=== PATIENT | female | born 2000 | race Caucasian/White ===

== ENCOUNTER 2022-10-17 13:26 | Emergency (ER) | payer OTHER, SELFPAY ==
[2022-10-17 13:31] VITALS: BP 115/78; PULSE 78; RESP 16; O2SAT 99; BMI 31.0
--- NOTE | 2022-10-17 13:45 | PC.NURSE ---
Pt states took multiple at home tests and states the lines were to light to tell if she was actually or not. Pt states she wants tested to see if she is . Pt states no bleeding or cramping. No other symoptoms states if she is it is early as LMP was around September 14 or a little after.
--- NOTE | 2022-10-17 13:48 | ED.FEMALEGU1 ---
HPI - Female Genitourinary General Chief complaint: Urogenital-Female Stated complaint: ISSUES LESS THAN 20 WEEKS Time Seen by Provider: 10/17/22 13:44 Source: patient Mode of arrival: walk-in Limitations: no limitations History of Present Illness HPI Narrative: Patient presents to emergency department with a complaint of I missed my period patient states she took 2 tests at home and [id number] lines so she wanted to come here to confirm. She states she is not trying to get . She is sexually active and does not wear condoms. She states she is not having any other symptoms. She denies any abdominal pain, vaginal bleeding, discharge. She denies any flank pain, hematuria, dysuria. Last menstrual period was September 14 she states she is 6 days late.She does not have a primary care doctor or JIGGER OPERATOR. Related Data Home Medications Medication Instructions Recorded Confirmed No Known Home Medications 10/17/22 10/17/22 Allergies Allergy/AdvReac Type Severity Reaction Status Date / Time No Known Drug Allergies Allergy Verified 10/17/22 13:36 Review of Systems ROS Status of ROS 10 or more systems reviewed and unremarkable except as noted in history and below [facility] Social History Smoking status: Current every day smoker Exam Narrative Exam Narrative: Nurses notes and vital signs reviewed and patient is not hypoxic. General: Nontoxic, Well-appearing and in no apparent distress. Skin: Warm, dry, no pallor noted. No Rash Head: Normocephalic, atraumatic. Neck: Supple, non-tender. Eye: Pupils are equal, round and EOMI. No scleral icterus. Ears, Nose, Mouth, and Throat: TM clear, no posterior oropharynx erythema or nasal mucosal hypertrophy, uvula is mid-line Oral mucosa is moist Cardiovascular: Regular Rate and Rhythm without murmur, gallop or rub. Respiratory: No accessory muscle use or respiratory distress. Lungs are clear to auscultation, no wheezing, rales or rhonchi Chest Wall: no tenderness Back: No midline thoracic or lumbar vertebral tenderness. No CVA tenderness Musculoskeletal: normal ROM, no calf or popliteal tenderness, no lower extremity edema/swelling GI: Abdomen is soft, non-distended. Normal bowel sounds. No masses appreciated. No tenderness to palpation. No rebound, guarding, or rigidity noted. Neurological: A&O x4. No cranial nerve dysfunction observed. No truncal ataxia. Moves all extremities. Sensation intact. Psychiatric: Cooperative and interactive. Normal mood and affect. Constitutional Vital Signs - 24 hr 10/17/22 13:31 Pulse Rate [Monitor] 78 Respiratory Rate 16 Blood Pressure [Right Arm] 115/78 Pulse Oximetry 99 Oxygen Delivery Method Room Air Course Vital Signs Vital signs: Vital Signs Pulse Rate 78 10/17/22 13:31 Respiratory Rate 16 10/17/22 13:31 Blood Pressure 115/78 10/17/22 13:31 Pulse Oximetry 99 10/17/22 13:31 Oxygen Delivery Method Room Air 10/17/22 13:31 Pulse Rate 78 10/17/22 13:31 Respiratory Rate 16 10/17/22 13:31 Blood Pressure 115/78 10/17/22 13:31 Pulse Oximetry 99 10/17/22 13:31 Oxygen Delivery Method Room Air 10/17/22 13:31 MDM - Female Genitourinary MDM Narrative Medical decision making narrative: Patient had a urinalysis done. Urine is negative. Patient is nontoxic. She'll follow up with primary care doctor and JIGGER OPERATOR. At this time the patient is without objective evidence of an acute process requiring hospitalization or inpatient management. The patient has remained hemodynamically stable. No additional indication for emergent studies at this time. I answered all questions. Discussed discharge instructions including standard anticipatory guidance and what should prompt a return to the emergency department, including if they get worse are not getting better or develops any new or concerning symptoms. I've given them specific time frame in which to follow-up, and who to follow-up with. The patient demonstrates understanding. Patient is nontoxic and stable for discharge with outpatient follow-up. This note was created with the assistance of a speech recognition program. Although the intention is to generate documents that actually reflects the content of the visit, no guarantees can be provided that every mistake has been identified and corrected by editing. Differential Diagnosis Differential diagnosis: Likely urinary tract infection Lab Data Attestation: I reviewed the patient's lab results. Labs: Lab Results 10/17/22 Range/Units 14:00 Urine Color Yellow (YELLOW) Urine Clarity Clear (CLEAR) Urine pH 6.0 (5.0-9.0) Ur Specific [place] >=1.030 A (1.005-1.025) Urine Protein Negative (NEG/TRACE) mg/dL Urine Glucose (UA) Negative (NEGATIVE) mg/dL Urine Ketones 15 A (NEGATIVE) mg/dL Urine Occult Blood Negative (NEGATIVE) Urine Nitrite Negative (NEGATIVE) Urine Bilirubin Negative (NEGATIVE) Urine Urobilinogen 1.0 (0.2-1.0) EU/dL Ur Leukocyte Esterase Negative (NEGATIVE) Urine HCG, Qual Negative (NEGATIVE) Discharge Plan Discharge Chief Complaint: Urogenital-Female Clinical Impression: Amenorrhea Patient Disposition: Home, Self-Care Time of Disposition Decision: 14:22 Condition: Good Mode of Transportation: Private Vehicle Prescriptions / Home Meds: No Action No Known Home Medications Additional Instructions: Follow-up with primary care doctor with any consequences as discussed. Stand Alone Forms: Portal Instructions Referrals: KAVIN VAZ MD [Physician] - 1 week Physician,Non-StaffMD [Primary Care Provider] - 1 week Discharge Date/Time: 10/17/22 14:30
[2022-10-17 14:09] LABS: Bilirubin Urine NEGATIVE (NEGATIVE); Blood Urine NEGATIVE (NEGATIVE); Clarity Urine CLEAR (CLEAR); Color Urine YELLOW (YELLOW); Glucose Urine UA NEGATIVE (NEGATIVE); Ketones Urine 15 mg/dL (NEGATIVE); Leukocyte Esterase Urine NEGATIVE (NEGATIVE); Nitrite Urine NEGATIVE (NEGATIVE); Protein Urine NEGATIVE (NEG/TRACE); Specific Gravity Urine >=1.030 (1.005-1.025)
[2022-10-17 14:12] LABS: HCG Qualitative Urine* NEGATIVE (NEGATIVE)
[2022-10-17 14:19] LABS: Urine Microscopic Indicated NO
== END 2022-10-17 14:30 | disposition home or self-care (01) ==
PROVIDERS: Emergency Provider Emergency Medicine
DX: N91.2 Amenorrhea, unspecified (principal)
CPT/HCPCS: 81003; 84703; 99284

== ENCOUNTER 2023-10-25 18:22 | Emergency (ER) | payer OTHER, SELFPAY ==
[2023-10-25 18:33] VITALS: BP 161/94; PULSE 100; TEMP 37; O2SAT 99; BMI 29.2
[2023-10-25 19:37] VITALS: O2SAT 93
[2023-10-25 19:39] VITALS: BP 123/91; PULSE 114
--- NOTE | 2023-10-25 19:39 | ECG_ITS ---
[facility] Test Date: 2023-10-25 Pat Name: JESSIE GONG Department: Room: - Gender: Female [employer]: : 2000 Requested By: SOCORRO SHRESTHA Order Number: [id number] Reading MD: LINDA BROWN Measurements Intervals [place] Rate: 118 P: 69 [place]: 162 QRS: 78 QRSD: 82 T: 12 QT: 298 QTc: 368 Interpretive Statements 1120 Sinus tachycardia 4068 Nonspecific [place] abnormality 9140 abnormal rhythm ECG No previous ECG available for comparison Electronically Signed On 10-27-2023 8:03:22 EDT by LINDA BROWN
--- NOTE | 2023-10-25 19:58 | ED_ITS ---
HPI HPI - General Adult General Chief complaint: Headache Stated complaint: Fever Time Seen by Provider: 10/25/23 19:42 Source: patient and family Mode of arrival: walk-in Limitations: no limitations History of Present Illness HPI narrative: presents complaining of headache 3 days ago and tremor of her right leg. Was seen at [facility] and neg. workup. Today headache again along with flushing of her neck and face. Legs with tremor that worsens when she stands. [place] dizzy and felt confused. again has a headache. No fever. Seen at [facility] today and workup neg and discharged. States she is no better and now she is here with same symptoms. Denies any stress or anxiety. States she is not taking any medications Related Data Home Medications ?Medication ?Instructions ?Recorded ?Confirmed No Known Home Medications 10/17/22 10/25/23 Allergies Allergy/AdvReac Type Severity Reaction Status Date / Time No Known Drug Allergies Allergy Verified 10/25/23 18:33 Opioid HPI Opioid Management Most Recent Opioid Data: No Data to Display Review of Systems ROS Status of ROS 10 or more systems reviewed and unremark able except as noted in history and below PFSH PFSH Social History Smoking status: Current every day smoker Exam Constitutional Vital Signs, click to edit/add: Last Vital Signs Temp 98.6 F 10/25/23 18:33 Pulse 114 H 10/25/23 19:39 Resp 20 10/25/23 19:39 BP 107/77 10/25/23 20:30 Pulse Ox 93 L 10/25/23 19:37 O2 Del Method Room Air 10/25/23 18:33 Common normals: no apparent distress, average body habitus, oriented x3, no limitations, healthy appearing, alert and well nourished Eye Common normals: PERRL and EOMs intact bilaterally Respiratory Common normals: normal respiratory effort, no retractions, no use of accessory muscles and clear to auscultation bilaterally Cardio Common normals: regular rate, regular rhythm, S1 normal heart sound and S2 normal heart sound GI Common normals: Normal to inspection, nondistended, normoactive bowel sounds present, soft to palpation and non-tender Extremity Common normals: normal to inspection and full ROM Neuro Common normals: oriented x3, CN's II-XII intact bilaterally, moves all extremities, no focal motor deficits (muscle contractions minor (fasciculation) right thigh) and no sensory deficits noted Psych Appearance: grossly normal Course Vital Signs Vital signs: Vital Signs Temperature 98.6 F 10/25/23 18:33 Pulse Rate 100 H 10/25/23 18:33 Respiratory Rate 16 10/25/23 18:33 Blood Pressure 161/94 H 10/25/23 18:33 Pulse Oximetry 99 10/25/23 18:33 Oxygen Delivery Method Room Air 10/25/23 18:33 Temperature 98.6 F 10/25/23 18:33 Pulse Rate 114 H 10/25/23 19:39 Respiratory Rate 20 10/25/23 19:39 Blood Pressure 107/77 10/25/23 20:30 Pulse Oximetry 93 L 10/25/23 19:37 Oxygen Delivery Method Room Air 10/25/23 18:33 Medical Decision Making MDM Narrative Medical decision making narrative: patient presents with atypical symptoms of muscle fasciculations right lower ext, headache and feeling confused. Does use marijuana but states she has not used in a week. Urine drug screen earlier today from [facility] positive for THC. labs here with mild elevation of WBC, nonspecific elevated Plt count , mild elevation of ESR and potassium of 3.4. Patient treated with solumedrol and benadryl for headache and it resolved. Was ordered Magnesium but did not receive as she complained of burning at the IV site and had it d/sylvia. I did review her records from [facility] including normal CT brain and CT abdomen with constipation she is discharged and advised to use magnesium at home as it can help the muscle tremors if they return as they have now resolved. Discharged to follow up with her doctor next week. B-6 level ordered and pending Lab Data Labs: Lab Results 10/25/23 Range/Units 20:21 WBC 13.9 H (4.0-11.0) 10^3/uL RBC 4.21 (4.20-5.40) 10^6/uL Hgb 11.8 L (12.0-16.0) g/dL Hct 36.2 (36.0-48.0) % MCV 86.0 (81.0-99.0) fL MCH 28.0 (26.7-34.0) pg MCHC 32.6 (29.9-35.2) g/dL RDW 15.4 H (11.0-15.0) % Plt Count 475 H (150-450) 10^3/uL MPV 8.8 L (9.5-13.5) fL Neut % (Auto) 63.0 (43.0-75.0) % Lymph % (Auto) 28.2 (20.5-60.0) % [place] % (Auto) 7.7 (1.7-12.0) % Eos % (Auto) 0.3 L (0.9-7.0) % Baso % (Auto) 0.4 (0.2-2.0) % Neut # (Auto) 8.8 H (1.4-6.5) 10^3/uL Lymph # (Auto) 3.9 H (1.2-3.8) 10^3/uL [place] # (Auto) 1.1 H (0.3-0.8) 10^3/uL Eos # (Auto) 0.0 (0.0-0.7) 10^3/uL Baso # (Auto) 0.1 (0.0-0.1) 10^3/uL Abs Immat Gran (auto) 0.05 H (0.00-0.03) 10^3/uL Imm/Tot Granulo (auto) 0.4 (0.0-0.5) % ESR 57 H (<=20) mm/hr Sodium 138 (136-145) mmol/L Potassium 3.4 L (3.5-5.1) mmol/L Chloride 101 (98-107) mmol/L Carbon Dioxide 24.2 (21.0-32.0) mmol/L Anion Gap 16.2 BUN 6.0 L (7.0-18.0) mg/dL Creatinine 0.69 (0.55-1.02) mg/dL Est GFR ( Amer) >60 (>=60) Est GFR (Non-Af Amer) >60 (>=60) BUN/Creatinine Ratio 8.7 Glucose 97 (74-106) mg/dL Calcium 9.0 (8.5-10.1) mg/dL Total Bilirubin 0.4 (0.2-1.0) mg/dL AST 15 (15-37) U/L ALT 22 (14-59) U/L Alkaline Phosphatase 42 L (46-116) U/L C-Reactive Protein <0.50 (<=0.50) mg/dL Total Protein 8.1 (6.4-8.2) g/dL Albumin 3.8 (3.4-5.0) g/dL Globulin 4.3 g/dL Albumin/Globulin Ratio 0.9 Vitamin B12 968.0 (193.0-986.0) pg/mL TSH 1.134 (0.358-3.740) uIU/mL Free T4 0.90 (0.76-1.46) ng/dL Discharge Plan Discharge Stand Alone Forms: Portal Instructions Chief Complaint: Headache Clinical Impression: Headache, Fasciculation of lower extremity Patient Disposition: Home, Self-Care Prescriptions / Home Meds: No Action No Known Home Medications Print Language: Thai Instructions: Acute Headache (ED), Tremors (ED) Additional Instructions: use magnesium as discussed and follow up with your doctor next week Referrals: SOCORRO SHRESTHA [Primary Care Provider] - 1 week
[2023-10-25 20:00] VITALS: BP 114/87
[2023-10-25 20:30] VITALS: BP 107/77
[2023-10-25 20:32] LABS: Basophils Absolute Auto 0.1 10^3/uL (0.0-0.1); Basophils Percent Auto 0.4 % (0.2-2.0); Eosinophils Percent Auto 0.3 % (0.9-7.0); Hematocrit 36.2 % (36.0-48.0); Hemoglobin 11.8 g/dL (12.0-16.0); Immature Granulocytes Abs Auto 0.05 10^3/uL (0.00-0.03); Immature Granulocytes Pct Auto 0.4 % (0.0-0.5); Lymphocytes Absolute Auto 3.9 10^3/uL (1.2-3.8); Lymphocytes Percent Auto 28.2 % (20.5-60.0); Mean Corpuscular HGB Conc 32.6 g/dL (29.9-35.2); Mean Platelet Volume 8.8 fL (9.5-13.5); Monocytes Absolute Auto 1.1 10^3/uL (0.3-0.8); Monocytes Percent Auto 7.7 % (1.7-12.0); Neutrophils Absolute Auto 8.8 10^3/uL (1.4-6.5); Platelet Count 475 10^3/uL (150-450); Red Blood Count 4.21 10^6/uL (4.20-5.40); Red Cell Distribution Width 15.4 % (11.0-15.0); White Blood Count 13.9 10^3/uL (4.0-11.0)
[2023-10-25] MEDS: ONDANSETRON PF 4 MG/2 ML VIAL IV (20:41)
[2023-10-25] MEDS: DIPHENHYDRAMINE HCL 50 MG/ML VIAL IV (20:42)
[2023-10-25] MEDS: METHYLPREDNISOLONE SOD SUCC PF 125 MG/2 ML VIAL IVP (20:45)
[2023-10-25] MEDS: MAGNESIUM SULFATE IN WATER 2 GM/50 ML PREMIX IV (20:46)
[2023-10-25 20:57] LABS: Thyroid Stimulating Hormone 1.134 uIU/mL (0.358-3.740)
[2023-10-25 21:09] LABS: Erythrocyte Sedimentation Rate 57 mm/hr (<=20)
[2023-10-25 21:11] LABS: Alanine Aminotransferase 22 U/L (14-59); Albumin Globulin Ratio 0.9; Albumin Level 3.8 g/dL (3.4-5.0); Alkaline Phosphatase 42 U/L (46-116); Anion Gap 16.2; Aspartate Amino Transferase 15 U/L (15-37); BUN Creatinine Ratio 8.7; Bilirubin Total 0.4 mg/dL (0.2-1.0); Carbon Dioxide 24.2 mmol/L (21.0-32.0); Chloride 101 mmol/L (98-107); Estimated GFR (African America >60 (>=60); Estimated GFR (Non-African Ame >60 (>=60); Globulin 4.3 g/dL; Glucose 97 mg/dL (74-106); Potassium 3.4 mmol/L (3.5-5.1); Sodium 138 mmol/L (136-145); Total Protein 8.1 g/dL (6.4-8.2)
[2023-10-25 21:16] LABS: C Reactive Protein <0.50 mg/dL (<=0.50)
== END 2023-10-25 22:29 | disposition home or self-care (01) ==
PROVIDERS: Emergency Provider Internal Medicine; PCP Nurse Practitioner Family
DX: R51.9 Headache, unspecified (principal); R25.3 Fasciculation; F12.90 Cannabis use, unspecified, uncomplicated; F17.200 Nicotine dependence, unspecified, uncomplicated
CPT/HCPCS: 36415; 80053; 80307; 82607; 84207; 84439; 84443; 85025; 85652; 86140; 93005; 96365; 96375; 99284; J1200; J2405; J2919; J3475

== ENCOUNTER 2023-11-05 14:26 | Outpatient (OUT) | payer OTHER, SELFPAY ==
[2023-11-05 15:00] LABS: Basophils Absolute Auto 0.1 10^3/uL (0.0-0.1); Basophils Percent Auto 0.5 % (0.2-2.0); Eosinophils Absolute Auto 0.1 10^3/uL (0.0-0.7); Eosinophils Percent Auto 0.5 % (0.9-7.0); Hematocrit 38.6 % (36.0-48.0); Hemoglobin 12.1 g/dL (12.0-16.0); Immature Granulocytes Abs Auto 0.01 10^3/uL (0.00-0.03); Immature Granulocytes Pct Auto 0.1 % (0.0-0.5); Lymphocytes Absolute Auto 3.5 10^3/uL (1.2-3.8); Lymphocytes Percent Auto 32.7 % (20.5-60.0); Mean Corpuscular HGB Conc 31.3 g/dL (29.9-35.2); Mean Corpuscular Hemoglobin 27.8 pg (26.7-34.0); Mean Corpuscular Volume 88.7 fL (81.0-99.0); Mean Platelet Volume 8.8 fL (9.5-13.5); Monocytes Absolute Auto 0.6 10^3/uL (0.3-0.8); Monocytes Percent Auto 5.6 % (1.7-12.0); Neutrophils Absolute Auto 6.5 10^3/uL (1.4-6.5); Neutrophils Percent Auto 60.6 % (43.0-75.0); Platelet Count 536 10^3/uL (150-450); Red Blood Count 4.35 10^6/uL (4.20-5.40); Red Cell Distribution Width 15.4 % (11.0-15.0); White Blood Count 10.6 10^3/uL (4.0-11.0)
[2023-11-05 15:31] LABS: Alanine Aminotransferase 31 U/L (14-59); Albumin Globulin Ratio 0.9; Albumin Level 4.1 g/dL (3.4-5.0); Alkaline Phosphatase 47 U/L (46-116); Anion Gap 13.9; Aspartate Amino Transferase 17 U/L (15-37); BUN Creatinine Ratio 4.2; Bilirubin Total 0.3 mg/dL (0.2-1.0); C Reactive Protein <0.50 mg/dL (<=0.50); Calcium 9.2 mg/dL (8.5-10.1); Carbon Dioxide 28.8 mmol/L (21.0-32.0); Chloride 101 mmol/L (98-107); Estimated GFR (African America >60 (>=60); Estimated GFR (Non-African Ame >60 (>=60); Globulin 4.8 g/dL; Glucose 85 mg/dL (74-106); Potassium 3.7 mmol/L (3.5-5.1); Sodium 140 mmol/L (136-145); Total Protein 8.9 g/dL (6.4-8.2); Uric Acid 4.5 mg/dL (2.6-6.0)
[2023-11-06 08:12] LABS: Antistreptolysin O Ab 954.2 IU/mL (0.0-200.0); Rheumatoid Factor (RF) <10.0 IU/mL (<14.0)
== END 2023-11-05 14:27 | disposition home or self-care (01) ==
LOC: LAB 14:27
PROVIDERS: PCP Nurse Practitioner Family; Visit Provider Nurse Practitioner Family
DX: D72.829 Elevated white blood cell count, unspecified (principal)
CPT/HCPCS: 36415; 80053; 82533; 84550; 85025; 86038; 86060; 86140; 86431

== ENCOUNTER 2023-11-26 07:20 | Outpatient (RCR) | payer OTHER, SELFPAY ==
[2023-11-26 11:22] LABS: Basophils Absolute Auto 0.1 10^3/uL (0.0-0.1); Basophils Percent Auto 0.6 % (0.2-2.0); Eosinophils Absolute Auto 0.2 10^3/uL (0.0-0.7); Hematocrit 39.3 % (36.0-48.0); Hemoglobin 12.8 g/dL (12.0-16.0); Immature Granulocytes Abs Auto 0.02 10^3/uL (0.00-0.03); Immature Granulocytes Pct Auto 0.2 % (0.0-0.5); Lymphocytes Absolute Auto 3.4 10^3/uL (1.2-3.8); Lymphocytes Percent Auto 34.9 % (20.5-60.0); Mean Corpuscular HGB Conc 32.6 g/dL (29.9-35.2); Mean Corpuscular Hemoglobin 29.4 pg (26.7-34.0); Mean Corpuscular Volume 90.1 fL (81.0-99.0); Mean Platelet Volume 8.8 fL (9.5-13.5); Monocytes Absolute Auto 0.7 10^3/uL (0.3-0.8); Monocytes Percent Auto 7.2 % (1.7-12.0); Neutrophils Absolute Auto 5.4 10^3/uL (1.4-6.5); Neutrophils Percent Auto 55.1 % (43.0-75.0); Platelet Count 472 10^3/uL (150-450); Red Blood Count 4.36 10^6/uL (4.20-5.40); Red Cell Distribution Width 15.6 % (11.0-15.0); White Blood Count 9.8 10^3/uL (4.0-11.0)
[2023-11-26 11:26] LABS: Reticulocyte Pct Auto 1.39 % (0.60-3.10)
[2023-11-26 11:38] LABS: Erythrocyte Sedimentation Rate 70 mm/hr (<=20)
[2023-11-26 11:46] LABS: Alanine Aminotransferase 36 U/L (14-59); Albumin Globulin Ratio 0.9; Alkaline Phosphatase 47 U/L (46-116); Anion Gap 12.6; Aspartate Amino Transferase 18 U/L (15-37); BUN Creatinine Ratio 7.5; Bilirubin Total 0.3 mg/dL (0.2-1.0); Chloride 101 mmol/L (98-107); Estimated GFR (African America >60 (>=60); Estimated GFR (Non-African Ame >60 (>=60); Globulin 4.5 g/dL; Glucose 82 mg/dL (74-106); Potassium 3.6 mmol/L (3.5-5.1); Sodium 136 mmol/L (136-145); Total Protein 8.5 g/dL (6.4-8.2)
[2023-11-26 11:59] LABS: Percent Iron Saturation 6.8 %
[2023-11-26 12:02] LABS: C Reactive Protein <0.50 mg/dL (<=0.50)
== END 2023-12-04 23:59 | disposition home or self-care (01) ==
LOC: HEMC 07:20
PROVIDERS: PCP Nurse Practitioner Family; Visit Provider Internal Medicine Hematology & Oncology
DX: D75.839 Thrombocytosis, unspecified (principal); D72.829 Elevated white blood cell count, unspecified; D50.9 Iron deficiency anemia, unspecified; K90.9 Intestinal malabsorption, unspecified
CPT/HCPCS: 36415; 80053; 82306; 82607; 82728; 82746; 83540; 83550; 85025; 85045; 85652; 86140; G0463

== ENCOUNTER 2023-12-23 07:37 | Outpatient (RCR) | payer OTHER, SELFPAY ==
[2023-12-23 11:25] VITALS: BP 125/85; PULSE 78; TEMP 36.8; O2SAT 100
--- NOTE | 2023-12-23 11:27 | PC.NURSE ---
1100 Arrival ambulatory to chair 1. alert oriented. Procedure for infusion explained, patient verbalizes understanding 1110 IV initiated see documentation. 1120 meal ordered.
[2023-12-23] MEDS: ACETAMINOPHEN 500 MG TABLET 1000 MG PO (11:29)
[2023-12-23] MEDS: diphenhydrAMINE HCL 25 MG, HYDROCORTISONE SODIUM SUCC/PF 100 MG in 0.9 % SODIUM CHLORID... 301.5 MG IV (11:29)
[2023-12-23] MEDS: IRON DEXTRAN COMPLEX 100 MG/2 ML VIAL 25 MG IVP (11:56)
--- NOTE | 2023-12-23 11:59 | PC.NURSE ---
1157 pre meds completed. Test dose given IVP, explained to notfiy staff for any itching shortness of breath chest pain etc. verbalizes understanding
[2023-12-23] MEDS: SODIUM CHLORIDE 0.9% IV (13:13)
[2023-12-23] MEDS: IRON DEXTRAN COMPLEX IV (13:13)
[2023-12-23] MEDS: 0.9 % SODIUM CHLORIDE 250 ML 30 ML IV (13:19)
[2023-12-23 13:20] VITALS: BP 105/68; PULSE 71; TEMP 36.8; O2SAT 100
--- NOTE | 2023-12-23 13:21 | PC.NURSE ---
1300 tolerated test dose without any s/s of reaction. 1310 up to restroom. 1320 IV iron infusion initiated, instructed on s/s of reaction verbalize understanding. vs obtained.
--- NOTE | 2023-12-23 16:06 | PC.NURSE ---
1400 tolerating infusion without any s/s of reaction. 1500 resting quitely reclined postion on let side. 1600 infusion completed, line flushed with normal saline. IV dc'd, bella and coban applied. 1605 released ambulatory.
== END 2024-01-04 23:59 | disposition home or self-care (01) ==
LOC: HEMC 07:37
PROVIDERS: PCP Nurse Practitioner Family; Visit Provider Internal Medicine Hematology & Oncology
DX: D75.839 Thrombocytosis, unspecified (principal); D72.829 Elevated white blood cell count, unspecified; D50.9 Iron deficiency anemia, unspecified; K90.9 Intestinal malabsorption, unspecified
CPT/HCPCS: 96365; 96366; 96367; 96376; G0463; J1200; J1720; J1750

== ENCOUNTER 2024-02-04 09:34 | Outpatient (OUT) | payer OTHER, SELFPAY ==
--- OUTSIDE RECORDS SUMMARY | 2024-02-04 09:58 | XMS_ITS | CCD ---
Author Organization [facility] Care Team Providers Care Tail Puller Name Role Phone PAY, BOONE Admitting Unavailable PAY, BOONE Attending Unavailable MISC, DOCTOR Primary Care Unavailable PAY, BOONE Consulting Unavailable [facility] [place] Primary Care Provider PATTI [facility]quez [facility] Provider [phone] DO Angelica Licona Emergency Provider PATTI Lawler [facility] Primary [facility] Provider [phone] PATTI Velazquez Emergency Provider DO Ramiro Schaefer Emergency Provider JOANNA Shrestha Primary Care Provider DO Abrahan Lew Emergency Provider [phone] Viktoriya Lawler Attending Unavailable Viktoriya Lawler Admitting Unavailable [facility] [place] lilia Stone Primary Care Unavailable Ramiro Schaefer Attending Unavailable Ramiro Schaefer Admitting Unavailable Bianca Shrestha Primary Care Unavailable [facility] [place] Stone Primary Care Unavailable Venkat Velazquez Attending Unavailable Venkat Velazquez Admitting Unavailable Abrahan Lew Admitting Unavailable Bianca Shrestha Primary Care Unavailable Abrahan Lew Attending Unavailable Bianca Shrestha CNP Primary Care Provider ELIUD MCNULTY Attending Unavailable KAMLESH SAAB Admitting Unavailable BIANCA SHRESTHA Primary Care Unavailable Medications Current Medications Medication Drug Class(es) Dates Sig (Normalized) Sig (Original) acetaminophen 500 mg oral tablet (1 source) Start: 10-29-2023 take 500-1000 mg by mouth every six hours as needed acetaminophen (TYLENOL EXTRA STRENGTH) 500 mg tablet Take 1-2 tablets by mouth every 6 hours as needed for pain. 10/29/2023 Active aluminum hydroxide 40 mg/ml / magnesium hydroxide 40 mg/ml / simethicone 4 mg/ml oral suspension (1 source) Start: 10-29-2023 take 30 mL by mouth every six hours as needed aluminum-magnesium hydroxide-simethicon e 200-200-20 mg/5 mL suspension Take 30 mL by mouth every 6 hours as needed (GI upset). 10/29/2023 Active calcium carbonate 500 mg chewable tablet (1 source) Start: 10-29-2023 take 1000 mg by mouth every eight hours as needed calcium carbonate (TUMS) 500 mg chew Take 2 tablets by mouth three times a day as needed. 10/29/2023 Active ergocalciferol 1.25 mg oral capsule (1 source) Provitamin D2 Compound Start: 10-29-2023 take 1 capsule by mouth every week ergocalciferol 50,000 unit capsule (VITAMIN D2, DRISDOL) Take 1 capsule by mouth one time a week. 4 capsule 10/29/2023 Active [employer] (No Known Home Meds) (4 sources) Start: 12-12-2022 [employer] (No Known Home Meds) Active December 12, 2022 12:00am ondansetron 4 mg disintegrating oral tablet (6 sources) Serotonin-3 Receptor Antagonist Start: 10-29-2023 take 1 tablet by mouth every six hours as needed ondansetron orally disintegrating (ZOFRAN ODT) 4 mg disintegrating tablet Take 1 tablet by mouth every 6 hours as needed for nausea/vomiting. 20 tablet 10/29/2023 Active Start: 11-02-2018 End: 12-27-2018 take 4 mg by mouth every eight hours Ondansetron Discontinued 4 MG PO Q8H November 02, 2018 12:00am December 27, 2018 9:50am pantoprazole 20 mg delayed release oral tablet (1 source) Proton Pump Inhibitor Start: 10-29-2023 take 1 tablet by mouth once daily before breakfast pantoprazole DR (PROTONIX) 20 mg tablet Indications: Gastroesophageal reflux disease, unspecified whether esophagitis present Take 1 tablet by mouth daily before breakfast. 30 tablet 10/29/2023 Active Completed/Discontinued Medications Medication Drug Class(es) Dates Sig (Normalized) Sig (Original) amoxicillin 500 mg oral capsule (5 sources) Penicillin-class Antibacterial Start: 12-27-2018 End: 03-08-2019 take 500 mg by mouth three times daily Amoxicillin Discontinued 500 MG PO Three times daily December 27, 2018 12:00am March 08, 2019 12:53pm benzonatate 200 mg oral capsule (5 sources) Non-narcotic Antitussive Start: 07-20-2020 End: 03-30-2022 take 200 mg by mouth three times daily Benzonatate Discontinued 200 MG PO Three times daily July 20, 2020 12:00am March 30, 2022 3:37pm fluticasone propionate 0.05 mg/actuat metered dose nasal spray (5 sources) Corticosteroid Start: 01-04-2020 End: 03-23-2020 take 1 spray(s) nasal route once daily Fluticasone Propionate (Flonase Allergy Relief) 50 mcg/actuation spray,suspension Discontinued 1 SPRAY INTRANASAL Daily 15.8 January 04, 2020 12:00am March 23, 2020 5:45pm administer into each nostril ibuprofen 800 mg oral tablet (10 sources) Nonsteroidal Anti-inflammatory Drug Start: 03-30-2022 End: 12-12-2022 take 800 mg by mouth three times daily Ibuprofen Discontinued 800 MG PO Three times daily 14 March 30, 2022 5:14pm December 12, 2022 3:28pm Start: 08-01-2017 End: 01-29-2018 take 600 mg by mouth every eight hours Ibuprofen Discontinued 600 MG PO Q8H August 01, 2017 12:00am January 29, 2018 9:39pm ofloxacin 3 mg/ml otic solution (5 sources) Quinolone Antimicrobial Start: 03-23-2020 End: 05-20-2020 Ofloxacin Discontinued 5 DROPS EAR-RIGHT Twice daily March 23, 2020 1:00am May 20, 2020 11:00pm predniSONE 50 mg oral tablet (5 sources) Start: 07-20-2020 End: 03-30-2022 take 50 mg by mouth once daily at mealtime Prednisone Discontinued 50 MG PO Daily 09 07July 20, 2020 12:00am March 30, 2022 3:37pm administer with food or milk Problems Active Problems Problem Classification Problem Date Documented Da te Episodic/Chronic Abdominal pain (8 sources) Abdominal pain; Translations: [Unspecified abdominal pain] Onset: 07-21-2023 05-21-2020 Episodic Digestive congenital anomalies (7 sources) Congenital malrotation of intestine; 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] Onset: 10-27-2023 05-21-2020 Chronic Diseases of white blood cells (7 sources) Leukocytosis; Translations: [Elevated white blood cell count, unspecified] Onset: 10-28-2023 05-21-2020 Chronic Esophageal disorders (1 source) Gastro-esophageal reflux disease without esophagitis; Translations: [Gastroesophageal reflux disease, unspecified whether esophagitis present] Onset: 10-27-2023 Chronic Fluid and electrolyte disorders (5 sources) Dehydration; Translations: [Dehydration] 11-02-2018 Episodic Lymphadenitis (5 sources) Inguinal lymphadenopathy; Translations: [Localized enlarged lymph nodes] 08-01-2017 Episodic Malaise and fatigue (3 sources) Asthenia; Translations: [Weakness] 10-23-2023 Episodic Menstrual disorders (3 sources) Menstrual cramp; Translations: [Dysmenorrhea, unspecified] 07-21-2023 Chronic Nausea and vomiting (8 sources) Nausea and vomiting; Translations: [Nausea with vomiting, unspecified] Onset: 12-12-2022 Resolved: 10-29-2023 11-02-2018 Episodic Nutritional deficiencies (1 source) Undernutrition; Translations: [Mild protein-calorie malnutrition] Onset: 10-29-2023 10-29-2023 Chronic Other congenital anomalies (6 sources) Accessory spleen; 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] Onset: 10-28-2023 12-25-2018 Chronic Other congenital anomalies (1 source) Congenital malformations of spleen; Translations: [Polysplenia] Onset: 10-28-2023 Chronic Other ear and sense organ disorders (5 sources) Pain of ear structure; Translations: [Otalgia, unspecified ear] 03-23-2020 Episodic Other female genital disorders (5 sources) Vaginal bleeding; Translations: [Abnormal uterine and vaginal bleeding, unspecified] 03-30-2022 Chronic Other gastrointestinal disorders (2 sources) Constipation; Translations: [Constipation, unspecified] Onset: 10-28-2023 10-25-2023 Episodic Other gastrointestinal disorders (1 source) Diarrhea, unspecified; Translations: [Nausea vomiting and diarrhea] Onset: 10-27-2023 Episodic Other upper respiratory infections (5 sources) Pharyngitis; Translations: [Acute pharyngitis, unspecified] 01-04-2020 Episodic Residual codes; unclassified (5 sources) Other contact with and (suspected) exposures hazardous to health; Translations: [Exposure to respiratory irritant] 07-20-2020 Episodic Past or Other Problems Problem Classification Problem Date Documented Da te Episodic/Chronic Other gastrointestinal disorders (1 source) Diarrhea; Translations: [Diarrhea, unspecified] Onset: 10-28-2023 Resolved: 10-29-2023 10-29-2023 Episodic Results Test Name Value Interpretation Reference Range Facility [facility] 01-17-[address] [facility] Telephone (GASTAV) ----- JESSIE ALVA ([id number]) 2 F Date Time Provider Department 01/17/24 MADHURI SOTO During your visit today, we recorded the following information about you: Vera Mcgee OCCA 01/17/2024 1:52 PM Signed Called and LVM for pt regarding today's 1:40 pm appointment, Informed pt to please call [phone] to receive assistance with rescheduling if needed. DANAE Dey January 17, 2024 1:52 PM Allergies As of Date: 01/17/2024 (No Known Allergies) Date Reviewed: 10/28/2023 Reviewed by: Tarsha Salinas, SHANAE - Fully Assessed Reason for Visit: Appointment [186] Prescriptions as of 01/17/2024 - calcium carbonate (TUMS) 500 mg chew Take 2 tablets by mouth three times a day as needed. - ondansetron orally disintegrating (ZOFRAN ODT) 4 mg disintegrating tablet Take 1 tablet by mouth every 6 hours as needed for nausea/vomiting. - pantoprazole DR (PROTONIX) 20 mg tablet Take 1 tablet by mouth daily before breakfast. - aluminum-magnesium hydroxide-simethicone 200-200-20 mg/5 mL suspension Take 30 mL by mouth every 6 hours as needed (GI upset). - acetaminophen (TYLENOL EXTRA STRENGTH) 500 mg tablet Take 1-2 tablets by mouth every 6 hours as needed for pain. - ergocalciferol 50,000 unit capsule (VITAMIN D2, DRISDOL) Take 1 capsule by mouth one time a week. Problem List As Of Date 01/17/2024 Noted Resolved Intractable nausea and vomiting [R11.2] 10/28/2023 10/29/2023 Congenital malrotation of intestine [Q43.3] 10/28/2023 Polysplenia [Q89.09] 10/28/2023 Leukocytosis [D72.829] 10/28/2023 Diarrhea [R19.7] 10/28/2023 10/29/2023 Constipation [K59.00] 10/28/2023 Malnutrition of mild degree (HCC) [E44.1] 10/29/2023 Encounter Status:Closed by VERA MCGEE on 01/17/24 Normal [facility] [place] 25(OH)D3 Jorge-ana 2023 25-hydroxyvitamin D3 [Mass/Vol] 29.2 ng/mL Low 31.0-80.0 [facility] [place] Comment on above: Order Comment: Speci men Type: BLOOD SPECIMEN Ordering Facility: [facility] Address: [address] [place] [address] Result Comment: Clas sification of 25 [place] Vitamin D status: Deficiency/Insufficiency: < or = 30 ng/ml. Sufficiency/Optimal Levels: 31-80 ng/mL Toxicity: > 100 ng/mL. Test performed by chemiluminescent immunoassay. Performed By: #### 2 4323-8, 3016-3, 68752-5, 2777-1 #### [facility] CLIA [id number] [address] [place] [address] [place] [address] [place] CBC W Auto Differential pane l (Bld)on 10-29-2023 Basophils (Bld) [#/Vol] 0.06 10*3/uL Normal <0.11 [facility] [place] Comment on above: Order Comment: Speci men Type: BLOOD SPECIMEN Ordering Facility: [facility] Address: [address] [place] [address] Performed By: #### 2 4323-8, 3016-3, 36029-9, 2776-1 #### [facility] CLIA [id number] [address] [place] [address] [place] Basophils/100 WBC (Bld) 0.5 % Normal [facility] [place] Comment on above: Order Comment: Speci men Type: BLOOD SPECIMEN Ordering Facility: [facility] Address: [address] [place] [address] Performed By: #### 2 4323-8, 6-3, , 2776-05 #### [facility] CLIA [id number] [address] [place] [address] [place] Differential cell count method Nom (Bld) Auto Normal [facility] [place] Comment on above: Order Comment: Speci men Type: BLOOD SPECIMEN Ordering Facility: [facility] Address: [address] [place] [address] Performed By: #### 2 4323-8, 3016-3, , 2776- #### [facility] CLIA [id number] [address] [place] [address] [place] Eosinophils (Bld) [#/Vol] 0.19 10*3/uL Normal <0.46 [facility] [place] Comment on above: Order Comment: Speci men Type: BLOOD SPECIMEN Ordering Facility: [facility] Address: [address] [place] [address] Performed By: #### 2 4323-8, 3016-3, 46724-5, 2776-1 #### [facility] CLIA [id number] [address] [id number] [address] [place] Eosinophils/100 WBC (Bld) 1.4 % Normal [facility] [place] Comment on above: Order Comment: Speci men Type: BLOOD SPECIMEN Ordering Facility: [facility] Address: [address] [place] [address] Performed By: #### 2 4323-8, 3016-3, 88860-3, 2776-1 #### [facility] CLIA [id number] [address] [place] [address] [place] Erythrocyte distribution width (RBC) [Ratio] 15.9 % High 11.5-15.0 [facility] [place] Comment on above: Order Comment: Speci men Type: BLOOD SPECIMEN Ordering Facility: [facility] Address: [address] [place] [address] Performed By: #### 2 4323-8, 3016-3, 51465-2, 2776- #### [facility] CLIA [id number] [address] [place] [address] [place] Hematocrit (Bld) [Volume fraction] 36.3 % Normal 36.0-46.0 [facility] [place] Comment on above: Order Comment: Speci men Type: BLOOD SPECIMEN Ordering Facility: [facility] Address: [address] [place] [address] Performed By: #### 2 4323-8, 6-3, 57325-5, 2776-1 #### [facility] CLIA [id number] [address] [place] [address] [place] Hemoglobin (Bld) [Mass/Vol] 11.7 g/dL Normal 11.5-15.5 [facility] [place] Comment on above: Order Comment: Speci men Type: BLOOD SPECIMEN Ordering Facility: [facility] Address: [address] [place] [address] Performed By: #### 2 4323-8, 3016-3, 60103-6, 2776-1 #### [facility] CLIA [id number] [address] [id number] [address] [place] Immature granulocytes (Bld) [#/Vol] 0.04 10*3/uL Normal <0.10 [facility] [place] Comment on above: Order Comment: Speci men Type: BLOOD SPECIMEN Ordering Facility: [facility] Address: [address] [place] [address] Performed By: #### 2 4323-8, 3016-3, 92115-5, 2776-1 #### [facility] CLIA [id number] [address] [place] [address] [place] Immature granulocytes/100 WBC (Bld) 0.3 % Normal [facility] [place] Comment on above: Order Comment: Speci men Type: BLOOD SPECIMEN Ordering Facility: [facility] Address: [address] [place] [address] Performed By: #### 2 4323-8, 3016-3, , 2776-1 #### [facility] CLIA [id number] [address] [place] [address] [place] Lymphocytes (Bld) [#/Vol] 4.08 10*3/uL High 1.00-4.00 [facility] [place] Comment on above: Order Comment: Speci men Type: BLOOD SPECIMEN Ordering Facility: [facility] Address: [address] [place] [address] Performed By: #### 2 4323-8, 3016-3, 92474-0, 2776-1 #### [facility] CLIA [id number] [address] [place] [address] [place] Lymphocytes/100 WBC (Bld) 31.1 % Normal [facility] [place] Comment on above: Order Comment: Speci men Type: BLOOD SPECIMEN Ordering Facility: [facility] Address: [address] [place] [address] Performed By: #### 2 4323-8, 3016-3, 40992-5, 2776-1 #### [facility] CLIA [id number] [address] [place] [address] [place] MCH (RBC) [Entitic mass] 28.3 pg Normal 26.0-34.0 [facility] [place] Comment on above: Order Comment: Speci men Type: BLOOD SPECIMEN Ordering Facility: [facility] Address: [address] [place] [address] Performed By: #### 2 4323-8, 3016-3, 84278-3, 2776- #### [facility] CLIA [id number] [address] [place] [address] [place] MCHC (RBC) [Mass/Vol] 32.2 g/dL Normal 30.5-36.0 [facility] Comment on above: Order Comment: Speci men Type: BLOOD SPECIMEN Ordering Facility: [facility] Address: [address] [place] [address] Performed By: #### 2 4323-8, 3016-3, , 2776-05 #### [facility] CLIA [id number] [address] [place] [address] [place] MCV (RBC) [Entitic vol] 87.7 fL Normal 80.0-100.0 [facility] [place] Comment on above: Order Comment: Speci men Type: BLOOD SPECIMEN Ordering Facility: [facility] Address: [address] [place] [address] Performed By: #### 2 4323-8, 6-3, , 2776-05 #### [facility] CLIA [id number] [address] [place] [address] [place] Monocytes (Bld) [#/Vol] 1.25 10*3/uL High <0.87 [facility] [place] Comment on above: Order Comment: Speci men Type: BLOOD SPECIMEN Ordering Facility: [facility] Address: [address] [place] [address] Performed By: #### 2 4323-8, 3016-3, , 2776- #### [facility] CLIA [id number] [address] [place] [address] [place] Monocytes/100 WBC (Bld) 9.5 % Normal [facility] [place] Comment on above: Order Comment: Speci men Type: BLOOD SPECIMEN Ordering Facility: [facility] Address: [address] [place] [address] Performed By: #### 2 4323-8, 3016-3, 85405-8, 2776-1 #### [facility] CLIA [id number] [address] [place] [address] [place] Neutrophils (Bld) [#/Vol] 7.49 10*3/uL Normal 1.45-7.50 [facility] [place] Comment on above: Order Comment: Speci men Type: BLOOD SPECIMEN Ordering Facility: [facility] Address: [address] [place] [address] Performed By: #### 2 4323-8, 3016-3, , 2776- #### [facility] CLIA [id number] [address] [place] [address] [place] Neutrophils/100 WBC (Bld) 57.2 % Normal [facility] [place] Comment on above: Order Comment: Speci men Type: BLOOD SPECIMEN Ordering Facility: [facility] Address: [address] [place] [address] Performed By: #### 2 4323-8, 3016-3, , 2776-05 #### [facility] CLIA [id number] [address] [place], [place] [address] [place] Nucleated RBC (Bld) [#/Vol] 10*3/uL Normal <0.01 [facility] [place] Comment on above: Order Comment: Speci men Type: BLOOD SPECIMEN Ordering Facility: [facility] Address: [address] [place] [address] Performed By: #### 2 4323-8, 3016-3, 05665-5, 2776-1 #### [facility] CLIA [id number] [address] [place], [place] [address] [place] Nucleated RBC/100 WBC (Bld) [Ratio] 0.0 /100 WBC Normal [facility] [place] Comment on above: Order Comment: Speci men Type: BLOOD SPECIMEN Ordering Facility: [facility] Address: [address] [place] [address] Performed By: #### 2 4323-8, 3016-3, 95580-6, 7-1 #### [facility] CLIA [id number] [address] [place] [address] [place] Platelet mean volume (Bld) [Entitic vol] 9.0 fL Normal 9.0-12.7 [facility] [place] Comment on above: Order Comment: Speci men Type: BLOOD SPECIMEN Ordering Facility: [facility] Address: [address] [place] [address] Performed By: #### 2 4323-8, 3016-3, , 277- #### [facility] CLIA [id number] [address] [place] [address] [place] Platelets (Bld) [#/Vol] 435 10*3/uL High 150-400 [facility] [place] Comment on above: Order Comment: Speci men Type: BLOOD SPECIMEN Ordering Facility: [facility] Address: [address] [place] [address] Performed By: #### 2 4323-8, 3016-3, 62729-5, 2777- #### [facility] CLIA [id number] [address] [place], [place] [address] [place] RBC (Bld) [#/Vol] 4.14 10*6/uL Normal 3.90-5.20 [facility] Comment on above: Order Comment: Speci men Type: BLOOD SPECIMEN Ordering Facility: [facility] Address: [address] [place] [address] Performed By: #### 2 4323-8, 3016-3, 24781-3, 7-1 #### [facility] CLIA [id number] [address] [place], [place] [address] [place] WBC (Bld) [#/Vol] 13.11 10*3/uL High 3.70-11.00 [facility] Comment on above: Order Comment: Speci men Type: BLOOD SPECIMEN Ordering Facility: [facility] Address: [address] [place], [place] [id number] Performed By: #### 2 4323-8, 3016-3, 12482-9, 277- #### [facility] CLIA [id number] [address] [place], [place] [address] [facility] [place] CNDSon 10-29-2023 CNDS HNO ID: [id number] Author: ELIUD MCNULTY MD Service: General Internal Medicine Author Type: Physician Type: Discharge Summary Filed: 10/30/2023 15:40 Note Text: DISCHARGE SUMMARY PATIENT NAME: Jessie Alva ADMISSION DATE: 10/27/2023 DISCHARGE DATE: 10/29/2023 ATTENDING PHYSICIAN: Eliud Mcnulty MD Code Status: Not on file PCP: Bianca Shrestha CNP, CNP Highest Readmission Risk Score: 11 The 30 day readmissions risk score is derived from an internally validated risk model which evaluates patient level characteristics, utilization history, medication orders and lab results up until the day of discharge. Patients with a score of 40 or above are considered highest risk for readmission. Specific patient level drivers will be listed at the bottom of the summary. TRANSITIONS OF CARE CRITICAL ISSUES: SAHA MEDICATION CHANGES: -start PPI -provide RX for PRN bentyl AND zofran LAB MONITORING NEEDED: Not applicable IMAGING FOLLOW-UP: Not applicable LABS AND PROCEDURES PENDING AT DISCHARGE: Yes Test Results Not Yet Available from This Hospitalization: Please Review at Your Follow Up Appointment Order Current Status EXTRA SWAB CONTAINER PERFORMABLE In process HELICOBACTER PYLORI ANTIGEN BY EIA, STOOL In process IRON AND TIBC In process LAB EXTRA TUBES In process VITAMIN D 25 HYDROXY In process BLOOD CULTURE Preliminary result BLOOD CULTURE Preliminary result FOLLOW UP: Future Appointments Date Time Provider Department Center 02/14/2024 1:40 PM Madhuri Soto MD, PhD TRACE[facility] Azul -placed on cancellation list for sooner appointment REASON FOR HOSPITALIZATION: Vomiting, diarrhea, abd pain PRINCIPAL DIAGNOSIS: Suspected viral gastroenteritis SECONDARY DIAGNOSIS: Principal Problem (Resolved): Intractable nausea and vomiting (POA: Yes) Active Problems: Congenital malrotation of intestine (POA: Yes) Polysplenia (POA: Yes) Leukocytosis (POA: Yes) Malnutrition of mild degree (HCC) (POA: Yes) Resolved Problems: Diarrhea (POA: Yes) Malnutrition Diagnosis supported by Registered Dietitian:Mild Protein-Calorie Malnutrition Based on: Insufficient Energy Intake Assessment: I have reviewed the result of the malnutrition assessment and plan and agree Plan: Diet, Supplements, Vitamin/Mineral Supplements, Medications HOSPITAL COURSE: Jessie Alva is a 23 y/o F f congenitial intestinal malrotation, polysplenia, 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 10/26 [facility] ED for second opinion on nausea, vomiting, diarrhea and abd pain. Had presented to her local ED in [facility] (10/22, 10/23 and 10/24) with same symptoms. On arrival Lactate 2.0. CBC positive for leukocytosis with WBC 17. CMP WNL. Lipase negative. Urine hCG negative. UA -ve. Utox positive for THC. Received dose IV Zosyn in setting of elevated lactate with leukocytosis. CT A/P re demonstrated congenital intestinal malrotation with majority of small bowel located in right hemiabdomen, and colon in left hemiabdomen. Otherwise NAP. Admitted to General Internal Medicine Service for ongoing management. On RNF she as continued on IVF and received antiemetics PRN.COVID/flu/RSV testing -ve. crp/procal/esr/lipase all WNL. Enteric stool panel -ve. Leukocytosis improved. Blood cultures remained negative. No fevers during hospitalization. Diet was slowly advanced as her symptoms AND appetite improved. Suspect patient with viral gastroenteritis, recommend continued symptomatic management on discharge and outpatient f/up with GI. H.pylori still in process at time of discharge, if results positive will send Rx to [facility] as per patient request. Patient also recommended to stop smoking marijuana incase there any component of cannabinoid hyperemesis syndrome contributing to symptoms. Determined stable and d/c home on 10/29/23. OPERATIONS/PROCEDURE DURING THIS HOSPITALIZATION: * No surgery found * CT ABD/PEL W IVCON Final Result IMPRESSION: No acute findings in the abdomen or pelvis. 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 Home Health Aide Caregiver: JESENIA Transcribe Date/Time: Oct 28 2023 1:25A Dictated by : ANGELICA MAYO MD This examination was interpreted and the report reviewed and electronically signed by: JOSIANE RIVAS MD on Oct 28 2023 1:50AM EST CONSULTS DURING HOSPITALIZATION: Treatment Team: Attending Provider: Eliud Mcnulty MD Primary Service: 1, Gim Attending: Eliud Mcnulty MD Nurse Practitioner: Chris Amaro APRN.PICKLE SORTER No orders of the defined types were placed in this encounter. PATIENT CONDITION AT DISCHARGE: Stable ADVANCE CARE PLANNING DISCUSSION (if applicable): N/A DISCHARGE DISPOSITION: Home with Relative Discharge Physical Exam: VITAL SIGNS: BP 104/52 Pulse 65 Temp 36.9 ?C (98.4 ?F) (Oral) Resp 17 Wt 77.1 kg (170 lb) SpO2 10 (more content not included)... Normal [facility] Iron and Iron binding capaci ty panelon 10-29-2023 Iron [Mass/Vol] 33 ug/dL Low 41-186 [facility] Comment on above: Order Comment: Speci men Type: BLOOD SPECIMEN Ordering Facility: [facility] Address: [address] [place] [address] Performed By: #### 2 4323-8, 3016-3, , 1 #### [facility] CLIA [id number] [address] [place] [address] [place] Iron binding capacity [Mass/Vol] 344 ug/dL Normal 232-386 [facility] Comment on above: Order Comment: Speci men Type: BLOOD SPECIMEN Ordering Facility: [facility] Address: [address] [place] [address] Performed By: #### 2 4323-8, 3016-3, 56381-6, 7-1 #### [facility] CLIA [id number] [address] [place], [place] [address] [place] [address] [place] Iron/TIBC [Molar ratio] 9.6 % Low 15.0-57.0 [facility] Comment on above: Order Comment: Speci men Type: BLOOD SPECIMEN Ordering Facility: [facility] Address: [address] [place] [address] Performed By: #### 2 4323-8, 3016-3, 46846-9, 2777-1 #### [facility] CLIA [id number] [address] [place], [place] [address] [place] [address] [place] NUTRITIONon 10-29-2023 NUTRITION HNO ID: [id number] Author: SYMONE RIVERA RD Service: Nutrition Therapy Author Type: Registered Dietitian Type: Nutrition Filed: 10/29/2023 10:34 Note Text: NUTRITION THERAPY INITIAL ASSESSMENT SERVICE DATE: 10/29/2023 SERVICE TIME: 10:00am Nutrition Assessment: Recommended Malnutrition Diagnosis: Mild Protein-Calorie Malnutrition In the context of: Acute Illness or Injury Based on: Insufficient Energy Intake Nutrition Diagnosis: Problem: Suboptimal oral intake Related to: Altered GI function As evidenced by: Anorexia, Medical condition, Patient/family self-report, Vomiting, Nausea, Pain Care Plan: Follow for diet advancement to goal Supplements: Ensure Clear, Powerade Zero Vitamins and Minerals: Multivitamin with minerals Medications: Anti-emetics, Anti-diarrheals Monitor and Evaluation: Meet greater than 75% of estimated needs, Monitor bowel function, Monitor fluid/electrolyte balance, Monitor labs, I/Os, vital signs, weight Discharge Recommendations: Diet;Oral Supplements Diet: as tolerated Oral Supplements: high calorie, high protein oral nutrition supplements when PO intake is meeting <75% of estimated energy need HPI: Per Kane Mcnulty note on 10/27: This is a 23 year old female with a PMH of congenitial intestinal malrotation, polysplenia, and 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 She presented to the ED for ongoing N/V/D x4 days with associated fevers and chills. No actual fevers recorded at home but the patient did feel feverish. Also complains of malaise. On arrival she did have a low grade temp of 99.4F. She reports that her symptoms started 4-5 days ago. She is accompanied by her mother who is helping her answer questions. Mom states that this has been intermittent over the last 1-2 years. She was originally diagnosed with the intestinal malformation when she presented with similar symptoms of nausea, vomiting, and diarrhea at that time. However, her symptoms have been persistent and worsening over the last fewmonths with started with just nausea. She also complains of frequent heart burn and frequent burping. She was seen in [facility] ED on 10/22 and 10/24 with these symptoms. At that time her WBC count was 9.7 on 10/22 and then 14.0 on 10/23. CXR and CT brain were unremarkable. Intake History: Nutrition Intake Prior to Admission: Less than 50% estimated energy needs greater than or equal to 5 days Dosing Weight: 77 kg (169 lb 12.1 oz) Dosing Weight Type: Admit weight Estimated kilocalorie needs: 5104-1836 Calorie Calculation Method: 25-30 kcals/kg Estimated protein needs (grams): 77-92 Grams protein determined by: 1.0 - 1.2 g/kg Diet Orders (From admission, onward) Start Ordered 10/29/23929 DIET LIQUID START NOW Question: Liquid Diet Answer: FULL LIQUID 10/29/23 0921 10/29/23929 DIET SUPPLEMENTS START NOW Question Answer Comment Supplement 1 (19 years and up) POWERADE ZERO GRAPE Supplement 1 Frequency THREE TIMES/DAY WITH MEALS 10/29/23 09 Anthropometrics: Weight: 77.1 kg (170 lb) There is no height or weight on file to calculate BMI. Weight change percentage over time: unable to determine weight change at this time d/t limited weight hx per [facility] records Weight Change: Unable to determine Physical Exam: Subcutaneous fat loss: No fat loss Muscle loss: No muscle loss Potential micronutrient deficiency: No deficiency identified Edema/Ascites: No edema GI Symptoms: Anorexia, Vomiting, Diarrhea, Abdominal pain Functional Status: Regressed Potential Signs of Inflammation: Leukocytosis MNT Billing: $ Initial Assessment: 1-15 minutes SIGNATURE: Symone Rivera RD PATIENT NAME: Jessie Alva DATE: October 29, 2023 TIME: 10:34 AM Normal [facility] Renal function 2000 panelon 10-29-2023 Albumin [Mass/Vol] 4.0 g/dL Normal 3.9-4.9 [facility] Comment on above: Order Comment: Speci men Type: BLOOD SPECIMEN Ordering Facility: [facility] Address: [address] [place], [place] [address] Performed By: #### 2 4323-8, 3016-3, 04533-3, 2776-1 #### [facility] CLIA [id number] [address] [place] [address] [place] Anion gap [Moles/Vol] 10 mmol/L Normal 8-15 [facility] Comment on above: Order Comment: Speci men Type: BLOOD SPECIMEN Ordering Facility: [facility] Address: [address] [place] [address] Performed By: #### 2 4323-8, 6-3, , 2776-05 #### [facility] CLIA [id number] [address] [place] [address] [place] Calcium [Mass/Vol] 9.4 mg/dL Normal 8.5-10.2 [facility] Comment on above: Order Comment: Speci men Type: BLOOD SPECIMEN Ordering Facility: [facility] Address: [address] [place] [address] Performed By: #### 2 4323-8, 6-3, , 2776-05 #### [facility] CLIA [id number] [address] [place] [address] [place] Chloride [Moles/Vol] 102 mmol/L Normal 98-107 [facility] Comment on above: Order Comment: Speci men Type: BLOOD SPECIMEN Ordering Facility: [facility] Address: [address] [place] [address] Performed By: #### 2 4323-8, 6-3, 76564-1, 2776-1 #### [facility] CLIA [id number] [address] [place] [address] [place] CO2 [Moles/Vol] 26 mmol/L Normal 22-30 [facility] Comment on above: Order Comment: Speci men Type: BLOOD SPECIMEN Ordering Facility: [facility] Address: [address] [place] [address] Performed By: #### 2 4323-8, 3016-3, 00515-9, 2776- #### [facility] CLIA [id number] [address] [place] [address] [place] Creatinine [Mass/Vol] 0.73 mg/dL Normal 0.58-0.96 [facility] Comment on above: Order Comment: Speci men Type: BLOOD SPECIMEN Ordering Facility: [facility] Address: [address] [place] [address] Performed By: #### 2 4323-8, 3016-3, , 2776-05 #### [facility] CLIA [id number] [address] [place] [address] [place] Creatinine and Glomerular filtration rate.predicted panel (S/P/Bld) 119 mL/min/1.73m??? Normal >=60 [facility] Comment on above: Order Comment: Speci men Type: BLOOD SPECIMEN Ordering Facility: [facility] Address: [address] [place] [address] Result Comment: Yeu mated Glomerular Filtration Rate (eGFR) is calculated using the 2020 CKD-EPI creatinine equation. This equation utilizes serum creatinine, sex, and age as parameters. The creatinine assay has traceable calibration to isotope dilution-mass spectrometry. Refer to KDIGO guidelines for clinical interpretation. In patients with unstable renal function, e.g. those with acute kidney injury, the eGFR may not accurately reflect actual GFR. Performed By: #### 2 4323-8, 3016-3, 98680-0, 2776-05 #### [facility] CLIA [id number] [address] [place] [address] [place] Glucose [Mass/Vol] 81 mg/dL Normal 74-99 [facility] Comment on above: Order Comment: Speci men Type: BLOOD SPECIMEN Ordering Facility: [facility] Address: [address] [place] [address] Result Comment: The [place] [employer] (ADA) provides guidance for cutoff values for fasting glucose and random glucose. The ADA defines fasting as no caloric intake for at least 8 hours. Fasting plasma glucose results between 100 to 125 mg/dL indicate increased risk for diabetes (prediabetes). Fasting plasma glucose results greater than or equal to 126 mg/dL meet the criteria for diagnosis of diabetes. In the absence of unequivocal hyperglycemia, results should be confirmed by repeat testing. In a patient with classic symptoms of hyperglycemia or hyperglycemic crisis, random plasma glucose results greater than or equal to 200 mg/dL meet the criteria for diagnosis of diabetes. Reference: Standards of Medical Care in Diabetes 2016, [place] [employer]. Diabetes Care. 2016.39(Suppl 1). Performed By: #### 2 4323-8, 3016-3, 28155-6, 2776-1 #### [facility] CLIA [id number] [address] [place] [address] [place] Phosphate [Mass/Vol] 4.5 mg/dL Normal 2.7-4.8 [facility] Comment on above: Order Comment: Missy lopez Type: BLOOD SPECIMEN Ordering Facility: [facility] Address: [address] [place] [address] Performed By: #### 2 4323-8, 6-3, , 2776-1 #### [facility] CLIA [id number] [address] [place] [address] [place] Potassium [Moles/Vol] 4.4 mmol/L Normal 3.7-5.1 [facility] Comment on above: Order Comment: Missy lopez Type: BLOOD SPECIMEN Ordering Facility: [facility] Address: [address] [place] [address] Performed By: #### 2 4323-8, 3016-3, 79805-5, 2776-1 #### [facility] CLIA [id number] [address] [place] [address] [place] Sodium [Moles/Vol] 138 mmol/L Normal 136-144 [facility] Comment on above: Order Comment: Speci men Type: BLOOD SPECIMEN Ordering Facility: [facility] Address: [address] [place] [address] Performed By: #### 2 4323-8, 3016-3, 48169-6, 2776-1 #### [facility] CLIA [id number] [address] [place] [address] [place] Urea nitrogen [Mass/Vol] 6 mg/dL Low 7-21 [facility] Comment on above: Order Comment: Speci men Type: BLOOD SPECIMEN Ordering Facility: [facility] Address: [address] [place] [address] Performed By: #### 2 4323-8, 6-3, 65721-5, 2776- #### [facility] CLIA [id number] [address] [place] [address] [place] Bacteria Bld Culton 10-28-19 Bacteria identified Cx Nom (Bld) CULTURE, BLOOD: No growth 5 days Normal [facility] Comment on above: Performed By: #### 2 4323-8, 6-3, 39494-7, 2776- #### [facility] CLIA [id number] [address] [place] [address] [place] Bacteria identified Cx Nom (Bld) CULTURE, BLOOD: No growth 5 days Normal [facility] Comment on above: Performed By: #### 2 4323-8, 6-3, 30961-5, 2776-1 #### [facility] CLIA [id number] [address] [place] [address] [place] C. trachomatis+N. gonorrhoea e DNA TENISHA+probe Ql (Unsp spec)on 10-28-2023 C. trachomatis rRNA TENISHA+probe Ql (Unsp spec) Unable to detect Chlamydia trachomatis due to inhibitory substances. Submit repeat specimen if clinically indicated. Abnormal Negative for Chlamydia trachomatis by amplificaton [facility] Comment on above: Order Comment: Speci men Type: BLOOD SPECIMEN Ordering Facility: [facility] Address: [address] [place] [address] Performed By: #### 2 4323-8, 6-3, 38203-3, 2776-05 #### [facility] CLIA [id number] [address] [place] [address] [place] N. gonorrhoeae rRNA TENISHA+probe Ql (Unsp spec) Unable to detect Neisseria gonorrhoeae due to inhibitory substances. Submit repeat specimen if clinically indicated. Abnormal Negative for Neisseria gonorrhoeae by amplification [facility] Comment on above: Order Comment: Speci men Type: BLOOD SPECIMEN Ordering Facility: [facility] Address: [address] [place] [address] Performed By: #### 2 4323-8, 3015-3, , 2776-05 #### [facility] CLIA [id number] [address] [place] [address] [place] CBC panel Auto (Bld)on 10-27 Erythrocyte distribution width (RBC) [Ratio] 16.0 % High 11.5-15.0 [facility] Comment on above: Order Comment: Speci men Type: BLOOD SPECIMEN Ordering Facility: [facility] Address: [address] [place] [address] Performed By: #### 2 4323-8, 3015-3, , 2776-05 #### [facility] CLIA [id number] [address] [place] [address] [place] Hematocrit (Bld) [Volume fraction] 33.5 % Low 36.0-46.0 [facility] Comment on above: Order Comment: Speci men Type: BLOOD SPECIMEN Ordering Facility: [facility] Address: [address] [place] [address] Performed By: #### 2 4323-8, 3015-3, , 2776-05 #### [facility] CLIA [id number] [address] [place] [address] [place] Hemoglobin (Bld) [Mass/Vol] 10.8 g/dL Low 11.5-15.5 [facility] Comment on above: Order Comment: Speci men Type: BLOOD SPECIMEN Ordering Facility: [facility] Address: [address] [place] [address] Performed By: #### 2 4323-8, 3016-3, , 2776-05 #### [facility] CLIA [id number] [address] [place] [address] [place] MCH (RBC) [Entitic mass] 28.3 pg Normal 26.0-34.0 [facility] Comment on above: Order Comment: Speci men Type: BLOOD SPECIMEN Ordering Facility: [facility] Address: [address] [place] [address] Performed By: #### 2 4323-8, 3016-3, , 2776-05 #### [facility] CLIA [id number] [address] [place] [address] [place] MCHC (RBC) [Mass/Vol] 32.2 g/dL Normal 30.5-36.0 [facility] Comment on above: Order Comment: Speci men Type: BLOOD SPECIMEN Ordering Facility: [facility] Address: [address] [place] [address] Performed By: #### 2 4323-8, 3016-3, , 2776-05 #### [facility] CLIA [id number] [address] [place] [address] [place] MCV (RBC) [Entitic vol] 87.7 fL Normal 80.0-100.0 [facility] Comment on above: Order Comment: Speci men Type: BLOOD SPECIMEN Ordering Facility: [facility] Address: [address] [place] [address] Performed By: #### 2 4323-8, 3016-3, 13091-0, 2776-1 #### [facility] CLIA [id number] [address] [place] [address] [place] Nucleated RBC (Bld) [#/Vol] 10*3/uL Normal <0.01 [facility] Comment on above: Order Comment: Speci men Type: BLOOD SPECIMEN Ordering Facility: [facility] Address: [address] [place] [address] Performed By: #### 2 4323-8, 3016-3, 78141-9, 2776- #### [facility] CLIA [id number] [address] [place] [address] [place] Platelet mean volume (Bld) [Entitic vol] 8.9 fL Low 9.0-12.7 [facility] Comment on above: Order Comment: Speci men Type: BLOOD SPECIMEN Ordering Facility: [facility] Address: [address] [place] [address] Performed By: #### 2 4323-8, 3016-3, 62780-8, 2776- #### [facility] CLIA [id number] [address] [place] [address] [place] Platelets (Bld) [#/Vol] 421 10*3/uL High 150-400 [facility] Comment on above: Order Comment: Speci men Type: BLOOD SPECIMEN Ordering Facility: [facility] Address: [address] [place] [address] Performed By: #### 2 4323-8, 3016-3, 85162-3, 277- #### [facility] CLIA [id number] [address] [place] [address] [place] RBC (Bld) [#/Vol] 3.82 10*6/uL Low 3.90-5.20 [facility] Comment on above: Order Comment: Speci men Type: BLOOD SPECIMEN Ordering Facility: [facility] Address: [address] [id number] Performed By: #### 2 4323-8, 3016-3, 79275-4, 2777-1 #### [facility] CLIA [id number] [address] [place] [address] [place] WBC (Bld) [#/Vol] 13.58 10*3/uL High 3.70-11.00 [facility] Comment on above: Order Comment: Speci men Type: BLOOD SPECIMEN Ordering Facility: [facility] Address: [address] [place] [address] Performed By: #### 2 4323-8, 3016-3, 70602-3, 2777-1 #### [facility] CLIA [id number] [address] [place] [address] [place] ABD/PEL W IVCONon 024 CT ABD/PEL W IVCON * * *Final Report* * * DATE OF EXAM: Oct 28 2023 12:21AM [facility] 0530 - CT ABD/PEL W IVCON / PROCEDURE REASON: Nausea/vomiting * * * * Physician Interpretation * * * * EXAMINATION: CT ABDOMEN AND PELVIS WITH IV CONTRAST CLINICAL HISTORY: Nausea/vomiting. Nausea, vomiting, left upper quadrant/epigastric pain x4 days. History of congenital intestinal malrotation. TECHNIQUE: CT of the abdomen and pelvis was performed using standard technique, scanning from just above the dome of the diaphragm to the symphysis pubis. MQ: CTAP_3 Contrast: IV: 100 ml of Omnipaque 350 CT Radiation dose: Integrated Dose-length product (DLP) for this visit = 397 mGy*cm. CT Dose Reduction Employed: mAs-kVp adjusted based on patient size-age COMPARISON: None. RESULT: Liver: No mass. Biliary: No bile duct dilation. Gallbladder is unremarkable. Spleen: No mass. No splenomegaly. Pancreas: No mass or duct dilation. Adrenals: No mass. Kidneys: No mass, calculus or hydronephrosis. GI tract: * Findings of congenital intestinal malrotation with the majority of the small bowel located in the right hemiabdomen in the colon in the left hemiabdomen. * Appendix identified in the left lower quadrant extending into the left hemipelvis and appears normal. * No dilated bowel or wall thickening. Lymph nodes: No abdominal or pelvic lymphadenopathy. Mesentery/Peritoneum: No ascites or mass. Retroperitoneum: No mass. Vasculature: - Abdominal aorta and iliac arteries: No aneurysm. - Celiac and SMA: The common hepatic artery appears to arise from the SMA which all appears patent. The splenic artery and left gastric artery arises strictly from the aorta - Portal venous system (SMV, splenic vein, portal vein and branches): Patent. - Hepatic veins: Incompletely opacified, likely due to early phase of enhancement. Pelvis: No mass, ascites or fluid collection. Corpus luteum in the right adnexa. Retroverted uterus. Bones/Soft Tissues: No significant finding. Lower thorax: Unremarkable. Localizer images: No additional findings. IMPRESSION: No acute findings in the abdomen or pelvis. 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 Home Health Aide Caregiver: JESENIA Transcribe Date/Time: Oct 28 2023 1:25A Dictated by : ANGELICA MAYO MD This examination was interpreted and the report reviewed and electronically signed by: JOSIANE RIVAS MD on Oct 28 2023 1:50AM EST [id number] Normal [facility] Comprehensive metabolic 2000 panelon 10-28-2023 Albumin [Mass/Vol] 3.8 g/dL Low 3.9-4.9 [facility] Comment on above: Order Comment: Speci john Type: BLOOD SPECIMEN Ordering Facility: [facility] Address: [address] [place] [address] Performed By: #### 2 4323-8, 6-3, , 2776-05 #### [facility] CLIA [id number] [address] [place] [address] [place] ALP [Catalytic activity/Vol] 40 U/L Normal 34-123 [facility] [place] Comment on above: Order Comment: Missy lopez Type: BLOOD SPECIMEN Ordering Facility: [facility] Address: [address] [place] [address] Performed By: #### 2 4323-8, 3016-3, , 2776-05 #### [facility] CLIA [id number] [address] [place] [address] [place] ALT [Catalytic activity/Vol] 17 U/L Normal 7-38 [facility] [place] Comment on above: Order Comment: Speci men Type: BLOOD SPECIMEN Ordering Facility: [facility] Address: [address] [place] [address] Performed By: #### 2 4323-8, 6-3, , 2776-05 #### [facility] CLIA [id number] [address] [place], [place] [address] [place] Anion gap [Moles/Vol] 11 mmol/L Normal 8-15 [facility] Comment on above: Order Comment: Speci men Type: BLOOD SPECIMEN Ordering Facility: [facility] Address: [address] [place] [address] Performed By: #### 2 4323-8, 3015-3, , 2776-05 #### [facility] CLIA [id number] [address] [place] [address] [place] AST [Catalytic activity/Vol] 10 U/L Low 13-35 [facility] [place] Comment on above: Order Comment: Speci men Type: BLOOD SPECIMEN Ordering Facility: [facility] Address: [address] [place] [address] Performed By: #### 2 4323-8, 6-3, , 2776-05 #### [facility] CLIA [id number] [address] [place] [address] [place] Bilirubin [Mass/Vol] 0.4 mg/dL Normal 0.2-1.3 [facility] Comment on above: Order Comment: Speci men Type: BLOOD SPECIMEN Ordering Facility: [facility] Address: [address] [place] [address] Performed By: #### 2 4323-8, 6-3, , 2776-05 #### [facility] CLIA [id number] [address] [place] [address] [place] Calcium [Mass/Vol] 8.8 mg/dL Normal 8.5-10.2 [facility] Comment on above: Order Comment: Speci men Type: BLOOD SPECIMEN Ordering Facility: [facility] Address: [address] [place] [address] Performed By: #### 2 4323-8, 6-3, , 2776-05 #### [facility] CLIA [id number] [address] [place], [place] [address] [place] Chloride [Moles/Vol] 106 mmol/L Normal 98-107 [facility] Comment on above: Order Comment: Speci men Type: BLOOD SPECIMEN Ordering Facility: [facility] Address: [address] [place] [address] Performed By: #### 2 4323-8, 3015-3, , 2776-05 #### [facility] CLIA [id number] [address] [place] [address] [place] CO2 [Moles/Vol] 21 mmol/L Low 22-30 [facility] [place] Comment on above: Order Comment: Speci men Type: BLOOD SPECIMEN Ordering Facility: [facility] Address: [address] [place] [address] Performed By: #### 2 4323-8, 3015-3, , 2776-05 #### [facility] CLIA [id number] [address] [place] [address] [place] Creatinine [Mass/Vol] 0.74 mg/dL Normal 0.58-0.96 [facility] Comment on above: Order Comment: Speci men Type: BLOOD SPECIMEN Ordering Facility: [facility] Address: [address] [place] [address] Performed By: #### 2 4323-8, 6-3, , 2776-05 #### [facility] CLIA [id number] [address] [place] [address] [place] Creatinine and Glomerular filtration rate.predicted panel (S/P/Bld) 117 mL/min/1.73m??? Normal >=60 [facility] [place] Comment on above: Order Comment: Missy lopez Type: BLOOD SPECIMEN Ordering Facility: [facility] Address: [address] [place] [address] Result Comment: Yue mated Glomerular Filtration Rate (eGFR) is calculated using the 2020 CKD-EPI creatinine equation. This equation utilizes serum creatinine, sex, and age as parameters. The creatinine assay has traceable calibration to isotope dilution-mass spectrometry. Refer to KDIGO guidelines for clinical interpretation. In patients with unstable renal function, e.g. those with acute kidney injury, the eGFR may not accurately reflect actual GFR. Performed By: #### 2 4323-8, 3016-3, , 2776-05 #### [facility] CLIA [id number] [address] [place] [address] [place] Glucose [Mass/Vol] 87 mg/dL Normal 74-99 [facility] Comment on above: Order Comment: Missy lopez Type: BLOOD SPECIMEN Ordering Facility: [facility] Address: [address] [place] [address] Result Comment: The [place] Diabetes Association (ADA) provides guidance for cutoff values for fasting glucose and random glucose. The ADA defines fasting as no caloric intake for at least 8 hours. Fasting plasma glucose results between 100 to 125 mg/dL indicate increased risk for diabetes (prediabetes). Fasting plasma glucose results greater than or equal to 126 mg/dL meet the criteria for diagnosis of diabetes. In the absence of unequivocal hyperglycemia, results should be confirmed by repeat testing. In a patient with classic symptoms of hyperglycemia or hyperglycemic crisis, random plasma glucose results greater than or equal to 200 mg/dL meet the criteria for diagnosis of diabetes. Reference: Standards of Medical Care in Diabetes 2016, [place] [employer] Association. Diabetes Care. 2016.39(Suppl 1). Performed By: #### 2 4323-8, 3016-3, , 2776-05 #### [facility] CLIA [id number] [address] [place] [address] [place] Potassium [Moles/Vol] 3.9 mmol/L Normal 3.7-5.1 [facility] Comment on above: Order Comment: Speci men Type: BLOOD SPECIMEN Ordering Facility: [facility] Address: [address] [place] [address] Performed By: #### 2 4323-8, 6-3, , 2776-05 #### [facility] CLIA [id number] [address] [place] [address] [place] Protein [Mass/Vol] 7.0 g/dL Normal 6.3-8.0 [facility] Comment on above: Order Comment: Speci men Type: BLOOD SPECIMEN Ordering Facility: [facility] Address: [address] [place] [address] Performed By: #### 2 4323-8, 3015-3, , 2776-05 #### [facility] CLIA [id number] [address] [place], [place] [address] [place] Sodium [Moles/Vol] 138 mmol/L Normal 136-144 [facility] Comment on above: Order Comment: Speci men Type: BLOOD SPECIMEN Ordering Facility: [facility] Address: [address] [place] [address] Performed By: #### 2 4323-8, 3015-3, , 2776-05 #### [facility] CLIA [id number] [address] [place], [place] [address] [place] Urea nitrogen [Mass/Vol] 8 mg/dL Normal 7-21 [facility] [place] Comment on above: Order Comment: Speci men Type: BLOOD SPECIMEN Ordering Facility: [facility] Address: [address] [place] [address] Performed By: #### 2 4323-8, 3016-3, , 2776-05 #### [facility] CLIA [id number] [address] [place] [address] [place] ED NOTEon 10-28-2023 ED NOTE HNO ID: [id number] Author: CHASTITY ALEGRIA RN Service: ? Author Type: Registered Nurse Type: ED Notes Filed: 10/28/2023 02:38 Note Text: Bed: E12-02 Expected date: Expected time: Means of arrival: Comments: e18 Normal [facility] FLUABV+SARS-CoV-2+RSV Pnl Re sp TENISHA+probeon 10-28-2023 FLUABV+SARS-CoV-2+RSV Pnl Resp TENISHA+probe COVID 19 RESULT: Not detected The method used is RT-PCR or an equivalent NAAT method. Reference Range(the expected result in uninfected individuals): Not detected INFLUENZA A PCR: Not detected INFLUENZA B PCR: Not detected RSV PCR: Not detected Normal [facility] Comment on above: Performed By: #### 2 4323-8, 3, , 2776-05 #### [facility] CLIA [id number] [address] [place] [address] [place] Gastrointestinal pathogens i dentified TENISHA+probe Nom (Stl)on 10-28-2023 Campylobacter sp DNA TENISHA+probe Nom (Unsp spec) Not detected Normal Not Detected [facility] Comment on above: Order Comment: Speci men Type: BLOOD SPECIMEN Ordering Facility: [facility] Address: [address] [place] [address] Performed By: #### 2 4323-8, 3016-3, , 2776-05 #### [facility] CLIA [id number] [address] [place] [address] [place] Salmonella sp DNA TENISHA+probe Ql (Unsp spec) Not detected Normal Not Detected [facility] Comment on above: Order Comment: Speci men Type: BLOOD SPECIMEN Ordering Facility: [facility] Address: [address] [place] [address] Performed By: #### 2 4323-8, 3016-3, 59829-7, 2777-1 #### [facility] CLIA [id number] [address] [place] [address] [place] Shiga toxin stx gene TENISHA+probe Nom (Unsp spec) Not detected Normal Not Detected [facility] Comment on above: Order Comment: Speci men Type: BLOOD SPECIMEN Ordering Facility: [facility] Address: [address] [place] [address] Performed By: #### 2 4323-8, 3016-3, 05126-6, 277- #### [facility] CLIA [id number] [address] [place] [address] [place] Shigella sp DNA TENISHA+probe Ql (Unsp spec) Not detected Normal Not Detected [facility] Comment on above: Order Comment: Speci men Type: BLOOD SPECIMEN Ordering Facility: [facility] Address: [address] [place] [address] Performed By: #### 2 4323-8, 3016-3, 01432-0, 2776- #### [facility] CLIA [id number] [address] [place] [address] [place] H pylori Ag Stl Ql IAon 10-05 H. pylori Ag IA Ql (Stl) H.PYLORI EIA RESULT: Negative for Helicobacter pylori antigen by EIA Normal [facility] Comment on above: Performed By: #### 2 4323-8, 3016-3, 68972-5, 2776-05 #### [facility] CLIA [id number] [address] [place] [address] [place] HCG Preg Ur Qlon 10-28-2023 HCG ( test) Ql (U) Negative Normal Negative [facility] Comment on above: Order Comment: Speci men Type: BLOOD SPECIMEN Ordering Facility: [facility] Address: [address] [place] [address] Result Comment: This test is intended to aid in the early detection of . Very dilute urine samples, as indicated by a low specific gravity, may not contain sales support representative levels of hCG. This test detects intact hCG only. This test does not reliably detect hCG degradation products, including free-beta subunit and beta-core fragment. Therefore, this test may show reduced reactivity in urine after 8 weeks gestation. A number of conditions other than , including trophoblastic disease and certain non-trophoblastic neoplasms cause elevated levels of hCG. As with any assay employing mouse antibodies, the possibility exists for interference by human anti-mouse antibodies (HAMA) in the specimen. The test provides a presumptive diagnosis for . Performed By: #### 2 4323-8, 3016-3, 84709-3, 2777-1 #### [facility] CLIA [id number] [address] [place] [address] [place] HISTORY PHYSICALon HISTORY PHYSICAL HNO ID: [id number] Author: ELIUD MCNULTY MD Service: Hospital Medicine Author Type: Physician Type: H&P Filed: 10/28/2023 15:29 Note Text: DEPARTMENT OF HOSPITAL MEDICINE HISTORY AND PHYSICAL EXAM SERVICE DATE: 10/28/2023 SERVICE TIME: 602 Primary Care Physician: Bianca Shrestha CNP, CNP NIGHT AND WEEKEND COVERAGE: Patient admitted to [facility]. Please page me at [phone] for patient issues until 729. After that please page [facility] staff assigned (as noted in EPIC banner) [place] [phone]. 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 She presented to the ED for ongoing N/V/D x4 days with associated fevers and chills. No actual fevers recorded at home but the patient did feel feverish. Also complains of malaise. On arrival she did have a low grade temp of 99.4F. She reports that her symptoms started 4-5 days ago. She is accompanied by her mother who is helping her answer questions. Mom states that this has been intermittent over the last 1-2 years. She was originally diagnosed with the intestinal malformation when she presented with similar symptoms of nausea, vomiting, and diarrhea at that time. However, her symptoms have been persistent and worsening over the last few months with started with just nausea. She also complains of frequent heart burn and frequent burping. She was seen in [facility] ED on 10/22 and 10/24 with these symptoms. At that time her WBC count was 9.7 on 10/22 and then 14.0 on 10/23. CXR and CT brain were unremarkable. CT of the abd/pelv showing SMALL BOWEL: The small bowel loops are nondistended. Gastrointestinal malrotation redemonstrated. APPENDIX: The appendix in the LEFT lower quadrant. No acute appendicitis. COLON: Redemonstration of gastrointestinal malrotation moderate constipation. She previously had chest pain at that time but now denies chest pain, SOB, and palpitations. She denies any sick contacts, blood in stools or emesis, or black tarry stools/coffee ground emesis. In our ED Sepsis lactate 2.0, Tox screen + for cannabinoids (denies recent use), UA +bacteria, and WBCs 17.19. She is being admitted to medicine for further management. History reviewed. No pertinent past medical history. No past surgical history on file. No family history on file. MEDICATIONS: Reviewed (Not in a hospital admission) ALLERGIES No Known Allergies REVIEW OF SYSTEM: GENERAL: No night sweats. +fever +chills +malaise HEENT: No headache, nose bleed, mouth pain or sore throat RESPIRATORY: No cough or shortness of breath CARDIOVASCULAR: No chest pain, palpitations or extremity swelling GI: +Poor Po intake unable to tolerate PO. No difficulty swallowing, +pain/cramping in upper abdomen. +nausea +vomiting +diarrhea +constipation. No blood in stools No tarry stools. No coffee ground emesis. : No discomfort with voiding or gross blood in urine. No incontinence MUSCULOSKELETAL: No joint pain. +weakness NEURO: No numbness or tingling to extremities SKIN: No rash or itching VENOUS ACCESS: No concerns Objective PHYSICAL EXAM: BP 102/59 Pulse 70 Temp (Src) 98.9 (Oral) Resp 18 Wt 170 lb (77.1kg) SpO2 97% O2 Therapy: Room Air Physical Exam Performed: GENERAL: +ill appearing. No acute distress; alert and oriented x 3 HEENT: Sclera anicteric. No mucositis. No thrush LUNGS: Clear to auscultation; no wheezing, rhonchi or rales HEART: Regular rhythm; normal rate ABDOMEN: Bowel sounds present; soft, +upper abdomen TTP and not distended EXTREMITIES: No edema. SKIN: No rash or ecchymosis VENOUS ACCESS: No concerns Lines, Drains, and Airways Line Duration Peripheral 10/27/23 2217 [facility] Short Right Forearm 20 Gauge <1 day Reviewed lines and needs to be continued: REASONS: Intravenous fluids DATA: Diagnostic tests reviewed for today's visit: Most recent labs and imaging results. Assessment/Plan Principal Problem: Intractable nausea and vomiting (POA: Yes) Congenital malrotation of intestine (POA: Yes) Leukocytosis (POA: Yes) Diarrhea (POA: Yes) Assessment AND Plan: Sepsis lactate 2.0, Tox screen + for cannabinoids, UA +bacteria, and WBCs 17.19. She is being admitted to medicine for further management. CT head and CXR at [facility] unremarkable. CT abdomen pelv done here: No acute findings in the abdomen or pelvis. 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 -CRP, ESR, Procal -BCx2 -COVID/RSV/Flu -Zosyn q6hrs -mIVF NS @100ml/hr -GI consult in the A.M -PRN Zofran, PRN Reglan -Clear liquid diet Resolved Problems: * No resolved hospital problems. * Medication and Non-Pharmacologic VTE Prophylaxis/Anticoagulant s 10/28/23 0245 activity - mobilize patient (ny,id) VTE Prophylaxis: VTE prophylaxis appropriate Disposition: (more content not included)... Normal [facility] Magnesium SerPl-mCncon 10-27 Magnesium [Mass/Vol] 2.2 mg/dL Normal 1.7-2.3 [facility] Comment on above: Order Comment: Speci men Type: BLOOD SPECIMEN Ordering Facility: [facility] Address: [address] [place] [address] Performed By: #### 2 4323-8, 3016-3, 69641-9, 2777-1 #### [facility] CLIA [id number] [address] [place], [place] [address] [place] [address] [place] Phosphate SerPl-mCncon 10-27 Phosphate [Mass/Vol] 4.1 mg/dL Normal 2.7-4.8 [facility] Comment on above: Order Comment: Missy lopez Type: BLOOD SPECIMEN Ordering Facility: [facility] Address: [address] [place] [address] Performed By: #### 2 4323-8, 3016-3, 43635-5, 2776- #### [facility] CLIA [id number] [address] [place] [address] [place] TSH SerPl-aCncon 10-28-2023 TSH Qn 1.500 m[IU]/L Normal 0.270-4.200 [facility] Comment on above: Order Comment: Missy lopez Type: BLOOD SPECIMEN Ordering Facility: [facility] Address: [address] [place] [address] Result Comment: If t he patient is , TSH reference range varies by gestational period: First Trimester (weeks 9-12): 0.180-2.990 mIU/L Second Trimester: 0.110-3.980 mIU/L Third Trimester: 0.480-4.710 mIU/L Narayan Jacobo et al. A Practical Approach for the Verifications and Determination of Site- and Trimester-Specific Reference Intervals for Thyroid Function tests in . Thyroid, 2019:29:3:412-420. Delfin E, et al. 2017 Guidelines of the [place] Thyroid Association for the Diagnosis and Management of Thyroid Disease during and the . Thyroid, 2017:27:3:315-389. Performed By: #### 2 4323-8, 3016-3, 59267-2, 2776- #### [facility] CLIA [id number] [address] [place], [place] [address] [place] CBC W Auto Differential pane l (Bld)on 10-27-2023 Basophils (Bld) [#/Vol] 0.09 10*3/uL Normal <0.11 [facility] Comment on above: Order Comment: Missy lopez Type: BLOOD SPECIMEN Ordering Facility: [facility] Address: [address] [place] [address] Performed By: #### 2 4323-8, 6-3, 05534-7, 2776-05 #### [facility] CLIA [id number] [address] [place] [address] [place] Basophils/100 WBC (Bld) 0.5 % Normal [facility] Comment on above: Order Comment: Speci men Type: BLOOD SPECIMEN Ordering Facility: [facility] Address: [address] [place] [address] Performed By: #### 2 4323-8, 3015-3, 30756-5, 2776-05 #### [facility] CLIA [id number] [address] [place] [address] [place] Differential cell count method Nom (Bld) Auto Normal [facility] Comment on above: Order Comment: Speci men Type: BLOOD SPECIMEN Ordering Facility: [facility] Address: [address] [place] [address] Performed By: #### 2 4323-8, 6-3, , 2776-05 #### [facility] CLIA [id number] [address] [place] [address] [place] Eosinophils (Bld) [#/Vol] 0.09 10*3/uL Normal <0.46 [facility] Comment on above: Order Comment: Speci men Type: BLOOD SPECIMEN Ordering Facility: [facility] Address: [address] [place] [address] Performed By: #### 2 4323-8, 6-3, , 2776-05 #### [facility] CLIA [id number] [address] [place] [address] [place] Eosinophils/100 WBC (Bld) 0.5 % Normal [facility] Comment on above: Order Comment: Speci men Type: BLOOD SPECIMEN Ordering Facility: [facility] Address: [address] [place] [address] Performed By: #### 2 4323-8, 3016-3, 87352-5, 277-1 #### [facility] CLIA [id number] [address] [place] [address] [place] Erythrocyte distribution width (RBC) [Ratio] 16.2 % High 11.5-15.0 [facility] Comment on above: Order Comment: Speci men Type: BLOOD SPECIMEN Ordering Facility: [facility] Address: [address] [place] [address] Performed By: #### 2 4323-8, 3016-3, 28989-6, 2776-05 #### [facility] CLIA [id number] [address] [place] [address] [place] Hematocrit (Bld) [Volume fraction] 37.8 % Normal 36.0-46.0 [facility] Comment on above: Order Comment: Speci men Type: BLOOD SPECIMEN Ordering Facility: [facility] Address: [address] [place] [address] Performed By: #### 2 4323-8, 3016-3, 82132-1, 2776-05 #### [facility] CLIA [id number] [address] [place] [address] [place] Hemoglobin (Bld) [Mass/Vol] 12.2 g/dL Normal 11.5-15.5 [facility] Comment on above: Order Comment: Speci men Type: BLOOD SPECIMEN Ordering Facility: [facility] Address: [address] [place] [address] Performed By: #### 2 4323-8, 3016-3, 40526-8, 277- #### [facility] CLIA [id number] [address] [place] [address] [place] Immature granulocytes (Bld) [#/Vol] 0.05 10*3/uL Normal <0.10 [facility] Comment on above: Order Comment: Speci men Type: BLOOD SPECIMEN Ordering Facility: [facility] Address: [address] [place] [address] Performed By: #### 2 4323-8, 6-3, 86935-4, 2776-05 #### [facility] CLIA [id number] [address] [place] [address] [place] Immature granulocytes/100 WBC (Bld) 0.3 % Normal [facility] Comment on above: Order Comment: Speci men Type: BLOOD SPECIMEN Ordering Facility: [facility] Address: [address] [place] [address] Performed By: #### 2 4323-8, 6-3, 56230-5, 2776-05 #### [facility] CLIA [id number] [address] [place] [address] [place] Lymphocytes (Bld) [#/Vol] 4.79 10*3/uL High 1.00-4.00 [facility] Comment on above: Order Comment: Speci men Type: BLOOD SPECIMEN Ordering Facility: [facility] Address: [address] [place] [address] Performed By: #### 2 4323-8, 6-3, , 2776-05 #### [facility] CLIA [id number] [address] [place] [address] [place] Lymphocytes/100 WBC (Bld) 27.9 % Normal [facility] [place] Comment on above: Order Comment: Speci men Type: BLOOD SPECIMEN Ordering Facility: [facility] Address: [address] [place] [address] Performed By: #### 2 4323-8, 6-3, 16574-5, 2776-05 #### [facility] CLIA [id number] [address] [place] [address] [place] MCH (RBC) [Entitic mass] 27.9 pg Normal 26.0-34.0 [facility] [place] Comment on above: Order Comment: Speci men Type: BLOOD SPECIMEN Ordering Facility: [facility] Address: [address] [place] [address] Performed By: #### 2 4323-8, 6-3, , 2776-05 #### [facility] CLIA [id number] [address] [place] [address] [place] MCHC (RBC) [Mass/Vol] 32.3 g/dL Normal 30.5-36.0 [facility] Comment on above: Order Comment: Speci men Type: BLOOD SPECIMEN Ordering Facility: [facility] Address: [address] [place] [address] Performed By: #### 2 4323-8, 6-3, , 2776-05 #### [facility] CLIA [id number] [address] [place] [address] [place] MCV (RBC) [Entitic vol] 86.5 fL Normal 80.0-100.0 [facility] [place] Comment on above: Order Comment: Speci men Type: BLOOD SPECIMEN Ordering Facility: [facility] Address: [address] [place] [address] Performed By: #### 2 4323-8, 6-3, , 2776-05 #### [facility] CLIA [id number] [address] [place] [address] [place] Monocytes (Bld) [#/Vol] 1.54 10*3/uL High <0.87 [facility] [place] Comment on above: Order Comment: Speci men Type: BLOOD SPECIMEN Ordering Facility: [facility] Address: [address] [place] [address] Performed By: #### 2 4323-8, 6-3, , 2776-05 #### [facility] CLIA [id number] [address] [place] [address] [place] Monocytes/100 WBC (Bld) 9.0 % Normal [facility] [place] Comment on above: Order Comment: Speci men Type: BLOOD SPECIMEN Ordering Facility: [facility] Address: [address] [place] [address] Performed By: #### 2 4323-8, 6-3, , 2776-05 #### [facility] CLIA [id number] [address] [place] [address] [place] Neutrophils (Bld) [#/Vol] 10.63 10*3/uL High 1.45-7.50 [facility] [place] Comment on above: Order Comment: Speci men Type: BLOOD SPECIMEN Ordering Facility: [facility] Address: [address] [place] [address] Performed By: #### 2 4323-8, 3015-3, , 2776-05 #### [facility] CLIA [id number] [address] [place] [address] [place] Neutrophils/100 WBC (Bld) 61.8 % Normal [facility] [place] Comment on above: Order Comment: Speci men Type: BLOOD SPECIMEN Ordering Facility: [facility] Address: [address] [place] [address] Performed By: #### 2 4323-8, 3015-3, , 2776-05 #### [facility] CLIA [id number] [address] [place] [address] [place] Nucleated RBC (Bld) [#/Vol] 10*3/uL Normal <0.01 [facility] [place] Comment on above: Order Comment: Speci men Type: BLOOD SPECIMEN Ordering Facility: [facility] Address: [address] [place] [address] Performed By: #### 2 4323-8, 3015-3, , 2776-05 #### [facility] CLIA [id number] [address] [place] [address] [place] Nucleated RBC/100 WBC (Bld) [Ratio] 0.0 /100 WBC Normal [facility] [place] Comment on above: Order Comment: Speci men Type: BLOOD SPECIMEN Ordering Facility: [facility] Address: [address] [place] [address] Performed By: #### 2 4323-8, 6-3, 18003-4, 2776- #### [facility] CLIA [id number] [address] [place] [address] [place] Platelet mean volume (Bld) [Entitic vol] 8.7 fL Low 9.0-12.7 [facility] [place] Comment on above: Order Comment: Speci men Type: BLOOD SPECIMEN Ordering Facility: [facility] Address: [address] [place] [address] Performed By: #### 2 4323-8, 6-3, , 2776-05 #### [facility] CLIA [id number] [address] [place] [address] [place] Platelets (Bld) [#/Vol] 483 10*3/uL High 150-400 [facility] [place] Comment on above: Order Comment: Speci men Type: BLOOD SPECIMEN Ordering Facility: [facility] Address: [address] [place] [address] Performed By: #### 2 4323-8, 6-3, , 2776-05 #### [facility] CLIA [id number] [address] [place] [address] [place] RBC (Bld) [#/Vol] 4.37 10*6/uL Normal 3.90-5.20 [facility] Comment on above: Order Comment: Speci men Type: BLOOD SPECIMEN Ordering Facility: [facility] Address: [address] [place] [address] Performed By: #### 2 4323-8, 6-3, , 2776- #### [facility] CLIA [id number] [address] [id number] [address] [place] WBC (Bld) [#/Vol] 17.19 10*3/uL High 3.70-11.00 [facility] Comment on above: Order Comment: Speci men Type: BLOOD SPECIMEN Ordering Facility: [facility] Address: [address] [place] [address] Performed By: #### 2 4323-8, 3016-3, 38458-6, 2776-1 #### [facility] CLIA [id number] [address] [place] [address] [place] CRP SerPl-mCncon 10-27-2023 CRP [Mass/Vol] 0.5 mg/dL Normal <0.9 [facility] [place] Comment on above: Order Comment: Speci men Type: BLOOD SPECIMEN Ordering Facility: [facility] Address: [address] [place] [address] Performed By: #### 2 4323-8, 6-3, , 2776- #### [facility] CLIA [id number] [address] [place] [address] [place] Comprehensive metabolic 2000 panelon 10-27-2023 Albumin [Mass/Vol] 4.5 g/dL Normal 3.9-4.9 [facility] Comment on above: Order Comment: Speci men Type: BLOOD SPECIMEN Ordering Facility: [facility] Address: [address] [place] [address] Performed By: #### 2 4323-8, 6-3, , 2776- #### [facility] CLIA [id number] [address] [place], [place] [address] [place] ALP [Catalytic activity/Vol] 45 U/L Normal 34-123 [facility] [place] Comment on above: Order Comment: Speci men Type: BLOOD SPECIMEN Ordering Facility: [facility] Address: [address] [place] [address] Performed By: #### 2 4323-8, 6-3, 65083-6, 2776-1 #### [facility] CLIA [id number] [address] [place] [address] [place] ALT [Catalytic activity/Vol] 22 U/L Normal 7-38 [facility] [place] Comment on above: Order Comment: Speci men Type: BLOOD SPECIMEN Ordering Facility: [facility] Address: [address] [place], [place] [address] Performed By: #### 2 4323-8, 3016-3, 27036-9, 2776-1 #### [facility] CLIA [id number] [address] [place] [address] [place] Anion gap [Moles/Vol] 13 mmol/L Normal 8-15 [facility] Comment on above: Order Comment: Speci men Type: BLOOD SPECIMEN Ordering Facility: [facility] Address: [address] [place] [address] Performed By: #### 2 4323-8, 6-3, , 2776-1 #### [facility] CLIA [id number] [address] [place] [address] [place] AST [Catalytic activity/Vol] 16 U/L Normal 13-35 [facility] [place] Comment on above: Order Comment: Speci men Type: BLOOD SPECIMEN Ordering Facility: [facility] Address: [address] [place] [address] Performed By: #### 2 4323-8, 6-3, , 2776-1 #### [facility] CLIA [id number] [address] [place] [address] [place] Bilirubin [Mass/Vol] 0.2 mg/dL Normal 0.2-1.3 [facility] Comment on above: Order Comment: Speci men Type: BLOOD SPECIMEN Ordering Facility: [facility] Address: [address] [place], [place] [address] Performed By: #### 2 4323-8, 3016-3, 09370-4, 277-1 #### [facility] CLIA [id number] [address] [place] [address] [place] Calcium [Mass/Vol] 9.7 mg/dL Normal 8.5-10.2 [facility] Comment on above: Order Comment: Speci men Type: BLOOD SPECIMEN Ordering Facility: [facility] Address: [address] [place] [address] Performed By: #### 2 4323-8, 3016-3, 26844-2, 2776-1 #### [facility] CLIA [id number] [address] [place] [address] [place] Chloride [Moles/Vol] 105 mmol/L Normal 98-107 [facility] Comment on above: Order Comment: Speci men Type: BLOOD SPECIMEN Ordering Facility: [facility] Address: [address] [place] [address] Performed By: #### 2 4323-8, 3016-3, , 2776- #### [facility] CLIA [id number] [address] [place] [address] [place] CO2 [Moles/Vol] 24 mmol/L Normal 22-30 [facility] [place] Comment on above: Order Comment: Speci men Type: BLOOD SPECIMEN Ordering Facility: [facility] Address: [address] [place] [address] Performed By: #### 2 4323-8, 3016-3, , 2776-05 #### [facility] CLIA [id number] [address] [place] [address] [place] Creatinine [Mass/Vol] 0.72 mg/dL Normal 0.58-0.96 [facility] Comment on above: Order Comment: Speci men Type: BLOOD SPECIMEN Ordering Facility: [facility] Address: [address] [place] [address] Performed By: #### 2 4323-8, 3016-3, 62424-7, 2776-1 #### [facility] CLIA [id number] [address] [place] [address] [place] Creatinine and Glomerular filtration rate.predicted panel (S/P/Bld) 121 mL/min/1.73m??? Normal >=60 [facility] [place] Comment on above: Order Comment: Missy lopez Type: BLOOD SPECIMEN Ordering Facility: [facility] Address: [address] [place] [address] Result Comment: Yue mated Glomerular Filtration Rate (eGFR) is calculated using the 2020 CKD-EPI creatinine equation. This equation utilizes serum creatinine, sex, and age as parameters. The creatinine assay has traceable calibration to isotope dilution-mass spectrometry. Refer to KDIGO guidelines for clinical interpretation. In patients with unstable renal function, e.g. those with acute kidney injury, the eGFR may not accurately reflect actual GFR. Performed By: #### 2 4323-8, 3016-3, 00020-1, 2777-1 #### [facility] CLIA [id number] [address] [place] [address] [place] Glucose [Mass/Vol] 78 mg/dL Normal 74-99 [facility] Comment on above: Order Comment: Missy lopez Type: BLOOD SPECIMEN Ordering Facility: [facility] Address: [address] [place] [address] Result Comment: The [place] [employer] (ADA) provides guidance for cutoff values for fasting glucose and random glucose. The ADA defines fasting as no caloric intake for at least 8 hours. Fasting plasma glucose results between 100 to 125 mg/dL indicate increased risk for diabetes (prediabetes). Fasting plasma glucose results greater than or equal to 126 mg/dL meet the criteria for diagnosis of diabetes. In the absence of unequivocal hyperglycemia, results should be confirmed by repeat testing. In a patient with classic symptoms of hyperglycemia or hyperglycemic crisis, random plasma glucose results greater than or equal to 200 mg/dL meet the criteria for diagnosis of diabetes. Reference: Standards of Medical Care in Diabetes 2016, [place] [employer]. Diabetes Care. 2016.39(Suppl 1). Performed By: #### 2 4323-8, 3016-3, 67565-5, 2777-1 #### [facility] CLIA [id number] [address] [place] [address] [place] Potassium [Moles/Vol] 4.0 mmol/L Normal 3.7-5.1 [facility] Comment on above: Order Comment: Speci men Type: BLOOD SPECIMEN Ordering Facility: [facility] Address: [address] [place] [address] Performed By: #### 2 4323-8, 3016-3, 55790-8, 2776- #### [facility] CLIA [id number] [address] [place] [address] [place] Protein [Mass/Vol] 7.9 g/dL Normal 6.3-8.0 [facility] Comment on above: Order Comment: Speci men Type: BLOOD SPECIMEN Ordering Facility: [facility] Address: [address] [place] [address] Performed By: #### 2 4323-8, 3016-3, , 2776- #### [facility] CLIA [id number] [address] [place], [place] [address] [place] Sodium [Moles/Vol] 142 mmol/L Normal 136-144 [facility] Comment on above: Order Comment: Speci men Type: BLOOD SPECIMEN Ordering Facility: [facility] Address: [address] [place] [address] Performed By: #### 2 4323-8, 3016-3, , 2776- #### [facility] CLIA [id number] [address] [place] [address] [place] Urea nitrogen [Mass/Vol] 10 mg/dL Normal 7-21 [facility] Comment on above: Order Comment: Speci men Type: BLOOD SPECIMEN Ordering Facility: [facility] Address: [address] [place], [place] [address] Performed By: #### 2 4323-8, 6-3, 13833-9, 2776-1 #### [facility] CLIA [id number] [address] [place] [address] [place] [address] [place] ED PROV NOTEon 10-27-2023 ED PROV NOTE HNO ID: [id number] Author: KIT LOPEZ JR, MD Service: Emergency Medicine Author Type: Physician Type: ED Provider Notes Filed: 10/29/2023 10:12 Note Text: ED Provider Note Patient Name: Jessie Alva : 2000 SERVICE DATE: 10/27/23 History Patient presents with: Nausea AND Vomiting: Arrives to ED with N/V/D x4 days. Reports fevers/ chills. A 23 year-old female with PMHx of polysplenia, congenital malrotation of intestine, appendix in LLQ of abdomen, presents to the emergency department with complaints of intractable LUQ and epigastric abdominal pain with associated nausea and vomiting x 4 days with inability to tolerate PO intake. Reports last episode of emesis was at 7 PM this evening. Reports increased diarrhea with 3-4 episodes of non-bloody diarrhea x today. Reports hx of alternating between having constipation and diarrhea. States she has not smoked marijuana in a while. Endorses tactile fevers/chills. Pt has been evaluated at local ED on 10/22, 10/23 and 10/24 without definitive reason why she is having these symptoms. Denies alcohol use, CP, SOB, bloody BMs, difficulty urinating, dysuria, or gross hematuria. History reviewed. No pertinent past medical history. No past surgical history on file. No family history on file. Social History Tobacco Use Smoking status: Not on file Smokeless tobacco: Not on file Substance and Sexual Activity Alcohol use: Not on file Drug use: Not on file Sexual activity: Not on file ALLERGIES No Known Allergies Review of Systems Constitutional: Positive for appetite change (decreased) and fatigue. Negative for chills and fever. HENT: Negative for sore throat and trouble swallowing. Respiratory: Negative for shortness of breath. Cardiovascular: Negative for chest pain. Gastrointestinal: Positive for abdominal pain, diarrhea, nausea and vomiting. Negative for blood in stool. Genitourinary: Negative for difficulty urinating, dysuria and hematuria. Skin: Negative for rash. Neurological: Negative for weakness and numbness. Psychiatric/Behavioral: Negative. Physical Exam Vitals [10/27/232036] BP Pulse Temp Temp src Resp SpO2 Weight Height 128/85 (!) 97 37.4 ?C (99.4 ?F) Oral 18 100 % 77.1 kg (170 lb) -- Physical Exam Vitals and nursing note reviewed. Constitutional: General: She is not in acute distress. Appearance: She is not toxic-appearing. Comments: Ill-appearing young female lying supine. HENT: Mouth/Throat: Mouth: Mucous membranes are dry. Pharynx: Oropharynx is clear. Eyes: Conjunctiva/sclera: Conjunctivae normal. Cardiovascular: Rate and Rhythm: Regular rhythm. Tachycardia present. Heart sounds: Normal heart sounds. Pulmonary: Effort: Pulmonary effort is normal. No respiratory distress. Breath sounds: Normal breath sounds. Abdominal: General: Bowel sounds are normal. There is no distension. Palpations: Abdomen is soft. Tenderness: There is abdominal tenderness (TTP elicited in LUQ and epigastrium; no rigidity or guarding). There is no right CVA tenderness or left CVA tenderness. Musculoskeletal: Right lower leg: No edema. Left lower leg: No edema. Skin: General: Skin is warm and dry. Neurological: Mental Status: She is alert and oriented to person, place, and time. Diagnostic Testing ED Labs Ordered and Reviewed - No data to display Procedures ED Course / Clinical Impression ED Course as of 10/28/23 0158 Pat Henriquez's Documentation SatOct 28, 2023 0101 Lactate: 2.0 Clinical Impressions as of 10/28/23 0158 Nausea vomiting and diarrhea Left upper quadrant abdominal pain Epigastric abdominal pain Polysplenia Intestinal malrotation Leukocytosis, unspecified type MDM / Disposition / Plan A 23 y/o F presents to the emergency department for evaluation of intractable nausea/vomiting and abdominal pain described as cramping pain primarily localized to LUQ and epigastric region. Pt afebrile, hemodynamically stable and ill-appearing. Exam findings as documented above. Pt given 1 L LR IV bolus for hydration, and Zofran 4 mg IV for nausea while in ED. She declined Bentyl 20 mg PO and Toradol 15 mg IV for abdominal cramping/pain in ED. Lactate 2.0. CBC positive for leukocytosis with WBC 17. CMP WNL. Lipase negative. Urine hCG negative. UA negative for nitrites/leuks/WBCs. Urine tox positive for THC. Patient treated empirically with one-time dose of IV Zosyn in setting of elevated lactate with leukocytosis. CT abdomen/pelvis redemonstrates congenital intestinal malrotation with majority of small bowel located in right hemiabdomen, and colon in left hemiabdomen. Appendix identified in left lower quadrant appears normal. No dilated bowel or bowel wall thickening. Mild elevation in lactate and leukocytosis could be secondary to vomiting and dehydration, however patient does not have an MICHAEL or any electrolyte abnormalities on (more content not included)... Normal [facility] ESR Westergren method (Bld) [Velocity]on 10-27-2023 ESR (Bld) [Velocity] 20 mm/h Normal 0-20 [facility] Comment on above: Order Comment: Speci men Type: BLOOD SPECIMEN Ordering Facility: [facility] Address: [address] [place] [address] Performed By: #### 2 4323-8, 3016-3, 32156-7, 7- #### [facility] CLIA [id number] [address] [place] [address] [place] Lipase SerPl-cCncon 10-27-19 24 Lipase [Catalytic activity/Vol] 13 U/L Low 16-61 [facility] Comment on above: Order Comment: Jerryi john Type: BLOOD SPECIMEN Ordering Facility: [facility] Address: [address] [place] [address] Performed By: #### 2 4323-8, 3016-3, 80924-9, 2777- #### [facility] CLIA [id number] [address] [place] [address] [place] Magnesium SerPl-mCncon 10-26 Magnesium [Mass/Vol] 2.2 mg/dL Normal 1.7-2.3 [facility] Comment on above: Order Comment: Speci [facility] Type: BLOOD SPECIMEN Ordering Facility: [facility] Address: [address] [place] [address] Performed By: #### 2 4323-8, 6-3, 63184-0, 2776- #### [facility] CLIA [id number] [address] [place] [address] [place] Procalcitonin SerPl-mCncon 0 10-27-2023 Procalcitonin [Mass/Vol] ng/mL Normal <0.09 [facility] Comment on above: Order Comment: Speci men Type: BLOOD SPECIMEN Ordering Facility: [facility] Address: [address] [place] [address] Result Comment: For a guided interpretation of test results, please visit the Change in Procalcitonin Calculator, [email or web address]. Performed By: #### 2 4323-8, 6-3, , 2776- #### [facility] CLIA [id number] [address] [place] [address] [place] SEPSIS LACTATE W/ REFLEX (IN ITIAL)on 10-27-2023 Lactate [Moles/Vol] 2.0 mmol/L Normal <=2.0 [facility] Comment on above: Order Comment: Speci men Type: BLOOD SPECIMEN Ordering Facility: [facility] Address: [address] [place] [address] Performed By: #### 2 4323-8, 6-3, , 2776-1 #### [facility] CLIA [id number] [address] [place] [address] [place] TOXICOLOGY SCREEN, ROUTINE U RINEon 10-27-2023 Amphetamines Confirm (U) [Mass/Vol] Negative Normal Negative [facility] Comment on above: Order Comment: Speci men Type: URINE SPECIMEN Ordering Facility: [facility] Address: [address] [place] [address] Result Comment: Cuto ff threshold at 1000 ng/mL. Performed By: #### U TOX2 #### [facility] CLIA [id number] [address] [id number] [address] [place] BARBITURATES, URINE Negative Normal Negative [facility] Comment on above: Order Comment: Speci men Type: URINE SPECIMEN Ordering Facility: [facility] Address: [address] [place] [address] Result Comment: Cuto ff threshold at 200 ng/mL. Performed By: #### U TOX2 #### [facility] CLIA [id number] [address] [place] [address] [place] BENZODIAZEPINES, UR Negative Normal Negative [facility] Comment on above: Order Comment: Speci men Type: URINE SPECIMEN Ordering Facility: [facility] Address: [address] [place] [address] Result Comment: Cuto ff threshold at 200 ng/mL. Performed By: #### U TOX2 #### [facility] CLIA [id number] [address] [place] [address] [place] Cannabinoids Screen Ql (U) Positive Abnormal Negative [facility] Comment on above: Order Comment: Speci men Type: URINE SPECIMEN Ordering Facility: [facility] Address: [address] [place] [address] Result Comment: Cuto ff threshold at 50 ng/mL. Performed By: #### U TOX2 #### [facility] CLIA [id number] [address] [place] [address] [place] Cocaine Ql (U) Negative Normal Negative [facility] [place] Comment on above: Order Comment: Speci men Type: URINE SPECIMEN Ordering Facility: [facility] Address: [address] [place] [address] Result Comment: Cuto ff threshold at 300 ng/mL. Performed By: #### U TOX2 #### [facility] CLIA [id number] [address] [place] [address] [place] Ethanol (U) [Mass/Vol] <11 Normal <11 [facility] [place] Comment on above: Order Comment: Speci men Type: URINE SPECIMEN Ordering Facility: [facility] Address: [address] [place] [address] Performed By: #### U TOX2 #### [facility] CLIA [id number] [address] [place] [address] [place] Opiates Screen Ql (U) Negative Normal Negative [facility] Comment on above: Order Comment: Speci men Type: URINE SPECIMEN Ordering Facility: [facility] Address: [address] [place] [address] Result Comment: Cuto ff threshold at 300 ng/mL. Performed By: #### U TOX2 #### [facility] CLIA [id number] [address] [place] [address] [place] oxyCODONE cutoff Screen (U) [Mass/Vol] Negative Normal Negative [facility] [place] Comment on above: Order Comment: Speci men Type: URINE SPECIMEN Ordering Facility: [facility] Address: [address] [place] [address] Result Comment: Cuto ff threshold at 100 ng/mL. Performed By: #### U TOX2 #### [facility] CLIA [id number] [address] [place] [address] [place] Phencyclidine Ql (U) Negative Normal Negative [facility] Comment on above: Order Comment: Speci men Type: URINE SPECIMEN Ordering Facility: [facility] Address: [address] [place] [address] Result Comment: Cuto ff threshold at 25 ng/mL. Performed By: #### U TOX2 #### [facility] CLIA [id number] [address] [place] [address] [place] Urinalysis complete panel (U )on 10-27-2023 BACTERIA UL 2473.2 uL High Negative [facility] [place] Comment on above: Order Comment: Speci men Type: BLOOD SPECIMEN Ordering Facility: [facility] Address: [address] [place] [address] Performed By: #### 2 4323-8, 3016-3, 76379-6, 277-1 #### [facility] CLIA [id number] [address] [place], [place] [address] [place] Bilirubin Ql (U) Negative Normal Negative [facility] Comment on above: Order Comment: Speci men Type: BLOOD SPECIMEN Ordering Facility: [facility] Address: [address] [place] [address] Performed By: #### 2 4323-8, 6-3, 82624-5, 2776- #### [facility] CLIA [id number] [address] [place] [address] [place] Clarity (Unsp spec) Cloudy Abnormal Clear [facility] Comment on above: Order Comment: Speci men Type: BLOOD SPECIMEN Ordering Facility: [facility] Address: [address] [place] [address] Performed By: #### 2 4323-8, 3015-3, , 2776-05 #### [facility] CLIA [id number] [address] [place] [address] [place] Color (U) Yellow Normal Yellow [facility] [place] Comment on above: Order Comment: Speci men Type: BLOOD SPECIMEN Ordering Facility: [facility] Address: [address] [place] [address] Performed By: #### 2 4323-8, 6-3, 90962-0, 2776- #### [facility] CLIA [id number] [address] [place] [address] [place] Epithelial cells LM.HPF (Urine sed) [#/Area] Few Normal [facility] [place] Comment on above: Order Comment: Speci men Type: BLOOD SPECIMEN Ordering Facility: [facility] Address: [address] [place] [address] Performed By: #### 2 4323-8, 6-3, 23517-7, 2776-1 #### [facility] CLIA [id number] [address] [place] [address] [place] Glucose Test strip (U) [Mass/Vol] Negative Normal Negative [facility] [place] Comment on above: Order Comment: Speci men Type: BLOOD SPECIMEN Ordering Facility: [facility] Address: [address] [place] [address] Performed By: #### 2 4323-8, 3016-3, 61745-0, 2776-1 #### [facility] CLIA [id number] [address] [place] [address] [place] Hemoglobin Ql (U) Negative Normal Negative [facility] Comment on above: Order Comment: Speci men Type: BLOOD SPECIMEN Ordering Facility: [facility] Address: [address] [place] [address] Performed By: #### 2 4323-8, 6-3, 50015-7, 2776-1 #### [facility] CLIA [id number] [address] [place] [address] [place] Hyaline casts (Urine sed) [#/Area] 0 /[LPF] Normal 0 /LPF [facility] [place] Comment on above: Order Comment: Speci men Type: BLOOD SPECIMEN Ordering Facility: [facility] Address: [address] [place] [address] Performed By: #### 2 4323-8, 6-3, 37677-4, 2776-1 #### [facility] CLIA [id number] [address] [place] [address] [place] Ketones Ql (U) Negative Normal Negative [facility] [place] Comment on above: Order Comment: Speci men Type: BLOOD SPECIMEN Ordering Facility: [facility] Address: [address] [place] [address] Performed By: #### 2 4323-8, 6-3, 62602-0, 2776-1 #### [facility] CLIA [id number] [address] [place] [address] [place] Leukocyte esterase Test strip Ql (U) Negative Normal Negative [facility] [place] Comment on above: Order Comment: Speci men Type: BLOOD SPECIMEN Ordering Facility: [facility] Address: [address] [place] [address] Performed By: #### 2 4323-8, 3015-3, , 2776-05 #### [facility] CLIA [id number] [address] [place] [address] [place] Nitrite Ql (U) Negative Normal Negative [facility] [place] Comment on above: Order Comment: Speci men Type: BLOOD SPECIMEN Ordering Facility: [facility] Address: [address] [place] [address] Performed By: #### 2 4323-8, 3015-3, , 2776-05 #### [facility] CLIA [id number] [address] [place] [address] [place] pH (U) 7.0 [pH] Normal <8.5 [facility] [place] Comment on above: Order Comment: Speci men Type: BLOOD SPECIMEN Ordering Facility: [facility] Address: [address] [place] [address] Performed By: #### 2 4323-8, 3015-3, , 2776-05 #### [facility] CLIA [id number] [address] [place] [address] [place] Protein (U) [Mass/Vol] Negative Normal Negative [facility] [place] Comment on above: Order Comment: Speci men Type: BLOOD SPECIMEN Ordering Facility: [facility] Address: [address] [place] [address] Performed By: #### 2 4323-8, 3015-3, , 2776-05 #### [facility] CLIA [id number] [address] [place] [address] [place] RBC LM.HPF (Urine sed) [#/Area] 0-2 /HPF Normal 0-2 /HPF [facility] [place] Comment on above: Order Comment: Speci men Type: BLOOD SPECIMEN Ordering Facility: [facility] Address: [address] [place] [address] Performed By: #### 2 4323-8, 3015-3, , 2776-05 #### [facility] CLIA [id number] [address] [place] [address] [place] Specific gravity (U) [Rel density] 1.021 Normal 1.005-1.030 [facility] [place] Comment on above: Order Comment: Speci men Type: BLOOD SPECIMEN Ordering Facility: [facility] Address: [address] [place] [address] Performed By: #### 2 4323-8, 3015-3, , 2776-05 #### [facility] CLIA [id number] [address] [place] [address] [place] Urobilinogen Ql (U) 0.2 EU/dL Normal 0.2-1.0 EU/dL [facility] Comment on above: Order Comment: Speci men Type: BLOOD SPECIMEN Ordering Facility: [facility] Address: [address] [place] [address] Performed By: #### 2 4323-8, 3015-3, , 2776-05 #### [facility] CLIA [id number] [address] [place] [address] [place] WBC LM.HPF (Urine sed) [#/Area] 0-5 /HPF Normal 0-5 /HPF [facility] [place] Comment on above: Order Comment: Speci men Type: BLOOD SPECIMEN Ordering Facility: [facility] Address: [address] [place] [address] Performed By: #### 2 4323-8, 3015-3, , 2776-05 #### [facility] CLIA [id number] [address] [place] [address] [place] Activated partial thrombopla stin time (aPTT) in platelet poor plasma by coagulation aOrdered By: Abrahan Lew on 10-25-2023 aPTT Coag (PPP) [Time] 26.8 s 25.1-36.5 [facility] Comment on above: A hematocrit value g reater than 55% may lead to inaccurate results in coagulation testing. Patients having hematocrit values >55% require a special collection tube for coagulation studies. Please contact the laboratory at [phone] for redraw instructions. Alanine aminotransferase [En zymatic activity/volume] in Serum or PlasmaOrdered By: Abrahan Lew on 10-25-2023 ALT [Catalytic activity/Vol] 15 U/L Normal 7-52 [facility] Comment on above: Performed By: #### C UBLD, LACTIC #### [address] Albumin [Mass/volume] in Ser um or Plasma by Bromocresol green (BCG) dye binding methoOrdered By: Abrahan Lew on 10-25-2023 Albumin BCG dye [Mass/Vol] 4.8 g/dL 3.5-5.7 [facility] Alkaline phosphatase [Enzyma tic activity/volume] in Serum or PlasmaOrdered By: Abrahan Lew on 10-25-2023 ALP [Catalytic activity/Vol] 39 U/L Normal 34-104 [facility] Comment on above: Performed By: #### C UBLD, LACTIC #### [address] Amphetamine Screen Ql (U)Ord ered By: Abrahan Lew on 10-25-2023 Amphetamines Ql (U) Negative Negative [facility] Aspartate aminotransferase [ Enzymatic activity/volume] in Serum or PlasmaOrdered By: Abrahan Lew on 10-25-2023 AST [Catalytic activity/Vol] 14 U/L Normal 13-39 [facility] Comment on above: Performed By: #### C UBLD, LACTIC #### [address] Automated basophil %Ordered By: Abrahan Lew on 10-25-2023 Basophils/100 WBC (Bld) 1.1 % Normal . [facility] Comment on above: Performed By: #### C UBLD, LACTIC #### [address] Automated basophil countOrde red By: Abrahan Lew on 10-25-2023 Basophils (Bld) [#/Vol] 0.2 10*3/uL Normal 0.0-0.2 [facility] Comment on above: Result Comment: PERF ORMED BY: [place] [address] PATHOLOGIST [employer] MICA CANDY KELLOGG M.D. Performed By: #### C UBLD, LACTIC #### [address] Automated blood monocyte cou ntOrdered By: Abrahan Lew on 10-25-2023 Monocytes (Bld) [#/Vol] 0.9 10*3/uL High 0.0-0.8 [facility] Comment on above: Performed By: #### C UBLD, LACTIC #### [address] Automated eosinophil %Ordere d By: Abrahan Lew on 10-25-2023 Eosinophils/100 WBC (Bld) 0.4 % Normal . [facility] Comment on above: Performed By: #### C UBLD, LACTIC #### [address] Automated eosinophil countOr dered By: Abrahan Lew on 10-25-2023 Eosinophils (Bld) [#/Vol] 0.1 10*3/uL Normal 0.0-0.45 [facility] Comment on above: Performed By: #### C UBLD, LACTIC #### [address] Automated monocyte %Ordered By: Abrahan Lew on 10-25-2023 Monocytes/100 WBC (Bld) 6.7 % Normal . [facility] Comment on above: Performed By: #### C UBLD, LACTIC #### [address] Automated neutrophil %Ordere d By: Abrahan Lew on 10-25-2023 Neutrophils/100 WBC (Bld) 63.6 % Normal . [facility] Comment on above: Performed By: #### C UBLD, LACTIC #### [address] BNP ser/plasOrdered By: Edmond Lew on 10-25-2023 Natriuretic peptide B (Bld) [Mass/Vol] 9.0 pg/mL Normal 5-100 [facility] Comment on above: Result Comment: PERF ORMED BY: [place] [address] PATHOLOGIST [employer] MICA CANDY KELLOGG M.D. Performed By: #### C UBLD, LACTIC #### [address] Barbiturates [Presence] in U rine by Screen methodOrdered By: Abrahan Lew on 10-25-2023 Barbiturates Screen Ql (U) Negative Negative [facility] Basic Metabolic Panelon 10-05 Creatinine Clr Calc Pharmacy 123.29 Normal [facility] Comment on above: Performed By: #### C UBLD, LACTIC #### [facility] [address] [place] [address] GFR/1.73 sq M.predicted MDRD (S/P/Bld) [Vol rate/Area] mL/min/{1.73_m2} Normal [facility] Comment on above: Performed By: #### C UBLD, LACTIC #### [address] Benzodiazepines Screen Ql (U )Ordered By: Abrahan Lew on 10-25-2023 Benzodiazepines Ql (U) Negative Negative [facility] Benzoylecgonine [Presence] i n Urine by Screen methodOrdered By: Abrahan Lew on 10-25-2023 Benzoylecgonine Screen Ql (U) Negative Negative [facility] Bilirubin Test strip Ql (U)O rdered By: Abrahan Lew on 10-25-2023 Bilirubin Ql (U) Negative Negative [facility] Bilirubin.direct [Mass/volum e] in Serum or PlasmaOrdered By: Abrahan Lew on 10-25-2023 Bilirubin.direct [Mass/Vol] 0.10 mg/dL 0.03-0.18 [facility] Bilirubin.total [Mass/volume ] in Serum or PlasmaOrdered By: Abrahan Lew on 10-25-2023 Bilirubin [Mass/Vol] 0.3 mg/dL Normal 0.3-1.0 [facility] Comment on above: Performed By: #### C UBLD, LACTIC #### [address] Blood Cultureon 10-25-2023 Bacteria identified Cx Nom (Bld) NO GROWTH 5 DAYS PERFORMED BY: [place] [address] PATHOLOGIST [employer] MICA CANDY KELLOGG M.D. Normal [facility] Comment on above: Performed By: #### C UBLD, LACTIC #### [address] Bacteria identified Cx Nom (Bld) NO GROWTH 5 DAYS PERFORMED BY: [place] [address] PATHOLOGIST [employer] MICA CANDY KELLOGG M.D. Normal [facility] Comment on above: Performed By: #### C UBLD, LACTIC #### [address] abdomen pelvis w conon CT abdomen pelvis w con [facility] [place] [address] CT Scan Report Signed Patient: Jessie [place] MR#: [id number] : 2000 Acct:[id number] Age/Sex: 23 / F ADM Date: 10/25/23 Loc: ER Room: Type: [facility] ER Attending Dr: Copies to: Abrahan Lew DO Ordering Provider: Abrahan Lew DO Date of Service: 10/25/23 CT/CT abdomen pelvis w con: abd pain CT Abdomen and Pelvis withcontrast TECHNIQUE: Axial imaging with 2-D reconstruction.90 cc of Isovue-300. The CT exam was performed using one or more the following dose reduction techniques: Automated exposure control, adjustment of the MA and/or Kv according to patient size, or use of the iterative reconstruction technique. COMPARISON: 05/20/20 History: Altered mental status. Weakness. LIMITATIONS: None LOWER THORAX Unremarkable LIVER: Unremarkable GALLBLADDER: No gallbladder abnormality identified. BILE DUCTS: No dilatation SPLEEN: Unremarkable PANCREAS: Unremarkable ADRENAL GLANDS: Unremarkable KIDNEYS:Unremarkable AORTA: No abdominal aortic aneurysm identified. RETROPERITONEUM: No significant retroperitoneal abnormalities identified. MESENTERY:Unremarkable SMALL BOWEL: The small bowel loops are nondistended. Gastrointestinal malrotation redemonstrated. APPENDIX: The appendix in the LEFT lower quadrant. No acute appendicitis. COLON: Redemonstration of gastrointestinal malrotation moderate constipation. URINARY BLADDER: Urinary bladder is unremarkable. REPRODUCTIVE SYSTEM: Retroverted uterus. No adnexal mass. PNEUMOPERITONEUM: None PERITONEAL FLUID:None BONY STRUCTURES: Unremarkable ABDOMINAL WALL: Unremarkable CT/CT abdomen pelvis w con IMPRESSION: No acute findings. Moderate constipation. Impression dictated by: Boone Wang M.D.10/25/2023 1:03 PM Dictation Location: [place] [address] Transcribed By: [facility] 10/25/23 1303 Dictated By: Boone Wang DO 10/25/23 1256 Signed By: 10/25/23 1303 Normal [facility] CT head/brain wo michelle 10-24 CT head/brain wo [facility] [place] [address] [place] [address] CT Scan Report Signed Patient: Jessie Alva MR#: [id number] : 2000 Acct:[id number] Age/Sex: 23 / F ADM Date: 10/25/23 Loc: ER Room: Type: [facility] ER Attending Dr: Copies to: Abrahan Lew DO Ordering Provider: Abrahan Lew DO Date of Service: 10/25/23 CT/CT head/brain wo con: ams Unenhanced head CT TECHNIQUE: Contiguous axial imaging of the head. The CT exam was performed using one or more the following dose reduction techniques: Automated exposure control, adjustment of the MA and/or Kv according to patient size, or use of the iterative reconstruction technique. COMPARISON: 10/23/23 HISTORY: Altered mental status. Weakness. VENTRICLES: Within normal limits ATROPHY: None BRAIN PARENCHYMA: Adequate bingham-white matter differentiation identified. HEMORRHAGE: None HERNIATION: No mass effect or herniation INFARCTION: No recent vascular distribution infarction is seen. EXTRA-AXIAL FLUID COLLECTIONS None MIDBRAIN: Unremarkable KRISTOPHER: Unremarkable MEDULLA: Unremarkable SINUSES: Unremarkable ORBITS: Grossly unremarkable MASTOIDS: Unremarkable BONY STRUCTURES Intact ADDITIONAL FINDINGS: CT/CT head/brain wo con IMPRESSION: No acute findings. Impression dictated by: Boone Wang M.D.10/25/2023 12:56 PM Dictation Location: [place] [address] Transcribed By: [facility] 10/25/23 1256 Dictated By: Boone Wang DO 10/25/23 1254 Signed By: 10/25/23 1256 Normal [facility] Calcium [Mass/volume] in Ser um or PlasmaOrdered By: Abrahan Lew on 10-25-2023 Calcium [Mass/Vol] 10.2 mg/dL Normal 8.6-10.[address] [facility] Comment on above: Performed By: #### C UBLD, LACTIC #### [facility] [address] [place] [address] Cannabinoids [Presence] in U rine by Screen methodOrdered By: Abrahan Lew on 10-25-2023 Cannabinoids Screen Ql (U) Positive Negative [facility] Comment on above: These are unconfirme d results and should not be used for legal purposes. Drug Cut-Off Concentration: AMPH 1000 ng/mL VISHNU 200 ng/mL MAIRA 200 ng/mL COCM 300 ng/mL OP 300 ng/mL PCP 25 ng/mL THC 20 ng/mL Capillary blood glucose pavan urement by glucometer (mass/volume)Ordered By: Abrahan Lew on 10-25-2023 Glucose [Mass/Vol] 91 mg/dL Normal [facility] Comment on above: Random Glucose Refer ence Range is dependent on time and content of last meal. Glucose of more than 200 mg/dL in a nonstressed, ambulatory subject supports the diagnosis of Diabetes Mellitus. Result Comment: [place] Glucose Reference Range is dependent on time and content of last meal. Glucose of more than 200 mg/dL in a nonstressed, ambulatory subject supports the diagnosis of Diabetes Mellitus. PERFORMED BY: [place] [address] PATHOLOGIST [employer] MICA CANDY KELLOGG M.D. Performed By: #### C UBLD, LACTIC #### [address] Carbon dioxide, total [Moles /volume] in Serum or PlasmaOrdered By: Abrahan Lew on 10-25-2023 CO2 [Moles/Vol] 22.9 mmol/L Normal 21.0-31.0 [facility] Comment on above: Performed By: #### C UBLD, LACTIC #### [address] Chloride [Moles/volume] in S alirio or PlasmaOrdered By: Abrahan Lew on 10-25-2023 Chloride [Moles/Vol] 105 mmol/L Normal 98-107 [facility] Comment on above: Performed By: #### C UBLD, LACTIC #### [address] Color of Urine by AutoOrdere d By: Abrahan Lew on 10-25-2023 Color (U) Yellow Normal Yellow [facility] Comment on above: Order Comment: Name Collection Type:: Clean-Voided Midstream Performed By: #### U HCG, UA, URDS #### [address] Complete Blood Count Auto Di ffon 10-25-2023 Mean Corpuscular HGB Conc 32.5 g/dL Normal 32.0-35.0 [facility] Comment on above: Performed By: #### C UBLD, LACTIC #### [place] [address] [place] Monocytes/100 WBC (Bld) 19.51 % Normal 0.00-20.00 [facility] Comment on above: Performed By: #### C UBLD, LACTIC #### [place] [address] [place] NRBC% 0.1 /100{WBC} Normal 0-0.5 [facility] Comment on above: Performed By: #### C UBLD, LACTIC #### [address] Creatine kinase [Enzymatic a ctivity/volume] in Serum or PlasmaOrdered By: Abrahan Lew on 10-25-2023 CK [Catalytic activity/Vol] 61 U/L Normal 30-223 [facility] Comment on above: Performed By: #### C UBLD, LACTIC #### [address] Creatinine [Mass/volume] in Serum or PlasmaOrdered By: Abrahan Lew on 10-25-2023 Creatinine [Mass/Vol] 0.73 mg/dL Normal 0.60-1.20 [facility] Comment on above: Performed By: #### C UBLD, LACTIC #### [address] Drug Screen,Urineon 10-25-19 24 Amphetamine Screen,Urine Negative Normal Negative [facility] Comment on above: Performed By: #### U HCG, UA, URDS #### [address] Barbiturate Screen,Urine Negative Normal Negative [facility] Comment on above: Performed By: #### U HCG, UA, URDS #### [place] [address] [place] Benzodiazepines Screen,Urine Negative Normal Negative [facility] Comment on above: Performed By: #### U HCG, UA, URDS #### [address] Cannabinoid Screen,Urine Positive High Negative [facility] Comment on above: Result Comment: Thes e are unconfirmed results and should not be used for legal purposes. Drug Cut-Off Concentration: AMPH 1000 ng/mL VISHNU 200 ng/mL MAIRA 200 ng/mL COCM 300 ng/mL OP 300 ng/mL PCP 25 ng/mL THC 20 ng/mL PERFORMED BY: [place] [address] PATHOLOGIST [employer] MICA CANDY KELLOGG M.D. Performed By: #### U HCG, UA, URDS #### [facility] [address] Cocaine Screen,Urine Negative Normal Negative [facility] Comment on above: Performed By: #### U HCG, UA, URDS #### [facility] [address] Opiate Screen,Urine Negative Normal Negative [facility] Comment on above: Performed By: #### U HCG, UA, URDS #### [facility] [address] Phencyclidine Screen,Urine Negative Normal Negative [facility] Comment on above: Performed By: #### U HCG, UA, URDS #### [facility] [address] ECG 12 lead ECGon 10-25-2023 ECG 12 lead ECG [facility] [place] [address] [place] [address] Electrocardiograph Report Signed Patient: Jessie Alva MR#: [id number] : 2000 Acct:[id number] Age/Sex: 23 / F ADM Date: 10/25/23 Loc: ER Room: Type: [facility] ER Attending Dr: Ordering Provider: Abrahan Lew DO Date of Service: 10/25/23 ECG/ECG 12 lead ECG: Weakness Copies to: Test Reason : Blood Pressure : / mmHG Vent. Rate : 138 BPM Atrial Rate : 136 BPM P-R Int : 000 ms QRS Dur : 068 ms QT Int : 364 ms P-R-T Axes : 000 092 036 degrees QTc Int : 551 ms Supraventricular tachycardia Rightward axis Low voltage QRS Borderline ECG When compared with ECG of 23-OCT-2023 11:34, No significant change was found Confirmed by Abrahan Lew DO ([id number]) on 10/25/2023 3:08:43 PM Referred By: Electronically Signed By:Abrahan Lew DO Transcribed By: MUS Signed By Abrahan Lew DO 4 1509 Normal [facility] Erythrocyte distribution wid th [Ratio] by Automated countOrdered By: Abrahan Lew on 10-25-2023 Erythrocyte distribution width (RBC) [Ratio] 16.2 % High 11.9-15.3 [facility] Comment on above: Performed By: #### C UBLD, LACTIC #### [facility] [address] [place] [address] [place] Erythrocytes [#/volume] in B lood by Automated countOrdered By: Abrahan Lew on 10-25-2023 RBC (Bld) [#/Vol] 4.49 10*6/uL Normal 3.60-5.00 [facility] Comment on above: Performed By: #### C UBLD, LACTIC #### [facility] [address] [place] [address] [place] Ethanol [Mass/volume] in Ser um or PlasmaOrdered By: Abrahan Lew on 10-25-2023 Ethanol [Mass/Vol] mg/dL Normal [facility] Comment on above: Performed By: #### C UBLD, LACTIC #### [facility] [address] [place] [address] [place] Ethanol [Mass/Vol] TNP [facility] Comment on above: Test not performed Ethyl Alcohol Profileon 10-05 Percent Ethanol Not performed Normal [facility] Comment on above: Result Comment: PERF ORMED BY: [place] [address] PATHOLOGIST [employer] MICA CANDY KELLOGG M.D. Performed By: #### C UBLD, LACTIC #### [place] [address] [place] Glucose [Mass/volume] in Ser um or PlasmaOrdered By: Abrahan Lew on 10-25-2023 Glucose [Mass/Vol] 91 mg/dL Normal 70-[address] [facility] Comment on above: ADA recommended refe rence rangeRandom Glucose Reference Range is dependent on time and content of last meal. Glucose of more than 200 mg/dL in a nonstressed, ambulatory subject supports the diagnosis of Diabetes Mellitus. Result Comment: [place] om Glucose Reference Range is dependent on time and content of last meal. Glucose of more than 200 mg/dL in a nonstressed, ambulatory subject supports the diagnosis of Diabetes Mellitus. ADA recommended reference range Performed By: #### C UBLD, LACTIC #### [address] HCG ( test) IA.rapi d Ql (U)Ordered By: Abrahan Lew on 10-25-2023 HCG ( test) Ql (U) Negative [facility] HCG,Urineon 10-25-2023 Beta HCG ( test) Ql (U) Negative Normal [facility] Comment on above: Order Comment: Name Collection Type:: Clean-Voided Midstream Result Comment: PERF ORMED BY: [place] [address] PATHOLOGIST [employer] MICA CANDY KELLOGG M.D. Performed By: #### U HCG, UA, URDS #### [address] Hematocrit [Volume Fraction] of Blood by Automated countOrdered By: Abrahan Lew on 10-25-2023 Hematocrit (Bld) [Volume fraction] 39.3 % Normal 34.0-46.4 [facility] Comment on above: Performed By: #### C UBLD, LACTIC #### [address] Hemoglobin [Mass/volume] in BloodOrdered By: Abrahan Lew on 10-25-2023 Hemoglobin (Bld) [Mass/Vol] 12.8 g/dL Normal 11.8-15.4 [facility] Comment on above: Performed By: #### C UBLD, LACTIC #### [address] Hepatic Panelon 10-25-2023 Albumin [Mass/Vol] 4.8 g/dL Normal 3.5-5.7 [facility] Comment on above: Performed By: #### C UBLD, LACTIC #### [address] Bilirubin,Indirect 0.2 mg/dL Normal [facility] Comment on above: Performed By: #### C UBLD, LACTIC #### [facility] [address] Bilirubin.indirect [Mass/Vol] 0.10 mg/dL Normal 0.03-0.18 [facility] Comment on above: Performed By: #### C UBLD, LACTIC #### [facility] [address] INR in Platelet poor plasma by Coagulation assayOrdered By: Abrahan Lew on 10-25-2023 INR Coag (PPP) [Relative time] 1.2 {INR} Normal [facility] Comment on above: INR Therapeutic Rang e A) Pre- and Peroperative OAT started two weeks before surgery. NOT HIP SURGERY: 1.5 - 2.5 HIP SURGERY: 2 - 3B) Primary and secondary prevention of venous THROMBOSIS: 2 - 3C) Active venous thrombosis, pulmonary embolismand prevention of recurrent venous thrombosis: 2 - 3D) Prevention of arterial thromboembolismincluding patients with mechanical heart valves: 3 - 4.5 Result Comment: INR Therapeutic Range A) Pre- and Peroperative OAT started two weeks before surgery. NOT HIP SURGERY: 1.5 - 2.5 HIP SURGERY: 2 - 3 B) Primary and secondary prevention of venous THROMBOSIS: 2 - 3 C) Active venous thrombosis, pulmonary embolism and prevention of recurrent venous thrombosis: 2 - 3 D) Prevention of arterial thromboembolism including patients with mechanical heart valves: 3 - 4.5 Performed By: #### C UBLD, LACTIC #### [facility] [address] Ketones Auto test strip (U) [Mass/Vol]Ordered By: Abrahan Lew on 10-25-2023 Ketones (U) [Mass/Vol] Negative Negative [facility] Lactate [Moles/volume] in Se rum or PlasmaOrdered By: Abrahan Lew on 10-25-2023 Lactate [Moles/Vol] 1.4 mmol/L Normal 0.5-2.2 [facility] Comment on above: Result Comment: PERF ORMED BY: [place] [address] PATHOLOGIST [employer] MICA CANDY KELLOGG M.D. Performed By: #### C UBLD, LACTIC #### [address] Leukocytes [#/volume] correc jalil for nucleated erythrocytes in Blood by Automated counOrdered By: Abrahan Lew on 10-25-2023 WBC corrected for nucl RBC Auto (Bld) [#/Vol] 14.0 10*3/uL 3.8-11.6 [facility] Leukocytes [#/volume] in Blo od by Automated countOrdered By: Abrahan Lew on 10-25-2023 WBC (Bld) [#/Vol] 14.0 10*3/uL High 3.8-11.6 [facility] Comment on above: Performed By: #### C UBLD, LACTIC #### [address] Lipase [Enzymatic activity/v olume] in Serum or PlasmaOrdered By: Abrahan Lew on 10-25-2023 Lipase [Catalytic activity/Vol] 8.0 U/L Low 11.0-82.0 [facility] Comment on above: Result Comment: PERF ORMED BY: [place] [address] PATHOLOGIST [employer] MICA CANDY KELLOGG M.D. Performed By: #### C UBLD, LACTIC #### [place] [address] [place] Lymphocytes [#/volume] in Bl ood by Automated countOrdered By: Abrahan Lew on 10-25-2023 Lymphocytes (Bld) [#/Vol] 4.0 10*3/uL Normal 1.00-4.8 [facility] Comment on above: Performed By: #### C UBLD, LACTIC #### [place] [address] [place] Lymphocytes/100 leukocytes i n Blood by Automated countOrdered By: Abrahan Lew on 10-25-2023 Lymphocytes/100 WBC (Bld) 28.2 % Normal . [facility] Comment on above: Performed By: #### C UBLD, LACTIC #### [address] [place] [address] [place] MCH [Entitic mass] by Automa jalil countOrdered By: Abrahan Lew on 10-25-2023 MCH (RBC) [Entitic mass] 28.4 pg Normal 24.7-34.3 [facility] Comment on above: Performed By: #### C UBLD, LACTIC #### [address] MCHC Auto (RBC) [Mass/Vol]Or dered By: Abrahan Lew on 10-25-2023 MCHC (RBC) [Mass/Vol] 32.5 g/dL 32.0-35.0 [facility] MCV [Entitic volume] by Auto mated countOrdered By: Abrahan Lew on 10-25-2023 MCV (RBC) [Entitic vol] 87.4 fL Normal 80-100 [facility] Comment on above: Performed By: #### C UBLD, LACTIC #### [address] Magnesium [Mass/volume] in S alirio or PlasmaOrdered By: Abrahan Lew on 10-25-2023 Magnesium [Mass/Vol] 1.9 mg/dL Normal 1.9-2.7 [facility] Comment on above: Performed By: #### C UBLD, LACTIC #### [address] Monocyte distribution width [Entitic volume] in Blood by AutomatedOrdered By: Abrahan Lew on 10-25-2023 Monocyte distribution width Auto (Bld) [Entitic vol] 19.51 % 0.00-20.00 [facility] Neutrophils [#/volume] in Bl ood by Automated countOrdered By: Abrahan Lew on 10-25-2023 Neutrophils (Bld) [#/Vol] 8.9 10*3/uL High 1.8-7.7 [facility] Comment on above: Performed By: #### C UBLD, LACTIC #### [address] Nitrite Test strip Ql (U)Ord ered By: Abrahan Lew on 10-25-2023 Nitrite Ql (U) Negative Negative [facility] No Panel InformationOrdered By: Abrahan Lew on 10-25-2023 Estimated GFR (CKD-EPI) > 60.0 mL/Min [facility] Creatinine Clearance (Chem 123.29 [facility] Nucleated erythrocytes [Pres ence] in Blood by Automated countOrdered By: Abrahan Lew on 10-25-2023 Nucleated RBC Auto Ql (Bld) 0.1 /100{WBC} 0-0.5 [facility] Opiates [Presence] in Urine by Screen methodOrdered By: Abrahan Lew on 10-25-2023 Opiates Screen Ql (U) Negative Negative [facility] Partial Thromboplastin Timeo n 10-25-2023 aPTT Coag (Bld) [Time] 26.8 s Normal 25.1-36.5 [facility] Comment on above: Result Comment: A he matocrit value greater than 55% may lead to inaccurate results in coagulation testing. Patients having hematocrit values >55% require a special collection tube for coagulation studies. Please contact the laboratory at [phone] for redraw instructions. PERFORMED BY: [place] [address] PATHOLOGIST [employer] MICA CANDY KELLOGG M.D. Performed By: #### C UBLD, LACTIC #### [facility] [address] [place] [address] Phencyclidine Screen Ql (U)O rdered By: Abrahan Lew on 10-25-2023 Phencyclidine Ql (U) Negative Negative [facility] Platelet mean volume [Entiti c volume] in Blood by Automated countOrdered By: Abrahan Lew on 10-25-2023 Platelet mean volume (Bld) [Entitic vol] 7.1 fL Normal 6.3-10.7 [facility] Comment on above: Performed By: #### C UBLD, LACTIC #### [facility] [address] [place] [address] Platelets [#/volume] in Bloo d by Automated countOrdered By: Abrahan Lew on 10-25-2023 Platelets (Bld) [#/Vol] 492 10*3/uL High 150-450 [facility] Comment on above: Performed By: #### C UBLD, LACTIC #### [address] Potassium [Moles/volume] in Serum or PlasmaOrdered By: Abrahan Lew on 10-25-2023 Potassium [Moles/Vol] 3.7 mmol/L Normal 3.5-5.1 [facility] Comment on above: Performed By: #### C UBLD, LACTIC #### [address] Protein Auto test strip (U) [Mass/Vol]Ordered By: Abrahan Lew on 10-25-2023 Protein (U) [Mass/Vol] Negative Negative [facility] Protein [Mass/volume] in Ser um or PlasmaOrdered By: Abrahan Lew on 10-25-2023 Protein [Mass/Vol] 8.7 g/dL Normal 6.4-8.[address] [facility] Comment on above: Performed By: #### C UBLD, LACTIC #### [address] Prothrombin time (PT)Ordered By: Abrahan Lew on 10-25-2023 PT Coag (PPP) [Time] 13.3 s High 9.0-12.9 [facility] Comment on above: A hematocrit value g reater than 55% may lead to inaccurate results in coagulation testing. Patients having hematocrit values >55% require a special collection tube for coagulation studies. Please contact the laboratory at [phone] for redraw instructions. Result Comment: A he matocrit value greater than 55% may lead to inaccurate results in coagulation testing. Patients having hematocrit values >55% require a special collection tube for coagulation studies. Please contact the laboratory at [phone] for redraw instructions. Performed By: #### C UBLD, LACTIC #### [address] Serum globulin measurement b y calculation (mass/volume)Ordered By: Abrahan Lew on 10-25-2023 Globulin (S) [Mass/Vol] 3.9 g/dL Normal [facility] Comment on above: Performed By: #### C UBLD, LACTIC #### [address] Serum or plasma albumin/glob ulin mass ratioOrdered By: Abrahan Lew on 10-25-2023 Albumin/Globulin [Mass ratio] 1.2 {ratio} Normal [facility] Comment on above: Performed By: #### C UBLD, LACTIC #### [address] Serum or plasma anion gap de terminationOrdered By: Abrahan Lew on 10-25-2023 Anion gap [Moles/Vol] 10.8 mmol/L Normal 6.0-15.0 [facility] Comment on above: Performed By: #### C UBLD, LACTIC #### [address] Serum or plasma non-glucuron idated bilirubin measurement (mass/volume)Ordered By: Abrahan Lew on 10-25-2023 Bilirubin.indirect [Mass/Vol] 0.2 mg/dL [facility] Sodium [Moles/volume] in Ser um or PlasmaOrdered By: Abrahan Lew on 10-25-2023 Sodium [Moles/Vol] 135 mmol/L Low 136-[address] [facility] Comment on above: Performed By: #### C UBLD, LACTIC #### [address] Specific gravity Auto test s trip (U) [Rel density]Ordered By: Abrahan Lew on 10-25-2023 Specific gravity (U) [Rel density] 1.004 1.001-1.030 [facility] Troponin I High Sensitivityo n 10-25-2023 Troponin I High Sensitivity < 2.3 Normal 0.0-15.0 [facility] Comment on above: Result Comment: PERF ORMED BY: [place] [address] PATHOLOGIST [employer] MICA CANDY KELLOGG M.D. Performed By: #### C UBLD, LACTIC #### [address] Troponin I.cardiac [Mass/vol ume] in Serum or Plasma by Detection limit <= 0.01 ng/Ordered By: Abrahan Lew on 10-25-2023 Troponin I.cardiac DL <= 0.01 ng/mL [Mass/Vol] < 2.3 pg/mL 0.0-15.0 [facility] Urea nitrogen [Mass/volume] in Serum or PlasmaOrdered By: Abrahan Lew on 10-25-2023 Urea nitrogen [Mass/Vol] 9 mg/dL Normal 7-25 [facility] Comment on above: Performed By: #### C UBLD, LACTIC #### [address] Urinalysison 10-25-2023 Appearance (U) Clear Normal Clear [facility] Comment on above: Order Comment: Name Collection Type:: Clean-Voided Midstream Performed By: #### U HCG, UA, URDS #### [address] Bilirubin,Urine Negative Normal Negative [facility] Comment on above: Order Comment: Name Collection Type:: Clean-Voided Midstream Performed By: #### U HCG, UA, URDS #### [address] Glucose Ql (U) Normal Normal Normal [facility] Comment on above: Order Comment: Name Collection Type:: Clean-Voided Midstream Performed By: #### U HCG, UA, URDS #### [address] Ketones Ql (U) Negative Normal Negative [facility] Comment on above: Order Comment: Name Collection Type:: Clean-Voided Midstream Performed By: #### U HCG, UA, URDS #### [address] Leukocyte esterase Test strip Ql (U) Negative Normal Negative [facility] Comment on above: Order Comment: Name Collection Type:: Clean-Voided Midstream Performed By: #### U HCG, UA, URDS #### [facility] [address] [place] [address] [place] Nitrite,Urine Negative Normal Negative [facility] Comment on above: Order Comment: Name Collection Type:: Clean-Voided Midstream Performed By: #### U HCG, UA, URDS #### [facility] [address] Occult Blood,Urine Negative Normal Negative [facility] Comment on above: Order Comment: Name Collection Type:: Clean-Voided Midstream Performed By: #### U HCG, UA, URDS #### [address] Protein,Urine Negative Normal Negative [facility] Comment on above: Order Comment: Name Collection Type:: Clean-Voided Midstream Performed By: #### U HCG, UA, URDS #### [address] Specificy [place],Urine 1.004 Normal 1.001-1.030 [facility] Comment on above: Order Comment: Name Collection Type:: Clean-Voided Midstream Performed By: #### U HCG, UA, URDS #### [facility] [address] [place] [address] [place] Urobilinogen,Urine Normal Normal Normal [facility] Comment on above: Order Comment: Name Collection Type:: Clean-Voided Midstream Performed By: #### U HCG, UA, URDS #### [address] Urine clarity by refractomet ry automatedOrdered By: Abrahan Lew on 10-25-2023 Clarity Refractometry automated (U) Clear Clear [facility] Urine glucose measurement by automated test strip (mass/volume)Ordered By: Abrahan Lew on 10-25-2023 Glucose Auto test strip (U) [Mass/Vol] Normal mg/dL Normal [facility] Urine hemoglobin detection b y automated test stripOrdered By: Abrahan Lew on 10-25-2023 Hemoglobin Auto test strip Ql (U) Negative Negative [facility] Urine leukocyte esterase det ection by automated test stripOrdered By: Abrahan Lew on 10-25-2023 Leukocyte esterase Auto test strip Ql (U) Negative Negative [facility] Urine pH measurement by auto mated test stripOrdered By: Abrahan Lew on 10-25-2023 pH (U) 7.5 [pH] Normal 5.0-9.0 [facility] Comment on above: Order Comment: Name Collection Type:: Clean-Voided Midstream Performed By: #### U HCG, UA, URDS #### [address] Urobilinogen Auto test strip (U) [Mass/Vol]Ordered By: Abrahan Lew on 10-25-2023 Urobilinogen (U) [Mass/Vol] Normal mg/dL Normal [facility] XR chest 1V portableon 10-24 XR chest 1V portable [facility] [place] [address] [place] [address] XRay Report Signed Patient: Jessie Alva MR#: [id number] : 2000 Acct:[id number] Age/Sex: 23 / F ADM Date: 10/25/23 Loc: ER Room: Type: [facility] ER Attending Dr: Copies to: Abrahan Lew DO Ordering Provider: Abrahan Lew DO Date of Service: 10/25/23 XR/XR chest 1V portable: Weakness XR chest 1V portable 10/25/2023 11:11 AM SIGNS AND SYMPTOMS: Shortness of breath PROTOCOL: Frontal radiograph of the chest COMPARISON: 10/23/2023 FINDINGS: The trachea is midline. The heart and mediastinal structures are within normal limits. The lung parenchyma is clear. The bony thorax is intact. Degenerative changes are noted in the thoracic spine. XR/XR chest 1V portable IMPRESSION: No acute cardiopulmonary pathology. Impression dictated by: Italo Feldman M.D.10/25/2023 11:45 AM Dictation Location: [place] [address] Transcribed By: [facility] 10/25/23 1145 Dictated By: Italo Feldman II, MD 10/25/23 1145 Signed By: 10/25/23 1145 Normal [facility] Alanine aminotransferase [En zymatic activity/volume] in Serum or PlasmaOrdered By: Ramiro Schaefer on 10-23-2023 ALT [Catalytic activity/Vol] 15 U/L Normal 7-52 [facility] Comment on above: Performed By: #### C UBLD, LACTIC #### [facility] [address] Albumin [Mass/volume] in Ser um or Plasma by Bromocresol green (BCG) dye binding methoOrdered By: Ramiro Schaefer on 10-23-2023 Albumin BCG dye [Mass/Vol] 4.4 g/dL 3.5-5.7 [facility] Alkaline phosphatase [Enzyma tic activity/volume] in Serum or PlasmaOrdered By: Ramiro Schaefer on 10-23-2023 ALP [Catalytic activity/Vol] 38 U/L Normal 34-104 [facility] Comment on above: Performed By: #### C UBLD, LACTIC #### [address] Amphetamine Screen Ql (U)Ord ered By: Ramiro Schaefer on 10-23-2023 Amphetamines Ql (U) Negative Negative [facility] Aspartate aminotransferase [ Enzymatic activity/volume] in Serum or PlasmaOrdered By: Ramiro Schaefer on 10-23-2023 AST [Catalytic activity/Vol] 15 U/L Normal 13-39 [facility] Comment on above: Performed By: #### C UBLD, LACTIC #### [address] Automated basophil %Ordered By: Ramiro Schaefer on 10-23-2023 Basophils/100 WBC (Bld) 0.2 % Normal . [facility] Comment on above: Performed By: #### C UBLD, LACTIC #### [address] Automated basophil countOrde red By: Ramiro Schaefer on 10-23-2023 Basophils (Bld) [#/Vol] 0.0 10*3/uL Normal 0.0-0.2 [facility] Comment on above: Result Comment: PERF ORMED BY: [place] [address] PATHOLOGIST [employer] MICA CANDY KELLOGG M.D. Performed By: #### C UBLD, LACTIC #### [address] Automated blood monocyte cou ntOrdered By: Ramiro Schaefer on 10-23-2023 Monocytes (Bld) [#/Vol] 0.7 10*3/uL Normal 0.0-0.8 [facility] Comment on above: Performed By: #### C UBLD, LACTIC #### [address] Automated eosinophil %Ordere d By: Ramiro Schaefer on 10-23-2023 Eosinophils/100 WBC (Bld) 0.9 % Normal . [facility] Comment on above: Performed By: #### C UBLD, LACTIC #### [address] Automated eosinophil countOr dered By: Ramiro Schaefer on 10-23-2023 Eosinophils (Bld) [#/Vol] 0.1 10*3/uL Normal 0.0-0.45 [facility] Comment on above: Performed By: #### C UBLD, LACTIC #### [address] Automated monocyte %Ordered By: Ramior Schaefer on 10-23-2023 Monocytes/100 WBC (Bld) 6.8 % Normal . [facility] Comment on above: Performed By: #### C UBLD, LACTIC #### [address] Automated neutrophil %Ordere d By: Ramiro Schaefer on 10-23-2023 Neutrophils/100 WBC (Bld) 56.3 % Normal . [facility] Comment on above: Performed By: #### C UBLD, LACTIC #### [address] Barbiturates [Presence] in U rine by Screen methodOrdered By: Ramiro Schaefer on 10-23-2023 Barbiturates Screen Ql (U) Negative Negative [facility] Basic Metabolic Panelon 10-04 Creatinine Clr Calc Pharmacy 118.15 Normal [facility] Comment on above: Performed By: #### C UBLD, LACTIC #### [facility] [address] [place] [address] GFR/1.73 sq M.predicted MDRD (S/P/Bld) [Vol rate/Area] mL/min/{1.73_m2} Normal [facility] Comment on above: Performed By: #### C UBLD, LACTIC #### [facility] [address] [place] [address] Benzodiazepines Screen Ql (U )Ordered By: Ramiro Schaefer on 10-23-2023 Benzodiazepines Ql (U) Negative Negative [facility] Benzoylecgonine [Presence] i n Urine by Screen methodOrdered By: Ramiro Schaefer on 10-23-2023 Benzoylecgonine Screen Ql (U) Negative Negative [facility] Bilirubin Test strip Ql (U)O rdered By: Ramiro Schaefer on 10-23-2023 Bilirubin Ql (U) Negative Negative [facility] Bilirubin.direct [Mass/volum e] in Serum or PlasmaOrdered By: Ramiro Schaefer on 10-23-2023 Bilirubin.direct [Mass/Vol] 0.10 mg/dL 0.03-0.18 [facility] Bilirubin.total [Mass/volume ] in Serum or PlasmaOrdered By: Ramiro Schaefer on 10-23-2023 Bilirubin [Mass/Vol] 0.3 mg/dL Normal 0.3-1.0 [facility] Comment on above: Performed By: #### C UBLD, LACTIC #### [facility] [address] [place] [address] CT head/brain wo conon 10-22 CT head/brain wo con [facility] [place] [address] CT Scan Report Signed Patient: Jessie Alva MR#: [id number] : 2000 Acct:[id number] Age/Sex: 23 / F ADM Date: 10/23/23 Loc: ER Room: Type: [facility] ER Attending Dr: Copies to: Ramiro Schaefer DO Ordering Provider: Ramiro Schaefer DO Date of Service: 10/23/23 CT/CT head/brain wo con: head pressure for couple weeks Unenhanced head CT TECHNIQUE: Contiguous axial imaging of the head. The CT exam was performed using one or more the following dose reduction techniques: Automated exposure control, adjustment of the MA and/or Kv according to patient size, or use of the iterative reconstruction technique. COMPARISON: None HISTORY: Dizziness. Nausea. VENTRICLES: Within normal limits ATROPHY: None BRAIN PARENCHYMA: Adequate bingham-white matter differentiation identified. HEMORRHAGE: None HERNIATION: No mass effect or herniation INFARCTION: No recent vascular distribution infarction is seen. EXTRA-AXIAL FLUID COLLECTIONS None MIDBRAIN: Unremarkable KRISTOPHER: Unremarkable MEDULLA: Unremarkable SINUSES: Unremarkable ORBITS: Grossly unremarkable MASTOIDS: Unremarkable BONY STRUCTURES Intact ADDITIONAL FINDINGS: CT/CT head/brain wo con IMPRESSION: No acute findings. Impression dictated by: Boone Wang M.D.10/23/2023 12:46 PM Dictation Location: [place] [address] Transcribed By: [facility] 10/23/23 1246 Dictated By: Boone Wang DO 10/23/23 1244 Signed By: 10/23/23 1246 Normal [facility] Calcium [Mass/volume] in Ser um or PlasmaOrdered By: Ramiro Schaefer on 10-23-2023 Calcium [Mass/Vol] 9.6 mg/dL Normal 8.6-10.[address] [facility] Comment on above: Performed By: #### C UBLD, LACTIC #### [facility] [address] [place] [address] Cannabinoids [Presence] in U rine by Screen methodOrdered By: Ramiro Schaefer on 10-23-2023 Cannabinoids Screen Ql (U) Positive Negative [facility] Comment on above: These are unconfirme d results and should not be used for legal purposes. Drug Cut-Off Concentration: AMPH 1000 ng/mL VISHNU 200 ng/mL MAIRA 200 ng/mL COCM 300 ng/mL OP 300 ng/mL PCP 25 ng/mL THC 20 ng/mL Carbon dioxide, total [Moles /volume] in Serum or PlasmaOrdered By: Ramiro Schaefer on 10-23-2023 CO2 [Moles/Vol] 26.1 mmol/L Normal 21.0-31.0 [facility] Comment on above: Performed By: #### C UBLD, LACTIC #### [address] Chloride [Moles/volume] in S alirio or PlasmaOrdered By: Ramiro Schaefer on 10-23-2023 Chloride [Moles/Vol] 106 mmol/L Normal 98-107 [facility] Comment on above: Performed By: #### C UBLD, LACTIC #### [address] Color of Urine by AutoOrdere d By: Ramiro Schaefer on 10-23-2023 Color (U) Colorless Normal Yellow [facility] Comment on above: Order Comment: Name Collection Type:: Clean-Voided Midstream Performed By: #### U HCG, URDS, UA #### [address] Complete Blood Count Auto Di ffon 10-23-2023 Mean Corpuscular HGB Conc 33.0 g/dL Normal 32.0-35.0 [facility] Comment on above: Performed By: #### C UBLD, LACTIC #### [place] [address] [place] Monocytes/100 WBC (Bld) 18.82 % Normal 0.00-20.00 [facility] Comment on above: Performed By: #### C UBLD, LACTIC #### [place] [address] [place] NRBC% 0.1 /100{WBC} Normal 0-0.5 [facility] Comment on above: Performed By: #### C UBLD, LACTIC #### [place] [address] [place] Creatinine [Mass/volume] in Serum or PlasmaOrdered By: Ramiro Schaefer on 10-23-2023 Creatinine [Mass/Vol] 0.71 mg/dL Normal 0.60-1.20 [facility] Comment on above: Performed By: #### C UBLD, LACTIC #### [place] [address] [place] Drug Screen,Urineon 10-23-19 Amphetamine Screen,Urine Negative Normal Negative [facility] Comment on above: Performed By: #### C UBLD, LACTIC #### [address] Barbiturate Screen,Urine Negative Normal Negative [facility] Comment on above: Performed By: #### C UBLD, LACTIC #### [address] Benzodiazepines Screen,Urine Negative Normal Negative [facility] Comment on above: Performed By: #### C UBLD, LACTIC #### [address] Cannabinoid Screen,Urine Positive High Negative [facility] Comment on above: Result Comment: Thes e are unconfirmed results and should not be used for legal purposes. Drug Cut-Off Concentration: AMPH 1000 ng/mL VISHNU 200 ng/mL MAIRA 200 ng/mL COCM 300 ng/mL OP 300 ng/mL PCP 25 ng/mL THC 20 ng/mL PERFORMED BY: [place] [address] PATHOLOGIST [employer] MICA CANDY KELLOGG M.D. Performed By: #### C UBLD, LACTIC #### [address] Cocaine Screen,Urine Negative Normal Negative [facility] Comment on above: Performed By: #### C UBLD, LACTIC #### [place] [address] [place] Opiate Screen,Urine Negative Normal Negative [facility] Comment on above: Performed By: #### C UBLD, LACTIC #### [place] [address] [place] Phencyclidine Screen,Urine Negative Normal Negative [facility] Comment on above: Performed By: #### C UBLD, LACTIC #### [address] ECG 12 lead ECGon 10-23-2023 ECG 12 lead ECG [facility] [place] [address] [place] [address] Electrocardiograph Report Signed Patient: Jessie Alva MR#: [id number] : 2000 Acct:[id number] Age/Sex: 23 / F ADM Date: 10/23/23 Loc: ER Room: Type: [facility] ER Attending Dr: Ordering Provider: Ramiro Schaefer DO Date of Service: 10/23/23 ECG/ECG 12 lead ECG: Headache Copies to: Test Reason : Blood Pressure : / mmHG Vent. Rate : 102 BPM Atrial Rate : 102 BPM P-R Int : 172 ms QRS Dur : 082 ms QT Int : 332 ms P-R-T Axes : 062 079 000 degrees QTc Int : 432 ms Sinus tachycardia Otherwise normal ECG When compared with ECG of 12-DEC-2022 15:36, T wave inversion now evident in Inferior leads T wave inversion no longer evident in Lateral leads Confirmed by AMELIA MIRELES [facility], JACQUELINE ([id number]) on 10/25/2023 10:25:44 AM Referred By: Electronically Signed By:JACQUELINE MCGREGOR MD [facility] Transcribed By: MUS Signed By Jacqueline Mcgregor MD, [facility] 10/25/23 1025 Normal [facility] Erythrocyte distribution wid th [Ratio] by Automated countOrdered By: Ramiro Schaefer on 10-23-2023 Erythrocyte distribution width (RBC) [Ratio] 16.3 % High 11.9-15.3 [facility] Comment on above: Performed By: #### C UBLD, LACTIC #### [facility] [address] [place] [address] [place] Erythrocytes [#/volume] in B lood by Automated countOrdered By: Ramiro Schaefer on 10-23-2023 RBC (Bld) [#/Vol] 4.40 10*6/uL Normal 3.60-5.00 [facility] Comment on above: Performed By: #### C UBLD, LACTIC #### [facility] [address] [place] [address] [place] Glucose [Mass/volume] in Ser um or PlasmaOrdered By: Ramiro Schaefer on 10-23-2023 Glucose [Mass/Vol] 95 mg/dL Normal 70-[address] [facility] Comment on above: ADA recommended refe rence rangeRandom Glucose Reference Range is dependent on time and content of last meal. Glucose of more than 200 mg/dL in a nonstressed, ambulatory subject supports the diagnosis of Diabetes Mellitus. Result Comment: [place] om Glucose Reference Range is dependent on time and content of last meal. Glucose of more than 200 mg/dL in a nonstressed, ambulatory subject supports the diagnosis of Diabetes Mellitus. ADA recommended reference range Performed By: #### C UBLD, LACTIC #### [address] Glucose [Mass/volume] in Uri ne by Test stripOrdered By: Ramiro Schaefer on 10-23-2023 Glucose Test strip (U) [Mass/Vol] Normal mg/dL Normal [facility] HCG ( test) IA.rapi d Ql (U)Ordered By: Ramiro Schaefer on 10-23-2023 HCG ( test) Ql (U) Negative [facility] HCG,Urineon 10-23-2023 Beta HCG ( test) Ql (U) Negative Normal [facility] Comment on above: Order Comment: Name Collection Type:: Clean-Voided Midstream Result Comment: PERF ORMED BY: [place] [address] PATHOLOGIST [employer] MICA CANDY KELLOGG M.D. Performed By: #### C UBLD, LACTIC #### [address] Hematocrit [Volume Fraction] of Blood by Automated countOrdered By: Ramiro Schaefer on 10-23-2023 Hematocrit (Bld) [Volume fraction] 38.6 % Normal 34.0-46.4 [facility] Comment on above: Performed By: #### C UBLD, LACTIC #### [address] Hemoglobin Test strip Ql (U) Ordered By: Ramiro Schaefer on 10-23-2023 Hemoglobin Ql (U) Negative Negative [facility] Hemoglobin [Mass/volume] in BloodOrdered By: Ramiro Schaefer on 10-23-2023 Hemoglobin (Bld) [Mass/Vol] 12.7 g/dL Normal 11.8-15.4 [facility] Comment on above: Performed By: #### C UBLD, LACTIC #### [address] Hepatic Panelon 10-23-2023 Albumin [Mass/Vol] 4.4 g/dL Normal 3.5-5.7 [facility] Comment on above: Performed By: #### C UBLD, LACTIC #### [address] Bilirubin,Indirect 0.2 mg/dL Normal [facility] Comment on above: Performed By: #### C UBLD, LACTIC #### [address] Bilirubin.indirect [Mass/Vol] 0.10 mg/dL Normal 0.03-0.18 [facility] Comment on above: Performed By: #### C UBLD, LACTIC #### [address] Ketones [Presence] in Urine by Test stripOrdered By: Ramiro Schaefer on 10-23-2023 Ketones Ql (U) Negative Normal Negative [facility] Comment on above: Order Comment: Name Collection Type:: Clean-Voided Midstream Performed By: #### U HCG, URDS, UA #### [address] Leukocyte esterase [Presence ] in Urine by Test stripOrdered By: Ramiro Schaefer on 10-23-2023 Leukocyte esterase Test strip Ql (U) Negative Normal Negative [facility] Comment on above: Order Comment: Name Collection Type:: Clean-Voided Midstream Performed By: #### U HCG, URDS, UA #### [address] Leukocytes [#/volume] correc jalil for nucleated erythrocytes in Blood by Automated counOrdered By: Ramiro Schaefer on 10-23-2023 WBC corrected for nucl RBC Auto (Bld) [#/Vol] 9.7 10*3/uL 3.8-11.6 [facility] Leukocytes [#/volume] in Blo od by Automated countOrdered By: Ramiro Schaefer on 10-23-2023 WBC (Bld) [#/Vol] 9.7 10*3/uL Normal 3.8-11.[address] [facility] Comment on above: Performed By: #### C UBLD, LACTIC #### [address] Lipase [Enzymatic activity/v olume] in Serum or PlasmaOrdered By: Ramiro Schaefer on 10-23-2023 Lipase [Catalytic activity/Vol] 6.0 U/L Low 11.0-82.0 [facility] Comment on above: Performed By: #### C UBLD, LACTIC #### [place] [address] [place] Lymphocytes [#/volume] in Bl ood by Automated countOrdered By: Ramiro Schaefer on 10-23-2023 Lymphocytes (Bld) [#/Vol] 3.5 10*3/uL Normal 1.00-4.8 [facility] Comment on above: Performed By: #### C UBLD, LACTIC #### [place] [address] [place] Lymphocytes/100 leukocytes i n Blood by Automated countOrdered By: Ramiro Schaefer on 10-23-2023 Lymphocytes/100 WBC (Bld) 35.8 % Normal . [facility] Comment on above: Performed By: #### C UBLD, LACTIC #### [place] [address] [place] MCH [Entitic mass] by Automa jalil countOrdered By: Ramiro Schaefer on 10-23-2023 MCH (RBC) [Entitic mass] 28.9 pg Normal 24.7-34.3 [facility] Comment on above: Performed By: #### C UBLD, LACTIC #### [place] [address] [place] MCHC Auto (RBC) [Mass/Vol]Or dered By: Ramiro Schaefer on 10-23-2023 MCHC (RBC) [Mass/Vol] 33.0 g/dL 32.0-35.0 [facility] MCV [Entitic volume] by Auto mated countOrdered By: Ramiro Schaefer on 10-23-2023 MCV (RBC) [Entitic vol] 87.7 fL Normal 80-100 [facility] Comment on above: Performed By: #### C UBLD, LACTIC #### [facility] [address] Monocyte distribution width [Entitic volume] in Blood by AutomatedOrdered By: Ramiro Schaefer on 10-23-2023 Monocyte distribution width Auto (Bld) [Entitic vol] 18.82 % 0.00-20.00 [facility] Neutrophils [#/volume] in Bl ood by Automated countOrdered By: Ramiro Schaefer on 10-23-2023 Neutrophils (Bld) [#/Vol] 5.5 10*3/uL Normal 1.8-7.7 [facility] Comment on above: Performed By: #### C UBLD, LACTIC #### [facility] [address] Nitrite Test strip Ql (U)Ord ered By: Ramiro Schaefer on 10-23-2023 Nitrite Ql (U) Negative Negative [facility] No Panel InformationOrdered By: Ramiro Schaefer on 10-23-2023 Estimated GFR (CKD-EPI) > 60.0 mL/Min [facility] Creatinine Clearance (Chem 118.15 [facility] Nucleated erythrocytes [Pres ence] in Blood by Automated countOrdered By: Ramiro Schaefer on 10-23-2023 Nucleated RBC Auto Ql (Bld) 0.1 /100{WBC} 0-0.5 [facility] Opiates [Presence] in Urine by Screen methodOrdered By: Ramiro Schaefer on 10-23-2023 Opiates Screen Ql (U) Negative Negative [facility] Phencyclidine Screen Ql (U)O rdered By: Ramiro Schaefer on 10-23-2023 Phencyclidine Ql (U) Negative Negative [facility] Platelet mean volume [Entiti c volume] in Blood by Automated countOrdered By: Ramiro Schaefer on 10-23-2023 Platelet mean volume (Bld) [Entitic vol] 7.5 fL Normal 6.3-10.7 [facility] Comment on above: Performed By: #### C UBLD, LACTIC #### [facility] [address] Platelets [#/volume] in Bloo d by Automated countOrdered By: Ramiro Schaefer on 10-23-2023 Platelets (Bld) [#/Vol] 462 10*3/uL High 150-450 [facility] Comment on above: Performed By: #### C UBLD, LACTIC #### [address] Potassium [Moles/volume] in Serum or PlasmaOrdered By: Ramiro Schaefer on 10-23-2023 Potassium [Moles/Vol] 3.7 mmol/L Normal 3.5-5.1 [facility] Comment on above: Performed By: #### C UBLD, LACTIC #### [address] Protein Test strip (U) [Mass /Vol]Ordered By: Ramiro Schaefer on 10-23-2023 Protein (U) [Mass/Vol] Negative Negative [facility] Protein [Mass/volume] in Ser um or PlasmaOrdered By: Ramiro Schaefer on 10-23-2023 Protein [Mass/Vol] 8.0 g/dL Normal 6.4-8.[address] [facility] Comment on above: Performed By: #### C UBLD, LACTIC #### [address] Serum globulin measurement b y calculation (mass/volume)Ordered By: Ramiro Schaefer on 10-23-2023 Globulin (S) [Mass/Vol] 3.6 g/dL Normal [facility] Comment on above: Performed By: #### C UBLD, LACTIC #### [address] Serum or plasma albumin/glob ulin mass ratioOrdered By: Ramiro Schaefer on 10-23-2023 Albumin/Globulin [Mass ratio] 1.2 {ratio} Normal [facility] Comment on above: Performed By: #### C UBLD, LACTIC #### [address] Serum or plasma anion gap de terminationOrdered By: Ramiro Schaefer on 10-23-2023 Anion gap [Moles/Vol] 9.6 mmol/L Normal 6.0-15.0 [facility] Comment on above: Performed By: #### C UBLD, LACTIC #### [address] Serum or plasma non-glucuron idated bilirubin measurement (mass/volume)Ordered By: Ramiro Schaefer on 10-23-2023 Bilirubin.indirect [Mass/Vol] 0.2 mg/dL [facility] Sodium [Moles/volume] in Ser um or PlasmaOrdered By: Ramiro Schaefer on 10-23-2023 Sodium [Moles/Vol] 138 mmol/L Normal 136-[address] [facility] Comment on above: Performed By: #### C UBLD, LACTIC #### [address] Specific gravity Test strip (U) [Rel density]Ordered By: Ramiro Schaefer on 10-23-2023 Specific gravity (U) [Rel density] 1.007 1.001-1.030 [facility] Thyrotropin [Units/volume] i n Serum or PlasmaOrdered By: Ramiro Schaefer on 10-23-2023 TSH Qn 1.21 m[IU]/L Normal 0.45-5.33 [facility] Comment on above: Result Comment: PERF ORMED BY: [place] [address] PATHOLOGIST [employer] MICA CANDY KELLOGG M.D. Performed By: #### C UBLD, LACTIC #### [address] Troponin I High Sensitivityo n 10-23-2023 Troponin I High Sensitivity < 2.3 Normal 0.0-15.0 [facility] Comment on above: Result Comment: PERF ORMED BY: [place] [address] PATHOLOGIST [employer] MICA CANDY KELLOGG M.D. Performed By: #### C UBLD, LACTIC #### [address] Troponin I.cardiac [Mass/vol ume] in Serum or Plasma by Detection limit <= 0.01 ng/Ordered By: Ramiro Schaefer on 10-23-2023 Troponin I.cardiac DL <= 0.01 ng/mL [Mass/Vol] < 2.3 pg/mL 0.0-15.0 [facility] Urea nitrogen [Mass/volume] in Serum or PlasmaOrdered By: Ramiro Schaefer on 10-23-2023 Urea nitrogen [Mass/Vol] 6 mg/dL Low 7-25 [facility] Comment on above: Performed By: #### C UBLD, LACTIC #### [address] Urinalysison 10-23-2023 Bilirubin,Urine Negative Normal Negative [facility] Comment on above: Order Comment: Name Collection Type:: Clean-Voided Midstream Performed By: #### U HCG, URDS, UA #### [address] Glucose Ql (U) Normal Normal Normal [facility] Comment on above: Order Comment: Name Collection Type:: Clean-Voided Midstream Performed By: #### U HCG, URDS, UA #### [place] [address] [place] Nitrite,Urine Negative Normal Negative [facility] Comment on above: Order Comment: Name Collection Type:: Clean-Voided Midstream Performed By: #### U HCG, URDS, UA #### [address] Occult Blood,Urine Negative Normal Negative [facility] Comment on above: Order Comment: Name Collection Type:: Clean-Voided Midstream Performed By: #### U HCG, URDS, UA #### [place] [address] [place] Protein,Urine Negative Normal Negative [facility] Comment on above: Order Comment: Name Collection Type:: Clean-Voided Midstream Performed By: #### U HCG, URDS, UA #### [address] Specificy [place],Urine 1.007 Normal 1.001-1.030 [facility] Comment on above: Order Comment: Name Collection Type:: Clean-Voided Midstream Performed By: #### U HCG, URDS, UA #### [address] Urobilinogen,Urine Normal Normal Normal [facility] Comment on above: Order Comment: Name Collection Type:: Clean-Voided Midstream Performed By: #### U HCG, URDS, UA #### [address] Urine appearanceOrdered By: Ramiro Schaefer on 10-23-2023 Appearance (U) Clear Normal Clear [facility] Comment on above: Order Comment: Name Collection Type:: Clean-Voided Midstream Performed By: #### U HCG, URDS, UA #### [address] Urobilinogen Test strip (U) [Mass/Vol]Ordered By: Ramiro Schaefer on 10-23-2023 Urobilinogen (U) [Mass/Vol] Normal mg/dL Normal [facility] XR chest 1V portableon 10-22 XR chest 1V portable [facility] [place] [address] XRay Report Signed Patient: Jessie Alva MR#: [id number] : 2000 Acct:[id number] Age/Sex: 23 / F ADM Date: 10/23/23 Loc: ER Room: Type: [facility] ER Attending Dr: Copies to: Ramiro Schaefer DO Ordering Provider: Ramiro Schaefer DO Date of Service: 10/23/23 XR/XR chest 1V portable: Headache SINGLE VIEW CHEST CLINICAL HISTORY: Lightheaded, unable to think straight. Chills nausea. COMPARISON: None FINDINGS: Heart normal in size. Lungs are clear. No free air. XR/XR chest 1V portable IMPRESSION: NO ACUTE FINDINGS Impression dictated by: Rolf Herring Jr., D.O.10/23/2023 12:13 PM Dictation Location: [place] [address] Transcribed By: [facility] 10/23/23 1213 Dictated By: Rolf Herring Jr, DO 10/23/23 1213 Signed By: 10/23/23 1213 Normal [facility] pH of Urine by Test stripOrd ered By: Ramiro Schaefer on 10-23-2023 pH (U) 7.0 [pH] Normal 5.0-9.0 [facility] Comment on above: Order Comment: Name Collection Type:: Clean-Voided Midstream Performed By: #### U HCG, URDS, UA #### [facility] [address] Automated epithelial cells c ount in urine sediment (number/area)Ordered By: Venkat Velazquez on 07-21-2023 Epithelial cells Auto (Urine sed) [#/Area] 3-4 [HPF] 0-2 [facility] Automated erythrocytes count in urine sediment (number/area)Ordered By: Venkat Velazquez on 07-21-2023 RBC Auto (Urine sed) [#/Area] Innumerable [HPF] 0-4 [facility] Automated leukocytes count i n urine sediment (number/area)Ordered By: Venkat Velazquez on 07-21-2023 WBC Auto (Urine sed) [#/Area] 5-9 [HPF] 0-4 [facility] Automated urine color determ inationOrdered By: Venkat Velazquez on 07-21-2023 Color (U) Dark yellow Critically abnormal Yellow [facility] Comment on above: Order Comment: Name Collection Type:: Clean-Voided Midstream Performed By: #### C UBLD, LACTIC #### [facility] [address] [place] [address] [facility] Automated urine hyaline cast s count (number/volume)Ordered By: Venkat Velazquez on 07-21-2023 Hyaline casts Auto (U) [#/Vol] None seen [LPF] 0-1 [facility] Bilirubin Test strip Ql (U)O rdered By: Venkatyahir Velazquez on 07-21-2023 Bilirubin Ql (U) Negative Negative [facility] Casts typing in urine sedime nt by light microscopyOrdered By: Venkat Velazquez on 07-21-2023 Casts LM Nom (Urine sed) None seen [LPF] None Seen [facility] Dipstick and Microscopicon 0 07-21-2023 Appearance (U) Cloudy Critically abnormal Clear [facility] Comment on above: Order Comment: Name Collection Type:: Clean-Voided Midstream Performed By: #### C UBLD, LACTIC #### [facility] [address] [place] [address] [place] Bacteria,Urine 1+ High None Seen [facility] Comment on above: Order Comment: Name Collection Type:: Clean-Voided Midstream Performed By: #### C UBLD, LACTIC #### [place] [address] [place] Bilirubin,Urine Negative Normal Negative [facility] Comment on above: Order Comment: Name Collection Type:: Clean-Voided Midstream Performed By: #### C UBLD, LACTIC #### [place] [address] [place] Glucose Ql (U) Normal Normal Normal [facility] Comment on above: Order Comment: Name Collection Type:: Clean-Voided Midstream Performed By: #### C UBLD, LACTIC #### [place] [address] [place] Hyaline Casts,Urine None Seen Normal 0-1 [facility] Comment on above: Order Comment: Name Collection Type:: Clean-Voided Midstream Performed By: #### C UBLD, LACTIC #### [place] [address] [place] Ketones Ql (U) 1+ High Negative [facility] Comment on above: Order Comment: Name Collection Type:: Clean-Voided Midstream Performed By: #### C UBLD, LACTIC #### [place] [address] [place] Leukocyte esterase Test strip Ql (U) 1+ High Negative [facility] Comment on above: Order Comment: Name Collection Type:: Clean-Voided Midstream Performed By: #### C UBLD, LACTIC #### [place] [address] [place] Nitrite,Urine Negative Normal Negative [facility] Comment on above: Order Comment: Name Collection Type:: Clean-Voided Midstream Performed By: #### C UBLD, LACTIC #### [address] Occult Blood,Urine 3+ High Negative [facility] Comment on above: Order Comment: Name Collection Type:: Clean-Voided Midstream Performed By: #### C UBLD, LACTIC #### [address] Othe Crystals,Urine None Seen Normal [facility] Comment on above: Order Comment: Name Collection Type:: Clean-Voided Midstream Performed By: #### C UBLD, LACTIC #### [address] Other Casts,Urine None Seen Normal None Seen [facility] Comment on above: Order Comment: Name Collection Type:: Clean-Voided Midstream Performed By: #### C UBLD, LACTIC #### [address] RBC,Urine Innumerable High 0-4 [facility] Comment on above: Order Comment: Name Collection Type:: Clean-Voided Midstream Performed By: #### C UBLD, LACTIC #### [place] [address] [place] Renal Epithelial Cells,Urine None Seen Normal 0-1 [facility] Comment on above: Order Comment: Name Collection Type:: Clean-Voided Midstream Performed By: #### C UBLD, LACTIC #### [address] Specificy [place],Urine 1.044 High 1.001-1.030 [facility] Comment on above: Order Comment: Name Collection Type:: Clean-Voided Midstream Performed By: #### C UBLD, LACTIC #### [address] Squamous Epithelial Cell,Urine 3-4 High 0-2 [facility] Comment on above: Order Comment: Name Collection Type:: Clean-Voided Midstream Performed By: #### C UBLD, LACTIC #### [address] Urobilinogen,Urine Normal Normal Normal [facility] Comment on above: Order Comment: Name Collection Type:: Clean-Voided Midstream Performed By: #### C UBLD, LACTIC #### [address] WBC,Urine 5-9 High 0-4 [facility] Comment on above: Order Comment: Name Collection Type:: Clean-Voided Midstream Performed By: #### C UBLD, LACTIC #### [address] HCG ( test) IA.rapi d Ql (U)Ordered By: Venkat Velazquez on 07-21-2023 HCG ( test) Ql (U) Negative [facility] HCG,Urineon 07-21-2023 Beta HCG ( test) Ql (U) Negative Normal [facility] Comment on above: Order Comment: Name Collection Type:: Clean-Voided Midstream Result Comment: PERF ORMED BY: [place] [address] PATHOLOGIST [employer] MICA CANDY KELLOGG M.D. Performed By: #### C UBLD, LACTIC #### [address] Ketones Auto test strip (U) [Mass/Vol]Ordered By: Venkat Velazquez on 07-21-2023 Ketones (U) [Mass/Vol] 1+ Negative [facility] Nitrite Test strip Ql (U)Ord ered By: Venkat Velazquez on 07-21-2023 Nitrite Ql (U) Negative Negative [facility] Specific gravity Auto test s trip (U) [Rel density]Ordered By: Venkat Velazquez on 07-21-2023 Specific gravity (U) [Rel density] 1.044 1.001-1.030 [facility] Urine Cultureon 07-21-2023 Bacteria identified Cx Nom (U) >100,000 colonies/ml mixed bacterial skin contaminants 2 Days PERFORMED BY: [place] [address] PATHOLOGIST [employer] MICA CANDY KELLOGG M.D. Normal [facility] Comment on above: Performed By: #### C UBLD, LACTIC #### [facility] [address] [place], [place] [id number] [facility] Urine bacteria detection by automated methodOrdered By: Venkat Velazquez on 07-21-2023 Bacteria Auto Ql (U) 1+ None Seen [facility] Urine clarity by refractomet ry automatedOrdered By: Venkat Velazquez on 07-21-2023 Clarity Refractometry automated (U) Cloudy Clear [facility] Urine glucose measurement by automated test strip (mass/volume)Ordered By: Venkat Velazquez on 07-21-2023 Glucose Auto test strip (U) [Mass/Vol] Normal mg/dL Normal [facility] Urine hemoglobin detection b y automated test stripOrdered By: Venkat Velazquez on 07-21-2023 Hemoglobin Auto test strip Ql (U) 3+ Negative [facility] Urine leukocyte esterase det ection by automated test stripOrdered By: Venkat Velazquez on 07-21-2023 Leukocyte esterase Auto test strip Ql (U) 1+ Negative [facility] Urine pH measurement by auto mated test stripOrdered By: Venkat Velazquez on 07-21-2023 pH (U) 5.5 [pH] Normal 5.0-9.0 [facility] Comment on above: Order Comment: Name Collection Type:: Clean-Voided Midstream Performed By: #### C UBLD, LACTIC #### [facility] [address] [place] [address] Urine protein measurement by automated test strip (mass/volume)Ordered By: Venkat Velazquez on 07-21-2023 Protein (U) [Mass/Vol] 30 mg/dL High Negative [facility] Comment on above: Order Comment: Name Collection Type:: Clean-Voided Midstream Performed By: #### C UBLD, LACTIC #### [facility] [address] Urine sediment crystal ident ification by light microscopyOrdered By: Venkat Velazquez on 07-21-2023 Crystals LM Nom (Urine sed) None seen [HPF] [facility] Urine sediment renal epithel ial cell count by microscopy (number/high power field)Ordered By: Venkat Velazquez on 07-21-2023 Epithelial cells.renal LM.HPF (Urine sed) [#/Area] None seen [HPF] 0-1 [facility] Urobilinogen Auto test strip (U) [Mass/Vol]Ordered By: Venkat Velazquez on 07-21-2023 Urobilinogen (U) [Mass/Vol] Normal mg/dL Normal [facility] Alanine aminotransferase [En zymatic activity/volume] in Serum or PlasmaOrdered By: PROVIDER TEMP on 12-12-2022 ALT [Catalytic activity/Vol] 15 U/L Normal 7-52 [facility] Comment on above: Performed By: #### C UBLD, LACTIC #### [facility] [address] [place] [address] [place] Albumin [Mass/volume] in Ser um or Plasma by Bromocresol green (BCG) dye binding methoOrdered By: PROVIDER TEMP on 12-12-2022 Albumin BCG dye [Mass/Vol] 4.6 g/dL 3.5-5.7 [facility] Alkaline phosphatase [Enzyma tic activity/volume] in Serum or PlasmaOrdered By: PROVIDER TEMP on 12-12-2022 ALP [Catalytic activity/Vol] 42 U/L Normal 34-104 [facility] Comment on above: Performed By: #### C UBLD, LACTIC #### [facility] [address] [place] [address] [place] Aspartate aminotransferase [ Enzymatic activity/volume] in Serum or PlasmaOrdered By: PROVIDER TEMP on 12-12-2022 AST [Catalytic activity/Vol] 15 U/L Normal 13-39 [facility] Comment on above: Performed By: #### C UBLD, LACTIC #### [facility] [address] Automated basophil %Ordered By: PROVIDER TEMP on 12-12-2022 Basophils/100 WBC (Bld) 1.5 % Normal . [facility] Comment on above: Performed By: #### C UBLD, LACTIC #### [address] Automated basophil countOrde red By: PROVIDER TEMP on 12-12-2022 Basophils (Bld) [#/Vol] 0.2 10*3/uL Normal 0.0-0.2 [facility] Comment on above: Result Comment: PERF ORMED BY: [place] [address] PATHOLOGIST [employer] MICA CANDY KELLOGG M.D. Performed By: #### C UBLD, LACTIC #### [address] Automated blood monocyte cou ntOrdered By: PROVIDER TEMP on 12-12-2022 Monocytes (Bld) [#/Vol] 0.9 10*3/uL High 0.0-0.8 [facility] Comment on above: Performed By: #### C UBLD, LACTIC #### [address] Automated eosinophil %Ordere d By: PROVIDER TEMP on 12-12-2022 Eosinophils/100 WBC (Bld) 0.9 % Normal . [facility] Comment on above: Performed By: #### C UBLD, LACTIC #### [address] Automated eosinophil countOr dered By: PROVIDER TEMP on 12-12-2022 Eosinophils (Bld) [#/Vol] 0.1 10*3/uL Normal 0.0-0.45 [facility] Comment on above: Performed By: #### C UBLD, LACTIC #### [address] Automated monocyte %Ordered By: PROVIDER TEMP on 12-12-2022 Monocytes/100 WBC (Bld) 6.1 % Normal . [facility] Comment on above: Performed By: #### C UBLD, LACTIC #### [address] Automated neutrophil %Ordere d By: PROVIDER TEMP on 12-12-2022 Neutrophils/100 WBC (Bld) 64.6 % Normal . [facility] Comment on above: Performed By: #### C UBLD, LACTIC #### [address] Automated urine color determ inationOrdered By: PROVIDER TEMP on 12-12-2022 Color (U) Yellow Normal Yellow [facility] Comment on above: Order Comment: Name Collection Type:: Clean-Voided Midstream Performed By: #### U HCG, UA #### [address] Bilirubin Test strip Ql (U)O rdered By: PROVIDER TEMP on 12-12-2022 Bilirubin Ql (U) Negative Negative [facility] Bilirubin.total [Mass/volume ] in Serum or PlasmaOrdered By: PROVIDER TEMP on 12-12-2022 Bilirubin [Mass/Vol] 0.3 mg/dL Normal 0.3-1.0 [facility] Comment on above: Performed By: #### C UBLD, LACTIC #### [place] [address] [place] Calcium [Mass/volume] in Ser um or PlasmaOrdered By: PROVIDER TEMP on 12-12-2022 Calcium [Mass/Vol] 9.6 mg/dL Normal 8.6-10.[address] [facility] Comment on above: Performed By: #### C UBLD, LACTIC #### [place] [address] [place] Carbon dioxide, total [Moles /volume] in Serum or PlasmaOrdered By: PROVIDER TEMP on 12-12-2022 CO2 [Moles/Vol] 25.3 mmol/L Normal 21.0-31.0 [facility] Comment on above: Performed By: #### C UBLD, LACTIC #### [place] [address] [place] Chloride [Moles/volume] in S alirio or PlasmaOrdered By: PROVIDER TEMP on 12-12-2022 Chloride [Moles/Vol] 104 mmol/L Normal 98-107 [facility] Comment on above: Performed By: #### C UBLD, LACTIC #### [address] Complete Blood Count Auto Di ffon 12-12-2022 Mean Corpuscular HGB Conc 32.1 g/dL Normal 32.0-35.0 [facility] Comment on above: Performed By: #### C UBLD, LACTIC #### [address] Monocytes/100 WBC (Bld) 19.32 % Normal 0.00-20.00 [facility] Comment on above: Performed By: #### C UBLD, LACTIC #### [address] NRBC% 0.0 /100{WBC} Normal 0-0.5 [facility] Comment on above: Performed By: #### C UBLD, LACTIC #### [address] Comprehensive Metabolic Pane claudette 12-12-2022 Albumin [Mass/Vol] 4.6 g/dL Normal 3.5-5.7 [facility] Comment on above: Performed By: #### C UBLD, LACTIC #### [address] Creatinine Clr Calc Pharmacy 134.50 Normal [facility] Comment on above: Result Comment: PERF ORMED BY: [place] [address] PATHOLOGIST [employer] MICA CANDY KELLOGG M.D. Performed By: #### C UBLD, LACTIC #### [address] GFR/1.73 sq M.predicted MDRD (S/P/Bld) [Vol rate/Area] mL/min/{1.73_m2} Normal [facility] Comment on above: Performed By: #### C UBLD, LACTIC #### [address] [place] [address] [place] Creatinine [Mass/volume] in Serum or PlasmaOrdered By: PROVIDER TEMP on 12-12-2022 Creatinine [Mass/Vol] 0.69 mg/dL Normal 0.60-1.20 [facility] Comment on above: Performed By: #### C UBLD, LACTIC #### [facility] [address] [place] [id number] [facility] ECG 12 lead ECGon 12-12-2022 ECG 12 lead ECG [facility] [place] [address] [place] [address] Electrocardiograph Report Signed Patient: Jessie Alva MR#: [id number] : 2000 Acct:[id number] Age/Sex: 22 / F ADM Date: 12/12/22 Loc: ER Room: Type: [facility] ER Attending Dr: Ordering Provider: Viktoriya Lawler APRN Date of Service: 12/12/2201/27/1532 ECG/ECG 12 lead ECG: Nausea/Vomiting/Diarrhea Copies to: Test Reason : Blood Pressure : / mmHG Vent. Rate : 130 BPM Atrial Rate : 130 BPM P-R Int : 160 ms QRS Dur : 074 ms QT Int : 276 ms P-R-T Axes : -14 -11 044 degrees QTc Int : 406 ms Sinus tachycardia Confirmed by Delfin CAPUTO DO ([id number]) on 12/12/2022 7:34:28 PM Referred By: Electronically Signed By:Delfin CAPUTO DO Transcribed By: MUS Signed By Delfin Caputo DO 0 12/12/22 193 Normal [facility] Erythrocyte distribution wid th [Ratio] by Automated countOrdered By: PROVIDER TEMP on 12-12-2022 Erythrocyte distribution width (RBC) [Ratio] 15.1 % Normal 11.9-15.3 [facility] Comment on above: Performed By: #### C UBLD, LACTIC #### [facility] [address] [place] [id number] [place] Erythrocytes [#/volume] in B lood by Automated countOrdered By: PROVIDER TEMP on 12-12-2022 RBC (Bld) [#/Vol] 4.67 10*6/uL Normal 3.60-5.00 [facility] Comment on above: Performed By: #### C UBLD, LACTIC #### [facility] [address] [place] [address] [place] Glucose [Mass/volume] in Ser um or PlasmaOrdered By: PROVIDER TEMP on 12-12-2022 Glucose [Mass/Vol] 80 mg/dL Normal 70-[address] [facility] Comment on above: ADA recommended refe rence rangeRandom Glucose Reference Range is dependent on time and content of last meal. Glucose of more than 200 mg/dL in a nonstressed, ambulatory subject supports the diagnosis of Diabetes Mellitus. Result Comment: [place] om Glucose Reference Range is dependent on time and content of last meal. Glucose of more than 200 mg/dL in a nonstressed, ambulatory subject supports the diagnosis of Diabetes Mellitus. ADA recommended reference range Performed By: #### C UBLD, LACTIC #### [place] [address] [place] HCG ( test) IA.rapi d Ql (U)Ordered By: PROVIDER TEMP on 12-12-2022 HCG ( test) Ql (U) Negative [facility] HCG,Urineon 12-12-2022 Beta HCG ( test) Ql (U) Negative Normal [facility] Comment on above: Order Comment: Name Collection Type:: Clean-Voided Midstream Result Comment: PERF ORMED BY: [place] [address] PATHOLOGIST [employer] MICA CANDY KELLOGG M.D. Performed By: #### U HCG, UA #### [place] [address] [place] Hematocrit [Volume Fraction] of Blood by Automated countOrdered By: PROVIDER TEMP on 12-12-2022 Hematocrit (Bld) [Volume fraction] 40.5 % Normal 34.0-46.4 [facility] Comment on above: Performed By: #### C UBLD, LACTIC #### [facility] [address] [place] [id number] [place] Hemoglobin [Mass/volume] in BloodOrdered By: PROVIDER TEMP on 12-12-2022 Hemoglobin (Bld) [Mass/Vol] 13.0 g/dL Normal 11.8-15.4 [facility] Comment on above: Performed By: #### C UBLD, LACTIC #### [address] Ketones Auto test strip (U) [Mass/Vol]Ordered By: PROVIDER TEMP on 12-12-2022 Ketones (U) [Mass/Vol] 1+ Negative [facility] Leukocytes [#/volume] correc jalil for nucleated erythrocytes in Blood by Automated counOrdered By: PROVIDER TEMP on 12-12-2022 WBC corrected for nucl RBC Auto (Bld) [#/Vol] 14.8 10*3/uL 3.8-11.6 [facility] Leukocytes [#/volume] in Blo od by Automated countOrdered By: PROVIDER TEMP on 12-12-2022 WBC (Bld) [#/Vol] 14.8 10*3/uL High 3.8-11.6 [facility] Comment on above: Performed By: #### C UBLD, LACTIC #### [place] [address] [place] Lymphocytes [#/volume] in Bl ood by Automated countOrdered By: PROVIDER TEMP on 12-12-2022 Lymphocytes (Bld) [#/Vol] 4.0 10*3/uL Normal 1.00-4.8 [facility] Comment on above: Performed By: #### C UBLD, LACTIC #### [place] [address] [place] Lymphocytes/100 leukocytes i n Blood by Automated countOrdered By: PROVIDER TEMP on 12-12-2022 Lymphocytes/100 WBC (Bld) 26.9 % Normal . [facility] Comment on above: Performed By: #### C UBLD, LACTIC #### [place] [address] [place] MCH [Entitic mass] by Automa jalil countOrdered By: PROVIDER TEMP on 12-12-2022 MCH (RBC) [Entitic mass] 27.8 pg Normal 24.7-34.3 [facility] Comment on above: Performed By: #### C UBLD, LACTIC #### [facility] [address] [place] [address] MCHC Auto (RBC) [Mass/Vol]Or dered By: PROVIDER TEMP on 12-12-2022 MCHC (RBC) [Mass/Vol] 32.1 g/dL 32.0-35.0 [facility] MCV [Entitic volume] by Auto mated countOrdered By: PROVIDER TEMP on 12-12-2022 MCV (RBC) [Entitic vol] 86.8 fL Normal 80-100 [facility] Comment on above: Performed By: #### C UBLD, LACTIC #### [facility] [address] [place] [address] Monocyte distribution width [Entitic volume] in Blood by AutomatedOrdered By: PROVIDER TEMP on 12-12-2022 Monocyte distribution width Auto (Bld) [Entitic vol] 19.32 % 0.00-20.00 [facility] Neutrophils [#/volume] in Bl ood by Automated countOrdered By: PROVIDER TEMP on 12-12-2022 Neutrophils (Bld) [#/Vol] 9.6 10*3/uL High 1.8-7.7 [facility] Comment on above: Performed By: #### C UBLD, LACTIC #### [facility] [address] [place] [address] Nitrite Test strip Ql (U)Ord ered By: PROVIDER TEMP on 12-12-2022 Nitrite Ql (U) Negative Negative [facility] No Panel InformationOrdered By: PROVIDER TEMP on 12-12-2022 Estimated GFR (CKD-EPI) > 60.0 mL/Min [facility] Creatinine Clearance (Chem 134.50 [facility] Nucleated erythrocytes [Pres ence] in Blood by Automated countOrdered By: PROVIDER TEMP on 12-12-2022 Nucleated RBC Auto Ql (Bld) 0.0 /100{WBC} 0-0.5 [facility] Platelet mean volume [Entiti c volume] in Blood by Automated countOrdered By: PROVIDER TEMP on 12-12-2022 Platelet mean volume (Bld) [Entitic vol] 7.3 fL Normal 6.3-10.7 [facility] Comment on above: Performed By: #### C UBLD, LACTIC #### [address] Platelets [#/volume] in Bloo d by Automated countOrdered By: PROVIDER TEMP on 12-12-2022 Platelets (Bld) [#/Vol] 525 10*3/uL High 150-450 [facility] Comment on above: Performed By: #### C UBLD, LACTIC #### [address] Potassium [Moles/volume] in Serum or PlasmaOrdered By: PROVIDER TEMP on 12-12-2022 Potassium [Moles/Vol] 3.8 mmol/L Normal 3.5-5.1 [facility] Comment on above: Performed By: #### C UBLD, LACTIC #### [address] Protein Auto test strip (U) [Mass/Vol]Ordered By: PROVIDER TEMP on 12-12-2022 Protein (U) [Mass/Vol] Negative Negative [facility] Protein [Mass/volume] in Ser um or PlasmaOrdered By: PROVIDER TEMP on 12-12-2022 Protein [Mass/Vol] 8.5 g/dL Normal 6.4-8.[address] [facility] Comment on above: Performed By: #### C UBLD, LACTIC #### [address] Serum globulin measurement b y calculation (mass/volume)Ordered By: PROVIDER TEMP on 12-12-2022 Globulin (S) [Mass/Vol] 3.9 g/dL [facility] Comment on above: Performed By: #### C UBLD, LACTIC #### [address] Serum or plasma albumin/glob ulin mass ratioOrdered By: PROVIDER TEMP on 12-12-2022 Albumin/Globulin [Mass ratio] 1.2 {ratio} [facility] Comment on above: Performed By: #### C UBLD, LACTIC #### [address] Serum or plasma anion gap de terminationOrdered By: PROVIDER TEMP on 12-12-2022 Anion gap [Moles/Vol] 11.5 mmol/L Normal 6.0-15.0 [facility] Comment on above: Performed By: #### C UBLD, LACTIC #### [place] [address] [place] Sodium [Moles/volume] in Ser um or PlasmaOrdered By: PROVIDER TEMP on 12-12-2022 Sodium [Moles/Vol] 137 mmol/L Normal 136-[address] [facility] Comment on above: Performed By: #### C UBLD, LACTIC #### [address] Specific gravity Auto test s trip (U) [Rel density]Ordered By: PROVIDER TEMP on 12-12-2022 Specific gravity (U) [Rel density] 1.027 1.001-1.030 [facility] Urea nitrogen [Mass/volume] in Serum or PlasmaOrdered By: PROVIDER TEMP on 12-12-2022 Urea nitrogen [Mass/Vol] 9 mg/dL Normal 7-25 [facility] Comment on above: Performed By: #### C UBLD, LACTIC #### [address] Urinalysison 12-12-2022 Appearance (U) Clear Normal Clear [facility] Comment on above: Order Comment: Name Collection Type:: Clean-Voided Midstream Performed By: #### U HCG, UA #### [address] Bilirubin,Urine Negative Normal Negative [facility] Comment on above: Order Comment: Name Collection Type:: Clean-Voided Midstream Performed By: #### U HCG, UA #### [address] Glucose Ql (U) Normal Normal Normal [facility] Comment on above: Order Comment: Name Collection Type:: Clean-Voided Midstream Performed By: #### U HCG, UA #### [facility] [address] [place] [id number] [place] Ketones Ql (U) 1+ High Negative [facility] Comment on above: Order Comment: Name Collection Type:: Clean-Voided Midstream Performed By: #### U HCG, UA #### [place] [id number] [place] Leukocyte esterase Test strip Ql (U) Negative Normal Negative [facility] Comment on above: Order Comment: Name Collection Type:: Clean-Voided Midstream Performed By: #### U HCG, UA #### [place] [address] [place] Nitrite,Urine Negative Normal Negative [facility] Comment on above: Order Comment: Name Collection Type:: Clean-Voided Midstream Performed By: #### U HCG, UA #### [place] [address] [place] Occult Blood,Urine Negative Normal Negative [facility] Comment on above: Order Comment: Name Collection Type:: Clean-Voided Midstream Performed By: #### U HCG, UA #### [place] [address] [place] Protein,Urine Negative Normal Negative [facility] Comment on above: Order Comment: Name Collection Type:: Clean-Voided Midstream Performed By: #### U HCG, UA #### [place] [address] [place] Specificy [place],Urine 1.027 Normal 1.001-1.030 [facility] Comment on above: Order Comment: Name Collection Type:: Clean-Voided Midstream Performed By: #### U HCG, UA #### [place] [address] [place] Urobilinogen,Urine Normal Normal Normal [facility] Comment on above: Order Comment: Name Collection Type:: Clean-Voided Midstream Performed By: #### U HCG, UA #### [place] [id number] [place] Urine clarity by refractomet ry automatedOrdered By: PROVIDER TEMP on 12-12-2022 Clarity Refractometry automated (U) Clear Clear [facility] Urine glucose measurement by automated test strip (mass/volume)Ordered By: PROVIDER TEMP on 12-12-2022 Glucose Auto test strip (U) [Mass/Vol] Normal mg/dL Normal [facility] Urine hemoglobin detection b y automated test stripOrdered By: PROVIDER TEMP on 12-12-2022 Hemoglobin Auto test strip Ql (U) Negative Negative [facility] Urine leukocyte esterase det ection by automated test stripOrdered By: PROVIDER TEMP on 12-12-2022 Leukocyte esterase Auto test strip Ql (U) Negative Negative [facility] Urine pH measurement by auto mated test stripOrdered By: PROVIDER TEMP on 12-12-2022 pH (U) 6.0 [pH] Normal 5.0-9.0 [facility] Comment on above: Order Comment: Name Collection Type:: Clean-Voided Midstream Performed By: #### U HCG, UA #### [facility] [address] Urobilinogen Auto test strip (U) [Mass/Vol]Ordered By: PROVIDER TEMP on 12-12-2022 Urobilinogen (U) [Mass/Vol] Normal mg/dL Normal [facility] Automated epithelial cells c ount in urine sediment (number/area)Ordered By: Venkat Velazquez on 03-30-2022 Epithelial cells Auto (Urine sed) [#/Area] 5-9 [HPF] 0-2 [facility] Automated erythrocytes count in urine sediment (number/area)Ordered By: Venkat Velazquez on 03-30-2022 RBC Auto (Urine sed) [#/Area] 5-9 [HPF] 0-4 [facility] Automated leukocytes count i n urine sediment (number/area)Ordered By: Venkat Velazquez on 03-30-2022 WBC Auto (Urine sed) [#/Area] 1-2 [HPF] 0-4 [facility] Automated urine hyaline cast s count (number/volume)Ordered By: Venkat Velazquez on 03-30-2022 Hyaline casts Auto (U) [#/Vol] None seen [LPF] 0-1 [facility] Bilirubin Test strip Ql (U)O rdered By: Venkat Velazquez on 03-30-2022 Bilirubin Ql (U) Negative Negative [facility] Color Auto (U)Ordered By: Curtis Velazquez on 03-30-2022 Color (U) Yellow Yellow [facility] HCG ( test) IA.rapi d Ql (U)Ordered By: Venkat Velazquez on 03-30-2022 HCG ( test) Ql (U) Negative [facility] Ketones Auto test strip (U) [Mass/Vol]Ordered By: Venkat Velazquez on 03-30-2022 Ketones (U) [Mass/Vol] Trace Negative [facility] Mucus LM Ql (Urine sed)Order ed By: Venkta Velazquez on 03-30-2022 Mucus Ql (Urine sed) 2+ [LPF] [facility] Nitrite Test strip Ql (U)Ord ered By: Venkat Velazquez on 03-30-2022 Nitrite Ql (U) Negative Negative [facility] Protein Auto test strip (U) [Mass/Vol]Ordered By: Venkat Velazquez on 03-30-2022 Protein (U) [Mass/Vol] Trace mg/dL Negative [facility] Specific gravity Auto test s trip (U) [Rel density]Ordered By: Venkat Velazquez on 03-30-2022 Specific gravity (U) [Rel density] 1.023 1.001-1.030 [facility] Urine bacteria detection by automated methodOrdered By: Venkat Velazquez on 03-30-2022 Bacteria Auto Ql (U) 1+ None Seen [facility] Urine clarity by refractomet ry automatedOrdered By: Venkat Velazquez on 03-30-2022 Clarity Refractometry automated (U) Clear Clear [facility] Urine glucose measurement by automated test strip (mass/volume)Ordered By: Venkat Velazquez on 03-30-2022 Glucose Auto test strip (U) [Mass/Vol] Normal mg/dL Normal [facility] Urine hemoglobin detection b y automated test stripOrdered By: Venkat Velazquez on 03-30-2022 Hemoglobin Auto test strip Ql (U) 3+ Negative [facility] Urine leukocyte esterase det ection by automated test stripOrdered By: Venkat Velazquez on 03-30-2022 Leukocyte esterase Auto test strip Ql (U) Negative Negative [facility] Urobilinogen Auto test strip (U) [Mass/Vol]Ordered By: Venkat Velazquez on 03-30-2022 Urobilinogen (U) [Mass/Vol] Normal mg/dL Normal [facility] pH Auto test strip (U)Ordere d By: Venkat Velazquez on 03-30-2022 pH (U) 5.5 [pH] 5.0-9.0 [facility] CULTURE THROATon 12-26-2018 CULTURE THROAT Culture Observations : No CEE needed per Dr. Chavez in ER on 12/27/2018 Isolate 1 Streptococcus pyogenes Heavy growth of Normal [facility] Comment on above: Performed By: #### T HRTCX #### [facility] [address] [place] [address] Jennifer Jessie ER URINE PROFILEon 9 Bilirubin [Mass/Vol] Negative Normal NEGATIVE [facility] Comment on above: Performed By: #### E RUR #### [facility] [address] [place] [address] Jennifer Jessie BLOOD Negative Normal NEGATIVE [facility] Comment on above: Performed By: #### E RUR #### [facility] [address] [place] [address] Jennifer Jessie Clarity (U) CLEAR Normal [facility] Comment on above: Performed By: #### E RUR #### [facility] [address] [place], [place] [id number] Jennifer Jessie Color (U) YELLOW Normal YELLOW [facility] Comment on above: Performed By: #### E RUR #### [facility] [address] [place], [place] [id number] Jennifer Jessie ERUAHD A micrscopic examina tion will be performed if indicated. Normal [facility] Comment on above: Performed By: #### E RUR #### [facility] [address] [place] [address] Jennifer Jessie Glucose [Mass/Vol] Negative Normal NEGATIVE [facility] Comment on above: Performed By: #### E RUR #### [facility] [address] [place] [address] Jennifer Roman Ketones Ql (U) 15 mg/dl Normal NEGATIVE [facility] Comment on above: Performed By: #### E RUR #### [facility] [address] [place] [address] Jennifer Jessie Nitrite Ql (U) Negative Normal NEGATIVE [facility] Comment on above: Performed By: #### E RUR #### [facility] [address] [place] [address] Jennifer Roman pH (Bld) 7.0 Normal 5-9 [facility] Comment on above: Performed By: #### E RUR #### [facility] [address] [place] [address] Jennifer Roman Protein (U) [Mass/Vol] Negative Normal [facility] Comment on above: Performed By: #### E RUR #### [facility] [address] [place] [address] Jennifer Roman SPEC GRAVITY 1.020 Normal 1.005-<=1.025 [facility] Comment on above: Performed By: #### E RUR #### [facility] [address] [place] [address] Jennifer Roman UR MICRO IND NOT INDICATED Normal [facility] Comment on above: Performed By: #### E RUR #### [facility] [address] [place] [address] Jennifer Roman Urobilinogen Qn (U) 1.0 EU/dl Normal [facility] Comment on above: Performed By: #### E RUR #### [facility] [address] [place] [address] Jennifer Roman WBC (Bld) [#/Vol] Negative Normal NEGATIVE [facility] Comment on above: Performed By: #### E RUR #### [facility] [address] [place], [place] [address] Jennifer Roman STREPT SCREENon 12-26-2018 STREP SCREEN A Positive Normal NEGATIVE [facility] Comment on above: Performed By: #### S SCRN #### [facility] [address] [place] [address] Jennifer Roman Vital Signs Date Time Vital Sign Value Performing Clinician Naseem thorpe 10-25-2023 12:50-0400 Diastolic blood pressure 66 mm[Hg] DO Ramiro Schaefer Work Phone: [facility] 10-25-2023 12:50-0400 Heart rate 98 /min DO Ramiro Schaefer Work Phone: [facility] 10-25-2023 12:50-0400 Respiratory rate 16 /min DO Ramiro Schaefer Work Phone: [facility] 10-25-2023 12:50-0400 SaO2% (BldA) [Mass fraction] 98 % DO Ramiro Schaefer Work Phone: [facility] 10-25-2023 12:50-0400 Systolic blood pressure 120 mm[Hg] DO Ramiro Schaefer Work Phone: [facility] 10-25-2023 11:08-0400 Body temperature 98.1 [degF] DO Ramiro Schaefer Work Phone: [facility] 10-25-2023 11:07-0400 Body height 167.64 cm DO Ramiro Schaefer Work Phone: [facility] 10-25-2023 11:07-0400 Body weight 72.57 kg DO Ramiro Schaefer Work Phone: [facility] 10-23-2023 14:35-0400 Diastolic blood pressure 54 mm[Hg] DO Ramiro Schaefer Work Phone: [facility] 10-23-2023 14:35-0400 Heart rate 68 /min DO Ramiro Schaefer Work Phone: [facility] 10-23-2023 14:35-0400 Respiratory rate 18 /min DO Ramiro Schaefer Work Phone: [facility] 10-23-2023 14:35-0400 SaO2% (BldA) [Mass fraction] 98 % DO Ramiro Schaefer Work Phone: [facility] 10-23-2023 14:35-0400 Systolic blood pressure 99 mm[Hg] DO Ramiro Schaefer Work Phone: [facility] 10-23-2023 10:42-0400 Body height 162.56 cm DO Ramiro Schaefer Work Phone: [facility] 10-23-2023 10:42-0400 Body temperature 98.7 [degF] DO Ramiro Schaefer Work Phone: [facility] 10-23-2023 10:42-0400 Body weight 68.5 kg DO Ramiro Schaefer Work Phone: [facility] 07-21-2023 09:00-0400 Body height 167.64 cm [facility] Work Phone: [facility] 07-21-2023 09:00-0400 Body temperature 98.1 [degF] [facility] Work Phone: [facility] 07-21-2023 09:00-0400 Body weight 78 kg [facility] Work Phone: [facility] 07-21-2023 09:00-0400 Diastolic blood pressure 82 mm[Hg] [facility] Work Phone: [facility] 07-21-2023 09:00-0400 Heart rate 72 /min [facility] Work Phone: [facility] 07-21-2023 09:00-0400 Respiratory rate 18 /min [facility] Work Phone: [facility] 07-21-2023 09:00-0400 SaO2% (BldA) [Mass fraction] 97 % [facility] Work Phone: [facility] 07-21-2023 09:00-0400 Systolic blood pressure 123 mm[Hg] [facility] Work Phone: [facility] 12-12-2022 19:52-0400 Body temperature 98.6 [degF] [facility] Work Phone: [facility] 12-12-2022 19:52-0400 Diastolic blood pressure 79 mm[Hg] [facility] Work Phone: [facility] 12-12-2022 19:52-0400 Heart rate 65 /min [facility] Work Phone: [facility] 12-12-2022 19:52-0400 Respiratory rate 18 /min [facility] Work Phone: [facility] 12-12-2022 19:52-0400 SaO2% (BldA) [Mass fraction] 100 % [facility] Work Phone: [facility] 12-12-2022 19:52-0400 Systolic blood pressure 113 mm[Hg] [facility] Work Phone: [facility] 12-12-2022 15:32-0400 Body height 162.56 cm [facility] Work Phone: [facility] 12-12-2022 15:32-0400 Body weight 83.1 kg [facility] Work Phone: [facility] 10-19-2022 13:06-0400 Body height 162.56 cm [facility] Work Phone: [facility] 10-19-2022 13:06-0400 Body temperature 98.7 [degF] [facility] Work Phone: [facility] 10-19-2022 13:06-0400 Body weight 81 kg [facility] Work Phone: [facility] 10-19-2022 13:06-0400 Diastolic blood pressure 75 mm[Hg] [facility] Work Phone: [facility] 10-19-2022 13:06-0400 Heart rate 69 /min [facility] Work Phone: [facility] 10-19-2022 13:06-0400 Respiratory rate 20 /min [facility] Work Phone: [facility] 10-19-2022 13:06-0400 SaO2% (BldA) [Mass fraction] 99 % [facility] Work Phone: [facility] 10-19-2022 13:06-0400 Systolic blood pressure 123 mm[Hg] [facility] Work Phone: [facility] 03-30-2022 14:39-0500 Body height 162.56 cm [facility] Work Phone: [facility] 03-30-2022 14:39-0500 Body temperature 98.7 [degF] [facility] Work Phone: [facility] 03-30-2022 14:39-0500 Body weight 80.15 kg [facility] Work Phone: [facility] 03-30-2022 14:39-0500 Diastolic blood pressure 79 mm[Hg] [facility] Work Phone: [facility] 03-30-2022 14:39-0500 Heart rate 91 /min [facility] Work Phone: [facility] 03-30-2022 14:39-0500 Respiratory rate 16 /min [facility] Work Phone: [facility] 03-30-2022 14:39-0500 SaO2% (BldA) [Mass fraction] 99 % [facility] Work Phone: [facility] 03-30-2022 14:39-0500 Systolic blood pressure 125 mm[Hg] [facility] Work Phone: [facility] Encounters Encounter Date Encounter Type Care Provider Facility Start: 01-17-2024 End: 01-17-2024 Telephone encounter Madhuri Soot MD, PhD Work Phone: Gastroenterology Comment on above: Appointment Start: 10-27-2023 End: 10-29-2023 ambulatory KUNJAM MOD Facility:[facility] Start: 10-25-2023 End: 10-25-2023 Emergency department patient visit DO Ramiro Schaefer Work Phone: [facility] Work Phone: Start: 10-23-2023 End: 10-23-2023 Emergency department patient visit DO Ramiro Schaefer Work Phone: [facility] Work Phone: Start: 07-21-2023 End: 07-21-2023 Emergency department patient visit [facility] Work Phone: [facility] Work Phone: Start: 12-12-2022 End: 12-12-2022 Emergency department patient visit [facility] Work Phone: [facility] Work Phone: Start: 10-19-2022 End: 10-19-2022 Emergency department patient visit [facility] Work Phone: [facility] Work Phone: Start: 03-30-2022 End: 03-30-2022 Emergency department patient visit [facility] Work Phone: [facility] Start: 12-26-2018 End: 12-26-2018 Patient encounter procedure BOONE PAY Facility:[facility] Procedures Date Procedure Procedure Detail Performing Clinician Start: 10-25-2023 Computed tomography of abdomen and pelvis with contrast DO Ramiro Schaefer Work Phone: Start: 10-25-2023 CT of head without contrast DO Ramiro Schaefer Work Phone: Start: 10-25-2023 Plain chest X-ray DO Mauricio Schaefer Work Phone: Start: 10-23-2023 CT of head without contrast DO Ramiro Schaefer Work Phone: Start: 10-23-2023 Plain chest X-ray DO Mauricio Schaefer Work Phone: Plan of Treatment Date Care Activity Detail Author Start: 06-07-2025 Urine microalbumin profile DTaP,Tdap,Td Vaccine (8 - Td or Tdap) [facility] Start: 10-27-2024 GC (Gonorrhea) Screening () GC (Gonorrhea) Screening () [facility] Start: 10-27-2024 Screening for Chlamydia trachomatis Chlamydia Screening () [facility] Start: 01-05-2024 Covid-19 Vaccine ( season) Covid-19 Vaccine ( season) [facility] Start: 01-05-2024 Influenza vaccination Influenza Vaccine (#1) [facility] Start: 10-25-2023 Bacteria identified in Blood by Culture [facility] Start: 10-25-2023 [facility] Start: 07-21-2023 Bacteria identified in Urine by Culture Urine Culture [facility] Start: 2022 Screening for malignant neoplasm of cervix Cervical Cancer Screening [facility] Start: 2019 Anxiety Screening Anxiety Screening [facility] Start: 2019 Depression Screening Depression Screening [facility] Start: 2019 Hepatitis C screening Hepatitis C Screening [facility] Start: 2019 HIV screening HIV Screening [facility] Start: 2017 Meningococcal B Vaccine: Consider Based On Risk (1 of 2 - Patient Seeks Protection) Meningococcal B Vaccine: Consider Based On Risk (1 of 2 - Patient Seeks Protection) [facility] Start: 2015 Peds To Adult Transition Annual Assessment Peds To Adult Transition Annual Assessment [facility] Start: 2013 Peds To Adult Transition Initial Discussion Peds To Adult Transition Initial Discussion [facility] Patient Education [facility] Work Phone: Patient referral [facility] Work Phone: Immunizations Immunization Date Immunization Notes Care Provider Raina che 02-02-2014 influenza virus vacc ine, unspecified formulation Madhuri Soto MD, PhD Work Phone: [facility] Payers Date Payer Category Payer Medicaid [employer] [facility] MEDICAID [id number] 2023-Present [phone] [address] [place] [address] Medicaid [id number] 2022 Medicaid [id number] 2022 Self-pay [id number] 1979 Unknown [id number] 1959 Unknown [id number] Unknown [id number] Unknown [id number] Unknown [id number] Unknown [id number] Social History Date Type Detail Facility Start: 03-30-2022 End: 12-12-2022 Tobacco smoking status NHIS Never smoked tobacco (finding) [facility] Start: 2000 Sex Assigned At Female F [facility] Start: 07-21-2023 End: 10-23-2023 Tobacco smoking status NHIS Ex-smoker (finding) [facility] Start: 10-25-2023 [facility] Start: 10-28-2023 History of Social function [facility] Start: 10-28-2023 Area Deprivation Index [facility] National Score (1-100), lower number is lower risk 93 [facility] Start: 2000 Sex assigned at Not on file [facility] NEGATED: Highlighted row [facility] Clinical Notes 10-28-2023 to 01-17-2024 Telephone Encounter - Vera Mcgee OCCA - 01/17/2024 1:51 PM EDTTelephone Encounter - Vera Mcgee OCCA - 01/17/2024 1:51 PM EDT Note Date & Type Note Facility 01-17-2024 Telephone encount er Note Called and LVM for pt regarding today's 1:40 pm appointment, Informed pt to please call [phone] to receive assistance with rescheduling if needed. DANAE Dey January 17, 2024 1:52 PM [facility] 01-17-2024 Miscellaneous Notes Formattin g of this note might be different from the original. Called and LVM for pt regarding today's 1:40 pm appointment, Informed pt to please call [phone] to receive assistance with rescheduling if needed. DANAE Dey January 17, 2024 1:52 PM documented in this encounter [facility] 10-29-2023 Note HNO ID: [id number] Author: TERRY SCHUSTER LSW Service: Care Management Author Type: Sales Professional Type: Care Mgt Initial Assessment Filed: 10/29/2023 11:17 Note Text: CARE MANAGEMENT: ASSESSMENT AND DISCHARGE PLAN SERVICE DATE: October 29, 2023 SERVICE TIME: 11:13 AM PCP: Bianca Shrestha CNP, CNP Primary Contact: Extended Emergency Contact Information Primary Emergency Contact: madhuri alva Mobile Relation: Mother Admission Status: Observation Insurance Provider: [employer] Potential Transition Plans Home How do you manage to accomplish the following: Independent: Ambulation;Dress;Meals/Meal Prep;Going to the bathroom;Medication Management;Bathe/Shower [place] of [place] Explained: [place] Given: No Reason Not Given: No placements necessary Caregiver Assessment: Caregiver is ready, willing and able to meet the patient's needs as recommended by the inter-professional team: No Caregiver needed Transport at Discharge: Transportation Arrangements: Car Needs Prior to Discharge: Needs Prior to Discharge: To Be Determined;Other: See Comment (medical clearance) Post-Acute Discharge Plan: Chart reviewed. PT/OT consults not ordered currently. Pt has a 6-click score of 24. Pt on Room Air. Pt is not on any notable IV meds at this time. If patient's mother is unable to transport home at discharge, pt can utilize [employer] transportation [phone]. This patient has been screened for Care Management Transitional Planning Services. At this time, it does not appear this patient will require transition planning services. Should this change, and the patient require transition planning services during this admission, please contact Case Management. SIGNATURE: LARRY Larson PATIENT NAME: Jessie Alva DATE: October 29, 2023 TIME: 11:12 AM CONTACT #: [phone] [facility] 10-29-2023 Note HNO ID: [id number] Author: ADILIA MARLOW RPh Service: Pharmacy Author Type: Pharmacist Type: Plan of Care Filed: 10/29/2023 11:46 Note Text: PHARMACY MEDICATION REVIEW Patient Name: Jessie Alva : 2000 The following medications were updated within the REGISTERED RADIATION THERAPIST medication list: Medications ADDED to REGISTERED RADIATION THERAPIST medication list N/A Medications CHANGED on REGISTERED RADIATION THERAPIST medication list N/A Medications REMOVED from REGISTERED RADIATION THERAPIST medication list N/A Additional comments: Patient confirmed that she was not taking any medications prior to admissions and has no known drug allergies. The below information represents the best possible medication history: Yes Medication history completed by: Steam Table Attendant: Patsy Jackson Source of history: Patient: Reliability of source: Appears reliable, denies any medications prior to admission and [facility] records Medication nonadherence identified: No barriers noted Reconciliation completed: Yes Completed by: Adilia Marlow RPh All REGISTERED RADIATION THERAPIST medications addressed by LIP. Patient was not taking any medications prior to admission. Patient interested in Bedside Delivery Services or using [facility] Pharmacy at discharge? No Preferred outpatient pharmacy: [id number] [place] [address] - [address] [facility] Allergies: No Known Allergies [facility] 10/29/2023 Medication history has been completed by a certified veterinary technician and reviewed by a pharmacist. Any additions/clarifications are in bold. Adilia Marlow, PharmD [phone] [facility] 10-29-2023 Note HNO ID: [id number] Author: WENDI GARCIA, Yovanny Service: Pharmacy Author Type: Rigger Type: Plan of Care Filed: 10/29/2023 10:23 Note Text: Insurance investigation completed Patient has active prescription insurance: Yes - Patient's insurance is in-network with [facility] Insurance loaded into [place]: Yes Test claim was completed to verify insurance is active: Successful Any questions, please contact your medication interior design coordinator. Pager #: [phone] [facility] 10-28-2023 Note HNO ID: [id number] Author: CHRIS AMARO APRN.CNP Service: General Internal Medicine Author Type: Nurse Practitioner Type: Progress Notes Filed: 10/28/2023 12:55 Note Text: DEPARTMENT OF HOSPITAL MEDICINE PROGRESS NOTE SERVICE DATE: 10/28/2023 SERVICE TIME: 12:37 PM Hospital Medicine/Primary Attending: Eliud Mcnulty MD Day/Night/Weekend Coverage: Days (including weekends) [phone]: Please page Chris Amaro APRN.PICKLE SORTER re: patient issues/concerns. Nights [phone]: For patients on G80/81 AND H80/81 page [phone], for all other patients page [phone]. Subjective INTERVAL HPI: Improving leukocytosis w/ IVF Reports having sips of OJ this AM then emesis a few movements later >encouraged sips of H2) AND ice, continue IVF AND antiemetics 1 episodes of light brown/orange colored stool this AM > enteric panel AND H pylori sent Hold off on GI consult at this time, if no improvement in 24 hours will have them see tomorrow Updated patient AND mother at beside Current Facility-Administered Medications Medication Dose Route Frequency iv contrast (radiology procedure) INTRAVENOUS DIRECTED PRN NaCl 0.9% iv flush bag 20 mL INTRAVENOUS PRN ondansetron (PF) 4 mg injection (ZOFRAN) 4 mg INTRAVENOUS q 6 H PRN metoclopramide HCl 5 mg injection (REGLAN) 5 mg INTRAVENOUS q 6 H PRN senna-docusate 8.6-50 mg 2 tablet (SENNA-S) 2 tablet ORAL AT BEDTIME polyethylene glycol 3350 17 g packet 17 g ORAL BID scopolamine 1 mg over 3 days 1 Patch (TRANSDERM-SCOP) 1 Patch TRANSDERMAL q 72 HR And [START ON 10/31/2023] scopolamine - REMOVE PATCH OTHER q 72 HR And scopolamine - VERIFY patch OTHER q 8 H aluminum-magnesium hydroxide-simethicone 200-200-20 mg/5 mL 30 mL 30 mL ORAL q 6 H PRN [START ON 10/29/2023] pantoprazole DR 20 mg tab(s) (PROTONIX) 20 mg ORAL BID AC (0600/1600) lactated ringers iv infusion 125 mL/hr INTRAVENOUS CONTINUOUS Objective PHYSICAL EXAM: BP 108/57 Pulse 71 Temp (Src) 98.9 (Oral) Resp 18 Wt 170 lb (77.1kg) SpO2 96% O2 Therapy: Room Air Physical Exam Performed GENERAL: awake alert fatigued appearing SKIN: multiple tattoos OROPHARYNX: dry lips LUNGS: Lungs clear to auscultation, Good diaphragmatic excursion, on ra CARDIAC: Normal S1 and S2; no rubs, murmurs, or gallops ABDOMEN: + bowel sounds, soft, +epigastric tenderness w/ deep palpation EXTREMITIES: Extremities normal, no deformities, edema, clubbing or skin discoloration. Good capillary refill. NEURO: Grossly normal cognition, motor function, and cranial nerves III-XII PULSES: 2+ radial, 2+ dorsalis pedis Lines, Drains, and Airways Line Duration Peripheral 10/27/23 7147 [facility] Short Right Forearm 20 Gauge <1 day Reviewed lines and needs to be continued: REASONS: Intravenous fluids and Electrolyte replacement No intake or output data in the 24 hours ending 10/28/23 1237 DATA: Diagnostic tests reviewed for today's visit: Most recent labs Most recent imaging Assessment/Plan Problem List Intractable nausea and vomiting (POA: Yes) Congenital malrotation of intestine (POA: Yes) Polysplenia (POA: Yes) Leukocytosis (POA: Yes) Diarrhea (POA: Yes) HOSPITAL COURSE: Jessie Alva is a 23 y/o F f congenitial intestinal malrotation, polysplenia, 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 10/26 [facility] ED for second opinion on nausea, vomiting, diarrhea and abd pain. In ED Lactate 2.0. CBC positive for leukocytosis with WBC 17. CMP WNL. Lipase negative. Urine hCG negative. UA negative for nitrites/leuks/WBCs. Urine tox positive for THC. Empirically with one-time dose of IV Zosyn in setting of elevated lactate with leukocytosis.Given IVF AND antiemetics. CT A/P redemonstrates congenital intestinal malrotation with majority of small bowel located in right hemiabdomen, and colon in left hemiabdomen. Appendix identified in left lower quadrant appears normal. No dilated bowel or bowel wall thickening.Mild elevation in lactate and leukocytosis could be secondary to vomiting and dehydration, however patient does not have an MICHAEL or any electrolyte abnormalities on CMP. Admitted to General Internal Medicine Service for ongoing management. Principal Problem: #Intractable nausea and vomiting #Leukocytosis # Diarrhea N/V/D x4 days. Reports fevers/ chills (reports temp of 99.4 at home). No sick contacts at home Sepsis lactate 2.0, Tox screen + for cannabinoids, UA +bacteria, and WBCs 17.19.>13 with IVF Crp, procal, esr,lipase wnl CT head and CXR at [facility] unremarkable. CT abdomen pelv done here: also w/ no acute findings COVID/RSV/Flu -ve DDx: viral gastroenteritis, less likely bacterial as crp/procal/esr all wnl, gastritis, h. Pylori, EMRE vs. Other Plan: -stop abx as not indicated -continue IVF -PO as able, ADAT -send stool studies -monitor lytes and replace PRN -antiemetics / GI cocktails prn (more content not included)... [facility] Evaluation note No assessment inform ation available [facility] Work Phone: Hospital Discharge instructions Additional Instructions Push fluids Rest Follow with your primary care doctor call tomorrow for appointment Return here if any problems persist or worsen [facility] Work Phone: Hospital Discharge instructions Additional Instructions Use ibuprofen as needed for crampy abdominal pain. [facility] Work Phone: Hospital Discharge instructions Additional Instructions Ensure adequate hydration with water. Return with worsening symptoms or any other concerns. Follow-up with a primary care physician for which information was provided for you to do so. [facility] Work Phone: Hospital Discharge instructions Additional Instructions Follow-up with your primary care doctor Return to ED if develop worsening symptoms or concerns [facility] Work Phone: Summary Purpose Family History No Family History Records FoundNo Family History Records FoundNo Family History Records Found Advance Directives No Advanced Directives Records Found Advance Directive Response Recorded Date/ Time Advance Directives No August 01, 018 7:21pm Advance Directive Response Recorded Date/ Time Advance Directives No August 01 018 8:21pm Chief Complaint and Reason for Visit Chief Complaint abd pain Chief Complaint 5 wks IUP, bleeding/ cramping nausea, vomiting Chief Complaint poss miscarriage Chief Complaint headache Chief Complaint headache lethargic Additional Source Comments INFORMATION SOURCE (unrecogn ized section and content) DATE CREATED AUTHOR 12/27/2018 [facility] DATE CREATED AUTHOR AUTHOR'S ORGANIZ ATION 10/30/2023 [facility] DATE CREATED AUTHOR AUTHOR'S ORGANIZ ATION 01/19/2024 [facility] Care Teams (unrecognized sec tion and content) Team Status: Inactive Member Role Status Dates [facility] Primary Care Provider Active Venkat Velazquez APRN Emergency Provider Active Team Status: Active Member Role Status Dates aDnny [facility] Dept Primary Care Provider Active Team Status: Inactive Member Role Status Dates [place] [facility] Dept Primary Care Provider Active Angelica Licona DO Emergency Provider Active Team Status: Inactive Member Role Status Dates [facility] Dept Primary Care Provider Active Viktoriya Lawler APRN Emergency Provider Active Team Status: Inactive Member Role Status Dates [facility] Primary [facility] Provider Active Start: July 21, 2023 End: July 21, 2023 Venkat Velazquez APRN Emergency Provider Active Start: July 21, 2023 End: July 21, 2023 Team Status: Active Member Role Status Dates JOANNA Wallace Primary Care Provider Active Team Status: Inactive Member Role Status Dates Ramiro Schaefer DO Emergency Provider Active St art: October 23, 2023 End: October 23, 2023 JOANNA Wallace Primary Care Provider Active Start: October 23, 2023 End: October 23, 2023 Team Status: Inactive Member Role Status Dates JOANNA Wallace Primary Care Provider Active Start: October 25, 2023 End: October 25, 2023 Abrahan Lew DO Emergency Provider Active Sta rt: October 25, 2023 End: October 25, 2023 Tail Puller Relationship Specialty Start Date End Date Bianca Shrestha CNP [address] [place] [address] PCP - General Internal Medicine 10/27/23 Goals (unrecognized section and content) Goals may be documented in a n alternate sectionGoals may be documented in an alternate sectionGoals may be documented in an alternate sectionGoals may be documented in an alternate sectionGoals may be documented in an alternate section Source Comments (unrecognize d section and content) In the event this informatio n is protected by the Federal Confidentiality of Alcohol and Drug Abuse Patient Records regulations: The Federal rules restrict any use of the information to criminally investigate or prosecute any alcohol or drug abuse patient.[facility] Reason for Visit (unrecogniz ed section and content) Reason Comments Appointment FOR RECORDS PERTAINING TO PATIENTS WHO ARE OR HAVE BEEN ENROLLED IN A CHEMICAL DEPENDENCY/SUBSTANCEABUSE PROGRAM, SOME INFORMATION MAY BE OMITTED. This clinical summary was aggregated from multiple sources. Caution should be exercised in using it in the provision of clinical care. This summary normalizes information from multiple sources, and as a consequence, information in this document may materially change the coding, format and clinical context of patient data. In addition, data may be omitted in some cases. CLINICAL DECISIONS SHOULD BE BASED ON THE PRIMARY CLINICAL RECORDS. [facility] [employer] [facility]. provides no warranty or guarantee of the accuracy or completeness of information in this document.
[2024-02-04 10:14] LABS: Basophils Absolute Auto 0.1 10^3/uL (0.0-0.1); Eosinophils Absolute Auto 0.5 10^3/uL (0.0-0.7); Eosinophils Percent Auto 5.6 % (0.9-7.0); Hematocrit 40.4 % (36.0-48.0); Immature Granulocytes Abs Auto 0.01 10^3/uL (0.00-0.03); Immature Granulocytes Pct Auto 0.1 % (0.0-0.5); Lymphocytes Absolute Auto 3.2 10^3/uL (1.2-3.8); Lymphocytes Percent Auto 39.7 % (20.5-60.0); Mean Corpuscular HGB Conc 32.2 g/dL (29.9-35.2); Mean Corpuscular Hemoglobin 30.8 pg (26.7-34.0); Mean Corpuscular Volume 95.7 fL (81.0-99.0); Mean Platelet Volume 8.8 fL (9.5-13.5); Monocytes Absolute Auto 0.6 10^3/uL (0.3-0.8); Monocytes Percent Auto 7.7 % (1.7-12.0); Neutrophils Absolute Auto 3.7 10^3/uL (1.4-6.5); Neutrophils Percent Auto 45.9 % (43.0-75.0); Platelet Count 391 10^3/uL (150-450); Red Blood Count 4.22 10^6/uL (4.20-5.40); Red Cell Distribution Width 16.5 % (11.0-15.0); White Blood Count 8.1 10^3/uL (4.0-11.0)
[2024-02-04 10:48] LABS: Percent Iron Saturation 48.5 %
== END 2024-02-04 09:35 | disposition home or self-care (01) ==
LOC: LAB 09:35
PROVIDERS: PCP Nurse Practitioner Family; Visit Provider Internal Medicine Hematology & Oncology
DX: D75.839 Thrombocytosis, unspecified (principal); D50.9 Iron deficiency anemia, unspecified; D72.829 Elevated white blood cell count, unspecified; K90.9 Intestinal malabsorption, unspecified
CPT/HCPCS: 36415; 82728; 83540; 83550; 85025

== ENCOUNTER 2024-02-04 09:42 | Outpatient (OUT) | payer OTHER, SELFPAY ==
--- OUTSIDE RECORDS SUMMARY | 2024-02-04 10:00 | XMS_ITS | CCD ---
Author Organization [facility] Care Team Providers Care Heavy Equipment Supervisor Name Role Phone PAY, BOONE Admitting Unavailable PAY, BOONE Attending Unavailable MISC, DOCTOR Primary Care Unavailable PAY, BOONE Consulting Unavailable [facility], [place] Stone Primary Care Provider PATTI Velazquez [facility] Primary Care Provider DO Angelica Licona Emergency Provider PATTI Lawler [facility] Primary Care Provider PATTI Velazquez Emergency Provider DO Ramiro Schaefer Emergency Provider JOANNA Shrestha Primary Care Provider DO Abrahan Lew Emergency Provider [phone] Viktoriya Lawler Attending Unavailable Viktoriya Lawler Admitting Unavailable [facility], [place] lilia Stone Primary Care Unavailable aRmiro Schaefer Attending Unavailable Ramiro Schaefer Admitting Unavailable Bianca Shrestha Primary Care Unavailable [facility] [place] Stone Primary Care Unavailable Venkat Velazquez [...] time a week. 4 capsule 10/29/2023 Active [facility] (No Known Home Meds) (4 sources) Start: 12-12-2022 [facility] (No Known Home Meds) Active December 12, [...] Test Name Value Interpretation Reference Range Facility [facility] 01-17-2024 [facility] Telephone (GASTAV) ----- JESSIE ALVA ([id number]) 2 F Date Time Provider Department 01/17/24 MADHURI SOTO During your visit today, we recorded the following information about you: Vera Mcgee OCCA 01/17/2024 1:52 PM Signed Called and LVM for pt regarding today's 1:40 pm appointment, Informed pt to please call [phone] to receive assistance with rescheduling if needed. [...] Status:Closed by VERA MCGEE on 01/17/24 Normal [facility] 25(OH)D3 Jorge-ana 2023 25-hydroxyvitamin D3 [Mass/Vol] 29.2 ng/mL Low 31.0-80.0 [facility] Comment on above: Order Comment: Speci men Type: BLOOD SPECIMEN [facility]ing Facility: [facility] Address: [address] [place] [address] Result Comment: Clas sification of 25 [place] Vitamin D status: Deficiency/Insufficiency: < or = 30 ng/ml. Sufficiency/Optimal Levels: 31-80 ng/mL Toxicity: > 100 ng/mL. Test performed by chemiluminescent immunoassay. Performed By: #### 2 4323-8, 3016-3, 13127-9, 2777-1 #### [facility] CLIA [id number] [address] [place] [address] [place] [address] [place] CBC W Auto Differential pane l (Bld)on 10-29-2023 Basophils (Bld) [#/Vol] 0.06 10*3/uL Normal <0.11 [facility] Comment on above: Order Comment: Speci men Type: BLOOD SPECIMEN [facility] Facility: [facility] Address: [address] [place] [address] Performed By: #### 2 4323-8, 3016-3, 63088-3, 2776-1 #### [facility] CLIA [id number] [address] [place] [address] [place] Basophils/100 WBC (Bld) 0.5 % Normal [facility] Comment on above: Order Comment: Speci men Type: BLOOD SPECIMEN [facility]ing Facility: [facility] Address: [address] [place] [address] Performed By: #### 2 4323-8, 6-3, , 2776-05 #### [facility] CLIA [id number] [address] [place] [address] [place] Differential cell count method Nom (Bld) Auto Normal [facility] Comment on above: Order Comment: Speci men Type: BLOOD SPECIMEN [facility]ing Facility: [facility] Address: [address] [place] [address] Performed By: #### 2 4323-8, 3016-3, , 2776- #### [facility] CLIA [id number] [address] [place] [address] [place] Eosinophils (Bld) [#/Vol] 0.19 10*3/uL Normal <0.46 [facility] Comment on above: Order Comment: Speci men Type: BLOOD SPECIMEN [facility]ing Facility: [facility] Address: [address] [place] [address] Performed By: #### 2 4323-8, 3016-3, 83919-2, 2776-1 #### [facility] CLIA [id number] [address] [id number] [address] [place] Eosinophils/100 WBC (Bld) 1.4 % Normal [facility] Comment on above: Order Comment: Speci men Type: BLOOD SPECIMEN [facility]ing Facility: [facility] Address: [address] [place] [address] Performed By: #### 2 4323-8, 3016-3, 71707-3, 2776-1 #### [facility] CLIA [id number] [address] [place] [address] [place] Erythrocyte distribution width (RBC) [Ratio] 15.9 % High 11.5-15.0 [facility] Comment on above: Order Comment: Speci men Type: BLOOD SPECIMEN [facility]ing Facility: [facility] Address: [address] [place] [address] Performed By: #### 2 4323-8, 3016-3, 88178-0, 2776- #### [facility] CLIA [id number] [address] [place] [address] [place] Hematocrit (Bld) [Volume fraction] 36.3 % Normal 36.0-46.0 [facility] Comment on above: Order Comment: Speci men Type: BLOOD SPECIMEN [facility]ing Facility: [facility] Address: [address] [place] [address] Performed By: #### 2 4323-8, 6-3, 38605-0, 2776-1 #### [facility] CLIA [id number] [address] [place] [address] [place] Hemoglobin (Bld) [Mass/Vol] 11.7 g/dL Normal 11.5-15.5 [facility] Comment on above: Order Comment: Speci men Type: BLOOD SPECIMEN [facility]ing Facility: [facility] Address: [address] [place] [address] Performed By: #### 2 4323-8, 3016-3, 80781-3, 2776-1 #### [facility] CLIA [id number] [address] [id number] [address] [place] Immature granulocytes (Bld) [#/Vol] 0.04 10*3/uL Normal <0.10 [facility] Comment on above: Order Comment: Speci men Type: BLOOD SPECIMEN [facility]ing Facility: [facility] Address: [address] [place] [address] Performed By: #### 2 4323-8, 3016-3, 05184-2, 2776-1 #### [facility] CLIA [id number] [address] [place] [address] [place] Immature granulocytes/100 WBC (Bld) 0.3 % Normal [facility] Comment on above: Order Comment: Speci men Type: BLOOD SPECIMEN Ordering Facility: [facility] Address: [address] [place] [address] Performed By: #### 2 4323-8, 3016-3, , 2776-1 #### [facility] CLIA [id number] [address] [place] [address] [place] Lymphocytes (Bld) [#/Vol] 4.08 10*3/uL High 1.00-4.00 [facility] Comment on above: Order Comment: Speci men Type: BLOOD SPECIMEN Ordering Facility: [facility] Address: [address] [place] [address] Performed By: #### 2 4323-8, 3016-3, 34787-0, 2776-1 #### [facility] CLIA [id number] [address] [place] [address] [place] Lymphocytes/100 WBC (Bld) 31.1 % Normal [facility] Comment on above: Order Comment: Speci men Type: BLOOD SPECIMEN Ordering Facility: [facility] Address: [address] [place] [address] Performed By: #### 2 4323-8, 3016-3, 23047-8, 2776-1 #### [facility] CLIA [id number] [address] [place] [address] [place] MCH (RBC) [Entitic mass] 28.3 pg Normal 26.0-34.0 [facility] Comment on above: Order Comment: Speci men Type: BLOOD SPECIMEN Ordering Facility: [facility] Address: [address] [place] [address] Performed By: #### 2 4323-8, 3016-3, 62256-0, 2776- #### [facility] CLIA [id number] [address] [place] [address] [place] MCHC (RBC) [Mass/Vol] 32.2 g/dL Normal 30.5-36.0 [facility] Comment on above: Order Comment: Speci men Type: BLOOD SPECIMEN Ordering Facility: [facility] Address: [address] [place] [address] Performed By: #### 2 4323-8, 3016-3, , 2776-05 #### [facility] CLIA [id number] [address] [place] [address] [place] MCV (RBC) [Entitic vol] 87.7 fL Normal 80.0-100.0 [facility] Comment on above: Order Comment: Speci men Type: BLOOD SPECIMEN Ordering Facility: [facility] Address: [address] [place] [address] Performed By: #### 2 4323-8, 6-3, , 2776-05 #### [facility] CLIA [id number] [address] [place] [address] [place] Monocytes (Bld) [#/Vol] 1.25 10*3/uL High <0.87 [facility] Comment on above: Order Comment: Speci men Type: BLOOD SPECIMEN Ordering Facility: [facility] Address: [address] [place] [address] Performed By: #### 2 4323-8, 3016-3, , 2776- #### [facility] CLIA [id number] [address] [place] [address] [place] Monocytes/100 WBC (Bld) 9.5 % Normal [facility] Comment on above: Order Comment: Speci men Type: BLOOD SPECIMEN Ordering Facility: [facility] Address: [address] [place] [address] Performed By: #### 2 4323-8, 3016-3, 01469-4, 2776-1 #### [facility] CLIA [id number] [address] [place] [address] [place] Neutrophils (Bld) [#/Vol] 7.49 10*3/uL Normal 1.45-7.50 [facility] Comment on above: Order Comment: Speci men Type: BLOOD SPECIMEN Ordering Facility: [facility] Address: [address] [place] [address] Performed By: #### 2 4323-8, 3016-3, , 2776- #### [facility] CLIA [id number] [address] [place] [address] [place] Neutrophils/100 WBC (Bld) 57.2 % Normal [facility] Comment on above: Order Comment: Speci men Type: BLOOD SPECIMEN Ordering Facility: [facility] Address: [address] [place] [address] Performed By: #### 2 4323-8, 3016-3, , 2776-05 #### [facility] CLIA [id number] [address] [place], [place] [address] [place] Nucleated RBC (Bld) [#/Vol] 10*3/uL Normal <0.01 [facility] Comment on above: Order Comment: Speci men Type: BLOOD SPECIMEN Ordering Facility: [facility] Address: [address] [place] [address] Performed By: #### 2 4323-8, 3016-3, 14798-8, 2776-1 #### [facility] CLIA [id number] [address] [place], [place] [address] [place] Nucleated RBC/100 WBC (Bld) [Ratio] 0.0 /100 WBC Normal [facility] Comment on above: Order Comment: Speci men Type: BLOOD SPECIMEN Ordering Facility: [facility] Address: [address] [place] [address] Performed By: #### 2 4323-8, 3016-3, 74550-3, 7-1 #### [facility] CLIA [id number] [address] [place] [address] [place] Platelet mean volume (Bld) [Entitic vol] 9.0 fL Normal 9.0-12.7 [facility] Comment on above: Order Comment: Speci men Type: BLOOD SPECIMEN Ordering Facility: [facility] Address: [address] [place] [address] Performed By: #### 2 4323-8, 3016-3, , 277- #### [facility] CLIA [id number] [address] [place] [address] [place] Platelets (Bld) [#/Vol] 435 10*3/uL High 150-400 [facility] Comment on above: Order Comment: Speci men Type: BLOOD SPECIMEN Ordering Facility: [facility] Address: [address] [place] [address] Performed By: #### 2 4323-8, 3016-3, 50732-9, 2777- #### [facility] CLIA [id number] [address] [place], [place] [address] [place] RBC (Bld) [#/Vol] 4.14 10*6/uL Normal 3.90-5.20 [facility] Comment on above: Order Comment: Speci men Type: BLOOD SPECIMEN Ordering Facility: [facility] Address: [address] [place] [address] Performed By: #### 2 4323-8, 3016-3, 09446-0, 7-1 #### [facility] CLIA [id number] [address] [place], [place] [address] [place] WBC (Bld) [#/Vol] 13.11 10*3/uL High 3.70-11.00 [facility] Comment on above: Order Comment: Speci men Type: BLOOD SPECIMEN Ordering Facility: [facility] Address: [address] [place], [place] [address] Performed By: #### 2 4323-8, 3016-3, 73964-4, 277- #### [facility] CLIA [id number] [address] [place], [place] [address] [facility] [place] CNDSon 10-29-2023 CNDS HNO ID: [id number] Author: ELIUD MCNULTY MD Service: General Internal [...] Had presented to her local ED in [facility] (10/22, 10/23 and 10/24) with same [...] if results positive will send Rx to [facility] as per patient request. Patient also recommended to stop smoking marijuana incase there any component of cannabinoid hyperemesis syndrome contributing to symptoms. Determined stable and d/c home on 10/29/23. OPERATIONS/PROCEDURE DURING THIS HOSPITALIZATION: * No surgery found * CT ABD/PEL W IVCON Final Result IMPRESSION: No acute findings in the abdomen or pelvis. 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 Study Specialist: JESENIA Transcribe Date/Time: Oct 28 2023 1:25A Dictated by : ANGELICA MAYO MD This examination was interpreted and the report reviewed and electronically signed by: JOSIANE RIVAS MD on Oct 28 2023 1:50AM EST CONSULTS DURING HOSPITALIZATION: Treatment Team: Attending Provider: Eliud Mcnulty MD Primary Service: 1, Gim Attending: Eliud Mcnulty MD Nurse Practitioner: Chris Amaro APRN.FURNITURE CLEANER No orders of the defined types were placed in this encounter. PATIENT CONDITION AT DISCHARGE: Stable ADVANCE CARE PLANNING DISCUSSION (if applicable): N/A DISCHARGE DISPOSITION: Home with Relative Discharge Physical Exam: VITAL SIGNS: BP 104/52 Pulse 65 Temp 36.9 ?C (98.4 ?F) (Oral) Resp 17 Wt 77.1 kg (170 lb) SpO2 10 (more content not included)... Normal [facility] Iron and Iron binding capaci ty panelon 10-29-2023 Iron [Mass/Vol] 33 ug/dL Low 41-186 [facility] Comment on above: Order Comment: Speci men Type: BLOOD SPECIMEN [facility] Facility: [facility] Address: [address] [place] [address] Performed By: #### 2 4323-8, 3016-3, , 1 #### [facility] CLIA [id number] [address] [place] [address] [place] Iron binding capacity [Mass/Vol] 344 ug/dL Normal 232-386 [facility] Comment on above: Order Comment: Speci men Type: BLOOD SPECIMEN [facility]ing Facility: [facility] Address: [address] [place] [address] Performed By: #### 2 4323-8, 3016-3, 34272-8, 7-1 #### [facility] CLIA [id number] [address] [place], [place] [address] [place] [address] [place] Iron/TIBC [Molar ratio] 9.6 % Low 15.0-57.0 [facility] Comment on above: Order Comment: Speci men Type: BLOOD SPECIMEN [facility]ing Facility: [facility] Address: [address] [place] [address] Performed By: #### 2 4323-8, 3016-3, 10173-9, 2777-1 #### [facility] CLIA [id number] [address] [place], [place] [address] [place] [address] [place] NUTRITIONon 10-29-2023 NUTRITION HNO ID: [id number] Author: SYMONE RIVERA RD Service: Nutrition Therapy [...] and frequent burping. She was seen in [facility] ED on 10/22 and 10/24 with these [...] Weight Type: Admit weight Estimated kilocalorie needs: 2052-6737 Calorie Calculation Method: 25-30 kcals/kg Estimated protein [...] this time d/t limited weight hx per [facility] records Weight Change: Unable to determine Physical [...] October 29, 2023 TIME: 10:34 AM Normal [facility] Renal function 2000 panelon 10-29-2023 Albumin [Mass/Vol] 4.0 g/dL Normal 3.9-4.9 [facility] Comment on above: Order Comment: Speci men Type: BLOOD SPECIMEN [facility] Facility: [facility] Address: [address] [place], [place] [address] Performed By: #### 2 4323-8, 3016-3, 36029-4, 2776-1 #### [facility] CLIA [id number] [address] [place] [address] [place] Anion gap [Moles/Vol] 10 mmol/L Normal 8-15 [facility] Comment on above: Order Comment: Speci men Type: BLOOD SPECIMEN [facility]ing Facility: [facility] Address: [address] [place] [address] Performed By: #### 2 4323-8, 6-3, , 2776-05 #### [facility] CLIA [id number] [address] [place] [address] [place] Calcium [Mass/Vol] 9.4 mg/dL Normal 8.5-10.2 [facility] Comment on above: Order Comment: Speci men Type: BLOOD SPECIMEN [facility]ing Facility: [facility] Address: [address] [place] [address] Performed By: #### 2 4323-8, 6-3, , 2776-05 #### [facility] CLIA [id number] [address] [place] [address] [place] Chloride [Moles/Vol] 102 mmol/L Normal 98-107 [facility] Comment on above: Order Comment: Speci men Type: BLOOD SPECIMEN [facility]ing Facility: [facility] Address: [address] [place] [address] Performed By: #### 2 4323-8, 6-3, 67969-8, 2776-1 #### [facility] CLIA [id number] [address] [place] [address] [place] CO2 [Moles/Vol] 26 mmol/L Normal 22-30 [facility] Comment on above: Order Comment: Speci men Type: BLOOD SPECIMEN [facility]ing Facility: [facility] Address: [address] [place] [address] Performed By: #### 2 4323-8, 3016-3, 05638-8, 2776- #### [facility] CLIA [id number] [address] [place] [address] [place] Creatinine [Mass/Vol] 0.73 mg/dL Normal 0.58-0.96 [facility] Comment on above: Order Comment: Speci men Type: BLOOD SPECIMEN [facility]ing Facility: [facility] Address: [address] [place] [address] Performed By: #### 2 4323-8, 3016-3, , 2776-05 #### [facility] CLIA [id number] [address] [place] [address] [place] Creatinine and Glomerular filtration rate.predicted panel (S/P/Bld) 119 mL/min/1.73m??? Normal >=60 [facility] Comment on above: Order Comment: Speci men Type: BLOOD SPECIMEN [facility] Facility: [facility] Address: [address] [place] [address] Result Comment: Yue mated Glomerular Filtration Rate [...] GFR. Performed By: #### 2 4323-8, 3016-3, 31540-0, 2776-05 #### [facility] CLIA [id number] [address] [place] [address] [place] Glucose [Mass/Vol] 81 mg/dL Normal 74-99 [facility] Comment on above: Order Comment: Speci men Type: BLOOD SPECIMEN [facility] Facility: [facility] Address: [address] [place] [address] Result Comment: The [place] [employer] (ADA) provides guidance for cutoff [...] Standards of Medical Care in Diabetes 2016, [place] [employer]. Diabetes Care. 2016.39(Suppl 1). Performed By: #### 2 4323-8, 3016-3, 54264-0, 2776-1 #### [facility] CLIA [id number] [address] [place] [address] [place] Phosphate [Mass/Vol] 4.5 mg/dL Normal 2.7-4.8 [facility] Comment on above: Order Comment: Missy lopez Type: BLOOD SPECIMEN [facility]ing Facility: [facility] Address: [address] [place] [address] Performed By: #### 2 4323-8, 6-3, , 2776-1 #### [facility] CLIA [id number] [address] [place] [address] [place] Potassium [Moles/Vol] 4.4 mmol/L Normal 3.7-5.1 [facility] Comment on above: Order Comment: Missy lopez Type: BLOOD SPECIMEN [facility] Facility: [facility] Address: [address] [place] [address] Performed By: #### 2 4323-8, 3016-3, 50326-4, 2776-1 #### [facility] CLIA [id number] [address] [place] [address] [place] Sodium [Moles/Vol] 138 mmol/L Normal 136-144 [facility] Comment on above: Order Comment: Speci men Type: BLOOD SPECIMEN [facility] Facility: [facility] Address: [address] [place] [address] Performed By: #### 2 4323-8, 3016-3, 57297-9, 2776-1 #### [facility] CLIA [id number] [address] [place] [address] [place] Urea nitrogen [Mass/Vol] 6 mg/dL Low 7-21 [facility] Comment on above: Order Comment: Speci men Type: BLOOD SPECIMEN [facility]ing Facility: [facility] Address: [address] [place] [address] Performed By: #### 2 4323-8, 6-3, 34844-1, 2776- #### [facility] CLIA [id number] [address] [place] [address] [place] Bacteria Bld Culton 10-28-19 Bacteria identified Cx Nom (Bld) CULTURE, BLOOD: No growth 5 days Normal [facility] Comment on above: Performed By: #### 2 4323-8, 6-3, 83727-2, 2776- #### [facility] CLIA [id number] [address] [place] [address] [place] Bacteria identified Cx Nom (Bld) CULTURE, BLOOD: No growth 5 days Normal [facility] Comment on above: Performed By: #### 2 4323-8, 6-3, 04425-2, 2776-1 #### [facility] CLIA [id number] [address] [place] [address] [place] C. trachomatis+N. gonorrhoea e DNA TENISHA+probe Ql (Unsp spec)on 10-28-2023 C. trachomatis rRNA TENISHA+probe Ql (Unsp spec) Unable to detect Chlamydia trachomatis due to inhibitory substances. Submit repeat specimen if clinically indicated. Abnormal Negative for Chlamydia trachomatis by amplificaton [facility] Comment on above: Order Comment: Speci men Type: BLOOD SPECIMEN [facility] Facility: [facility] Address: [address] [place] [address] Performed By: #### 2 4323-8, 6-3, 67412-8, 2776-05 #### [facility] CLIA [id number] [address] [place] [address] [place] N. gonorrhoeae rRNA TENISHA+probe Ql (Unsp spec) Unable to detect Neisseria gonorrhoeae due to inhibitory substances. Submit repeat specimen if clinically indicated. Abnormal Negative for Neisseria gonorrhoeae by amplification [facility] Comment on above: Order Comment: Speci men Type: BLOOD SPECIMEN [facility] Facility: [facility] Address: [address] [place] [address] Performed By: #### 2 4323-8, 3015-3, , 2776-05 #### [facility] CLIA [id number] [address] [place] [address] [place] CBC panel Auto (Bld)on 10-27 Erythrocyte distribution width (RBC) [Ratio] 16.0 % High 11.5-15.0 [facility] Comment on above: Order Comment: Speci men Type: BLOOD SPECIMEN [facility]ing Facility: [facility] Address: [address] [place] [address] Performed By: #### 2 4323-8, 3015-3, , 2776-05 #### [facility] CLIA [id number] [address] [place] [address] [place] Hematocrit (Bld) [Volume fraction] 33.5 % Low 36.0-46.0 [facility] Comment on above: Order Comment: Speci men Type: BLOOD SPECIMEN [facility]ing Facility: [facility] Address: [address] [place] [address] Performed By: #### 2 4323-8, 3015-3, , 2776-05 #### [facility] CLIA [id number] [address] [place] [place] [address] [place] Hemoglobin (Bld) [Mass/Vol] 10.8 g/dL Low 11.5-15.5 [facility] Comment on above: Order Comment: Speci men Type: BLOOD SPECIMEN [facility] Facility: [facility] Address: [address] [place] [address] Performed By: #### 2 4323-8, 3016-3, , 2776-05 #### [facility] CLIA [id number] [address] [place] [address] [place] MCH (RBC) [Entitic mass] 28.3 pg Normal 26.0-34.0 [facility] Comment on above: Order Comment: Speci men Type: BLOOD SPECIMEN [facility] Facility: [facility] Address: [address] [place] [address] Performed By: #### 2 4323-8, 3016-3, , 2776-05 #### [facility] CLIA [id number] [address] [place] [address] [place] MCHC (RBC) [Mass/Vol] 32.2 g/dL Normal 30.5-36.0 [facility] Comment on above: Order Comment: Speci men Type: BLOOD SPECIMEN [facility] Facility: [facility] Address: [address] [place] [address] Performed By: #### 2 4323-8, 3016-3, , 2776-05 #### [facility] CLIA [id number] [address] [place] [address] [place] MCV (RBC) [Entitic vol] 87.7 fL Normal 80.0-100.0 [facility] Comment on above: Order Comment: Speci men Type: BLOOD SPECIMEN [facility] Facility: [facility] Address: [address] [place] [address] Performed By: #### 2 4323-8, 3016-3, 45841-2, 2776-1 #### [facility] CLIA [id number] [address] [place] [address] [place] Nucleated RBC (Bld) [#/Vol] 10*3/uL Normal <0.01 [facility] Comment on above: Order Comment: Speci men Type: BLOOD SPECIMEN [facility] Facility: [facility] Address: [address] [place] [address] Performed By: #### 2 4323-8, 3016-3, 89301-4, 2776- #### [facility] CLIA [id number] [address] [place] [address] [place] Platelet mean volume (Bld) [Entitic vol] 8.9 fL Low 9.0-12.7 [facility] Comment on above: Order Comment: Speci men Type: BLOOD SPECIMEN [facility] Facility: [facility] Address: [address] [place] [address] Performed By: #### 2 4323-8, 3016-3, 30237-3, 2776- #### [facility] CLIA [id number] [address] [place] [address] [place] Platelets (Bld) [#/Vol] 421 10*3/uL High 150-400 [facility] Comment on above: Order Comment: Speci men Type: BLOOD SPECIMEN [facility] Facility: [facility] Address: [address] [place] [address] Performed By: #### 2 4323-8, 3016-3, 59704-3, 277- #### [facility] CLIA [id number] [address] [place] [address] [place] RBC (Bld) [#/Vol] 3.82 10*6/uL Low 3.90-5.20 [facility] Comment on above: Order Comment: Speci men Type: BLOOD SPECIMEN Ordering Facility: [facility] Address: [address] [id number] Performed By: #### 2 4323-8, 3016-3, 14564-1, 2777-1 #### [facility] CLIA [id number] [address] [place] [address] [place] WBC (Bld) [#/Vol] 13.58 10*3/uL High 3.70-11.00 [facility] Comment on above: Order Comment: Speci men Type: BLOOD SPECIMEN Ordering Facility: [facility] Address: [address] [place] [address] Performed By: #### 2 4323-8, 3016-3, 87335-1, 2777-1 #### [facility] CLIA [id number] [address] [place] [address] [place] ABD/PEL W IVCONon 024 CT ABD/PEL W IVCON * * *Final Report* * * DATE OF EXAM: Oct 28 2023 12:21AM [facility] 0530 - CT ABD/PEL W IVCON / [...] Findings of congenital intestinal malrotation without complication. Study Specialist: JESENIA Transcribe Date/Time: Oct 28 2023 1:25A Dictated by : ANGELICA MAYO MD This examination was interpreted and the report reviewed and electronically signed by: JOSIANE RIVAS MD on Oct 28 2023 1:50AM EST [id number] Normal [facility] Comprehensive metabolic 2000 panelon 10-28-2023 Albumin [Mass/Vol] 3.8 g/dL Low 3.9-4.9 [facility] Comment on above: Order Comment: Speci john Type: BLOOD SPECIMEN [facility] Facility: [facility] Address: [address] [place] [address] Performed By: #### 2 4323-8, 6-3, , 2776-05 #### [facility] CLIA [id number] [address] [place] [address] [place] ALP [Catalytic activity/Vol] 40 U/L Normal 34-123 [facility] Comment on above: Order Comment: Missy lopez Type: BLOOD SPECIMEN [facility]ing Facility: [facility] Address: [address] [place] [address] Performed By: #### 2 4323-8, 3016-3, , 2776-05 #### [facility] CLIA [id number] [address] [place] [address] [place] ALT [Catalytic activity/Vol] 17 U/L Normal 7-38 [facility] Comment on above: Order Comment: Speci men Type: BLOOD SPECIMEN [facility]ing Facility: [facility] Address: [address] [place] [address] Performed By: #### 2 4323-8, 6-3, , 2776-05 #### [facility] CLIA [id number] [address] [place], [place] [address] [place] Anion gap [Moles/Vol] 11 mmol/L Normal 8-15 [facility] Comment on above: Order Comment: Speci men Type: BLOOD SPECIMEN [facility]ing Facility: [facility] Address: [address] [place] [address] Performed By: #### 2 4323-8, 3015-3, , 2776-05 #### [facility] CLIA [id number] [address] [place] [address] [place] AST [Catalytic activity/Vol] 10 U/L Low 13-35 [facility] Comment on above: Order Comment: Speci men Type: BLOOD SPECIMEN [facility]ing Facility: [facility] Address: [address] [place] [address] Performed By: #### 2 4323-8, 6-3, , 2776-05 #### [facility] CLIA [id number] [address] [place] [address] [place] Bilirubin [Mass/Vol] 0.4 mg/dL Normal 0.2-1.3 [facility] Comment on above: Order Comment: Speci men Type: BLOOD SPECIMEN [facility]ing Facility: [facility] Address: [address] [place] [address] Performed By: #### 2 4323-8, 6-3, , 2776-05 #### [facility] CLIA [id number] [address] [place] [address] [place] Calcium [Mass/Vol] 8.8 mg/dL Normal 8.5-10.2 [facility] Comment on above: Order Comment: Speci men Type: BLOOD SPECIMEN [facility]ing Facility: [facility] Address: [address] [place] [address] Performed By: #### 2 4323-8, 6-3, , 2776-05 #### [facility] CLIA [id number] [address] [place], [place] [address] [place] Chloride [Moles/Vol] 106 mmol/L Normal 98-107 [facility] Comment on above: Order Comment: Speci men Type: BLOOD SPECIMEN [facility] Facility: [facility] Address: [address] [place] [address] Performed By: #### 2 4323-8, 3015-3, , 2776-05 #### [facility] CLIA [id number] [address] [place] [address] [place] CO2 [Moles/Vol] 21 mmol/L Low 22-30 [facility] Comment on above: Order Comment: Speci men Type: BLOOD SPECIMEN Ordering Facility: [facility] Address: [address] [place] [address] Performed By: #### 2 4323-8, 3015-3, , 2776-05 #### [facility] CLIA [id number] [address] [place] [address] [place] Creatinine [Mass/Vol] 0.74 mg/dL Normal 0.58-0.96 [facility] Comment on above: Order Comment: Speci men Type: BLOOD SPECIMEN [facility]ing Facility: [facility] Address: [address] [place] [address] Performed By: #### 2 4323-8, 6-3, , 2776-05 #### [facility] CLIA [id number] [address] [place] [address] [place] Creatinine and Glomerular filtration rate.predicted panel (S/P/Bld) 117 mL/min/1.73m??? Normal >=60 [facility] Comment on above: Order Comment: Missy lopez Type: BLOOD SPECIMEN [facility] Facility: [facility] Address: [address] [place] [address] Result Comment: Yue mated Glomerular Filtration Rate [...] #### 2 4323-8, 3016-3, , 2776-05 #### [facility] CLIA [id number] [address] [place] [address] [place] Glucose [Mass/Vol] 87 mg/dL Normal 74-99 [facility] Comment on above: Order Comment: Missy lopez Type: BLOOD SPECIMEN [facility]ing Facility: [facility] Address: [address] [place] [address] Result Comment: The [place] [employer] (ADA) provides guidance for cutoff [...] Standards of Medical Care in Diabetes 2016, [place] [employer]. Diabetes Care. 2016.39(Suppl 1). Performed By: #### 2 4323-8, 3016-3, , 2776-05 #### [facility] CLIA [id number] [address] [address] [place] Potassium [Moles/Vol] 3.9 mmol/L Normal 3.7-5.1 [facility] Comment on above: Order Comment: Speci men Type: BLOOD SPECIMEN [facility]ing Facility: [facility] Address: [address] [place] [address] Performed By: #### 2 4323-8, 6-3, , 2776-05 #### [facility] CLIA [id number] [address] [place] [address] [place] Protein [Mass/Vol] 7.0 g/dL Normal 6.3-8.0 [facility] Comment on above: Order Comment: Speci men Type: BLOOD SPECIMEN [facility]ing Facility: [facility] Address: [address] [place] [address] Performed By: #### 2 4323-8, 3015-3, , 2776-05 #### [facility] CLIA [id number] [address] [place], [place] [address] [place] Sodium [Moles/Vol] 138 mmol/L Normal 136-144 [facility] Comment on above: Order Comment: Speci men Type: BLOOD SPECIMEN [facility]ing Facility: [facility] Address: [address] [place] [address] Performed By: #### 2 4323-8, 3015-3, , 2776-05 #### [facility] CLIA [id number] [address] [place], [place] [address] [place] Urea nitrogen [Mass/Vol] 8 mg/dL Normal 7-21 [facility] Comment on above: Order Comment: Speci men Type: BLOOD SPECIMEN [facility]ing Facility: [facility] Address: [address] [place] [address] Performed By: #### 2 4323-8, 3016-3, , 2776-05 #### [facility] CLIA [id number] [address] [place] [address] [place] ED NOTEon 10-28-2023 ED NOTE HNO ID: [id number] Author: CHASTITY ALEGRIA RN Service: ? Author Type: Registered Nurse Type: ED Notes Filed: 10/28/2023 02:38 Note Text: Bed: E12-02 Expected date: Expected time: Means of arrival: Comments: e18 Normal [facility] FLUABV+SARS-CoV-2+RSV Pnl Re sp TENISHA+probeon 10-28-2023 FLUABV+SARS-CoV-2+RSV Pnl Resp TENISHA+probe COVID 19 RESULT: Not detected The method used is RT-PCR or an equivalent NAAT method. Reference Range(the expected result in uninfected individuals): Not detected INFLUENZA A PCR: Not detected INFLUENZA B PCR: Not detected RSV PCR: Not detected Normal [facility] Comment on above: Performed By: #### 2 4323-8, 3, , 2776-05 #### [facility] CLIA [id number] [address] [place] [address] [place] Gastrointestinal pathogens i dentified TENISHA+probe Nom (Stl)on 10-28-2023 Campylobacter sp DNA TENISHA+probe Nom (Unsp spec) Not detected Normal Not Detected [facility] Comment on above: Order Comment: Speci men Type: BLOOD SPECIMEN [facility] Facility: [facility] Address: [address] [place] [address] Performed By: #### 2 4323-8, 3016-3, , 2776-05 #### [facility] CLIA [id number] [address] [place] [address] [place] Salmonella sp DNA TENISHA+probe Ql (Unsp spec) Not detected Normal Not Detected [facility] Comment on above: Order Comment: Speci men Type: BLOOD SPECIMEN [facility]ing Facility: [facility] Address: [address] [place] [address] Performed By: #### 2 4323-8, 3016-3, 87945-9, 2777-1 #### [facility] CLIA [id number] [address] [place] [address] [place] Shiga toxin stx gene TENISHA+probe Nom (Unsp spec) Not detected Normal Not Detected [facility] Comment on above: Order Comment: Speci men Type: BLOOD SPECIMEN [facility]ing Facility: [facility] Address: [address] [place] [address] Performed By: #### 2 4323-8, 3016-3, 09533-2, 277- #### [facility] CLIA [id number] [address] [place] [address] [place] Shigella sp DNA TENISHA+probe Ql (Unsp spec) Not detected Normal Not Detected [facility] Comment on above: Order Comment: Speci men Type: BLOOD SPECIMEN [facility]ing Facility: [facility] Address: [address] [place] [address] Performed By: #### 2 4323-8, 3016-3, 15407-8, 2776- #### [facility] CLIA [id number] [address] [place] [address] [place] H pylori Ag Stl Ql IAon 10-05 H. pylori Ag IA Ql (Stl) H.PYLORI EIA RESULT: Negative for Helicobacter pylori antigen by EIA Normal [facility] Comment on above: Performed By: #### 2 4323-8, 3016-3, 22105-5, 2776-05 #### [facility] CLIA [id number] [address] [place] [address] [place] HCG Preg Ur Qlon 10-28-2023 HCG ( test) Ql (U) Negative Normal Negative [facility] Comment on above: Order Comment: Speci men Type: BLOOD SPECIMEN [facility] Facility: [facility] Address: [address] [place] [address] Result Comment: This test is intended to aid in the early detection of . Very dilute urine samples, as indicated by a low specific gravity, may not contain admissions representative levels of hCG. This test detects [...] . Performed By: #### 2 4323-8, 3016-3, 44740-2, 2777-1 #### [facility] CLIA [id number] [address] [place] [address] [place] HISTORY PHYSICALon HISTORY PHYSICAL HNO ID: [id number] Author: ELIUD MCNULTY MD Service: Hospital Medicine Author Type: Physician Type: H&P Filed: 10/28/2023 15:29 Note Text: DEPARTMENT OF HOSPITAL MEDICINE HISTORY AND PHYSICAL EXAM SERVICE DATE: 10/28/2023 SERVICE TIME: 602 Primary Care Physician: Bianca Shrestha CNP, CNP NIGHT AND WEEKEND COVERAGE: Patient admitted to [facility]. Please page me at [phone] for patient issues until 729. After that please page [facility] staff assigned (as noted in EPIC banner) [place] [phone]. Subjective CHIEF COMPLAINT: NANDVANDD HPI: This is [...] and frequent burping. She was seen in [facility] ED on 10/22 and 10/24 with these [...] and Airways Line Duration Peripheral 10/27/23 2217 [facility] Short Right Forearm 20 Gauge <1 day [...] further management. CT head and CXR at [facility] unremarkable. CT abdomen pelv done here: No acute findings in the abdomen or pelvis. 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 -CRP, ESR, Procal -BCx2 -COVID/RSV/Flu -Zosyn q6hrs -mIVF NS @100ml/hr -GI consult in the A.M -PRN Zofran, PRN Reglan -Clear liquid diet Resolved Problems: * No resolved hospital problems. * Medication and Non-Pharmacologic VTE Prophylaxis/Anticoagulant s 10/28/23 0245 activity - mobilize patient (wy,il) VTE Prophylaxis: VTE prophylaxis appropriate Disposition: (more content not included)... Normal [facility] Magnesium SerPl-mCncon 10-27 Magnesium [Mass/Vol] 2.2 mg/dL Normal 1.7-2.3 [facility] Comment on above: Order Comment: Speci men Type: BLOOD SPECIMEN [facility] Facility: [facility] Address: [address] [place] [address] Performed By: #### 2 4323-8, 3016-3, 28394-8, 2777-1 #### [facility] CLIA [id number] [address] [place], [place] [address] [place] [address] [place] Phosphate SerPl-mCncon 10-27 Phosphate [Mass/Vol] 4.1 mg/dL Normal [facility].7-[facility] [facility] Comment on above: Order Comment: Missy lopez Type: BLOOD SPECIMEN [facility] Facility: [facility] Address: [address] [place] [address] Performed By: #### 2 4323-8, 3016-3, 39088-6, 2776- #### [facility] CLIA [id number] [address] [place] [address] [place] TSH SerPl-aCncon 10-28-2023 TSH Qn 1.500 m[IU]/L Normal 0.270-4.200 [facility] Comment on above: Order Comment: Missy lopez Type: BLOOD SPECIMEN [facility] Facility: [facility] Address: [address] [place] [address] Result Comment: If t he patient is , TSH reference range varies by gestational period: First Trimester (weeks 9-12): 0.180-2.990 mIU/L Second Trimester: 0.110-3.980 mIU/L Third Trimester: 0.480-4.710 mIU/L Narayan Jacobo et al. A Practical Approach for the Verifications and Determination of Site- and Trimester-Specific Reference Intervals for Thyroid Function tests in . Thyroid, 2019:29:3:412-420. Delfin E, et al. 2017 Guidelines of the [place] Thyroid Association for the Diagnosis and Management of Thyroid Disease during and the . Thyroid, 2017:27:3:315-389. Performed By: #### 2 4323-8, 3016-3, 66843-0, 2776- #### [facility] CLIA [id number] [address] [place], [place] [address] [place] CBC W Auto Differential pane l (Bld)on 10-27-2023 Basophils (Bld) [#/Vol] 0.09 10*3/uL Normal <0.11 [facility] Comment on above: Order Comment: Missy lopez Type: BLOOD SPECIMEN [facility] Facility: [facility] Address: [address] [place] [address] Performed By: #### 2 4323-8, 6-3, 21544-7, 2776-05 #### [facility] CLIA [id number] [address] [place] [address] [place] Basophils/100 WBC (Bld) 0.5 % Normal [facility] Comment on above: Order Comment: Speci men Type: BLOOD SPECIMEN [facility] Facility: [facility] Address: [address] [place] [address] Performed By: #### 2 4323-8, 3015-3, 23105-6, 2776-05 #### [facility] CLIA [id number] [address] [place] [address] [place] Differential cell count method Nom (Bld) Auto Normal [facility] Comment on above: Order Comment: Speci men Type: BLOOD SPECIMEN [facility] Facility: [facility] Address: [address] [place] [address] Performed By: #### 2 4323-8, 6-3, , 2776-05 #### [facility] CLIA [id number] [address] [place] [address] [place] Eosinophils (Bld) [#/Vol] 0.09 10*3/uL Normal <0.46 [facility] Comment on above: Order Comment: Speci men Type: BLOOD SPECIMEN [facility] Facility: [facility] Address: [address] [place] [address] Performed By: #### 2 4323-8, 6-3, , 2776-05 #### [facility] CLIA [id number] [address] [place] [address] [place] Eosinophils/100 WBC (Bld) 0.5 % Normal [facility] Comment on above: Order Comment: Speci men Type: BLOOD SPECIMEN [facility]ing Facility: [facility] Address: [address] [place] [address] Performed By: #### 2 4323-8, 3016-3, 15710-6, 277-1 #### [facility] CLIA [id number] [address] [place] [address] [place] Erythrocyte distribution width (RBC) [Ratio] 16.2 % High 11.5-15.0 [facility] Comment on above: Order Comment: Speci men Type: BLOOD SPECIMEN [facility] Facility: [facility] Address: [address] [place] [address] Performed By: #### 2 4323-8, 3016-3, 44937-9, 2776-05 #### [facility] CLIA [id number] [address] [place] [address] [place] Hematocrit (Bld) [Volume fraction] 37.8 % Normal 36.0-46.0 [facility] Comment on above: Order Comment: Speci men Type: BLOOD SPECIMEN [facility] Facility: [facility] Address: [address] [place] [address] Performed By: #### 2 4323-8, 3016-3, 09351-1, 2776-05 #### [facility] CLIA [id number] [address] [place] [address] [place] Hemoglobin (Bld) [Mass/Vol] 12.2 g/dL Normal 11.5-15.5 [facility] Comment on above: Order Comment: Speci men Type: BLOOD SPECIMEN [facility] Facility: [facility] Address: [address] [place] [address] Performed By: #### 2 4323-8, 3016-3, 81348-6, 277- #### [facility] CLIA [id number] [address] [place] [address] [place] Immature granulocytes (Bld) [#/Vol] 0.05 10*3/uL Normal <0.10 [facility] Comment on above: Order Comment: Speci men Type: BLOOD SPECIMEN [facility] Facility: [facility] Address: [address] [place] [address] Performed By: #### 2 4323-8, 6-3, 50227-8, 2776-05 #### [facility] CLIA [id number] [address] [place] [address] [place] Immature granulocytes/100 WBC (Bld) 0.3 % Normal [facility] Comment on above: Order Comment: Speci men Type: BLOOD SPECIMEN [facility]ing Facility: [facility] Address: [address] [place] [address] Performed By: #### 2 4323-8, 6-3, 18912-5, 2776-05 #### [facility] CLIA [id number] [address] [place] [address] [place] Lymphocytes (Bld) [#/Vol] 4.79 10*3/uL High 1.00-4.00 [facility] Comment on above: Order Comment: Speci men Type: BLOOD SPECIMEN [facility] Facility: [facility] Address: [address] [place] [address] Performed By: #### 2 4323-8, 6-3, , 2776-05 #### [facility] CLIA [id number] [address] [place] [address] [place] Lymphocytes/100 WBC (Bld) 27.9 % Normal [facility] Comment on above: Order Comment: Speci men Type: BLOOD SPECIMEN [facility] Facility: [facility] Address: [address] [place] [address] Performed By: #### 2 4323-8, 6-3, 69943-8, 2776-05 #### [facility] CLIA [id number] [address] [place] [address] [place] MCH (RBC) [Entitic mass] 27.9 pg Normal 26.0-34.0 [facility] Comment on above: Order Comment: Speci men Type: BLOOD SPECIMEN [facility] Facility: [facility] Address: [address] [place] [address] Performed By: #### 2 4323-8, 6-3, , 2776-05 #### [facility] CLIA [id number] [address] [place] [address] [place] MCHC (RBC) [Mass/Vol] 32.3 g/dL Normal 30.5-36.0 [facility] Comment on above: Order Comment: Speci men Type: BLOOD SPECIMEN [facility] Facility: [facility] Address: [address] [place] [address] Performed By: #### 2 4323-8, 6-3, , 2776-05 #### [facility] CLIA [id number] [address] [place] [address] [place] MCV (RBC) [Entitic vol] 86.5 fL Normal 80.0-100.0 [facility] Comment on above: Order Comment: Speci men Type: BLOOD SPECIMEN [facility] Facility: [facility] Address: [address] [place] [address] Performed By: #### 2 4323-8, 6-3, , 2776-05 #### [facility] [facility] CLIA [id number] [address] [place] [address] [place] Monocytes (Bld) [#/Vol] 1.54 10*3/uL High <0.87 [facility] Comment on above: Order Comment: Speci men Type: BLOOD SPECIMEN [facility]ing Facility: [facility] Address: [address] [place] [address] Performed By: #### 2 4323-8, 6-3, , 2776-05 #### [facility] CLIA [id number] [address] [place] [address] [place] Monocytes/100 WBC (Bld) 9.0 % Normal [facility] Comment on above: Order Comment: Speci men Type: BLOOD SPECIMEN [facility] Facility: [facility] Address: [address] [place] [address] Performed By: #### 2 4323-8, 6-3, , 2776-05 #### [facility] CLIA [id number] [address] [place] [address] [place] Neutrophils (Bld) [#/Vol] 10.63 10*3/uL High 1.45-7.50 [facility] Comment on above: Order Comment: Speci men Type: BLOOD SPECIMEN [facility] Facility: [facility] Address: [address] [place] [address] Performed By: #### 2 4323-8, 3015-3, , 2776-05 #### [facility] CLIA [id number] [address] [place] [address] [place] Neutrophils/100 WBC (Bld) 61.8 % Normal [facility] Comment on above: Order Comment: Speci men Type: BLOOD SPECIMEN [facility] Facility: [facility] Address: [address] [place] [address] Performed By: #### 2 4323-8, 3015-3, , 2776-05 #### [facility] CLIA [id number] [address] [place] [address] [place] Nucleated RBC (Bld) [#/Vol] 10*3/uL Normal <0.01 [facility] Comment on above: Order Comment: Speci men Type: BLOOD SPECIMEN [facility]ing Facility: [facility] Address: [address] [place] [address] Performed By: #### 2 4323-8, 3015-3, , 2776-05 #### [facility] CLIA [id number] [address] [place] [address] [place] Nucleated RBC/100 WBC (Bld) [Ratio] 0.0 /100 WBC Normal [facility] Comment on above: Order Comment: Speci men Type: BLOOD SPECIMEN [facility] Facility: [facility] Address: [address] [place] [address] Performed By: #### 2 4323-8, 6-3, 74195-7, 2776- #### [facility] CLIA [id number] [address] [place] [address] [place] Platelet mean volume (Bld) [Entitic vol] 8.7 fL Low 9.0-12.7 [facility] Comment on above: Order Comment: Speci men Type: BLOOD SPECIMEN [facility] Facility: [facility] Address: [address] [place] [address] Performed By: #### 2 4323-8, 6-3, , 2776-05 #### [facility] CLIA [id number] [address] [place] [address] [place] Platelets (Bld) [#/Vol] 483 10*3/uL High 150-400 [facility] Comment on above: Order Comment: Speci men Type: BLOOD SPECIMEN [facility]ing Facility: [facility] Address: [address] [place] [address] Performed By: #### 2 4323-8, 6-3, , 2776-05 #### [facility] CLIA [id number] [address] [place] [address] [place] RBC (Bld) [#/Vol] 4.37 10*6/uL Normal 3.90-5.20 [facility] Comment on above: Order Comment: Speci men Type: BLOOD SPECIMEN Ordering Facility: [facility] Address: [address] [place] [address] Performed By: #### 2 4323-8, 6-3, , 2776- #### [facility] CLIA [id number] [address] [id number] [address] [place] WBC (Bld) [#/Vol] 17.19 10*3/uL High 3.70-11.00 [facility] Comment on above: Order Comment: Speci men Type: BLOOD SPECIMEN Ordering Facility: [facility] Address: [address] [place] [address] Performed By: #### 2 4323-8, 3016-3, 19108-4, 2776-1 #### [facility] CLIA [id number] [address] [place] [address] [place] CRP SerPl-mCncon 10-27-2023 CRP [Mass/Vol] 0.5 mg/dL Normal <0.9 [facility] Comment on above: Order Comment: Speci men Type: BLOOD SPECIMEN Ordering Facility: [facility] Address: [address] [place] [address] Performed By: #### 2 4323-8, 6-3, , 2776- #### [facility] CLIA [id number] [address] [place] [address] [place] Comprehensive metabolic 2000 panelon 10-27-2023 Albumin [Mass/Vol] 4.5 g/dL Normal 3.9-4.9 [facility] Comment on above: Order Comment: Speci men Type: BLOOD SPECIMEN Ordering Facility: [facility] Address: [address] [place] [address] Performed By: #### 2 4323-8, 6-3, , 2776- #### [facility] CLIA [id number] [address] [place], [place] [address] [place] ALP [Catalytic activity/Vol] 45 U/L Normal 34-123 [facility] Comment on above: Order Comment: Speci men Type: BLOOD SPECIMEN Ordering Facility: [facility] Address: [address] [place] [address] Performed By: #### 2 4323-8, 6-3, 94236-7, 2776-1 #### [facility] CLIA [id number] [address] [place] [address] [place] ALT [Catalytic activity/Vol] 22 U/L Normal 7-38 [facility] Comment on above: Order Comment: Speci men Type: BLOOD SPECIMEN Ordering Facility: [facility] Address: [address] [place], [place] [address] Performed By: #### 2 4323-8, 3016-3, 91770-7, 2776-1 #### [facility] CLIA [id number] [address] [place] [address] [place] Anion gap [Moles/Vol] 13 mmol/L Normal 8-15 [facility] Comment on above: Order Comment: Speci men Type: BLOOD SPECIMEN Ordering Facility: [facility] Address: [address] [place] [address] Performed By: #### 2 4323-8, 6-3, , 2776-1 #### [facility] CLIA [id number] [address] [place] [address] [place] AST [Catalytic activity/Vol] 16 U/L Normal 13-35 [facility] Comment on above: Order Comment: Speci men Type: BLOOD SPECIMEN Ordering Facility: [facility] Address: [address] [place] [address] Performed By: #### 2 4323-8, 6-3, , 2776-1 #### [facility] CLIA [id number] [address] [place] [address] [place] Bilirubin [Mass/Vol] 0.2 mg/dL Normal 0.2-1.3 [facility] Comment on above: Order Comment: Speci men Type: BLOOD SPECIMEN Ordering Facility: [facility] Address: [address] [place], [place] [address] Performed By: #### 2 4323-8, 3016-3, 65088-4, 277-1 #### [facility] CLIA [id number] [address] [place] [address] [place] Calcium [Mass/Vol] 9.7 mg/dL Normal 8.5-10.2 [facility] Comment on above: Order Comment: Speci men Type: BLOOD SPECIMEN Ordering Facility: [facility] Address: [address] [place] [address] Performed By: #### 2 4323-8, 3016-3, 51560-9, 2776-1 #### [facility] CLIA [id number] [address] [place] [address] [place] Chloride [Moles/Vol] 105 mmol/L Normal 98-107 [facility] Comment on above: Order Comment: Speci men Type: BLOOD SPECIMEN Ordering Facility: [facility] Address: [address] [place] [address] Performed By: #### 2 4323-8, 3016-3, , 2776- #### [facility] CLIA [id number] [address] [place] [address] [place] CO2 [Moles/Vol] 24 mmol/L Normal 22-30 [facility] Comment on above: Order Comment: Speci men Type: BLOOD SPECIMEN Ordering Facility: [facility] Address: [address] [place] [address] Performed By: #### 2 4323-8, 3016-3, , 2776-05 #### [facility] CLIA [id number] [address] [address] [place] Creatinine [Mass/Vol] 0.72 mg/dL Normal 0.58-0.96 [facility] Comment on above: Order Comment: Speci men Type: BLOOD SPECIMEN Ordering Facility: [facility] Address: [address] [place] [address] Performed By: #### 2 4323-8, 3016-3, 15484-5, 2776-1 #### [facility] CLIA [id number] [address] [place] [address] [place] Creatinine and Glomerular filtration rate.predicted panel (S/P/Bld) 121 mL/min/1.73m??? Normal >=60 [facility] Comment on above: Order Comment: Missy lopez Type: BLOOD SPECIMEN Ordering Facility: [facility] Address: [address] [place] [address] Result Comment: Yue mated Glomerular Filtration Rate [...] GFR. Performed By: #### 2 4323-8, 3016-3, 81085-3, 2777-1 #### [facility] CLIA [id number] [address] [place] [address] [place] Glucose [Mass/Vol] 78 mg/dL Normal 74-99 [facility] Comment on above: Order Comment: Missy lopez Type: BLOOD SPECIMEN Ordering Facility: [facility] Address: [address] [place] [address] Result Comment: The [place] [employer] (ADA) provides guidance for cutoff [...] Standards of Medical Care in Diabetes 2016, [place] [employer]. Diabetes Care. 2016.39(Suppl 1). Performed By: #### 2 4323-8, 3016-3, 20973-7, 2777-1 #### [facility] CLIA [id number] [address] [place] [address] [place] Potassium [Moles/Vol] 4.0 mmol/L Normal 3.7-5.1 [facility] Comment on above: Order Comment: Speci men Type: BLOOD SPECIMEN Ordering Facility: [facility] Address: [address] [place] [address] Performed By: #### 2 4323-8, 3016-3, 81278-4, 2776- #### [facility] CLIA [id number] [address] [address] [place] Protein [Mass/Vol] 7.9 g/dL Normal 6.3-8.0 [facility] Comment on above: Order Comment: Speci men Type: BLOOD SPECIMEN Ordering Facility: [facility] Address: [address] [place] [address] Performed By: #### 2 4323-8, 3016-3, , 2776- #### [facility] CLIA [id number] [address] [place], [place] [address] [place] Sodium [Moles/Vol] 142 mmol/L Normal 136-144 [facility] Comment on above: Order Comment: Speci men Type: BLOOD SPECIMEN Ordering Facility: [facility] Address: [address] [place] [address] Performed By: #### 2 4323-8, 3016-3, , 2776- #### [facility] CLIA [id number] [address] [place] [address] [place] Urea nitrogen [Mass/Vol] 10 mg/dL Normal 7-21 [facility] Comment on above: Order Comment: Speci men Type: BLOOD SPECIMEN Ordering Facility: [facility] Address: [address] [place], [place] [address] Performed By: #### 2 4323-8, 6-3, 52146-2, 2776-1 #### [facility] CLIA [id number] [address] [place] [address] [place] [address] [place] ED PROV NOTEon 10-27-2023 ED PROV NOTE HNO ID: [id number] Author: KIT LOPEZ JR, MD Service: Emergency [...] abnormalities on (more content not included)... Normal [facility] ESR Westergren method (Bld) [Velocity]on 10-27-2023 ESR (Bld) [Velocity] 20 mm/h Normal 0-20 [facility] Comment on above: Order Comment: Speci men Type: BLOOD SPECIMEN Order[facility] Facility: [facility] Address: [address] [place] [address] Performed By: #### 2 4323-8, 3016-3, 96220-2, 7- #### [facility] CLIA [id number] [address] [place] [address] [place] Lipase SerPl-cCncon 10-27-19 24 Lipase [Catalytic activity/Vol] 13 U/L Low 16-61 [facility] Comment on above: Order Comment: Jerryi john Type: BLOOD SPECIMEN Ordering Facility: [facility] Address: [address] [place] [address] Performed By: #### 2 4323-8, 3016-3, 11947-3, 2777- #### [facility] CLIA [id number] [address] [place] [address] [place] Magnesium SerPl-mCncon 10-26 Magnesium [Mass/Vol] 2.2 mg/dL Normal 1.7-2.3 [facility] Comment on above: Order Comment: Speci [facility] Type: BLOOD SPECIMEN Ordering Facility: [facility] Address: [address] [place] [address] Performed By: #### 2 4323-8, 6-3, 69229-5, 2776- #### [facility] CLIA [id number] [address] [place] [address] [place] Procalcitonin SerPl-mCncon 0 10-27-2023 Procalcitonin [Mass/Vol] ng/mL Normal <0.09 [facility] Comment on above: Order Comment: Speci men Type: BLOOD SPECIMEN Ordering Facility: [facility] Address: [address] [place] [address] Result Comment: For a guided interpretation of test results, please visit the Change in Procalcitonin Calculator, [email or web address]. Performed By: #### 2 4323-8, 6-3, , 2776- #### [facility] CLIA [id number] [address] [place] [address] [place] SEPSIS LACTATE W/ REFLEX (IN ITIAL)on 10-27-2023 Lactate [Moles/Vol] 2.0 mmol/L Normal <=2.0 [facility] Comment on above: Order Comment: Speci men Type: BLOOD SPECIMEN [facility]ing Facility: [facility] Address: [address] [place] [address] Performed By: #### 2 4323-8, 6-3, , 2776-1 #### [facility] CLIA [id number] [address] [place] [address] [place] TOXICOLOGY SCREEN, ROUTINE U RINEon 10-27-2023 Amphetamines Confirm (U) [Mass/Vol] Negative Normal Negative [facility] Comment on above: Order Comment: Speci men Type: URINE SPECIMEN [facility] Facility: [facility] Address: [address] [place] [address] Result Comment: Cuto ff threshold at 1000 ng/mL. Performed By: #### U TOX2 #### [facility] CLIA [id number] [address] [id number] [address] [place] BARBITURATES, URINE Negative Normal Negative [facility] Comment on above: Order Comment: Speci men Type: URINE SPECIMEN Ordering Facility: [facility] Address: [address] [place] [address] Result Comment: Cuto ff threshold at 200 ng/mL. Performed By: #### U TOX2 #### [facility] CLIA [id number] [address] [place] [address] [place] BENZODIAZEPINES, UR Negative Normal Negative [facility] Comment on above: Order Comment: Speci men Type: URINE SPECIMEN Ordering Facility: [facility] Address: [address] [place] [address] Result Comment: Cuto ff threshold at 200 ng/mL. Performed By: #### U TOX2 #### [facility] CLIA [id number] [address] [place] [address] [place] Cannabinoids Screen Ql (U) Positive Abnormal Negative [facility] Comment on above: Order Comment: Speci men Type: URINE SPECIMEN Ordering Facility: [facility] Address: [address] [place] [address] Result Comment: Cuto ff threshold at 50 ng/mL. Performed By: #### U TOX2 #### [facility] CLIA [id number] [address] [place] [address] [place] Cocaine Ql (U) Negative Normal Negative [facility] Comment on above: Order Comment: Speci men Type: URINE SPECIMEN Ordering Facility: [facility] Address: [address] [place] [address] Result Comment: Cuto ff threshold at 300 ng/mL. Performed By: #### U TOX2 #### [facility] CLIA [id number] [address] [place] [address] [place] Ethanol (U) [Mass/Vol] <11 Normal <11 [facility] Comment on above: Order Comment: Speci men Type: URINE SPECIMEN Ordering Facility: [facility] Address: [address] [place] [address] Performed By: #### U TOX2 #### [facility] CLIA [id number] [address] [place] [address] [place] Opiates Screen Ql (U) Negative Normal Negative [facility] Comment on above: Order Comment: Speci men Type: URINE SPECIMEN [facility]ing Facility: [facility] Address: [address] [place] [address] Result Comment: Cuto ff threshold at 300 ng/mL. Performed By: #### U TOX2 #### [facility] CLIA [id number] [address] [place] [address] [place] oxyCODONE cutoff Screen (U) [Mass/Vol] Negative Normal Negative [facility] Comment on above: Order Comment: Speci men Type: URINE SPECIMEN [facility]ing Facility: [facility] Address: [address] [place] [address] Result Comment: Cuto ff threshold at 100 ng/mL. Performed By: #### U TOX2 #### [facility] CLIA [id number] [address] [place] [address] [place] Phencyclidine Ql (U) Negative Normal Negative [facility] Comment on above: Order Comment: Speci men Type: URINE SPECIMEN Ordering Facility: [facility] Address: [address] [place] [address] Result Comment: Cuto ff threshold at 25 ng/mL. Performed By: #### U TOX2 #### [facility] CLIA [id number] [address] [place] [address] [place] Urinalysis complete panel (U )on 10-27-2023 BACTERIA UL 2473.2 uL High Negative [facility] Comment on above: Order Comment: Speci men Type: BLOOD SPECIMEN Ordering Facility: [facility] Address: [address] [place] [address] Performed By: #### 2 4323-8, 3016-3, 93639-6, 277-1 #### [facility] CLIA [id number] [address] [place], [place] [address] [place] Bilirubin Ql (U) Negative Normal Negative [facility] Comment on above: Order Comment: Speci men Type: BLOOD SPECIMEN Ordering Facility: [facility] Address: [address] [place] [address] Performed By: #### 2 4323-8, 6-3, 01726-9, 2776- #### [facility] CLIA [id number] [address] [place] [address] [place] Clarity (Unsp spec) Cloudy Abnormal Clear [facility] Comment on above: Order Comment: Speci men Type: BLOOD SPECIMEN [facility] Facility: [facility] Address: [address] [place] [address] Performed By: #### 2 4323-8, 3015-3, , 2776-05 #### [facility] CLIA [id number] [address] [place] [address] [place] Color (U) Yellow Normal Yellow [facility] Comment on above: Order Comment: Speci men Type: BLOOD SPECIMEN [facility]ing Facility: [facility] Address: [address] [place] [address] Performed By: #### 2 4323-8, 6-3, 50096-3, 2776- #### [facility] CLIA [id number] [address] [place] [address] [place] Epithelial cells LM.HPF (Urine sed) [#/Area] Few Normal [facility] Comment on above: Order Comment: Speci men Type: BLOOD SPECIMEN Ordering Facility: [facility] Address: [address] [place] [address] Performed By: #### 2 4323-8, 6-3, 95562-2, 2776-1 #### [facility] CLIA [id number] [address] [place] [address] [place] Glucose Test strip (U) [Mass/Vol] Negative Normal Negative [facility] Comment on above: Order Comment: Speci men Type: BLOOD SPECIMEN [facility]ing Facility: [facility] Address: [address] [place] [address] Performed By: #### 2 4323-8, 3016-3, 67048-3, 2776-1 #### [facility] CLIA [id number] [address] [place] [address] [place] Hemoglobin Ql (U) Negative Normal Negative [facility] Comment on above: Order Comment: Speci men Type: BLOOD SPECIMEN [facility]ing Facility: [facility] Address: [address] [place] [address] Performed By: #### 2 4323-8, 6-3, 01743-3, 2776-1 #### [facility] CLIA [id number] [address] [place] [address] [place] Hyaline casts (Urine sed) [#/Area] 0 /[LPF] Normal 0 /LPF [facility] Comment on above: Order Comment: Speci men Type: BLOOD SPECIMEN Ordering Facility: [facility] Address: [address] [place] [address] Performed By: #### 2 4323-8, 6-3, 97117-5, 2776-1 #### [facility] CLIA [id number] [address] [place] [address] [place] Ketones Ql (U) Negative Normal Negative [facility] Comment on above: Order Comment: Speci men Type: BLOOD SPECIMEN Ordering Facility: [facility] Address: [address] [place] [address] Performed By: #### 2 4323-8, 6-3, 94761-0, 2776-1 #### [facility] CLIA [id number] [address] [place] [address] [place] Leukocyte esterase Test strip Ql (U) Negative Normal Negative [facility] Comment on above: Order Comment: Speci men Type: BLOOD SPECIMEN Ordering Facility: [facility] Address: [address] [place] [address] Performed By: #### 2 4323-8, 3015-3, , 2776-05 #### [facility] CLIA [id number] [address] [place] [address] [place] Nitrite Ql (U) Negative Normal Negative [facility] Comment on above: Order Comment: Speci men Type: BLOOD SPECIMEN Ordering Facility: [facility] Address: [address] [place] [address] Performed By: #### 2 4323-8, 3015-3, , 2776-05 #### [facility] CLIA [id number] [address] [place] [address] [place] pH (U) 7.0 [pH] Normal <8.5 [facility] Comment on above: Order Comment: Speci men Type: BLOOD SPECIMEN Ordering Facility: [facility] Address: [address] [place] [address] Performed By: #### 2 4323-8, 3015-3, , 2776-05 #### [facility] CLIA [id number] [address] [place] [address] [place] Protein (U) [Mass/Vol] Negative Normal Negative [facility] Comment on above: Order Comment: Speci men Type: BLOOD SPECIMEN [facility]ing Facility: [facility] Address: [address] [place] [address] Performed By: #### 2 4323-8, 3015-3, , 2776-05 #### [facility] CLIA [id number] [address] [place] [address] [place] RBC LM.HPF (Urine sed) [#/Area] 0-2 /HPF Normal 0-2 /HPF [facility] Comment on above: Order Comment: Speci men Type: BLOOD SPECIMEN Ordering Facility: [facility] Address: [address] [place] [address] Performed By: #### 2 4323-8, 3015-3, , 2776-05 #### [facility] CLIA [id number] [address] [place] [address] [place] Specific gravity (U) [Rel density] 1.021 Normal 1.005-1.030 [facility] Comment on above: Order Comment: Speci men Type: BLOOD SPECIMEN Ordering Facility: [facility] Address: [address] [place] [address] Performed By: #### 2 4323-8, 3015-3, , 2776-05 #### [facility] CLIA [id number] [address] [place] [address] [place] Urobilinogen Ql (U) 0.2 EU/dL Normal 0.2-1.0 EU/dL [facility] Comment on above: Order Comment: Speci men Type: BLOOD SPECIMEN Ordering Facility: [facility] Address: [address] [place] [address] Performed By: #### 2 4323-8, 3015-3, , 2776-05 #### [facility] CLIA [id number] [address] [place] [address] [place] WBC LM.HPF (Urine sed) [#/Area] 0-5 /HPF Normal 0-5 /HPF [facility] Comment on above: Order Comment: Speci men Type: BLOOD SPECIMEN Ordering Facility: [facility] Address: [address] [place] [address] Performed By: #### 2 4323-8, 3015-3, , 2776-05 #### [facility] CLIA [id number] [address] [place] [address] [place] Activated partial thrombopla stin time (aPTT) in platelet poor plasma by coagulation aOrdered By: Abrahan Lew on 10-25-2023 aPTT Coag (PPP) [Time] 26.8 s 25.1-36.5 [facility] Comment on above: A hematocrit value g reater than 55% may lead to inaccurate results in coagulation testing. Patients having hematocrit values >55% require a special collection tube for coagulation studies. Please contact the laboratory at [phone] for redraw instructions. Alanine aminotransferase [En zymatic activity/volume] in Serum or PlasmaOrdered By: Abrahan Lew on 10-25-2023 ALT [Catalytic activity/Vol] 15 U/L Normal 7-52 [facility] Comment on above: Performed By: #### C UBLD, LACTIC #### [address] Albumin [Mass/volume] in Ser um or Plasma by Bromocresol green (BCG) dye binding methoOrdered By: Abrahan Lew on 10-25-2023 Albumin BCG dye [Mass/Vol] 4.8 g/dL 3.5-5.7 [facility] Alkaline phosphatase [Enzyma tic activity/volume] in Serum or PlasmaOrdered By: Abrahan Lew on 10-25-2023 ALP [Catalytic activity/Vol] 39 U/L Normal 34-104 [facility] Comment on above: Performed By: #### C UBLD, LACTIC #### [address] Amphetamine Screen Ql (U)Ord ered By: Abrahan Lew on 10-25-2023 Amphetamines Ql (U) Negative Negative [facility] Aspartate aminotransferase [ Enzymatic activity/volume] in Serum or PlasmaOrdered By: Abrahan Lew on 10-25-2023 AST [Catalytic activity/Vol] 14 U/L Normal 13-39 [facility] Comment on above: Performed By: #### C UBLD, LACTIC #### [address] Automated basophil %Ordered By: Abrahan Lew on 10-25-2023 Basophils/100 WBC (Bld) 1.1 % Normal . [facility] Comment on above: Performed By: #### C UBLD, LACTIC #### [address] Automated basophil countOrde red By: Abrahan Lew on 10-25-2023 Basophils (Bld) [#/Vol] 0.2 10*3/uL Normal 0.0-0.2 [facility] Comment on above: Result Comment: PERF ORMED BY: [place] [address] PATHOLOGIST HEALTH POLICY ANALYST CANDY KELLOGG M.D. Performed By: #### C UBLD, LACTIC #### [address] Automated blood monocyte cou ntOrdered By: Abrahan Lew on 10-25-2023 Monocytes (Bld) [#/Vol] 0.9 10*3/uL High 0.0-0.8 [facility] Comment on above: Performed By: #### C UBLD, LACTIC #### [address] Automated eosinophil %Ordere d By: Abrahan Lew on 10-25-2023 Eosinophils/100 WBC (Bld) 0.4 % Normal . [facility] Comment on above: Performed By: #### C UBLD, LACTIC #### [address] Automated eosinophil countOr dered By: Abrahan Lew on 10-25-2023 Eosinophils (Bld) [#/Vol] 0.1 10*3/uL Normal 0.0-0.45 [facility] Comment on above: Performed By: #### C UBLD, LACTIC #### [address] Automated monocyte %Ordered By: Abrahan Lew on 10-25-2023 Monocytes/100 WBC (Bld) 6.7 % Normal . [facility] Comment on above: Performed By: #### C UBLD, LACTIC #### [address] Automated neutrophil %Ordere d By: Abrahan Lew on 10-25-2023 Neutrophils/100 WBC (Bld) 63.6 % Normal . [facility] Comment on above: Performed By: #### C UBLD, LACTIC #### [address] BNP ser/plasOrdered By: Edmond Lew on 10-25-2023 Natriuretic peptide B (Bld) [Mass/Vol] 9.0 pg/mL Normal 5-100 [facility] Comment on above: Result Comment: PERF ORMED BY: [place] [address] PATHOLOGIST HEALTH POLICY ANALYST CANDY KELLOGG M.D. Performed By: #### C UBLD, LACTIC #### [address] Barbiturates [Presence] in U rine by Screen methodOrdered By: Abrahan Lew on 10-25-2023 Barbiturates Screen Ql (U) Negative Negative [facility] Basic Metabolic Panelon 10-05 Creatinine Clr Calc Pharmacy 123.29 Normal [facility] Comment on above: Performed By: #### C UBLD, LACTIC #### [facility] [address] [place] [address] GFR/1.73 sq M.predicted MDRD (S/P/Bld) [Vol rate/Area] mL/min/{1.73_m2} Normal [facility] Comment on above: Performed By: #### C UBLD, LACTIC #### [address] Benzodiazepines Screen Ql (U )Ordered By: Abrahan Lew on 10-25-2023 Benzodiazepines Ql (U) Negative Negative [facility] Benzoylecgonine [Presence] i n Urine by Screen methodOrdered By: Abrahan Lew on 10-25-2023 Benzoylecgonine Screen Ql (U) Negative Negative [facility] Bilirubin Test strip Ql (U)O rdered By: Abrahan Lew on 10-25-2023 Bilirubin Ql (U) Negative Negative [facility] Bilirubin.direct [Mass/volum e] in Serum or PlasmaOrdered By: Abrahan Lew on 10-25-2023 Bilirubin.direct [Mass/Vol] 0.10 mg/dL 0.03-0.18 [facility] Bilirubin.total [Mass/volume ] in Serum or PlasmaOrdered By: Abrahan Lew on 10-25-2023 Bilirubin [Mass/Vol] 0.3 mg/dL Normal 0.3-1.0 [facility] Comment on above: Performed By: #### C UBLD, LACTIC #### [address] Blood Cultureon 10-25-2023 Bacteria identified Cx Nom (Bld) NO GROWTH 5 DAYS PERFORMED BY: [place] [address] PATHOLOGIST HEALTH POLICY ANALYST CANDY KELLOGG M.D. Normal [facility] Comment on above: Performed By: #### C UBLD, LACTIC #### [address] Bacteria identified Cx Nom (Bld) NO GROWTH 5 DAYS PERFORMED BY: [place] [address] PATHOLOGIST HEALTH POLICY ANALYST CANDY KELLOGG M.D. Normal [facility] Comment on above: Performed By: #### C UBLD, LACTIC #### [address] abdomen pelvis w conon CT abdomen pelvis w con [facility] [place] [address] CT Scan Report Signed Patient: Jessie Alva MR#: [id number] : 2000 Acct:[id number] Age/Sex: 23 / F ADM Date: 10/25/23 Loc: ER Room: Type: [facility] ER Attending Dr: Copies to: Abrahan [...] Boone Wang M.D.10/25/2023 1:03 PM Dictation Location: [place] [address] Transcribed By: [facility] 10/25/23 1303 Dictated By: Boone Wang DO 10/25/23 1256 Signed By: 10/25/23 1303 Normal [facility] CT head/brain wo michelle 10-24 CT head/brain wo [facility] [place] [address] [place] [address] CT Scan Report Signed Patient: Jessie Alva MR#: [id number] : 2000 Acct:[id number] Age/Sex: 23 / F ADM Date: 10/25/23 Loc: ER Room: Type: [facility] ER Attending Dr: Copies to: Abrahan [...] Boone Wang M.D.10/25/2023 12:56 PM Dictation Location: [place] [address] Transcribed By: [facility] 10/25/23 1256 Dictated By: Boone Wang DO 10/25/23 1254 Signed By: 10/25/23 1256 Normal [facility] Calcium [Mass/volume] in Ser um or PlasmaOrdered By: Abrahan Lew on 10-25-2023 Calcium [Mass/Vol] 10.2 mg/dL Normal 8.6-10.3 [facility] Comment on above: Performed By: #### C UBLD, LACTIC #### [facility] [address] [place] [address] Cannabinoids [Presence] in U rine by Screen methodOrdered By: Abrahan Lew on 10-25-2023 Cannabinoids Screen Ql (U) Positive Negative [facility] Comment on above: These are unconfirme d results and should not be used for legal purposes. Drug Cut-Off Concentration: AMPH 1000 ng/mL VISHNU 200 ng/mL MAIRA 200 ng/mL COCM 300 ng/mL OP 300 ng/mL PCP 25 ng/mL THC 20 ng/mL Capillary blood glucose pavan urement by glucometer (mass/volume)Ordered By: Abrahan Lew on 10-25-2023 Glucose [Mass/Vol] 91 mg/dL Normal [facility] Comment on above: Random Glucose Refer ence Range is dependent on time and content of last meal. Glucose of more than 200 mg/dL in a nonstressed, ambulatory subject supports the diagnosis of Diabetes Mellitus. Result Comment: [place] Glucose Reference Range is dependent on time and content of last meal. Glucose of more than 200 mg/dL in a nonstressed, ambulatory subject supports the diagnosis of Diabetes Mellitus. PERFORMED BY: [place] [address] PATHOLOGIST HEALTH POLICY ANALYST CANDY KELLOGG M.D. Performed By: #### C UBLD, LACTIC #### [address] Carbon dioxide, total [Moles /volume] in Serum or PlasmaOrdered By: Abrahan Lew on 10-25-2023 CO2 [Moles/Vol] 22.9 mmol/L Normal 21.0-31.0 [facility] Comment on above: Performed By: #### C UBLD, LACTIC #### [address] Chloride [Moles/volume] in S alirio or PlasmaOrdered By: Abrahan Lew on 10-25-2023 Chloride [Moles/Vol] 105 mmol/L Normal 98-107 [facility] Comment on above: Performed By: #### C UBLD, LACTIC #### [address] Color of Urine by AutoOrdere d By: Abrahan Lew on 10-25-2023 Color (U) Yellow Normal Yellow [facility] Comment on above: Order Comment: Name Collection Type:: Clean-Voided Midstream Performed By: #### U HCG, UA, URDS #### [address] Complete Blood Count Auto Di ffon 10-25-2023 Mean Corpuscular HGB Conc 32.5 g/dL Normal 32.0-35.0 [facility] Comment on above: Performed By: #### C UBLD, LACTIC #### [place] [address] [place] Monocytes/100 WBC (Bld) 19.51 % Normal 0.00-20.00 [facility] Comment on above: Performed By: #### C UBLD, LACTIC #### [place] [address] [place] NRBC% 0.1 /100{WBC} Normal 0-0.5 [facility] Comment on above: Performed By: #### C UBLD, LACTIC #### [address] Creatine kinase [Enzymatic a ctivity/volume] in Serum or PlasmaOrdered By: Abrahan Lew on 10-25-2023 CK [Catalytic activity/Vol] 61 U/L Normal 30-223 [facility] Comment on above: Performed By: #### C UBLD, LACTIC #### [address] Creatinine [Mass/volume] in Serum or PlasmaOrdered By: Abrahan Lew on 10-25-2023 Creatinine [Mass/Vol] 0.73 mg/dL Normal 0.60-1.20 [facility] Comment on above: Performed By: #### C UBLD, LACTIC #### [address] Drug Screen,Urineon 10-25-19 24 Amphetamine Screen,Urine Negative Normal Negative [facility] Comment on above: Performed By: #### U HCG, UA, URDS #### [address] Barbiturate Screen,Urine Negative Normal Negative [facility] Comment on above: Performed By: #### U HCG, UA, URDS #### [place] [address] [place] Benzodiazepines Screen,Urine Negative Normal Negative [facility] Comment on above: Performed By: #### U HCG, UA, URDS #### [address] Cannabinoid Screen,Urine Positive High Negative [facility] Comment on above: Result Comment: Thes e are unconfirmed results and should not be used for legal purposes. Drug Cut-Off Concentration: AMPH 1000 ng/mL VISHNU 200 ng/mL MAIRA 200 ng/mL COCM 300 ng/mL OP 300 ng/mL PCP 25 ng/mL THC 20 ng/mL PERFORMED BY: [place] [address] PATHOLOGIST HEALTH POLICY ANALYST CANDY KELLOGG M.D. Performed By: #### U HCG, UA, URDS #### [facility] [address] Cocaine Screen,Urine Negative Normal Negative [facility] Comment on above: Performed By: #### U HCG, UA, URDS #### [facility] [address] Opiate Screen,Urine Negative Normal Negative [facility] Comment on above: Performed By: #### U HCG, UA, URDS #### [facility] [address] Phencyclidine Screen,Urine Negative Normal Negative [facility] Comment on above: Performed By: #### U HCG, UA, URDS #### [facility] [address] ECG 12 lead ECGon 10-25-2023 ECG 12 lead ECG [facility] [place] [address] [place] [address] Electrocardiograph Report Signed Patient: Jessie Alva MR#: [id number] : 2000 Acct:[id number] Age/Sex: 23 / F ADM Date: 10/25/23 Loc: ER Room: Type: [facility] ER Attending Dr: Ordering Provider: Abrahan [...] was found Confirmed by Abrahan Lew DO ([id number]) on 10/25/2023 3:08:43 PM Referred By: Electronically Signed By:Abrahan Lew DO Transcribed By: MUS Signed By Abrahan Lew DO 4 1509 Normal [facility] Erythrocyte distribution wid th [Ratio] by Automated countOrdered By: Abrahan Lew on 10-25-2023 Erythrocyte distribution width (RBC) [Ratio] 16.2 % High 11.9-15.3 [facility] Comment on above: Performed By: #### C UBLD, LACTIC #### [facility] [address] [place] [address] [place] Erythrocytes [#/volume] in B lood by Automated countOrdered By: Abrahan Lew on 10-25-2023 RBC (Bld) [#/Vol] 4.49 10*6/uL Normal 3.60-5.00 [facility] Comment on above: Performed By: #### C UBLD, LACTIC #### [facility] [address] [place] [address] [place] Ethanol [Mass/volume] in Ser um or PlasmaOrdered By: Abrahan Lew on 10-25-2023 Ethanol [Mass/Vol] mg/dL Normal [facility] Comment on above: Performed By: #### C UBLD, LACTIC #### [facility] [address] [place] [address] [place] Ethanol [Mass/Vol] TNP [facility] Comment on above: Test not performed Ethyl Alcohol Profileon 10-05 Percent Ethanol Not performed Normal [facility] Comment on above: Result Comment: PERF ORMED BY: [place] [address] PATHOLOGIST HEALTH POLICY ANALYST CANDY KELLOGG M.D. Performed By: #### C UBLD, LACTIC #### [place] [address] [place] Glucose [Mass/volume] in Ser um or PlasmaOrdered By: Abrahan Lew on 10-25-2023 Glucose [Mass/Vol] 91 mg/dL Normal 70-100 [facility] Comment on above: ADA recommended refe rence rangeRandom Glucose Reference Range is dependent on time and content of last meal. Glucose of more than 200 mg/dL in a nonstressed, ambulatory subject supports the diagnosis of Diabetes Mellitus. Result Comment: [place] om Glucose Reference Range is dependent on time and content of last meal. Glucose of more than 200 mg/dL in a nonstressed, ambulatory subject supports the diagnosis of Diabetes Mellitus. ADA recommended reference range Performed By: #### C UBLD, LACTIC #### [address] HCG ( test) IA.rapi d Ql (U)Ordered By: Abrahan Lew on 10-25-2023 HCG ( test) Ql (U) Negative [facility] HCG,Urineon 10-25-2023 Beta HCG ( test) Ql (U) Negative Normal [facility] Comment on above: Order Comment: Name Collection Type:: Clean-Voided Midstream Result Comment: PERF ORMED BY: [place] [address] PATHOLOGIST HEALTH POLICY ANALYST CANDY KELLOGG M.D. Performed By: #### U HCG, UA, URDS #### [address] Hematocrit [Volume Fraction] of Blood by Automated countOrdered By: Abrahan Lew on 10-25-2023 Hematocrit (Bld) [Volume fraction] 39.3 % Normal 34.0-46.4 [facility] Comment on above: Performed By: #### C UBLD, LACTIC #### [address] Hemoglobin [Mass/volume] in BloodOrdered By: Abrahan Lew on 10-25-2023 Hemoglobin (Bld) [Mass/Vol] 12.8 g/dL Normal 11.8-15.4 [facility] Comment on above: Performed By: #### C UBLD, LACTIC #### [address] Hepatic Panelon 10-25-2023 Albumin [Mass/Vol] 4.8 g/dL Normal 3.5-5.7 [facility] Comment on above: Performed By: #### C UBLD, LACTIC #### [address] Bilirubin,Indirect 0.2 mg/dL Normal [facility] Comment on above: Performed By: #### C UBLD, LACTIC #### [facility] [address] Bilirubin.indirect [Mass/Vol] 0.10 mg/dL Normal 0.03-0.18 [facility] Comment on above: Performed By: #### C UBLD, LACTIC #### [facility] [address] INR in Platelet poor plasma by Coagulation assayOrdered By: Abrahan Lew on 10-25-2023 INR Coag (PPP) [Relative time] 1.2 {INR} Normal [facility] Comment on above: INR Therapeutic Rang e [...] Performed By: #### C UBLD, LACTIC #### [facility] [address] Ketones Auto test strip (U) [Mass/Vol]Ordered By: Abrahan Lew on 10-25-2023 Ketones (U) [Mass/Vol] Negative Negative [facility] Lactate [Moles/volume] in Se rum or PlasmaOrdered By: Abrahan Lew on 10-25-2023 Lactate [Moles/Vol] 1.4 mmol/L Normal 0.5-2.2 [facility] Comment on above: Result Comment: PERF ORMED BY: [place] [address] PATHOLOGIST HEALTH POLICY ANALYST CANDY KELLOGG M.D. Performed By: #### C UBLD, LACTIC #### [address] Leukocytes [#/volume] correc jalil for nucleated erythrocytes in Blood by Automated counOrdered By: Abrahan Lew on 10-25-2023 WBC corrected for nucl RBC Auto (Bld) [#/Vol] 14.0 10*3/uL 3.8-11.6 [facility] Leukocytes [#/volume] in Blo od by Automated countOrdered By: Abrahan Lew on 10-25-2023 WBC (Bld) [#/Vol] 14.0 10*3/uL High 3.8-11.6 [facility] Comment on above: Performed By: #### C UBLD, LACTIC #### [address] Lipase [Enzymatic activity/v olume] in Serum or PlasmaOrdered By: Abrahan Lew on 10-25-2023 Lipase [Catalytic activity/Vol] 8.0 U/L Low 11.0-82.0 [facility] Comment on above: Result Comment: PERF ORMED BY: [place] [address] PATHOLOGIST HEALTH POLICY ANALYST CANDY KELLOGG M.D. Performed By: #### C UBLD, LACTIC #### [place] [address] [place] Lymphocytes [#/volume] in Bl ood by Automated countOrdered By: Abrahan Lew on 10-25-2023 Lymphocytes (Bld) [#/Vol] 4.0 10*3/uL Normal 1.00-4.8 [facility] Comment on above: Performed By: #### C UBLD, LACTIC #### [place] [address] [place] Lymphocytes/100 leukocytes i n Blood by Automated countOrdered By: Abrahan Lew on 10-25-2023 Lymphocytes/100 WBC (Bld) 28.2 % Normal . [facility] Comment on above: Performed By: #### C UBLD, LACTIC #### [address] [place] [address] [place] MCH [Entitic mass] by Automa jalil countOrdered By: Abrahan Lew on 10-25-2023 MCH (RBC) [Entitic mass] 28.4 pg Normal 24.7-34.3 [facility] Comment on above: Performed By: #### C UBLD, LACTIC #### [address] MCHC Auto (RBC) [Mass/Vol]Or dered By: Abrahan Lew on 10-25-2023 MCHC (RBC) [Mass/Vol] 32.5 g/dL 32.0-35.0 [facility] MCV [Entitic volume] by Auto mated countOrdered By: Abrahan Lew on 10-25-2023 MCV (RBC) [Entitic vol] 87.4 fL Normal 80-100 [facility] Comment on above: Performed By: #### C UBLD, LACTIC #### [address] Magnesium [Mass/volume] in S alirio or PlasmaOrdered By: Abrahan Lew on 10-25-2023 Magnesium [Mass/Vol] 1.9 mg/dL Normal 1.9-2.7 [facility] Comment on above: Performed By: #### C UBLD, LACTIC #### [address] Monocyte distribution width [Entitic volume] in Blood by AutomatedOrdered By: Abrahan Lew on 10-25-2023 Monocyte distribution width Auto (Bld) [Entitic vol] 19.51 % 0.00-20.00 [facility] Neutrophils [#/volume] in Bl ood by Automated countOrdered By: Abrahan Lew on 10-25-2023 Neutrophils (Bld) [#/Vol] 8.9 10*3/uL High 1.8-7.7 [facility] Comment on above: Performed By: #### C UBLD, LACTIC #### [address] Nitrite Test strip Ql (U)Ord ered By: Abrahan Lew on 10-25-2023 Nitrite Ql (U) Negative Negative [facility] No Panel InformationOrdered By: Abrahan Lew on 10-25-2023 Estimated GFR (CKD-EPI) > 60.0 mL/Min [facility] Creatinine Clearance (Chem 123.29 [facility] Nucleated erythrocytes [Pres ence] in Blood by Automated countOrdered By: Abrahan Lew on 10-25-2023 Nucleated RBC Auto Ql (Bld) 0.1 /100{WBC} 0-0.5 [facility] Opiates [Presence] in Urine by Screen methodOrdered By: Abrahan Lew on 10-25-2023 Opiates Screen Ql (U) Negative Negative [facility] Partial Thromboplastin Timeo n 10-25-2023 aPTT Coag (Bld) [Time] 26.8 s Normal 25.1-36.5 [facility] Comment on above: Result Comment: A he matocrit value greater than 55% may lead to inaccurate results in coagulation testing. Patients having hematocrit values >55% require a special collection tube for coagulation studies. Please contact the laboratory at [phone] for redraw instructions. PERFORMED BY: [place] [address] PATHOLOGIST HEALTH POLICY ANALYST CANDY KELLOGG M.D. Performed By: #### C UBLD, LACTIC #### [facility] [address] [place] [address] Phencyclidine Screen Ql (U)O rdered By: Abrahan Lew on 10-25-2023 Phencyclidine Ql (U) Negative Negative [facility] Platelet mean volume [Entiti c volume] in Blood by Automated countOrdered By: Abrahan Lew on 10-25-2023 Platelet mean volume (Bld) [Entitic vol] 7.1 fL Normal 6.3-10.7 [facility] Comment on above: Performed By: #### C UBLD, LACTIC #### [facility] [address] [place] [address] Platelets [#/volume] in Bloo d by Automated countOrdered By: Abrahan Lew on 10-25-2023 Platelets (Bld) [#/Vol] 492 10*3/uL High 150-450 [facility] Comment on above: Performed By: #### C UBLD, LACTIC #### [address] Potassium [Moles/volume] in Serum or PlasmaOrdered By: Abrahan Lew on 10-25-2023 Potassium [Moles/Vol] 3.7 mmol/L Normal 3.5-5.1 [facility] Comment on above: Performed By: #### C UBLD, LACTIC #### [address] Protein Auto test strip (U) [Mass/Vol]Ordered By: Abrahan Lew on 10-25-2023 Protein (U) [Mass/Vol] Negative Negative [facility] Protein [Mass/volume] in Ser um or PlasmaOrdered By: Abrahan Lew on 10-25-2023 Protein [Mass/Vol] 8.7 g/dL Normal 6.4-8.9 [facility] Comment on above: Performed By: #### C UBLD, LACTIC #### [address] Prothrombin time (PT)Ordered By: Abrahan Lew on 10-25-2023 PT Coag (PPP) [Time] 13.3 s High 9.0-12.9 [facility] Comment on above: A hematocrit value g reater than 55% may lead to inaccurate results in coagulation testing. Patients having hematocrit values >55% require a special collection tube for coagulation studies. Please contact the laboratory at [phone] for redraw instructions. Result Comment: A he matocrit value greater than 55% may lead to inaccurate results in coagulation testing. Patients having hematocrit values >55% require a special collection tube for coagulation studies. Please contact the laboratory at [phone] for redraw instructions. Performed By: #### C UBLD, LACTIC #### [address] Serum globulin measurement b y calculation (mass/volume)Ordered By: Abrahan Lew on 10-25-2023 Globulin (S) [Mass/Vol] 3.9 g/dL Normal [facility] Comment on above: Performed By: #### C UBLD, LACTIC #### [address] Serum or plasma albumin/glob ulin mass ratioOrdered By: Abrahan Lew on 10-25-2023 Albumin/Globulin [Mass ratio] 1.2 {ratio} Normal [facility] Comment on above: Performed By: #### C UBLD, LACTIC #### [address] Serum or plasma anion gap de terminationOrdered By: Abrahan Lew on 10-25-2023 Anion gap [Moles/Vol] 10.8 mmol/L Normal 6.0-15.0 [facility] Comment on above: Performed By: #### C UBLD, LACTIC #### [address] Serum or plasma non-glucuron idated bilirubin measurement (mass/volume)Ordered By: Abrahan Lew on 10-25-2023 Bilirubin.indirect [Mass/Vol] 0.2 mg/dL [facility] Sodium [Moles/volume] in Ser um or PlasmaOrdered By: Abrahan Lew on 10-25-2023 Sodium [Moles/Vol] 135 mmol/L Low 136-145 [facility] Comment on above: Performed By: #### C UBLD, LACTIC #### [address] Specific gravity Auto test s trip (U) [Rel density]Ordered By: Abrahan Lew on 10-25-2023 Specific gravity (U) [Rel density] 1.004 1.001-1.030 [facility] Troponin I High Sensitivityo n 10-25-2023 Troponin I High Sensitivity < 2.3 Normal 0.0-15.0 [facility] Comment on above: Result Comment: PERF ORMED BY: [place] [address] PATHOLOGIST HEALTH POLICY ANALYST CANDY KELLOGG M.D. Performed By: #### C UBLD, LACTIC #### [address] Troponin I.cardiac [Mass/vol ume] in Serum or Plasma by Detection limit <= 0.01 ng/Ordered By: Abrahan Lew on 10-25-2023 Troponin I.cardiac DL <= 0.01 ng/mL [Mass/Vol] < 2.3 pg/mL 0.0-15.0 [facility] Urea nitrogen [Mass/volume] in Serum or PlasmaOrdered By: Abrahan Lew on 10-25-2023 Urea nitrogen [Mass/Vol] 9 mg/dL Normal 7-25 [facility] Comment on above: Performed By: #### C UBLD, LACTIC #### [address] Urinalysison 10-25-2023 Appearance (U) Clear Normal Clear [facility] Comment on above: Order Comment: Name Collection Type:: Clean-Voided Midstream Performed By: #### U HCG, UA, URDS #### [address] Bilirubin,Urine Negative Normal Negative [facility] Comment on above: Order Comment: Name Collection Type:: Clean-Voided Midstream Performed By: #### U HCG, UA, URDS #### [address] Glucose Ql (U) Normal Normal Normal [facility] Comment on above: Order Comment: Name Collection Type:: Clean-Voided Midstream Performed By: #### U HCG, UA, URDS #### [address] Ketones Ql (U) Negative Normal Negative [facility] Comment on above: Order Comment: Name Collection Type:: Clean-Voided Midstream Performed By: #### U HCG, UA, URDS #### [address] Leukocyte esterase Test strip Ql (U) Negative Normal Negative [facility] Comment on above: Order Comment: Name Collection Type:: Clean-Voided Midstream Performed By: #### U HCG, UA, URDS #### [facility] [address] [place] [address] [place] Nitrite,Urine Negative Normal Negative [facility] Comment on above: Order Comment: Name Collection Type:: Clean-Voided Midstream Performed By: #### U HCG, UA, URDS #### [facility] [address] Occult Blood,Urine Negative Normal Negative [facility] Comment on above: Order Comment: Name Collection Type:: Clean-Voided Midstream Performed By: #### U HCG, UA, URDS #### [address] Protein,Urine Negative Normal Negative [facility] Comment on above: Order Comment: Name Collection Type:: Clean-Voided Midstream Performed By: #### U HCG, UA, URDS #### [address] Specificy [place],Urine 1.004 Normal 1.001-1.030 [facility] Comment on above: Order Comment: Name Collection Type:: Clean-Voided Midstream Performed By: #### U HCG, UA, URDS #### [facility] [address] [place] [address] [place] Urobilinogen,Urine Normal Normal Normal [facility] Comment on above: Order Comment: Name Collection Type:: Clean-Voided Midstream Performed By: #### U HCG, UA, URDS #### [address] Urine clarity by refractomet ry automatedOrdered By: Abrahan Lew on 10-25-2023 Clarity Refractometry automated (U) Clear Clear [facility] Urine glucose measurement by automated test strip (mass/volume)Ordered By: Abrahan Lew on 10-25-2023 Glucose Auto test strip (U) [Mass/Vol] Normal mg/dL Normal [facility] Urine hemoglobin detection b y automated test stripOrdered By: Abrahan Lew on 10-25-2023 Hemoglobin Auto test strip Ql (U) Negative Negative [facility] Urine leukocyte esterase det ection by automated test stripOrdered By: Abrahan Lew on 10-25-2023 Leukocyte esterase Auto test strip Ql (U) Negative Negative [facility] Urine pH measurement by auto mated test stripOrdered By: Abrahan Lew on 10-25-2023 pH (U) 7.5 [pH] Normal 5.0-9.0 [facility] Comment on above: Order Comment: Name Collection Type:: Clean-Voided Midstream Performed By: #### U HCG, UA, URDS #### [address] Urobilinogen Auto test strip (U) [Mass/Vol]Ordered By: Abrahan Lew on 10-25-2023 Urobilinogen (U) [Mass/Vol] Normal mg/dL Normal [facility] XR chest 1V portableon 10-24 XR chest 1V portable [facility] [place] [address] [place] [address] XRay Report Signed Patient: Jessie Alva MR#: [id number] : 2000 Acct:[id number] Age/Sex: 23 / F ADM Date: 10/25/23 Loc: ER Room: Type: [facility] ER Attending Dr: Copies to: Abrahan [...] Italo Feldman M.D.10/25/2023 11:45 AM Dictation Location: [place] [address] Transcribed By: [facility] 10/25/23 1145 Dictated By: Italo Feldman II, MD 10/25/23 1145 Signed By: 10/25/23 1145 Normal [facility] Alanine aminotransferase [En zymatic activity/volume] in Serum or PlasmaOrdered By: Ramiro Schaefer on 10-23-2023 ALT [Catalytic activity/Vol] 15 U/L Normal 7-52 [facility] Comment on above: Performed By: #### C UBLD, LACTIC #### [facility] [address] Albumin [Mass/volume] in Ser um or Plasma by Bromocresol green (BCG) dye binding methoOrdered By: Ramiro Schaefer on 10-23-2023 Albumin BCG dye [Mass/Vol] 4.4 g/dL 3.5-5.7 [facility] Alkaline phosphatase [Enzyma tic activity/volume] in Serum or PlasmaOrdered By: Ramiro Schaefer on 10-23-2023 ALP [Catalytic activity/Vol] 38 U/L Normal 34-104 [facility] Comment on above: Performed By: #### C UBLD, LACTIC #### [address] Amphetamine Screen Ql (U)Ord ered By: Ramiro Schaefer on 10-23-2023 Amphetamines Ql (U) Negative Negative [facility] Aspartate aminotransferase [ Enzymatic activity/volume] in Serum or PlasmaOrdered By: Ramiro Schaefer on 10-23-2023 AST [Catalytic activity/Vol] 15 U/L Normal 13-39 [facility] Comment on above: Performed By: #### C UBLD, LACTIC #### [address] Automated basophil %Ordered By: Ramiro Schaefer on 10-23-2023 Basophils/100 WBC (Bld) 0.2 % Normal . [facility] Comment on above: Performed By: #### C UBLD, LACTIC #### [address] Automated basophil countOrde red By: Ramiro Schaefer on 10-23-2023 Basophils (Bld) [#/Vol] 0.0 10*3/uL Normal 0.0-0.2 [facility] Comment on above: Result Comment: PERF ORMED BY: [place] [address] PATHOLOGIST HEALTH POLICY ANALYST CANDY KELLOGG M.D. Performed By: #### C UBLD, LACTIC #### [address] Automated blood monocyte cou ntOrdered By: Ramiro Schaefer on 10-23-2023 Monocytes (Bld) [#/Vol] 0.7 10*3/uL Normal 0.0-0.8 [facility] Comment on above: Performed By: #### C UBLD, LACTIC #### [address] Automated eosinophil %Ordere d By: Ramiro Schaefer on 10-23-2023 Eosinophils/100 WBC (Bld) 0.9 % Normal . [facility] Comment on above: Performed By: #### C UBLD, LACTIC #### [address] Automated eosinophil countOr dered By: Ramiro Schaefer on 10-23-2023 Eosinophils (Bld) [#/Vol] 0.1 10*3/uL Normal 0.0-0.45 [facility] Comment on above: Performed By: #### C UBLD, LACTIC #### [address] Automated monocyte %Ordered By: Ramiro Schaefer on 10-23-2023 Monocytes/100 WBC (Bld) 6.8 % Normal . [facility] Comment on above: Performed By: #### C UBLD, LACTIC #### [address] Automated neutrophil %Ordere d By: Ramiro Schaefer on 10-23-2023 Neutrophils/100 WBC (Bld) 56.3 % Normal . [facility] Comment on above: Performed By: #### C UBLD, LACTIC #### [address] Barbiturates [Presence] in U rine by Screen methodOrdered By: Ramiro Schaefer on 10-23-2023 Barbiturates Screen Ql (U) Negative Negative [facility] Basic Metabolic Panelon 10-04 Creatinine Clr Calc Pharmacy 118.15 Normal [facility] Comment on above: Performed By: #### C UBLD, LACTIC #### [facility] [address] [place] [address] GFR/1.73 sq M.predicted MDRD (S/P/Bld) [Vol rate/Area] mL/min/{1.73_m2} Normal [facility] Comment on above: Performed By: #### C UBLD, LACTIC #### [facility] [address] [place] [address] Benzodiazepines Screen Ql (U )Ordered By: Ramiro Schaefer on 10-23-2023 Benzodiazepines Ql (U) Negative Negative [facility] Benzoylecgonine [Presence] i n Urine by Screen methodOrdered By: Ramiro Schaefer on 10-23-2023 Benzoylecgonine Screen Ql (U) Negative Negative [facility] Bilirubin Test strip Ql (U)O rdered By: Ramiro Schaefer on 10-23-2023 Bilirubin Ql (U) Negative Negative [facility] Bilirubin.direct [Mass/volum e] in Serum or PlasmaOrdered By: Ramiro Schaefer on 10-23-2023 Bilirubin.direct [Mass/Vol] 0.10 mg/dL 0.03-0.18 [facility] Bilirubin.total [Mass/volume ] in Serum or PlasmaOrdered By: Ramiro Schaefer on 10-23-2023 Bilirubin [Mass/Vol] 0.3 mg/dL Normal 0.3-1.0 [facility] Comment on above: Performed By: #### C UBLD, LACTIC #### [facility] [address] [place] [address] CT head/brain wo conon 10-22 CT head/brain wo con [facility] [place] [address] CT Scan Report Signed Patient: Jessie Alva MR#: [id number] : 2000 Acct:[id number] Age/Sex: 23 / F ADM Date: 10/23/23 Loc: ER Room: Type: [facility] ER Attending Dr: Copies to: Ramiro [...] Boone Wang M.D.10/23/2023 12:46 PM Dictation Location: [place] [address] Transcribed By: [facility] 10/23/23 1246 Dictated By: Boone Wang DO 10/23/23 1244 Signed By: 10/23/23 1246 Normal [facility] Calcium [Mass/volume] in Ser um or PlasmaOrdered By: Ramiro Schaefer on 10-23-2023 Calcium [Mass/Vol] 9.6 mg/dL Normal 8.6-10.3 [facility] Comment on above: Performed By: #### C UBLD, LACTIC #### [facility] [address] [place] [address] Cannabinoids [Presence] in U rine by Screen methodOrdered By: Ramiro Schaefer on 10-23-2023 Cannabinoids Screen Ql (U) Positive Negative [facility] Comment on above: These are unconfirme d results and should not be used for legal purposes. Drug Cut-Off Concentration: AMPH 1000 ng/mL VISHNU 200 ng/mL MAIRA 200 ng/mL COCM 300 ng/mL OP 300 ng/mL PCP 25 ng/mL THC 20 ng/mL Carbon dioxide, total [Moles /volume] in Serum or PlasmaOrdered By: Ramiro Schaefer on 10-23-2023 CO2 [Moles/Vol] 26.1 mmol/L Normal 21.0-31.0 [facility] Comment on above: Performed By: #### C UBLD, LACTIC #### [address] Chloride [Moles/volume] in S alirio or PlasmaOrdered By: Ramiro Schaefer on 10-23-2023 Chloride [Moles/Vol] 106 mmol/L Normal 98-107 [facility] Comment on above: Performed By: #### C UBLD, LACTIC #### [address] Color of Urine by AutoOrdere d By: Ramiro Schaefer on 10-23-2023 Color (U) Colorless Normal Yellow [facility] Comment on above: Order Comment: Name Collection Type:: Clean-Voided Midstream Performed By: #### U HCG, URDS, UA #### [address] Complete Blood Count Auto Di ffon 10-23-2023 Mean Corpuscular HGB Conc 33.0 g/dL Normal 32.0-35.0 [facility] Comment on above: Performed By: #### C UBLD, LACTIC #### [place] [address] [place] Monocytes/100 WBC (Bld) 18.82 % Normal 0.00-20.00 [facility] Comment on above: Performed By: #### C UBLD, LACTIC #### [place] [address] [place] NRBC% 0.1 /100{WBC} Normal 0-0.5 [facility] Comment on above: Performed By: #### C UBLD, LACTIC #### [place] [address] [place] Creatinine [Mass/volume] in Serum or PlasmaOrdered By: Ramiro Schaefer on 10-23-2023 Creatinine [Mass/Vol] 0.71 mg/dL Normal 0.60-1.20 [facility] Comment on above: Performed By: #### C UBLD, LACTIC #### [place] [address] [place] Drug Screen,Urineon 10-23-19 Amphetamine Screen,Urine Negative Normal Negative [facility] Comment on above: Performed By: #### C UBLD, LACTIC #### [address] Barbiturate Screen,Urine Negative Normal Negative [facility] Comment on above: Performed By: #### C UBLD, LACTIC #### [address] Benzodiazepines Screen,Urine Negative Normal Negative [facility] Comment on above: Performed By: #### C UBLD, LACTIC #### [address] Cannabinoid Screen,Urine Positive High Negative [facility] Comment on above: Result Comment: Thes e are unconfirmed results and should not be used for legal purposes. Drug Cut-Off Concentration: AMPH 1000 ng/mL VISHNU 200 ng/mL MAIRA 200 ng/mL COCM 300 ng/mL OP 300 ng/mL PCP 25 ng/mL THC 20 ng/mL PERFORMED BY: [place] [address] PATHOLOGIST HEALTH POLICY ANALYST CANDY KELLOGG M.D. Performed By: #### C UBLD, LACTIC #### [address] Cocaine Screen,Urine Negative Normal Negative [facility] Comment on above: Performed By: #### C UBLD, LACTIC #### [place] [address] [place] Opiate Screen,Urine Negative Normal Negative [facility] Comment on above: Performed By: #### C UBLD, LACTIC #### [place] [address] [place] Phencyclidine Screen,Urine Negative Normal Negative [facility] Comment on above: Performed By: #### C UBLD, LACTIC #### [address] ECG 12 lead ECGon 10-23-2023 ECG 12 lead ECG [facility] [place] [address] [place] [address] Electrocardiograph Report Signed Patient: Jessie Alva MR#: [id number] : 2000 Acct:[id number] Age/Sex: 23 / F ADM Date: 10/23/23 Loc: ER Room: Type: [facility] ER Attending Dr: Ordering Provider: Ramiro [...] MD, [facility] 10/25/23 1025 Normal [facility] Erythrocyte distribution wid th [Ratio] by Automated countOrdered By: Ramiro Schaefer on 10-23-2023 Erythrocyte distribution width (RBC) [Ratio] 16.3 % High 11.9-15.3 [facility] Comment on above: Performed By: #### C UBLD, LACTIC #### [facility] [address] [place] [address] [place] Erythrocytes [#/volume] in B lood by Automated countOrdered By: Ramiro Schaefer on 10-23-2023 RBC (Bld) [#/Vol] 4.40 10*6/uL Normal 3.60-5.00 [facility] Comment on above: Performed By: #### C UBLD, LACTIC #### [facility] [address] [place] [address] [place] Glucose [Mass/volume] in Ser um or PlasmaOrdered By: Ramiro Schaefer on 10-23-2023 Glucose [Mass/Vol] 95 mg/dL Normal 70-100 [facility] Comment on above: ADA recommended refe rence rangeRandom Glucose Reference Range is dependent on time and content of last meal. Glucose of more than 200 mg/dL in a nonstressed, ambulatory subject supports the diagnosis of Diabetes Mellitus. Result Comment: [place] om Glucose Reference Range is dependent on time and content of last meal. Glucose of more than 200 mg/dL in a nonstressed, ambulatory subject supports the diagnosis of Diabetes Mellitus. ADA recommended reference range Performed By: #### C UBLD, LACTIC #### [address] Glucose [Mass/volume] in Uri ne by Test stripOrdered By: Ramiro Schaefer on 10-23-2023 Glucose Test strip (U) [Mass/Vol] Normal mg/dL Normal [facility] HCG ( test) IA.rapi d Ql (U)Ordered By: Ramiro Schaefer on 10-23-2023 HCG ( test) Ql (U) Negative [facility] HCG,Urineon 10-23-2023 Beta HCG ( test) Ql (U) Negative Normal [facility] Comment on above: Order Comment: Name Collection Type:: Clean-Voided Midstream Result Comment: PERF ORMED BY: [place] [address] PATHOLOGIST HEALTH POLICY ANALYST CANDY KELLOGG M.D. Performed By: #### C UBLD, LACTIC #### [address] Hematocrit [Volume Fraction] of Blood by Automated countOrdered By: Ramiro Schaefer on 10-23-2023 Hematocrit (Bld) [Volume fraction] 38.6 % Normal 34.0-46.4 [facility] Comment on above: Performed By: #### C UBLD, LACTIC #### [address] Hemoglobin Test strip Ql (U) Ordered By: Ramiro Schaefer on 10-23-2023 Hemoglobin Ql (U) Negative Negative [facility] Hemoglobin [Mass/volume] in BloodOrdered By: Ramiro Schaefer on 10-23-2023 Hemoglobin (Bld) [Mass/Vol] 12.7 g/dL Normal 11.8-15.4 [facility] Comment on above: Performed By: #### C UBLD, LACTIC #### [address] Hepatic Panelon 10-23-2023 Albumin [Mass/Vol] 4.4 g/dL Normal 3.5-5.7 [facility] Comment on above: Performed By: #### C UBLD, LACTIC #### [address] Bilirubin,Indirect 0.2 mg/dL Normal [facility] Comment on above: Performed By: #### C UBLD, LACTIC #### [address] Bilirubin.indirect [Mass/Vol] 0.10 mg/dL Normal 0.03-0.18 [facility] Comment on above: Performed By: #### C UBLD, LACTIC #### [address] Ketones [Presence] in Urine by Test stripOrdered By: Ramiro Schaefer on 10-23-2023 Ketones Ql (U) Negative Normal Negative [facility] Comment on above: Order Comment: Name Collection Type:: Clean-Voided Midstream Performed By: #### U HCG, URDS, UA #### [address] Leukocyte esterase [Presence ] in Urine by Test stripOrdered By: Ramiro Schaefer on 10-23-2023 Leukocyte esterase Test strip Ql (U) Negative Normal Negative [facility] Comment on above: Order Comment: Name Collection Type:: Clean-Voided Midstream Performed By: #### U HCG, URDS, UA #### [address] Leukocytes [#/volume] correc jalil for nucleated erythrocytes in Blood by Automated counOrdered By: Ramiro Schaefer on 10-23-2023 WBC corrected for nucl RBC Auto (Bld) [#/Vol] 9.7 10*3/uL 3.8-11.6 [facility] Leukocytes [#/volume] in Blo od by Automated countOrdered By: Ramiro Schaefer on 10-23-2023 WBC (Bld) [#/Vol] 9.7 10*3/uL Normal 3.8-11.6 [facility] Comment on above: Performed By: #### C UBLD, LACTIC #### [address] Lipase [Enzymatic activity/v olume] in Serum or PlasmaOrdered By: Ramiro Schaefer on 10-23-2023 Lipase [Catalytic activity/Vol] 6.0 U/L Low 11.0-82.0 [facility] Comment on above: Performed By: #### C UBLD, LACTIC #### [place] [address] [place] Lymphocytes [#/volume] in Bl ood by Automated countOrdered By: Ramiro Schaefer on 10-23-2023 Lymphocytes (Bld) [#/Vol] 3.5 10*3/uL Normal 1.00-4.8 [facility] Comment on above: Performed By: #### C UBLD, LACTIC #### [place] [address] [place] Lymphocytes/100 leukocytes i n Blood by Automated countOrdered By: Ramiro Schaefer on 10-23-2023 Lymphocytes/100 WBC (Bld) 35.8 % Normal . [facility] Comment on above: Performed By: #### C UBLD, LACTIC #### [place] [address] [place] MCH [Entitic mass] by Automa jalil countOrdered By: Ramiro Schaefer on 10-23-2023 MCH (RBC) [Entitic mass] 28.9 pg Normal 24.7-34.3 [facility] Comment on above: Performed By: #### C UBLD, LACTIC #### [place] [address] [place] MCHC Auto (RBC) [Mass/Vol]Or dered By: Ramiro Schaefer on 10-23-2023 MCHC (RBC) [Mass/Vol] 33.0 g/dL 32.0-35.0 [facility] MCV [Entitic volume] by Auto mated countOrdered By: Ramiro Schaefer on 10-23-2023 MCV (RBC) [Entitic vol] 87.7 fL Normal 80-100 [facility] Comment on above: Performed By: #### C UBLD, LACTIC #### [facility] [address] Monocyte distribution width [Entitic volume] in Blood by AutomatedOrdered By: Ramiro Schaefer on 10-23-2023 Monocyte distribution width Auto (Bld) [Entitic vol] 18.82 % 0.00-20.00 [facility] Neutrophils [#/volume] in Bl ood by Automated countOrdered By: Ramiro Schaefer on 10-23-2023 Neutrophils (Bld) [#/Vol] 5.5 10*3/uL Normal 1.8-7.7 [facility] Comment on above: Performed By: #### C UBLD, LACTIC #### [facility] [address] Nitrite Test strip Ql (U)Ord ered By: Ramiro Schaefer on 10-23-2023 Nitrite Ql (U) Negative Negative [facility] No Panel InformationOrdered By: Ramiro Schaefer on 10-23-2023 Estimated GFR (CKD-EPI) > 60.0 mL/Min [facility] Creatinine Clearance (Chem 118.15 [facility] Nucleated erythrocytes [Pres ence] in Blood by Automated countOrdered By: Ramiro Schaefer on 10-23-2023 Nucleated RBC Auto Ql (Bld) 0.1 /100{WBC} 0-0.5 [facility] Opiates [Presence] in Urine by Screen methodOrdered By: Ramiro Schaefer on 10-23-2023 Opiates Screen Ql (U) Negative Negative [facility] Phencyclidine Screen Ql (U)O rdered By: Ramiro Schaefer on 10-23-2023 Phencyclidine Ql (U) Negative Negative [facility] Platelet mean volume [Entiti c volume] in Blood by Automated countOrdered By: Ramiro Schaefer on 10-23-2023 Platelet mean volume (Bld) [Entitic vol] 7.5 fL Normal 6.3-10.7 [facility] Comment on above: Performed By: #### C UBLD, LACTIC #### [facility] [address] Platelets [#/volume] in Bloo d by Automated countOrdered By: Ramiro Schaefer on 10-23-2023 Platelets (Bld) [#/Vol] 462 10*3/uL High 150-450 [facility] Comment on above: Performed By: #### C UBLD, LACTIC #### [address] Potassium [Moles/volume] in Serum or PlasmaOrdered By: Ramiro Schaefer on 10-23-2023 Potassium [Moles/Vol] 3.7 mmol/L Normal 3.5-5.1 [facility] Comment on above: Performed By: #### C UBLD, LACTIC #### [address] Protein Test strip (U) [Mass /Vol]Ordered By: Ramiro Schaefer on 10-23-2023 Protein (U) [Mass/Vol] Negative Negative [facility] Protein [Mass/volume] in Ser um or PlasmaOrdered By: Ramiro Schaefer on 10-23-2023 Protein [Mass/Vol] 8.0 g/dL Normal 6.4-8.9 [facility] Comment on above: Performed By: #### C UBLD, LACTIC #### [address] Serum globulin measurement b y calculation (mass/volume)Ordered By: Ramiro Schaefer on 10-23-2023 Globulin (S) [Mass/Vol] 3.6 g/dL Normal [facility] Comment on above: Performed By: #### C UBLD, LACTIC #### [address] Serum or plasma albumin/glob ulin mass ratioOrdered By: Ramiro Schaefer on 10-23-2023 Albumin/Globulin [Mass ratio] 1.2 {ratio} Normal [facility] Comment on above: Performed By: #### C UBLD, LACTIC #### [address] Serum or plasma anion gap de terminationOrdered By: Ramiro Schaefer on 10-23-2023 Anion gap [Moles/Vol] 9.6 mmol/L Normal 6.0-15.0 [facility] Comment on above: Performed By: #### C UBLD, LACTIC #### [address] Serum or plasma non-glucuron idated bilirubin measurement (mass/volume)Ordered By: Ramiro Schaefer on 10-23-2023 Bilirubin.indirect [Mass/Vol] 0.2 mg/dL [facility] Sodium [Moles/volume] in Ser um or PlasmaOrdered By: Ramiro Schaefer on 10-23-2023 Sodium [Moles/Vol] 138 mmol/L Normal 136-145 [facility] Comment on above: Performed By: #### C UBLD, LACTIC #### [address] Specific gravity Test strip (U) [Rel density]Ordered By: Ramiro Schaefer on 10-23-2023 Specific gravity (U) [Rel density] 1.007 1.001-1.030 [facility] Thyrotropin [Units/volume] i n Serum or PlasmaOrdered By: Ramiro Schaefer on 10-23-2023 TSH Qn 1.21 m[IU]/L Normal 0.45-5.33 [facility] Comment on above: Result Comment: PERF ORMED BY: [place] [address] PATHOLOGIST HEALTH POLICY ANALYST CANDY KELLOGG M.D. Performed By: #### C UBLD, LACTIC #### [address] Troponin I High Sensitivityo n 10-23-2023 Troponin I High Sensitivity < 2.3 Normal 0.0-15.0 [facility] Comment on above: Result Comment: PERF ORMED BY: [place] [address] PATHOLOGIST HEALTH POLICY ANALYST CANDY KELLOGG M.D. Performed By: #### C UBLD, LACTIC #### [address] Troponin I.cardiac [Mass/vol ume] in Serum or Plasma by Detection limit <= 0.01 ng/Ordered By: Ramiro Schaefer on 10-23-2023 Troponin I.cardiac DL <= 0.01 ng/mL [Mass/Vol] < 2.3 pg/mL 0.0-15.0 [facility] Urea nitrogen [Mass/volume] in Serum or PlasmaOrdered By: Ramiro Schaefer on 10-23-2023 Urea nitrogen [Mass/Vol] 6 mg/dL Low 7-25 [facility] Comment on above: Performed By: #### C UBLD, LACTIC #### [address] Urinalysison 10-23-2023 Bilirubin,Urine Negative Normal Negative [facility] Comment on above: Order Comment: Name Collection Type:: Clean-Voided Midstream Performed By: #### U HCG, URDS, UA #### [address] Glucose Ql (U) Normal Normal Normal [facility] Comment on above: Order Comment: Name Collection Type:: Clean-Voided Midstream Performed By: #### U HCG, URDS, UA #### [place] [address] [place] Nitrite,Urine Negative Normal Negative [facility] Comment on above: Order Comment: Name Collection Type:: Clean-Voided Midstream Performed By: #### U HCG, URDS, UA #### [address] Occult Blood,Urine Negative Normal Negative [facility] Comment on above: Order Comment: Name Collection Type:: Clean-Voided Midstream Performed By: #### U HCG, URDS, UA #### [place] [address] [place] Protein,Urine Negative Normal Negative [facility] Comment on above: Order Comment: Name Collection Type:: Clean-Voided Midstream Performed By: #### U HCG, URDS, UA #### [address] Specificy [place],Urine 1.007 Normal 1.001-1.030 [facility] Comment on above: Order Comment: Name Collection Type:: Clean-Voided Midstream Performed By: #### U HCG, URDS, UA #### [address] Urobilinogen,Urine Normal Normal Normal [facility] Comment on above: Order Comment: Name Collection Type:: Clean-Voided Midstream Performed By: #### U HCG, URDS, UA #### [address] Urine appearanceOrdered By: Ramiro Schaefer on 10-23-2023 Appearance (U) Clear Normal Clear [facility] Comment on above: Order Comment: Name Collection Type:: Clean-Voided Midstream Performed By: #### U HCG, URDS, UA #### [address] Urobilinogen Test strip (U) [Mass/Vol]Ordered By: Ramiro Schaefer on 10-23-2023 Urobilinogen (U) [Mass/Vol] Normal mg/dL Normal [facility] XR chest 1V portableon 10-22 XR chest 1V portable [facility] [place] [address] XRay Report Signed Patient: Jessie Alva MR#: [id number] : 2000 Acct:[id number] Age/Sex: 23 / F ADM Date: 10/23/23 Loc: ER Room: Type: [facility] ER Attending Dr: Copies to: Ramiro [...] Herring Jr., D.O.10/23/2023 12:13 PM Dictation Location: [place] [address] Transcribed By: [facility] 10/23/23 1213 Dictated By: Rolf Herring Jr, DO 10/23/23 1213 Signed By: 10/23/23 1213 Normal [facility] pH of Urine by Test stripOrd ered By: Ramiro Schaefer on 10-23-2023 pH (U) 7.0 [pH] Normal 5.0-9.0 [facility] Comment on above: Order Comment: Name Collection Type:: Clean-Voided Midstream Performed By: #### U HCG, URDS, UA #### [facility] [address] Automated epithelial cells c ount in urine sediment (number/area)Ordered By: Venkat Velazquez on 07-21-2023 Epithelial cells Auto (Urine sed) [#/Area] 3-4 [HPF] 0-2 [facility] Automated erythrocytes count in urine sediment (number/area)Ordered By: Venkat Velazquez on 07-21-2023 RBC Auto (Urine sed) [#/Area] Innumerable [HPF] 0-4 [facility] Automated leukocytes count i n urine sediment (number/area)Ordered By: Venkat Velazquez on 07-21-2023 WBC Auto (Urine sed) [#/Area] 5-9 [HPF] 0-4 [facility] Automated urine color determ inationOrdered By: Venkat Velazquez on 07-21-2023 Color (U) Dark yellow Critically abnormal Yellow [facility] Comment on above: Order Comment: Name Collection Type:: Clean-Voided Midstream Performed By: #### C UBLD, LACTIC #### [facility] [address] [place] [address] [facility] Automated urine hyaline cast s count (number/volume)Ordered By: Venkat Velazquez on 07-21-2023 Hyaline casts Auto (U) [#/Vol] None seen [LPF] 0-1 [facility] Bilirubin Test strip Ql (U)O rdered By: Venkatyahir Velazquez on 07-21-2023 Bilirubin Ql (U) Negative Negative [facility] Casts typing in urine sedime nt by light microscopyOrdered By: Venkat Velazquez on 07-21-2023 Casts LM Nom (Urine sed) None seen [LPF] None Seen [facility] Dipstick and Microscopicon 0 07-21-2023 Appearance (U) Cloudy Critically abnormal Clear [facility] Comment on above: Order Comment: Name Collection Type:: Clean-Voided Midstream Performed By: #### C UBLD, LACTIC #### [facility] [address] [place] [address] [place] Bacteria,Urine 1+ High None Seen [facility] Comment on above: Order Comment: Name Collection Type:: Clean-Voided Midstream Performed By: #### C UBLD, LACTIC #### [place] [address] [place] Bilirubin,Urine Negative Normal Negative [facility] Comment on above: Order Comment: Name Collection Type:: Clean-Voided Midstream Performed By: #### C UBLD, LACTIC #### [place] [address] [place] Glucose Ql (U) Normal Normal Normal [facility] Comment on above: Order Comment: Name Collection Type:: Clean-Voided Midstream Performed By: #### C UBLD, LACTIC #### [place] [address] [place] Hyaline Casts,Urine None Seen Normal 0-1 [facility] Comment on above: Order Comment: Name Collection Type:: Clean-Voided Midstream Performed By: #### C UBLD, LACTIC #### [place] [address] [place] Ketones Ql (U) 1+ High Negative [facility] Comment on above: Order Comment: Name Collection Type:: Clean-Voided Midstream Performed By: #### C UBLD, LACTIC #### [place] [address] [place] Leukocyte esterase Test strip Ql (U) 1+ High Negative [facility] Comment on above: Order Comment: Name Collection Type:: Clean-Voided Midstream Performed By: #### C UBLD, LACTIC #### [place] [address] [place] Nitrite,Urine Negative Normal Negative [facility] Comment on above: Order Comment: Name Collection Type:: Clean-Voided Midstream Performed By: #### C UBLD, LACTIC #### [address] Occult Blood,Urine 3+ High Negative [facility] Comment on above: Order Comment: Name Collection Type:: Clean-Voided Midstream Performed By: #### C UBLD, LACTIC #### [address] Othe Crystals,Urine None Seen Normal [facility] Comment on above: Order Comment: Name Collection Type:: Clean-Voided Midstream Performed By: #### C UBLD, LACTIC #### [address] Other Casts,Urine None Seen Normal None Seen [facility] Comment on above: Order Comment: Name Collection Type:: Clean-Voided Midstream Performed By: #### C UBLD, LACTIC #### [address] RBC,Urine Innumerable High 0-4 [facility] Comment on above: Order Comment: Name Collection Type:: Clean-Voided Midstream Performed By: #### C UBLD, LACTIC #### [place] [address] [place] Renal Epithelial Cells,Urine None Seen Normal 0-1 [facility] Comment on above: Order Comment: Name Collection Type:: Clean-Voided Midstream Performed By: #### C UBLD, LACTIC #### [address] Specificy [place],Urine 1.044 High 1.001-1.030 [facility] Comment on above: Order Comment: Name Collection Type:: Clean-Voided Midstream Performed By: #### C UBLD, LACTIC #### [address] Squamous Epithelial Cell,Urine 3-4 High 0-2 [facility] Comment on above: Order Comment: Name Collection Type:: Clean-Voided Midstream Performed By: #### C UBLD, LACTIC #### [address] Urobilinogen,Urine Normal Normal Normal [facility] Comment on above: Order Comment: Name Collection Type:: Clean-Voided Midstream Performed By: #### C UBLD, LACTIC #### [address] WBC,Urine 5-9 High 0-4 [facility] Comment on above: Order Comment: Name Collection Type:: Clean-Voided Midstream Performed By: #### C UBLD, LACTIC #### [address] HCG ( test) IA.rapi d Ql (U)Ordered By: Venkat Velazquez on 07-21-2023 HCG ( test) Ql (U) Negative [facility] HCG,Urineon 07-21-2023 Beta HCG ( test) Ql (U) Negative Normal [facility] Comment on above: Order Comment: Name Collection Type:: Clean-Voided Midstream Result Comment: PERF ORMED BY: [place] [address] PATHOLOGIST HEALTH POLICY ANALYST CANDY KELLOGG M.D. Performed By: #### C UBLD, LACTIC #### [address] Ketones Auto test strip (U) [Mass/Vol]Ordered By: Venkat Velazquez on 07-21-2023 Ketones (U) [Mass/Vol] 1+ Negative [facility] Nitrite Test strip Ql (U)Ord ered By: Venkat Velazquez on 07-21-2023 Nitrite Ql (U) Negative Negative [facility] Specific gravity Auto test s trip (U) [Rel density]Ordered By: Venkat Velazquez on 07-21-2023 Specific gravity (U) [Rel density] 1.044 1.001-1.030 [facility] Urine Cultureon 07-21-2023 Bacteria identified Cx Nom (U) >100,000 colonies/ml mixed bacterial skin contaminants 2 Days PERFORMED BY: [place] [address] PATHOLOGIST HEALTH POLICY ANALYST CANDY KELLOGG M.D. Normal [facility] Comment on above: Performed By: #### C UBLD, LACTIC #### [facility] [address] [place], [place] [id number] [facility] Urine bacteria detection by automated methodOrdered By: Venkat Velazquez on 07-21-2023 Bacteria Auto Ql (U) 1+ None Seen [facility] Urine clarity by refractomet ry automatedOrdered By: Venkat Velazquez on 07-21-2023 Clarity Refractometry automated (U) Cloudy Clear [facility] Urine glucose measurement by automated test strip (mass/volume)Ordered By: Venkat Velazquez on 07-21-2023 Glucose Auto test strip (U) [Mass/Vol] Normal mg/dL Normal [facility] Urine hemoglobin detection b y automated test stripOrdered By: Venkat Velazquez on 07-21-2023 Hemoglobin Auto test strip Ql (U) 3+ Negative [facility] Urine leukocyte esterase det ection by automated test stripOrdered By: Venkat Velazquez on 07-21-2023 Leukocyte esterase Auto test strip Ql (U) 1+ Negative [facility] Urine pH measurement by auto mated test stripOrdered By: Venkat Velazquez on 07-21-2023 pH (U) 5.5 [pH] Normal 5.0-9.0 [facility] Comment on above: Order Comment: Name Collection Type:: Clean-Voided Midstream Performed By: #### C UBLD, LACTIC #### [facility] [address] [place] [address] Urine protein measurement by automated test strip (mass/volume)Ordered By: Venkat Velazquez on 07-21-2023 Protein (U) [Mass/Vol] 30 mg/dL High Negative [facility] Comment on above: Order Comment: Name Collection Type:: Clean-Voided Midstream Performed By: #### C UBLD, LACTIC #### [facility] [address] Urine sediment crystal ident ification by light microscopyOrdered By: Venkat Velazquez on 07-21-2023 Crystals LM Nom (Urine sed) None seen [HPF] [facility] Urine sediment renal epithel ial cell count by microscopy (number/high power field)Ordered By: Venkat Velazquez on 07-21-2023 Epithelial cells.renal LM.HPF (Urine sed) [#/Area] None seen [HPF] 0-1 [facility] Urobilinogen Auto test strip (U) [Mass/Vol]Ordered By: Venkat Velazquez on 07-21-2023 Urobilinogen (U) [Mass/Vol] Normal mg/dL Normal [facility] Alanine aminotransferase [En zymatic activity/volume] in Serum or PlasmaOrdered By: PROVIDER TEMP on 12-12-2022 ALT [Catalytic activity/Vol] 15 U/L Normal 7-52 [facility] Comment on above: Performed By: #### C UBLD, LACTIC #### [facility] [address] [place] [address] [place] Albumin [Mass/volume] in Ser um or Plasma by Bromocresol green (BCG) dye binding methoOrdered By: PROVIDER TEMP on 12-12-2022 Albumin BCG dye [Mass/Vol] 4.6 g/dL 3.5-5.7 [facility] Alkaline phosphatase [Enzyma tic activity/volume] in Serum or PlasmaOrdered By: PROVIDER TEMP on 12-12-2022 ALP [Catalytic activity/Vol] 42 U/L Normal 34-104 [facility] Comment on above: Performed By: #### C UBLD, LACTIC #### [facility] [address] [place] [address] [place] Aspartate aminotransferase [ Enzymatic activity/volume] in Serum or PlasmaOrdered By: PROVIDER TEMP on 12-12-2022 AST [Catalytic activity/Vol] 15 U/L Normal 13-39 [facility] Comment on above: Performed By: #### C UBLD, LACTIC #### [facility] [address] Automated basophil %Ordered By: PROVIDER TEMP on 12-12-2022 Basophils/100 WBC (Bld) 1.5 % Normal . [facility] Comment on above: Performed By: #### C UBLD, LACTIC #### [address] Automated basophil countOrde red By: PROVIDER TEMP on 12-12-2022 Basophils (Bld) [#/Vol] 0.2 10*3/uL Normal 0.0-0.2 [facility] Comment on above: Result Comment: PERF ORMED BY: [place] [address] PATHOLOGIST HEALTH POLICY ANALYST CANDY KELLOGG M.D. Performed By: #### C UBLD, LACTIC #### [address] Automated blood monocyte cou ntOrdered By: PROVIDER TEMP on 12-12-2022 Monocytes (Bld) [#/Vol] 0.9 10*3/uL High 0.0-0.8 [facility] Comment on above: Performed By: #### C UBLD, LACTIC #### [address] Automated eosinophil %Ordere d By: PROVIDER TEMP on 12-12-2022 Eosinophils/100 WBC (Bld) 0.9 % Normal . [facility] Comment on above: Performed By: #### C UBLD, LACTIC #### [address] Automated eosinophil countOr dered By: PROVIDER TEMP on 12-12-2022 Eosinophils (Bld) [#/Vol] 0.1 10*3/uL Normal 0.0-0.45 [facility] Comment on above: Performed By: #### C UBLD, LACTIC #### [address] Automated monocyte %Ordered By: PROVIDER TEMP on 12-12-2022 Monocytes/100 WBC (Bld) 6.1 % Normal . [facility] Comment on above: Performed By: #### C UBLD, LACTIC #### [address] Automated neutrophil %Ordere d By: PROVIDER TEMP on 12-12-2022 Neutrophils/100 WBC (Bld) 64.6 % Normal . [facility] Comment on above: Performed By: #### C UBLD, LACTIC #### [address] Automated urine color determ inationOrdered By: PROVIDER TEMP on 12-12-2022 Color (U) Yellow Normal Yellow [facility] Comment on above: Order Comment: Name Collection Type:: Clean-Voided Midstream Performed By: #### U HCG, UA #### [address] Bilirubin Test strip Ql (U)O rdered By: PROVIDER TEMP on 12-12-2022 Bilirubin Ql (U) Negative Negative [facility] Bilirubin.total [Mass/volume ] in Serum or PlasmaOrdered By: PROVIDER TEMP on 12-12-2022 Bilirubin [Mass/Vol] 0.3 mg/dL Normal 0.3-1.0 [facility] Comment on above: Performed By: #### C UBLD, LACTIC #### [place] [address] [place] Calcium [Mass/volume] in Ser um or PlasmaOrdered By: PROVIDER TEMP on 12-12-2022 Calcium [Mass/Vol] 9.6 mg/dL Normal 8.6-10.3 [facility] Comment on above: Performed By: #### C UBLD, LACTIC #### [place] [address] [place] Carbon dioxide, total [Moles /volume] in Serum or PlasmaOrdered By: PROVIDER TEMP on 12-12-2022 CO2 [Moles/Vol] 25.3 mmol/L Normal 21.0-31.0 [facility] Comment on above: Performed By: #### C UBLD, LACTIC #### [place] [address] [place] Chloride [Moles/volume] in S alirio or PlasmaOrdered By: PROVIDER TEMP on 12-12-2022 Chloride [Moles/Vol] 104 mmol/L Normal 98-107 [facility] Comment on above: Performed By: #### C UBLD, LACTIC #### [address] Complete Blood Count Auto Di ffon 12-12-2022 Mean Corpuscular HGB Conc 32.1 g/dL Normal 32.0-35.0 [facility] Comment on above: Performed By: #### C UBLD, LACTIC #### [address] Monocytes/100 WBC (Bld) 19.32 % Normal 0.00-20.00 [facility] Comment on above: Performed By: #### C UBLD, LACTIC #### [address] NRBC% 0.0 /100{WBC} Normal 0-0.5 [facility] Comment on above: Performed By: #### C UBLD, LACTIC #### [address] Comprehensive Metabolic Pane claudette 12-12-2022 Albumin [Mass/Vol] 4.6 g/dL Normal 3.5-5.7 [facility] Comment on above: Performed By: #### C UBLD, LACTIC #### [address] Creatinine Clr Calc Pharmacy 134.50 Normal [facility] Comment on above: Result Comment: PERF ORMED BY: [place] [address] PATHOLOGIST HEALTH POLICY ANALYST CANDY KELLOGG M.D. Performed By: #### C UBLD, LACTIC #### [address] GFR/1.73 sq M.predicted MDRD (S/P/Bld) [Vol rate/Area] mL/min/{1.73_m2} Normal [facility] Comment on above: Performed By: #### C UBLD, LACTIC #### [address] [place] [address] [place] Creatinine [Mass/volume] in Serum or PlasmaOrdered By: PROVIDER TEMP on 12-12-2022 Creatinine [Mass/Vol] 0.69 mg/dL Normal 0.60-1.20 [facility] Comment on above: Performed By: #### C UBLD, LACTIC #### [facility] [address] [place] [id number] [facility] ECG 12 lead ECGon 12-12-2022 ECG 12 lead ECG [facility] Main [place] [address] [place] [address] Electrocardiograph Report Signed Patient: Jessie Alva MR#: [id number] : 2000 Acct:[id number] Age/Sex: 22 / F ADM Date: 12/12/22 Loc: ER Room: Type: [facility] ER Attending Dr: Ordering Provider: Viktoriya [...] Sinus tachycardia Confirmed by Delfin CAPUTO DO ([id number]) on 12/12/2022 7:34:28 PM Referred By: Electronically Signed By:Delfin CAPUTO DO Transcribed By: MUS Signed By Delfin Caputo DO 0 12/12/22 193 Normal [facility] Erythrocyte distribution wid th [Ratio] by Automated countOrdered By: PROVIDER TEMP on 12-12-2022 Erythrocyte distribution width (RBC) [Ratio] 15.1 % Normal 11.9-15.3 [facility] Comment on above: Performed By: #### C UBLD, LACTIC #### [facility] [address] [place] [id number] [place] Erythrocytes [#/volume] in B lood by Automated countOrdered By: PROVIDER TEMP on 12-12-2022 RBC (Bld) [#/Vol] 4.67 10*6/uL Normal 3.60-5.00 [facility] Comment on above: Performed By: #### C UBLD, LACTIC #### [facility] [address] [place] [address] [place] Glucose [Mass/volume] in Ser um or PlasmaOrdered By: PROVIDER TEMP on 12-12-2022 Glucose [Mass/Vol] 80 mg/dL Normal 70-100 [facility] Comment on above: ADA recommended refe rence rangeRandom Glucose Reference Range is dependent on time and content of last meal. Glucose of more than 200 mg/dL in a nonstressed, ambulatory subject supports the diagnosis of Diabetes Mellitus. Result Comment: [place] om Glucose Reference Range is dependent on time and content of last meal. Glucose of more than 200 mg/dL in a nonstressed, ambulatory subject supports the diagnosis of Diabetes Mellitus. ADA recommended reference range Performed By: #### C UBLD, LACTIC #### [place] [address] [place] HCG ( test) IA.rapi d Ql (U)Ordered By: PROVIDER TEMP on 12-12-2022 HCG ( test) Ql (U) Negative [facility] HCG,Urineon 12-12-2022 Beta HCG ( test) Ql (U) Negative Normal [facility] Comment on above: Order Comment: Name Collection Type:: Clean-Voided Midstream Result Comment: PERF ORMED BY: [place] [address] PATHOLOGIST HEALTH POLICY ANALYST CANDY KELLOGG M.D. Performed By: #### U HCG, UA #### [place] [address] [place] Hematocrit [Volume Fraction] of Blood by Automated countOrdered By: PROVIDER TEMP on 12-12-2022 Hematocrit (Bld) [Volume fraction] 40.5 % Normal 34.0-46.4 [facility] Comment on above: Performed By: #### C UBLD, LACTIC #### [facility] [address] [place] [id number] [place] Hemoglobin [Mass/volume] in BloodOrdered By: PROVIDER TEMP on 12-12-2022 Hemoglobin (Bld) [Mass/Vol] 13.0 g/dL Normal 11.8-15.4 [facility] Comment on above: Performed By: #### C UBLD, LACTIC #### [address] Ketones Auto test strip (U) [Mass/Vol]Ordered By: PROVIDER TEMP on 12-12-2022 Ketones (U) [Mass/Vol] 1+ Negative [facility] Leukocytes [#/volume] correc jalil for nucleated erythrocytes in Blood by Automated counOrdered By: PROVIDER TEMP on 12-12-2022 WBC corrected for nucl RBC Auto (Bld) [#/Vol] 14.8 10*3/uL 3.8-11.6 [facility] Leukocytes [#/volume] in Blo od by Automated countOrdered By: PROVIDER TEMP on 12-12-2022 WBC (Bld) [#/Vol] 14.8 10*3/uL High 3.8-11.6 [facility] Comment on above: Performed By: #### C UBLD, LACTIC #### [place] [address] [place] Lymphocytes [#/volume] in Bl ood by Automated countOrdered By: PROVIDER TEMP on 12-12-2022 Lymphocytes (Bld) [#/Vol] 4.0 10*3/uL Normal 1.00-4.8 [facility] Comment on above: Performed By: #### C UBLD, LACTIC #### [place] [address] [place] Lymphocytes/100 leukocytes i n Blood by Automated countOrdered By: PROVIDER TEMP on 12-12-2022 Lymphocytes/100 WBC (Bld) 26.9 % Normal . [facility] Comment on above: Performed By: #### C UBLD, LACTIC #### [place] [address] [place] MCH [Entitic mass] by Automa jalil countOrdered By: PROVIDER TEMP on 12-12-2022 MCH (RBC) [Entitic mass] 27.8 pg Normal 24.7-34.3 [facility] Comment on above: Performed By: #### C UBLD, LACTIC #### [facility] [address] [place] [address] MCHC Auto (RBC) [Mass/Vol]Or dered By: PROVIDER TEMP on 12-12-2022 MCHC (RBC) [Mass/Vol] 32.1 g/dL 32.0-35.0 [facility] MCV [Entitic volume] by Auto mated countOrdered By: PROVIDER TEMP on 12-12-2022 MCV (RBC) [Entitic vol] 86.8 fL Normal 80-100 [facility] Comment on above: Performed By: #### C UBLD, LACTIC #### [facility] [address] [place] [address] Monocyte distribution width [Entitic volume] in Blood by AutomatedOrdered By: PROVIDER TEMP on 12-12-2022 Monocyte distribution width Auto (Bld) [Entitic vol] 19.32 % 0.00-20.00 [facility] Neutrophils [#/volume] in Bl ood by Automated countOrdered By: PROVIDER TEMP on 12-12-2022 Neutrophils (Bld) [#/Vol] 9.6 10*3/uL High 1.8-7.7 [facility] Comment on above: Performed By: #### C UBLD, LACTIC #### [facility] [address] [place] [address] Nitrite Test strip Ql (U)Ord ered By: PROVIDER TEMP on 12-12-2022 Nitrite Ql (U) Negative Negative [facility] No Panel InformationOrdered By: PROVIDER TEMP on 12-12-2022 Estimated GFR (CKD-EPI) > 60.0 mL/Min [facility] Creatinine Clearance (Chem 134.50 [facility] Nucleated erythrocytes [Pres ence] in Blood by Automated countOrdered By: PROVIDER TEMP on 12-12-2022 Nucleated RBC Auto Ql (Bld) 0.0 /100{WBC} 0-0.5 [facility] Platelet mean volume [Entiti c volume] in Blood by Automated countOrdered By: PROVIDER TEMP on 12-12-2022 Platelet mean volume (Bld) [Entitic vol] 7.3 fL Normal 6.3-10.7 [facility] Comment on above: Performed By: #### C UBLD, LACTIC #### [address] Platelets [#/volume] in Bloo d by Automated countOrdered By: PROVIDER TEMP on 12-12-2022 Platelets (Bld) [#/Vol] 525 10*3/uL High 150-450 [facility] Comment on above: Performed By: #### C UBLD, LACTIC #### [address] Potassium [Moles/volume] in Serum or PlasmaOrdered By: PROVIDER TEMP on 12-12-2022 Potassium [Moles/Vol] 3.8 mmol/L Normal 3.5-5.1 [facility] Comment on above: Performed By: #### C UBLD, LACTIC #### [address] Protein Auto test strip (U) [Mass/Vol]Ordered By: PROVIDER TEMP on 12-12-2022 Protein (U) [Mass/Vol] Negative Negative [facility] Protein [Mass/volume] in Ser um or PlasmaOrdered By: PROVIDER TEMP on 12-12-2022 Protein [Mass/Vol] 8.5 g/dL Normal 6.4-8.9 [facility] Comment on above: Performed By: #### C UBLD, LACTIC #### [address] Serum globulin measurement b y calculation (mass/volume)Ordered By: PROVIDER TEMP on 12-12-2022 Globulin (S) [Mass/Vol] 3.9 g/dL [facility] Comment on above: Performed By: #### C UBLD, LACTIC #### [address] Serum or plasma albumin/glob ulin mass ratioOrdered By: PROVIDER TEMP on 12-12-2022 Albumin/Globulin [Mass ratio] 1.2 {ratio} [facility] Comment on above: Performed By: #### C UBLD, LACTIC #### [address] Serum or plasma anion gap de terminationOrdered By: PROVIDER TEMP on 12-12-2022 Anion gap [Moles/Vol] 11.5 mmol/L Normal 6.0-15.0 [facility] Comment on above: Performed By: #### C UBLD, LACTIC #### [place] [address] [place] Sodium [Moles/volume] in Ser um or PlasmaOrdered By: PROVIDER TEMP on 12-12-2022 Sodium [Moles/Vol] 137 mmol/L Normal 136-145 [facility] Comment on above: Performed By: #### C UBLD, LACTIC #### [address] Specific gravity Auto test s trip (U) [Rel density]Ordered By: PROVIDER TEMP on 12-12-2022 Specific gravity (U) [Rel density] 1.027 1.001-1.030 [facility] Urea nitrogen [Mass/volume] in Serum or PlasmaOrdered By: PROVIDER TEMP on 12-12-2022 Urea nitrogen [Mass/Vol] 9 mg/dL Normal 7-25 [facility] Comment on above: Performed By: #### C UBLD, LACTIC #### [address] Urinalysison 12-12-2022 Appearance (U) Clear Normal Clear [facility] Comment on above: Order Comment: Name Collection Type:: Clean-Voided Midstream Performed By: #### U HCG, UA #### [address] Bilirubin,Urine Negative Normal Negative [facility] Comment on above: Order Comment: Name Collection Type:: Clean-Voided Midstream Performed By: #### U HCG, UA #### [address] Glucose Ql (U) Normal Normal Normal [facility] Comment on above: Order Comment: Name Collection Type:: Clean-Voided Midstream Performed By: #### U HCG, UA #### [facility] [address] [id number] [place] Ketones Ql (U) 1+ High Negative [facility] Comment on above: Order Comment: Name Collection Type:: Clean-Voided Midstream Performed By: #### U HCG, UA #### [place] [id number] [place] Leukocyte esterase Test strip Ql (U) Negative Normal Negative [facility] Comment on above: Order Comment: Name Collection Type:: Clean-Voided Midstream Performed By: #### U HCG, UA #### [place] [address] [place] Nitrite,Urine Negative Normal Negative [facility] Comment on above: Order Comment: Name Collection Type:: Clean-Voided Midstream Performed By: #### U HCG, UA #### [place] [address] [place] Occult Blood,Urine Negative Normal Negative [facility] Comment on above: Order Comment: Name Collection Type:: Clean-Voided Midstream Performed By: #### U HCG, UA #### [place] [address] [place] Protein,Urine Negative Normal Negative [facility] Comment on above: Order Comment: Name Collection Type:: Clean-Voided Midstream Performed By: #### U HCG, UA #### [place] [address] [place] Specificy [place],Urine 1.027 Normal 1.001-1.030 [facility] Comment on above: Order Comment: Name Collection Type:: Clean-Voided Midstream Performed By: #### U HCG, UA #### [place] [address] [place] Urobilinogen,Urine Normal Normal Normal [facility] Comment on above: Order Comment: Name Collection Type:: Clean-Voided Midstream Performed By: #### U HCG, UA #### [place] [id number] [place] Urine clarity by refractomet ry automatedOrdered By: PROVIDER TEMP on 12-12-2022 Clarity Refractometry automated (U) Clear Clear [facility] Urine glucose measurement by automated test strip (mass/volume)Ordered By: PROVIDER TEMP on 12-12-2022 Glucose Auto test strip (U) [Mass/Vol] Normal mg/dL Normal [facility] Urine hemoglobin detection b y automated test stripOrdered By: PROVIDER TEMP on 12-12-2022 Hemoglobin Auto test strip Ql (U) Negative Negative [facility] Urine leukocyte esterase det ection by automated test stripOrdered By: PROVIDER TEMP on 12-12-2022 Leukocyte esterase Auto test strip Ql (U) Negative Negative [facility] Urine pH measurement by auto mated test stripOrdered By: PROVIDER TEMP on 12-12-2022 pH (U) 6.0 [pH] Normal 5.0-9.0 [facility] Comment on above: Order Comment: Name Collection Type:: Clean-Voided Midstream Performed By: #### U HCG, UA #### [facility] [address] Urobilinogen Auto test strip (U) [Mass/Vol]Ordered By: PROVIDER TEMP on 12-12-2022 Urobilinogen (U) [Mass/Vol] Normal mg/dL Normal [facility] Automated epithelial cells c ount in urine sediment (number/area)Ordered By: Venkat Velazquez on 03-30-2022 Epithelial cells Auto (Urine sed) [#/Area] 5-9 [HPF] 0-2 [facility] Automated erythrocytes count in urine sediment (number/area)Ordered By: Venkat Velazquez on 03-30-2022 RBC Auto (Urine sed) [#/Area] 5-9 [HPF] 0-4 [facility] Automated leukocytes count i n urine sediment (number/area)Ordered By: Venkat Velazquez on 03-30-2022 WBC Auto (Urine sed) [#/Area] 1-2 [HPF] 0-4 [facility] Automated urine hyaline cast s count (number/volume)Ordered By: Venkat Velazquez on 03-30-2022 Hyaline casts Auto (U) [#/Vol] None seen [LPF] 0-1 [facility] Bilirubin Test strip Ql (U)O rdered By: Venkat Velazquez on 03-30-2022 Bilirubin Ql (U) Negative Negative [facility] Color Auto (U)Ordered By: Curtis Velazquez on 03-30-2022 Color (U) Yellow Yellow [facility] HCG ( test) IA.rapi d Ql (U)Ordered By: Venkat Velazquez on 03-30-2022 HCG ( test) Ql (U) Negative [facility] Ketones Auto test strip (U) [Mass/Vol]Ordered By: Venkat Velazquez on 03-30-2022 Ketones (U) [Mass/Vol] Trace Negative [facility] Mucus LM Ql (Urine sed)Order ed By: Venkat Velazquez on 03-30-2022 Mucus Ql (Urine sed) 2+ [LPF] [facility] Nitrite Test strip Ql (U)Ord ered By: Venkat Velazquez on 03-30-2022 Nitrite Ql (U) Negative Negative [facility] Protein Auto test strip (U) [Mass/Vol]Ordered By: Venkat Velazquez on 03-30-2022 Protein (U) [Mass/Vol] Trace mg/dL Negative [facility] Specific gravity Auto test s trip (U) [Rel density]Ordered By: Venkat Velazquez on 03-30-2022 Specific gravity (U) [Rel density] 1.023 1.001-1.030 [facility] Urine bacteria detection by automated methodOrdered By: Venkat Velazquez on 03-30-2022 Bacteria Auto Ql (U) 1+ None Seen [facility] Urine clarity by refractomet ry automatedOrdered By: Venkat Velazquez on 03-30-2022 Clarity Refractometry automated (U) Clear Clear [facility] Urine glucose measurement by automated test strip (mass/volume)Ordered By: Venkat Velazquez on 03-30-2022 Glucose Auto test strip (U) [Mass/Vol] Normal mg/dL Normal [facility] Urine hemoglobin detection b y automated test stripOrdered By: Venkat Velazquez on 03-30-2022 Hemoglobin Auto test strip Ql (U) 3+ Negative [facility] Urine leukocyte esterase det ection by automated test stripOrdered By: Venkat Velazquez on 03-30-2022 Leukocyte esterase Auto test strip Ql (U) Negative Negative [facility] Urobilinogen Auto test strip (U) [Mass/Vol]Ordered By: Venkat Velazquez on 03-30-2022 Urobilinogen (U) [Mass/Vol] Normal mg/dL Normal [facility] pH Auto test strip (U)Ordere d By: Venkat Velazquez on 03-30-2022 pH (U) 5.5 [pH] 5.0-9.0 [facility] CULTURE THROATon 12-26-2018 CULTURE THROAT Culture Observations : No CEE needed per Dr. Chavez in ER on 12/27/2018 Isolate 1 Streptococcus pyogenes Heavy growth of Normal [facility] Comment on above: Performed By: #### T HRTCX #### [facility] [address] [place] [address] Jennifer Jessie ER URINE PROFILEon 9 Bilirubin [Mass/Vol] Negative Normal NEGATIVE [facility] Comment on above: Performed By: #### E RUR #### [facility] [address] [place] [address] Jennifer Jessie BLOOD Negative Normal NEGATIVE [facility] Comment on above: Performed By: #### E RUR #### [facility] [address] [place] [address] Jennifer Jessie Clarity (U) CLEAR Normal [facility] Comment on above: Performed By: #### E RUR #### [facility] [address] [place], [place] [id number] Jennifer Jessie Color (U) YELLOW Normal YELLOW [facility] Comment on above: Performed By: #### E RUR #### [facility] [address] [place], [place] [id number] Jennifer Jessie ERUAHD A micrscopic examina tion will be performed if indicated. Normal [facility] Comment on above: Performed By: #### E RUR #### [facility] [address] [place] [address] Jennifer Jessie Glucose [Mass/Vol] Negative Normal NEGATIVE [facility] Comment on above: Performed By: #### E RUR #### [facility] [address] [place] [address] Jennifer Roman Ketones Ql (U) 15 mg/dl Normal NEGATIVE [facility] Comment on above: Performed By: #### E RUR #### [facility] [address] [place] [address] Jennifer Jessie Nitrite Ql (U) Negative Normal NEGATIVE [facility] Comment on above: Performed By: #### E RUR #### [facility] [address] [place] [address] Jennifer Roman pH (Bld) 7.0 Normal 5-9 [facility] Comment on above: Performed By: #### E RUR #### [facility] [address] [place] [address] Jennifer Roman Protein (U) [Mass/Vol] Negative Normal [facility] Comment on above: Performed By: #### E RUR #### [facility] [address] [place] [address] Jennifer Roman SPEC GRAVITY 1.020 Normal 1.005-<=1.025 [facility] Comment on above: Performed By: #### E RUR #### [facility] [address] [place] [address] Jennifer Roman UR MICRO IND NOT INDICATED Normal [facility] Comment on above: Performed By: #### E RUR #### [facility] [address] [place] [address] Jennifer Roman Urobilinogen Qn (U) 1.0 EU/dl Normal [facility] Comment on above: Performed By: #### E RUR #### [facility] [address] [place] [address] Jennifer Roman WBC (Bld) [#/Vol] Negative Normal NEGATIVE [facility] Comment on above: Performed By: #### E RUR #### [facility] [address] [place], [place] [id number] Jennifer Roman STREPT SCREENon 12-26-2018 STREP SCREEN A Positive Normal NEGATIVE [facility] Comment on above: Performed By: #### S SCRN #### [facility] [address] [place] [address] Jennifer Roman Vital Signs Date Time Vital Sign Value Performing Clinician Naseem thorpe 10-25-2023 12:50-0400 Diastolic blood pressure 66 mm[Hg] DO Ramiro Schaefer Work Phone: [facility] 10-25-2023 12:50-0400 Heart rate 98 /min DO Ramiro Schaefer Work Phone: [facility] 10-25-2023 12:50-0400 Respiratory rate 16 /min DO Ramiro Schaefer Work Phone: [facility] 10-25-2023 12:50-0400 SaO2% (BldA) [Mass fraction] 98 % DO Ramiro Schaefer Work Phone: [facility] 10-25-2023 12:50-0400 Systolic blood pressure 120 mm[Hg] DO Ramiro Schaefer Work Phone: [facility] 10-25-2023 11:08-0400 Body temperature 98.1 [degF] DO Ramiro Schaefer Work Phone: [facility] 10-25-2023 11:07-0400 Body height 167.64 cm DO Ramiro Schaefer Work Phone: [facility] 10-25-2023 11:07-0400 Body weight 72.57 kg DO Ramiro Schaefer Work Phone: [facility] 10-23-2023 14:35-0400 Diastolic blood pressure 54 mm[Hg] DO Ramiro Schaefer Work Phone: [facility] 10-23-2023 14:35-0400 Heart rate 68 /min DO Ramiro Schaefer Work Phone: [facility] 10-23-2023 14:35-0400 Respiratory rate 18 /min DO Ramiro Schaefer Work Phone: [facility] 10-23-2023 14:35-0400 SaO2% (BldA) [Mass fraction] 98 % DO Ramiro Schaefer Work Phone: [facility] 10-23-2023 14:35-0400 Systolic blood pressure 99 mm[Hg] DO Ramiro Schaefer Work Phone: [facility] 10-23-2023 10:42-0400 Body height 162.56 cm DO Ramiro Schaefer Work Phone: [facility] 10-23-2023 10:42-0400 Body temperature 98.7 [degF] DO Ramiro Schaefer Work Phone: [facility] 10-23-2023 10:42-0400 Body weight 68.5 kg DO Ramiro Schaefer Work Phone: [facility] 07-21-2023 09:00-0400 Body height 167.64 cm [facility] Work Phone: [facility] 07-21-2023 09:00-0400 Body temperature 98.1 [degF] [facility] Work Phone: [facility] 07-21-2023 09:00-0400 Body weight 78 kg [facility] Work Phone: [facility] 07-21-2023 09:00-0400 Diastolic blood pressure 82 mm[Hg] [facility] Work Phone: [facility] 07-21-2023 09:00-0400 Heart rate 72 /min [facility] Work Phone: [facility] 07-21-2023 09:00-0400 Respiratory rate 18 /min [facility] Work Phone: [facility] 07-21-2023 09:00-0400 SaO2% (BldA) [Mass fraction] 97 % [facility] Work Phone: [facility] 07-21-2023 09:00-0400 Systolic blood pressure 123 mm[Hg] [facility] Work Phone: [facility] 12-12-2022 19:52-0400 Body temperature 98.6 [degF] [facility] Work Phone: [facility] 12-12-2022 19:52-0400 Diastolic blood pressure 79 mm[Hg] [facility] Work Phone: [facility] 12-12-2022 19:52-0400 Heart rate 65 /min [facility] Work Phone: [facility] 12-12-2022 19:52-0400 Respiratory rate 18 /min [facility] Work Phone: [facility] 12-12-2022 19:52-0400 SaO2% (BldA) [Mass fraction] 100 % [facility] Work Phone: [facility] 12-12-2022 19:52-0400 Systolic blood pressure 113 mm[Hg] [facility] Work Phone: [facility] 12-12-2022 15:32-0400 Body height 162.56 cm [facility] Work Phone: [facility] 12-12-2022 15:32-0400 Body weight 83.1 kg [facility] Work Phone: [facility] 10-19-2022 13:06-0400 Body height 162.56 cm [facility] Work Phone: [facility] 10-19-2022 13:06-0400 Body temperature 98.7 [degF] [facility] Work Phone: [facility] 10-19-2022 13:06-0400 Body weight 81 kg [facility] Work Phone: [facility] 10-19-2022 13:06-0400 Diastolic blood pressure 75 mm[Hg] [facility] Work Phone: [facility] 10-19-2022 13:06-0400 Heart rate 69 /min [facility] Work Phone: [facility] 10-19-2022 13:06-0400 Respiratory rate 20 /min [facility] Work Phone: [facility] 10-19-2022 13:06-0400 SaO2% (BldA) [Mass fraction] 99 % [facility] Work Phone: [facility] 10-19-2022 13:06-0400 Systolic blood pressure 123 mm[Hg] [facility] Work Phone: [facility] 03-30-2022 14:39-0500 Body height 162.56 cm [facility] Work Phone: [facility] 03-30-2022 14:39-0500 Body temperature 98.7 [degF] [facility] Work Phone: [facility] 03-30-2022 14:39-0500 Body weight 80.15 kg [facility] Work Phone: [facility] 03-30-2022 14:39-0500 Diastolic blood pressure 79 mm[Hg] [facility] Work Phone: [facility] 03-30-2022 14:39-0500 Heart rate 91 /min [facility] Work Phone: [facility] 03-30-2022 14:39-0500 Respiratory rate 16 /min [facility] Work Phone: [facility] 03-30-2022 14:39-0500 SaO2% (BldA) [Mass fraction] 99 % [facility] Work Phone: [facility] 03-30-2022 14:39-0500 Systolic blood pressure 125 mm[Hg] [facility] Work Phone: [facility] Encounters Encounter Date Encounter Type Care Provider Facility Start: 01-17-2024 End: 01-17-2024 Telephone encounter Madhuri Soto MD, PhD Work Phone: Gastroenterology Comment on above: Appointment Start: 10-27-2023 End: 10-29-2023 ambulatory KUNJAM MOD Facility:[facility] Start: 10-25-2023 End: 10-25-2023 Emergency department patient visit DO Ramiro Schaefer Work Phone: [facility] Work Phone: Start: 10-23-2023 End: 10-23-2023 Emergency department patient visit DO Ramiro Schaefer Work Phone: [facility] Work Phone: Start: 07-21-2023 End: 07-21-2023 Emergency department patient visit [facility] Work Phone: [facility] Work Phone: Start: 12-12-2022 End: 12-12-2022 Emergency department patient visit [facility] Work Phone: [facility] Work Phone: Start: 10-19-2022 End: 10-19-2022 Emergency department patient visit [facility] Work Phone: [facility] Work Phone: Start: 03-30-2022 End: 03-30-2022 Emergency department patient visit [facility] Work Phone: [facility] Start: 12-26-2018 End: 12-26-2018 Patient [...] DTaP,Tdap,Td Vaccine (8 - Td or Tdap) [facility] Start: 10-27-2024 GC (Gonorrhea) Screening () GC (Gonorrhea) Screening () [facility] Start: 10-27-2024 Screening for Chlamydia trachomatis Chlamydia Screening () [facility] Start: 01-05-2024 Covid-19 Vaccine ( season) Covid-19 Vaccine ( season) [facility] Start: 01-05-2024 Influenza vaccination Influenza Vacc[facility] (#[facility] Start: 10-25-2023 Bacteria identified in Blood by Culture [facility] Start: 10-25-2023 [facility] Start: 07-21-2023 Bacteria identified in Urine by Culture Urine Culture [facility] Start: 2022 Screening for malignant neoplasm of cervix Cervical Cancer Screening [facility] Start: 2019 Anxiety Screening Anxiety Screening [facility] Start: 2019 Depression Screening Depression Screening [facility] Start: 2019 Hepatitis C screening Hepatitis C Screening [facility] Start: 2019 HIV screening HIV Screening [facility] Start: 2017 Meningococcal B Vaccine: Consider Based On Risk (1 of 2 - Patient Seeks Protection) Meningococcal B Vaccine: Consider Based On Risk (1 of 2 - Patient Seeks Protection) [facility] Start: 2015 Peds To Adult Transition Annual Assessment Peds To Adult Transition Annual Assessment [facility] Start: 2013 Peds To Adult Transition Initial Discussion Peds To Adult Transition Initial Discussion [facility] Patient Education [facility] Work Phone: Patient referral [facility] Work Phone: Immunizations Immunization Date Immunization Notes Care Provider Raina che 02-02-2014 influenza virus vacc ine, unspecified formulation Madhuri Soto MD, PhD Work Phone: [facility] Payers Date Payer Category Payer Medicaid [employer] [facility] MEDICAID [id number] 2023-Present [phone] [address] [place] [address] Medicaid [id number] 2022 Medicaid [id number] 2022 Self-pay [id number] 1979 Unknown [id number] 1959 Unknown [id number] Unknown [id number] Unknown [id number] Unknown [id number] Unknown [id number] Social History Date Type Detail Facility Start: 03-30-2022 End: 12-12-2022 Tobacco smoking status NHIS Never smoked tobacco (finding) [facility] Start: 2000 Sex Assigned At Female F [facility] Start: 07-21-2023 End: 10-23-2023 Tobacco smoking status NHIS Ex-smoker (finding) [facility] Start: 10-25-[facility] unknown [facility] Start: 10-28-2023 History of Social function [facility] Start: 10-28-2023 Area Deprivation Index [facility] National Score (1-100), lower number is lower risk 93 [facility] Start: 2001 Sex assigned at Not on file [facility] NEGATED: Highlighted row [facility] Clinical Notes 10-28-2023 to 01-17-2024 Telephone Encounter - Vera Mcgee OCCA - 01/17/2024 1:51 PM EDTTelephone Encounter - Vera Mcgee OCCA - 01/17/2024 1:51 PM EDT Note Date & Type Note Facility 01-17-2024 Telephone encount er Note Called and LVM for pt regarding today's 1:40 pm appointment, Informed pt to please call [phone] to receive assistance with rescheduling if needed. DANAE Dey January 17, 2024 1:52 PM [facility] 01-17-2024 Miscellaneous Notes Formattin g of this note might be different from the original. Called and LVM for pt regarding today's 1:40 pm appointment, Informed pt to please call [phone] to receive assistance with rescheduling if needed. DANAE Dey January 17, 2024 1:52 PM documented in this encounter [facility] 10-29-2023 Note HNO ID: [id number] Author: TERRY SCHUSTER LSW Service: Care Management Author Type: [employer] Vice President Type: Care Mgt Initial Assessment Filed: 10/29/2023 [...] Independent: Ambulation;Dress;Meals/Meal Prep;Going to the bathroom;Medication Management;Bathe/Shower [place] of Choice Explained: [place] of Choice Given: No Reason Not Given: [...] discharge, pt can utilize [employer] transportation [phone]. This patient has been screened for Care Management Transitional Planning Services. At this time, it does not appear this patient will require transition planning services. Should this change, and the patient require transition planning services during this admission, please contact Case Management. SIGNATURE: LARRY Larson PATIENT NAME: Jessie Alva DATE: October 29, 2023 TIME: 11:12 AM CONTACT #: [phone] [facility] 10-29-2023 Note HNO ID: [id number] Author: ADILIA MARLOW RPh Service: Pharmacy Author Type: Pharmacist Type: Plan of Care Filed: 10/29/2023 11:46 Note Text: PHARMACY MEDICATION REVIEW Patient Name: Jessie Alva : 2000 The following medications were updated within the SERVICES HOST medication list: Medications ADDED to SERVICES HOST medication list N/A Medications CHANGED on SERVICES HOST medication list N/A Medications REMOVED from SERVICES HOST medication list N/A Additional comments: Patient confirmed that she was not taking any medications prior to admissions and has no known drug allergies. The below information represents the best possible medication history: Yes Medication history completed by: Cable Technician: Patsy Jackson Source of history: Patient: Reliability of source: Appears reliable, denies any medications prior to admission and [facility] records Medication nonadherence identified: No barriers noted Reconciliation completed: Yes Completed by: Adilia Marlow RPh All SERVICES HOST medications addressed by LIP. Patient was not taking any medications prior to admission. Patient interested in Bedside Delivery Services or using [facility] Pharmacy at discharge? No Preferred outpatient pharmacy: [id number] [place] [address] [address] Pharmacy Allergies: No Known Allergies [facility] 10/29/2023 Medication history has been completed by a director state pharmacy and reviewed by a pharmacist. Any additions/clarifications are in bold. Adilia Marlow, PharmD [phone] [facility] 10-29-2023 Note HNO ID: [id number] Author: WENDI GARCIA, Yovanny Service: Pharmacy Author Type: Coin Machine Mechanic Type: Plan of Care Filed: 10/29/2023 10:23 Note Text: Insurance investigation completed Patient has active prescription insurance: Yes - Patient's insurance is in-network with [facility] Insurance loaded into [place]: Yes Test claim was completed to verify insurance is active: Successful Any questions, please contact your medication mail service coordinator. Pager #: [phone] [facility] 10-28-2023 Note HNO ID: [id number] Author: CHRIS AMARO APRN.CNP Service: General Internal Medicine Author Type: Nurse Practitioner Type: Progress Notes Filed: 10/28/2023 12:55 Note Text: DEPARTMENT OF HOSPITAL MEDICINE PROGRESS NOTE SERVICE DATE: 10/28/2023 SERVICE TIME: 12:37 PM Hospital Medicine/Primary Attending: Eliud Mcnulty MD Day/Night/Weekend Coverage: Days (including weekends) [phone]: Please page Chris Amaro APRN.FURNITURE CLEANER re: patient issues/concerns. Nights [phone]: For patients on G80/81 AND H80/81 page [phone], for all other patients page [phone]. Subjective INTERVAL HPI: Improving leukocytosis w/ IVF [...] Drains, and Airways Line Duration Peripheral 10/27/23 7197 [facility] Short Right Forearm 20 Gauge <1 day [...] esr,lipase wnl CT head and CXR at [facility] unremarkable. CT abdomen pelv done here: also w/ no acute findings COVID/RSV/Flu -ve DDx: viral gastroenteritis, less likely bacterial as crp/procal/esr all wnl, gastritis, h. Pylori, EMRE vs. Other Plan: -stop abx as not indicated -continue IVF -PO as able, ADAT -send stool studies -monitor lytes and replace PRN -antiemetics / GI cocktails prn (more content not included)... [facility] Evaluation note No assessment inform ation available [facility] Work Phone: Hospital Discharge instructions Additional Instructions Push fluids Rest Follow with your primary care doctor call tomorrow for appointment Return here if any problems persist or worsen [facility] Work Phone: Hospital Discharge instructions Additional Instructions Use ibuprofen as needed for crampy abdominal pain. [facility] Work Phone: Hospital Discharge instructions Additional Instructions Ensure adequate hydration with water. Return with worsening symptoms or any other concerns. Follow-up with a primary care physician for which information was provided for you to do so. [facility] Work Phone: Hospital Discharge instructions Additional Instructions Follow-up with your primary care doctor Return to ED if develop worsening symptoms or concerns [facility] Work Phone: Summary Purpose Family History No [...] content) DATE CREATED AUTHOR 12/27/2018 [facility] DATE CREATED AUTHOR AUTHOR'S ORGANIZ ATION 10/30/2023 [facility] DATE CREATED AUTHOR AUTHOR'S ORGANIZ ATION 01/19/2024 [facility] Care Teams (unrecognized sec tion and content) Team Status: Inactive Member Role Status Dates [facility] Primary Care Provider Active Venkat Velazquez APRN Emergency Provider Active Team Status: Active Member Role Status Dates [facility] Dept Primary Care Provider Active Team Status: Inactive Member Role Status Dates [place] [facility] Dept Primary Care Provider Active Angelica Licona DO Emergency Provider Active Team Status: Inactive Member Role Status Dates [facility] Dept Primary Care Provider Active Viktoriya Lawler APRN Emergency Provider Active Team Status: Inactive Member Role Status Dates [facility] Provider Active Start: July [...] October 25, 2023 End: October 25, 2023 Heavy Equipment Supervisor Relationship Specialty Start Date End Date Bianca Shrestha CNP [address] [place] [address] PCP - General Internal Medicine 10/27/23 Goals [...] or prosecute any alcohol or drug abuse patient.[facility] Reason for Visit (unrecogniz ed section and [...] BE BASED ON THE PRIMARY CLINICAL RECORDS. [facility]. provides no warranty or guarantee of the accuracy or completeness of information in this document.
[2024-02-04 10:27] LABS: Erythrocyte Sedimentation Rate 29 mm/hr (<=20)
[2024-02-04 11:07] LABS: Anion Gap 10.2; Carbon Dioxide 27.3 mmol/L (21.0-32.0); Chloride 103 mmol/L (98-107); Glucose 93 mg/dL (74-106); Potassium 3.5 mmol/L (3.5-5.1); Sodium 137 mmol/L (136-145)
[2024-02-04 11:08] LABS: Alanine Aminotransferase 54 U/L (14-59); Albumin Globulin Ratio 0.9; Albumin Level 3.6 g/dL (3.4-5.0); Alkaline Phosphatase 43 U/L (46-116); Aspartate Amino Transferase 25 U/L (15-37); BUN Creatinine Ratio 8.3; Bilirubin Total 0.2 mg/dL (0.2-1.0); C Reactive Protein <0.50 mg/dL (<=0.50); Calcium 8.8 mg/dL (8.5-10.1); Estimated GFR (African America >60 (>=60); Estimated GFR (Non-African Ame >60 (>=60); Total Protein 7.6 g/dL (6.4-8.2)
[2024-02-04 11:09] LABS: TSH W/ REFLEX FT4 0.867 uIU/mL (0.358-3.740)
[2024-02-05 16:12] LABS: Deamidated Gliadin Abs, IgA 5 units (0-19); Deamidated Gliadin Abs, IgG 2 units (0-19); Endomysial Antibody IgA Negative (Negative); Immunoglobulin A, Qn, Serum 350 mg/dL (87-352); t-Transglutaminase (tTG) IgA <2 U/mL (0-3); t-Transglutaminase (tTG) IgG 3 U/mL (0-5)
== END 2024-02-04 09:43 | disposition home or self-care (01) ==
LOC: LAB 09:42
PROVIDERS: PCP Nurse Practitioner Family
DX: D75.839 Thrombocytosis, unspecified (principal); D50.9 Iron deficiency anemia, unspecified; D72.829 Elevated white blood cell count, unspecified; K90.9 Intestinal malabsorption, unspecified; R19.8 Other specified symptoms and signs involving the digestive system and abdomen
CPT/HCPCS: 36415; 80053; 82728; 82784; 83540; 83550; 84443; 85025; 85652; 86140; 86231; 86258; 86364

== ENCOUNTER 2024-02-11 07:45 | Outpatient (RCR) | payer OTHER, SELFPAY | END 2024-03-05 23:59 | disposition home or self-care (01) | LOC: HEMC 07:45 | PROVIDERS: PCP Nurse Practitioner Family; Visit Provider Internal Medicine Hematology & Oncology | DX: D75.839 Thrombocytosis, unspecified (principal); D72.829 Elevated white blood cell count, unspecified; D50.9 Iron deficiency anemia, unspecified; K90.9 Intestinal malabsorption, unspecified | CPT/HCPCS: G0463 ==

== ENCOUNTER 2024-03-23 17:33 | Emergency (ER) | payer OTHER, SELFPAY ==
[2024-03-23 17:40] VITALS: BP 135/91; PULSE 109; TEMP 37.1; O2SAT 100; BMI 31.0
--- OUTSIDE RECORDS SUMMARY | 2024-03-23 17:43 | XMS_ITS | CCD ---
Author Organization [facility] Care Team Providers Care It Support Manager Name Role Phone PAY, BOONE Admitting Unavailable PAY, BOONE Attending Unavailable MISC, DOCTOR Primary Care Unavailable PAY, BOONE Consulting Unavailable [facility] Primary Care Provider [phone] PATTI Velazquez Emergency Provider [phone] [facility] Primary Care Provider DO Angelica Licona Emergency Provider PATTI Lawler Emergency Provider [phone] [facility] Primary Care Provider [phone] PATTI Velazquez Emergency Provider DO Ramiro Schaefer Emergency Provider [phone] JOANNA Shrestha Primary Care Provider DO Abrahan Lew Emergency Provider Viktoriya Lawler Attending Unavailable Viktoriya Lawler Admitting Unavailable [facility] Stone Primary Care Unavailable Ramiro Schaefer Attending Unavailable Ramiro Schaefer Admitting Unavailable Mary Bianca Natasha Primary Care Unavailable [facility] Primary Care Unavailable Venkat Velazquez Attending Unavailable Venkat Velazquez Admitting Unavailable Abrahan Lew Admitting Unavailable Mary, Bianca Natasha Primary Care Unavailable Abrahan Lew Attending Unavailable Bianca Shrestha CNP S Primary Care Provider ELIUD MCNULTY Attending Unavailable KAMLESH SAAB Admitting Unavailable MYA SHRESTHAELA S Primary Care Unavailable Unavailable Primary Care Provider Unavailabl e Allergies Allergy Classification Reported Allergen(s) Allergy Type Date of Onset Reaction(s) Facility (1 source) Penicillins Propensity to adverse reactions 4 Swelling [facility] Medications Current Medications Medication Drug Class(es) Dates [...] time a week. 4 capsule 10/29/2023 Active [place] (No Known Home Meds) (4 sources) Start: 12-12-2022 [place] (No Known Home Meds) Active December 12, [...] hours Ondansetron Discontinued 4 MG PO Q8H 4 November 02, 2018 12:00am December 27, 2018 9:50am pantoprazole 20 mg delayed release oral tablet (1 source) Proton Pump Inhibitor Start: 10-29-2023 take 1 tablet by mouth once daily before breakfast pantoprazole DR (PROTONIX) 20 mg tablet Indications: Gastroesophageal reflux disease, unspecified whether esophagitis present Take 1 tablet by mouth daily before breakfast. 30 tablet 10/29/2023 Active 27-1 MG tablet (1 source) 27-1 MG tablet 1 (one) time each day at the same time Active Completed/Discontinued Medications Medication Drug Class(es) Dates [...] Discontinued 800 MG PO Three times daily March 30, 2022 5:14pm December 12, 2022 [...] [Unspecified abdominal pain] Onset: 07-21-2023 05-21-2020 Episodic Administrative/social admission (1 source) Patient encounter status; Translations: [Encounter for blood-alcohol and blood-drug test] 03-10-2024 Episodic Digestive congenital anomalies (7 sources) Congenital [...] vomiting and diarrhea] Onset: 10-27-2023 Episodic Other and delivery including normal (1 source) Normal ; Translations: [Encounter for supervision of normal first , first trimester] 03-10-2024 Episodic Other upper respiratory infections (5 sources) [...] Test Name Value Interpretation Reference Range Facility [facility] 01-17-2024 [facility] Telephone (GASTAV) ----- JESSIE ALVA ([id number]) 2 F Date Time Provider Department 01/17/24 MADHURI SOTO During your visit today, we recorded the following information about you: Vera Mcgee OCCA 01/17/2024 1:52 PM Signed Called and LVM for pt regarding today's 1:40 pm appointment, Informed pt to please call [phone] to receive assistance with rescheduling if needed. DANAE Dey January 17, 2024 1:52 PM Allergies As of Date: 01/17/2024 (No Known Allergies) Date Reviewed: 10/28/2023 Reviewed by: Tarsha Salinas RN - Fully Assessed Reason for Visit: Appointment [...] Status:Closed by VERA MCGEE on 01/17/24 Normal [facility] 25(OH)D3 SerPl-ncon 2023 25-hydroxyvitamin D3 [Mass/Vol] 29.2 ng/mL Low 31.0-80.0 [facility] Comment on above: Order Comment: Speci men Type: BLOOD SPECIMEN Ordering Facility: [facility] Address: [address] [place] [address] Result Comment: Clas sification of 25 OH Vitamin D status: Deficiency/Insufficiency: < or = 30 ng/ml. Sufficiency/Optimal Levels: 31-80 ng/mL Toxicity: > 100 ng/mL. Test performed by chemiluminescent immunoassay. Performed By: #### 2 4323-8, 3016-3, 80711-5, 2776- #### [facility] CLIA [id number] [address] [place] [address] [place] CBC W Auto Differential pane l (Bld)on 10-29-2023 Basophils (Bld) [#/Vol] 0.06 10*3/uL Normal <0.11 [facility] Comment on above: Order Comment: Speci men Type: BLOOD SPECIMEN Ordering Facility: [facility] Address: [address] [place] [address] Performed By: #### 2 4323-8, 6-3, , 2776-05 #### [facility] CLIA [id number] [address] [place] [address] [place] Basophils/100 WBC (Bld) 0.5 % Normal [facility] Comment on above: Order Comment: Speci men Type: BLOOD SPECIMEN Ordering Facility: [facility] Address: [address] [place] [address] Performed By: #### 2 4323-8, 6-3, , 2776-05 #### [facility] CLIA [id number] [address] [place] [address] [place] Differential cell count method Nom (Bld) Auto Normal [facility] Comment on above: Order Comment: Speci men Type: BLOOD SPECIMEN Ordering Facility: [facility] Address: [address] [place] [address] Performed By: #### 2 4323-8, 6-3, , 2776- #### [facility] CLIA [id number] [address] [place] [address] [place] Eosinophils (Bld) [#/Vol] 0.19 10*3/uL Normal <0.46 [facility] Comment on above: Order Comment: Speci men Type: BLOOD SPECIMEN Ordering Facility: [facility] Address: [address] [place] [address] Performed By: #### 2 4323-8, 6-3, 62325-7, 2776-05 #### [facility] CLIA [id number] [address] [place] [address] [place] Eosinophils/100 WBC (Bld) 1.4 % Normal [facility] Comment on above: Order Comment: Speci men Type: BLOOD SPECIMEN Ordering Facility: [facility] Address: [address] [place] [address] Performed By: #### 2 4323-8, 6-3, , 2776-05 #### [facility] CLIA [id number] [address] [place] [address] [place] Erythrocyte distribution width (RBC) [Ratio] 15.9 % High 11.5-15.0 [facility] Comment on above: Order Comment: Speci men Type: BLOOD SPECIMEN Ordering Facility: [facility] Address: [address] [place] [address] Performed By: #### 2 4323-8, 6-3, , 2776-05 #### [facility] CLIA [id number] [address] [place] [address] [place] Hematocrit (Bld) [Volume fraction] 36.3 % Normal 36.0-46.0 [facility] Comment on above: Order Comment: Speci men Type: BLOOD SPECIMEN Ordering Facility: [facility] Address: [address] [place] [address] Performed By: #### 2 4323-8, 3016-3, 59121-4, 2776- #### [facility] CLIA [id number] [address] [place], [place] [address] [place] Hemoglobin (Bld) [Mass/Vol] 11.7 g/dL Normal 11.5-15.5 [facility] Comment on above: Order Comment: Speci men Type: BLOOD SPECIMEN Ordering Facility: [facility] Address: [address] [place] [address] Performed By: #### 2 4323-8, 3016-3, 38523-4, 7- #### [facility] CLIA [id number] [address] [place] [address] [place] Immature granulocytes (Bld) [#/Vol] 0.04 10*3/uL Normal <0.10 [facility] Comment on above: Order Comment: Speci men Type: BLOOD SPECIMEN Ordering Facility: [facility] Address: [address] [place] [address] Performed By: #### 2 4323-8, 3016-3, , 277- #### [facility] CLIA [id number] [address] [place] [address] [place] Immature granulocytes/100 WBC (Bld) 0.3 % Normal [facility] Comment on above: Order Comment: Speci men Type: BLOOD SPECIMEN Ordering Facility: [facility] Address: [address] [place] [address] Performed By: #### 2 4323-8, 3016-3, 13130-6, 2777- #### [facility] CLIA [id number] [address] [place] [address] [place] Lymphocytes (Bld) [#/Vol] 4.08 10*3/uL High 1.00-4.00 [facility] Comment on above: Order Comment: Speci men Type: BLOOD SPECIMEN Ordering Facility: [facility] Address: [address] [place] [address] Performed By: #### 2 4323-8, 3016-3, , 2776-05 #### [facility] CLIA [id number] [address] [place] [address] [place] Lymphocytes/100 WBC (Bld) 31.1 % Normal [facility] Comment on above: Order Comment: Speci men Type: BLOOD SPECIMEN Ordering Facility: [facility] Address: [address] [place] [address] Performed By: #### 2 4323-8, 3015-3, , 2776-05 #### [facility] CLIA [id number] [address] [place] [address] [place] MCH (RBC) [Entitic mass] 28.3 pg Normal 26.0-34.0 [facility] Comment on above: Order Comment: Speci men Type: BLOOD SPECIMEN Ordering Facility: [facility] Address: [address] [place] [address] Performed By: #### 2 4323-8, 3015-3, , 2776-05 #### [facility] CLIA [id number] [address] [place] [address] [place] MCHC (RBC) [Mass/Vol] 32.2 g/dL Normal 30.5-36.0 [facility] Comment on above: Order Comment: Speci men Type: BLOOD SPECIMEN Ordering Facility: [facility] Address: [address] [place] [address] Performed By: #### 2 4323-8, 3015-3, , 2776-05 #### [facility] CLIA [id number] [address] [place] [address] [place] MCV (RBC) [Entitic vol] 87.7 fL Normal 80.0-100.0 [facility] Comment on above: Order Comment: Speci men Type: BLOOD SPECIMEN Ordering Facility: [facility] Address: [address] [place] [address] Performed By: #### 2 4323-8, 3016-3, 92428-6, 2776-05 #### [facility] CLIA [id number] [address] [place] [address] [place] Monocytes (Bld) [#/Vol] 1.25 10*3/uL High <0.87 [facility] Comment on above: Order Comment: Speci men Type: BLOOD SPECIMEN Ordering Facility: [facility] Address: [address] [place] [address] Performed By: #### 2 4323-8, 3015-3, , 2776-05 #### [facility] CLIA [id number] [address] [place] [address] [place] Monocytes/100 WBC (Bld) 9.5 % Normal [facility] Comment on above: Order Comment: Speci men Type: BLOOD SPECIMEN Ordering Facility: [facility] Address: [address] [place] [address] Performed By: #### 2 4323-8, 3015-3, , 2776-05 #### [facility] CLIA [id number] [address] [place] [address] [place] Neutrophils (Bld) [#/Vol] 7.49 10*3/uL Normal 1.45-7.50 [facility] Comment on above: Order Comment: Speci men Type: BLOOD SPECIMEN Ordering Facility: [facility] Address: [address] [place] [address] Performed By: #### 2 4323-8, 3015-3, , 2776-05 #### [facility] CLIA [id number] [address] [place] [address] [place] Neutrophils/100 WBC (Bld) 57.2 % Normal [facility] Comment on above: Order Comment: Speci men Type: BLOOD SPECIMEN Ordering Facility: [facility] Address: [address] [place] [address] Performed By: #### 2 4323-8, 3015-3, 19844-6, 2776- #### [facility] CLIA [id number] [address] [place] [address] [place] Nucleated RBC (Bld) [#/Vol] 10*3/uL Normal <0.01 [facility] Comment on above: Order Comment: Speci men Type: BLOOD SPECIMEN Ordering Facility: [facility] Address: [address] [place] [address] Performed By: #### 2 4323-8, 6-3, 19112-5, 2776- #### [facility] CLIA [id number] [address] [place] [address] [place] Nucleated RBC/100 WBC (Bld) [Ratio] 0.0 /100 WBC Normal [facility] Comment on above: Order Comment: Speci men Type: BLOOD SPECIMEN Ordering Facility: [facility] Address: [address] [place] [address] Performed By: #### 2 4323-8, 6-3, 92140-2, 2776-05 #### [facility] CLIA [id number] [address] [place] [address] [place] Platelet mean volume (Bld) [Entitic vol] 9.0 fL Normal 9.0-12.7 [facility] Comment on above: Order Comment: Speci men Type: BLOOD SPECIMEN Ordering Facility: [facility] Address: [address] [place] [address] Performed By: #### 2 4323-8, 3016-3, 45696-7, 2776-05 #### [facility] CLIA [id number] [address] [place] [address] [place] Platelets (Bld) [#/Vol] 435 10*3/uL High 150-400 [facility] Comment on above: Order Comment: Speci men Type: BLOOD SPECIMEN Ordering Facility: [facility] Address: [address] [place] [address] Performed By: #### 2 4323-8, 3016-3, 26697-4, 2777-1 #### [facility] CLIA [id number] [address] [place] [address] [place] RBC (Bld) [#/Vol] 4.14 10*6/uL Normal 3.90-5.20 [facility] Comment on above: Order Comment: Speci men Type: BLOOD SPECIMEN Ordering Facility: [facility] Address: [address] [place] [address] Performed By: #### 2 4323-8, 3016-3, 05707-1, 2777-1 #### [facility] CLIA [id number] [address] [place] [address] [place] WBC (Bld) [#/Vol] 13.11 10*3/uL High 3.70-11.00 [facility] Comment on above: Order Comment: Speci men Type: BLOOD SPECIMEN Ordering Facility: [facility] Address: [address] [place] [address] Performed By: #### 2 4323-8, 3016-3, 81956-7, 2776- #### [facility] CLIA [id number] [address] [place] [address] [place] CNDSon 10-29-2023 CNDS HNO ID: [id number] Author: ELIUD MCNULTY MD Service: General Internal [...] 02/14/2024 1:40 PM Madhuri Soto MD, PhD GASTAV Rej -placed on cancellation list for sooner appointment [...] between constipation/diarrhea)AND hx of marijuana use. 10/26 [facility] ED for second opinion on nausea, vomiting, diarrhea and abd pain. Had presented to her local ED in [facility] (10/22, 10/23 and 10/24) with same [...] if results positive will send Rx to [facility] as per patient request. Patient also recommended to stop smoking marijuana incase there any component of cannabinoid hyperemesis syndrome contributing to symptoms. Determined stable and d/c home on 10/29/23. OPERATIONS/PROCEDURE DURING THIS HOSPITALIZATION: * No surgery found * CT ABD/PEL W IVCON Final Result IMPRESSION: No acute findings in the abdomen or pelvis. 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 Avionics Repair Technician: JESENIA Transcribe Date/Time: Oct 28 2023 1:25A Dictated by : ANGELICA MAYO MD This examination was interpreted and the report reviewed and electronically signed by: JOSIANE RIVAS MD on Oct 28 2023 1:50AM EST CONSULTS DURING HOSPITALIZATION: Treatment Team: Attending Provider: Eliud Mcnulty MD Primary Service: 1, Gim Attending: Eliud Mcnulty MD Nurse Practitioner: Chris Amaro APRN.LDR RN No orders of the defined types were placed in this encounter. PATIENT CONDITION AT DISCHARGE: Stable ADVANCE CARE PLANNING DISCUSSION (if applicable): N/A DISCHARGE DISPOSITION: Home with Relative Discharge Physical Exam: VITAL SIGNS: BP 104/52 Pulse 65 Temp 36.9 ?C (98.4 ?F) (Oral) Resp 17 Wt 77.1 kg (170 lb) SpO2 10 (more content not included)... Normal [facility] Iron and Iron binding capaci ty panelon 10-29-2023 Iron [Mass/Vol] 33 ug/dL Low 41-186 [facility] Comment on above: Order Comment: Speci men Type: BLOOD SPECIMEN Ordering Facility: [facility] Address: [address] [place] [address] Performed By: #### 2 4323-8, 3015-3, 99103-4, 2776-05 #### [facility] CLIA [id number] [address] [place], [place] [address] [place] Iron binding capacity [Mass/Vol] 344 ug/dL Normal 232-386 [facility] Comment on above: Order Comment: Speci men Type: BLOOD SPECIMEN Ordering Facility: [facility] Address: [address] [place] [address] Performed By: #### 2 4323-8, 3016-3, , 2776-05 #### [facility] CLIA [id number] [address] [place] [address] [place] Iron/TIBC [Molar ratio] 9.6 % Low 15.0-57.0 [facility] Comment on above: Order Comment: Speci men Type: BLOOD SPECIMEN Ordering Facility: [facility] Address: [address] [place] [address] Performed By: #### 2 4323-8, 6-3, , 2776-05 #### [facility] CLIA [id number] [address] [place] [address] [place] NUTRITIONon 10-29-2023 NUTRITION HNO ID: [id number] Author: SYMONE RIVERA RD Service: Nutrition Therapy [...] meeting <75% of estimated energy need HPI: Caden Mcnulty note on 10/27: This is a [...] and frequent burping. She was seen in [facility] ED on 10/22 and 10/24 with [...] Weight Type: Admit weight Estimated kilocalorie needs: 1648-6240 Calorie Calculation Method: 25-30 kcals/kg Estimated protein needs (grams): 77-92 Grams protein determined by: 1.0 - 1.2 g/kg Diet Orders (From admission, onward) Start Ordered 10/29/23929 DIET LIQUID START NOW Question: Liquid Diet Answer: FULL LIQUID 10/29/2392010/29/23929 DIET SUPPLEMENTS START NOW Question Answer Comment Supplement 1 (19 years and up) POWERADE ZERO GRAPE Supplement 1 Frequency THREE TIMES/DAY WITH MEALS 10/29/23920 Anthropometrics: Weight: 77.1 kg (170 lb) There is no height or weight on file to calculate BMI. Weight change percentage over time: unable to determine weight change at this time d/t limited weight hx per epic records Weight Change: Unable to determine Physical [...] October 29, 2023 TIME: 10:34 AM Normal [facility] Renal function 2000 panelon 10-29-2023 Albumin [Mass/Vol] 4.0 g/dL Normal 3.9-4.9 [facility] Comment on above: Order Comment: Speci men Type: BLOOD SPECIMEN Ordering Facility: [facility] Address: [address] [place] [address] Performed By: #### 2 4323-8, 3016-3, , 2776- #### [facility] CLIA [id number] [address] [place] [address] [place] Anion gap [Moles/Vol] 10 mmol/L Normal 8-15 [facility] Comment on above: Order Comment: Speci men Type: BLOOD SPECIMEN Ordering Facility: [facility] Address: [address] [place] [address] Performed By: #### 2 4323-8, 3016-3, , 277-1 #### [facility] CLIA [id number] [address] [place] [address] [place] Calcium [Mass/Vol] 9.4 mg/dL Normal 8.5-10.2 [facility] Comment on above: Order Comment: Speci men Type: BLOOD SPECIMEN Ordering Facility: [facility] Address: [address] [place] [address] Performed By: #### 2 4323-8, 3016-3, 33353-8, 2777-1 #### [facility] CLIA [id number] [address] [place] [address] [place] Chloride [Moles/Vol] 102 mmol/L Normal 98-107 [facility] Comment on above: Order Comment: Speci men Type: BLOOD SPECIMEN Ordering Facility: [facility] Address: [address] [place] [address] Performed By: #### 2 4323-8, 3016-3, 57825-1, 2777-1 #### [facility] CLIA [id number] [address] [place] [address] [place] CO2 [Moles/Vol] 26 mmol/L Normal 22-30 [facility] Comment on above: Order Comment: Speci men Type: BLOOD SPECIMEN Ordering Facility: [facility] Address: [address] [place] [address] Performed By: #### 2 4323-8, 3016-3, 97955-8, 2776- #### [facility] CLIA [id number] [address] [place] [address] [place] Creatinine [Mass/Vol] 0.73 mg/dL Normal 0.58-0.96 [facility] Comment on above: Order Comment: Speci men Type: BLOOD SPECIMEN Ordering Facility: [facility] Address: [address] [place] [address] Performed By: #### 2 4323-8, 3016-3, 41494-8, 2777-1 #### [facility] CLIA [id number] [address] [place] [address] [place] Creatinine and Glomerular filtration rate.predicted panel (S/P/Bld) 119 mL/min/1.73m??? Normal >=60 [facility] Comment on above: Order Comment: Speci men Type: BLOOD SPECIMEN Ordering Facility: [facility] Address: [address] [place] [address] Result Comment: Yue mated Glomerular Filtration Rate [...] actual GFR. Performed By: #### 2 4323-8, 6-3, 71866-6, 2776- #### [facility] CLIA [id number] [address] [place] [address] [place] Glucose [Mass/Vol] 81 mg/dL Normal 74-99 [facility] Comment on above: Order Comment: Missy lopez Type: BLOOD SPECIMEN Ordering Facility: [facility] Address: [address] [place] [address] Result Comment: The [place] [employer] (ADA) provides guidance for cutoff [...] Standards of Medical Care in Diabetes 2016, [place] [employer]. Diabetes Care. 2016.39(Suppl 1). Performed By: #### 2 4323-8, 6-3, , 2776-05 #### [facility] CLIA [id number] [address] [place], [place] [address] [place] Phosphate [Mass/Vol] 4.5 mg/dL Normal 2.7-4.8 [facility] Comment on above: Order Comment: Missy lopez Type: BLOOD SPECIMEN Ordering Facility: [facility] Address: [address] [place] [address] Performed By: #### 2 4323-8, 6-3, 21333-2, 2776-05 #### [facility] CLIA [id number] [address] [place] [address] [place] Potassium [Moles/Vol] 4.4 mmol/L Normal 3.7-5.1 [facility] Comment on above: Order Comment: Speci men Type: BLOOD SPECIMEN Ordering Facility: [facility] Address: [address] [place] [address] Performed By: #### 2 4323-8, 3015-3, , 2776-05 #### [facility] CLIA [id number] [address] [place] [address] [place] Sodium [Moles/Vol] 138 mmol/L Normal 136-144 [facility] Comment on above: Order Comment: Speci men Type: BLOOD SPECIMEN Ordering Facility: [facility] Address: [address] [place] [address] Performed By: #### 2 4323-8, 3015-3, , 2776-05 #### [facility] CLIA [id number] [address] [place] [address] [place] Urea nitrogen [Mass/Vol] 6 mg/dL Low 7-21 [facility] Comment on above: Order Comment: Speci men Type: BLOOD SPECIMEN Ordering Facility: [facility] Address: [address] [place] [address] Performed By: #### 2 4323-8, 3015-3, , 2776-05 #### [facility] CLIA [id number] [address] [place], [place] [id number] [place] Bacteria Bld Culton 10-27- 24 Bacteria identified Cx Nom (Bld) CULTURE, BLOOD: No growth 5 days Normal [facility] Comment on above: Performed By: #### 2 4323-8, 6-3, , 2776- #### [facility] CLIA [id number] [address] [place], [place] [address] [place] Bacteria identified Cx Nom (Bld) CULTURE, BLOOD: No growth 5 days Normal [facility] Comment on above: Performed By: #### 2 4323-8, 6-3, 89915-8, 2776-1 #### [facility] CLIA [id number] [address] [place] [address] [place] C. trachomatis+N. gonorrhoea e DNA TENISHA+probe Ql (Unsp spec)on 10-28-2023 C. trachomatis rRNA TENISHA+probe Ql (Unsp spec) Unable to detect Chlamydia trachomatis due to inhibitory substances. Submit repeat specimen if clinically indicated. Abnormal Negative for Chlamydia trachomatis by amplificaton [facility] Comment on above: Order Comment: Speci men Type: BLOOD SPECIMEN Ordering Facility: [facility] Address: [address] [place] [address] Performed By: #### 2 4323-8, 6-3, , 2776-05 #### [facility] CLIA [id number] [address] [place] [address] [place] N. gonorrhoeae rRNA TENISHA+probe Ql (Unsp spec) Unable to detect Neisseria gonorrhoeae due to inhibitory substances. Submit repeat specimen if clinically indicated. Abnormal Negative for Neisseria gonorrhoeae by amplification [facility] Comment on above: Order Comment: Speci men Type: BLOOD SPECIMEN Ordering Facility: [facility] Address: [address] [place] [address] Performed By: #### 2 4323-8, 6-3, , 2776-05 #### [facility] CLIA [id number] [address] [place] [address] [place] CBC panel Auto (Bld)on 10-27 Erythrocyte distribution width (RBC) [Ratio] 16.0 % High 11.5-15.0 [facility] Comment on above: Order Comment: Speci men Type: BLOOD SPECIMEN Ordering Facility: [facility] Address: [address] [place] [address] Performed By: #### 2 4323-8, 3016-3, 71274-6, 277- #### [facility] CLIA [id number] [address] [place] [address] [place] Hematocrit (Bld) [Volume fraction] 33.5 % Low 36.0-46.0 [facility] Comment on above: Order Comment: Speci men Type: BLOOD SPECIMEN Ordering Facility: [facility] Address: [address] [place] [address] Performed By: #### 2 4323-8, 3016-3, 67675-4, 2776-05 #### [facility] CLIA [id number] [address] [place] [address] [place] Hemoglobin (Bld) [Mass/Vol] 10.8 g/dL Low 11.5-15.5 [facility] Comment on above: Order Comment: Speci men Type: BLOOD SPECIMEN Ordering Facility: [facility] Address: [address] [place] [address] Performed By: #### 2 4323-8, 3016-3, 82752-2, 2776-05 #### [facility] CLIA [id number] [address] [place] [address] [place] MCH (RBC) [Entitic mass] 28.3 pg Normal 26.0-34.0 [facility] Comment on above: Order Comment: Speci men Type: BLOOD SPECIMEN Ordering Facility: [facility] Address: [address] [place] [address] Performed By: #### 2 4323-8, 3016-3, 08050-9, 27711-03 #### [facility] CLIA [id number] [address] [place] [address] [place] MCHC (RBC) [Mass/Vol] 32.2 g/dL Normal 30.5-36.0 [facility] Comment on above: Order Comment: Speci men Type: BLOOD SPECIMEN Ordering Facility: [facility] Address: [address] [place] [address] Performed By: #### 2 4323-8, 3016-3, 37503-5, 2776-05 #### [facility] CLIA [id number] [address] [place] [address] [place] MCV (RBC) [Entitic vol] 87.7 fL Normal 80.0-100.0 [facility] Comment on above: Order Comment: Speci men Type: BLOOD SPECIMEN Ordering Facility: [facility] Address: [address] [place] [address] Performed By: #### 2 4323-8, 6-3, , 2776-05 #### [facility] CLIA [id number] [address] [place] [address] [place] Nucleated RBC (Bld) [#/Vol] 10*3/uL Normal <0.01 [facility] Comment on above: Order Comment: Speci men Type: BLOOD SPECIMEN Ordering Facility: [facility] Address: [address] [place] [address] Performed By: #### 2 4323-8, 6-3, , 2776-05 #### [facility] CLIA [id number] [address] [place] [address] [place] Platelet mean volume (Bld) [Entitic vol] 8.9 fL Low 9.0-12.7 [facility] Comment on above: Order Comment: Speci men Type: BLOOD SPECIMEN Ordering Facility: [facility] Address: [address] [place] [address] Performed By: #### 2 4323-8, 6-3, , 2776-05 #### [facility] CLIA [id number] [address] [place] [address] [place] Platelets (Bld) [#/Vol] 421 10*3/uL High 150-400 [facility] Comment on above: Order Comment: Speci men Type: BLOOD SPECIMEN Ordering Facility: [facility] Address: [address] [place] [address] Performed By: #### 2 4323-8, 3016-3, 51506-8, 7- #### [facility] CLIA [id number] [address] [place] [address] [place] RBC (Bld) [#/Vol] 3.82 10*6/uL Low 3.90-5.20 [facility] Comment on above: Order Comment: Speci men Type: BLOOD SPECIMEN Ordering Facility: [facility] Address: [address] [place] [address] Performed By: #### 2 4323-8, 3016-3, 00477-9, 2776- #### [facility] CLIA [id number] [address] [place] [address] [place] WBC (Bld) [#/Vol] 13.58 10*3/uL High 3.70-11.00 [facility] Comment on above: Order Comment: Speci men Type: BLOOD SPECIMEN Ordering Facility: [facility] Address: [address] [place] [address] Performed By: #### 2 4323-8, 3016-3, 34196-6, 7- #### [facility] CLIA [id number] [address] [place] [address] [place] ABD/PEL W IVCONon 024 CT ABD/PEL W IVCON * * *Final Report* * * DATE OF EXAM: Oct 28 2023 12:21AM [facility] 0530 - CT ABD/PEL W IVCON / [...] Findings of congenital intestinal malrotation without complication. Avionics Repair Technician: PSCB Transcribe Date/Time: Oct 28 2023 1:25A Dictated by : ANGELICA MAYO MD This examination was interpreted and the report reviewed and electronically signed by: JOSIANE RIVAS MD on Oct 28 2023 1:50AM EST [id number] Normal [facility] Comprehensive metabolic 2000 panelon 10-28-2023 Albumin [Mass/Vol] 3.8 g/dL Low 3.9-4.9 [facility] Comment on above: Order Comment: Speci men Type: BLOOD SPECIMEN Ordering Facility: [facility] Address: [address] [place] [address] Performed By: #### 2 4323-8, 3016-3, 69600-3, 2777-1 #### [facility] CLIA [id number] [address] [place] [address] [place] ALP [Catalytic activity/Vol] 40 U/L Normal 34-123 [facility] Comment on above: Order Comment: Speci men Type: BLOOD SPECIMEN Ordering Facility: [facility] Address: [address] [place] [address] Performed By: #### 2 4323-8, 3016-3, 34587-0, 277-1 #### [facility] CLIA [id number] [address] [place] [address] [place] ALT [Catalytic activity/Vol] 17 U/L Normal 7-38 [facility] Comment on above: Order Comment: Speci men Type: BLOOD SPECIMEN Ordering Facility: [facility] Address: [address] [place] [address] Performed By: #### 2 4323-8, 3016-3, 74655-8, 277-1 #### [facility] CLIA [id number] [address] [place] [address] [place] Anion gap [Moles/Vol] 11 mmol/L Normal 8-15 [facility] Comment on above: Order Comment: Speci men Type: BLOOD SPECIMEN Ordering Facility: [facility] Address: [address] [place] [address] Performed By: #### 2 4323-8, 6-3, 46303-9, 277- #### [facility] CLIA [id number] [address] [place] [address] [place] AST [Catalytic activity/Vol] 10 U/L Low 13-35 [facility] Comment on above: Order Comment: Speci men Type: BLOOD SPECIMEN Ordering Facility: [facility] Address: [address] [place] [address] Performed By: #### 2 4323-8, 3016-3, 09117-2, 277-1 #### [facility] CLIA [id number] [address] [place] [address] [place] Bilirubin [Mass/Vol] 0.4 mg/dL Normal 0.2-1.3 [facility] Comment on above: Order Comment: Speci men Type: BLOOD SPECIMEN Ordering Facility: [facility] Address: [address] [place] [address] Performed By: #### 2 4323-8, 3016-3, 64263-5, 2776-1 #### [facility] CLIA [id number] [address] [place] [address] [place] Calcium [Mass/Vol] 8.8 mg/dL Normal 8.5-10.2 [facility] Comment on above: Order Comment: Speci men Type: BLOOD SPECIMEN Ordering Facility: [facility] Address: [address] [place] [address] Performed By: #### 2 4323-8, 3016-3, 83181-2, 277- #### [facility] CLIA [id number] [address] [place] [address] [place] Chloride [Moles/Vol] 106 mmol/L Normal 98-107 [facility] Comment on above: Order Comment: Speci men Type: BLOOD SPECIMEN Ordering Facility: [facility] Address: [address] [place] [address] Performed By: #### 2 4323-8, 3016-3, 52758-2, 277-1 #### [facility] CLIA [id number] [address] [place] [address] [place] CO2 [Moles/Vol] 21 mmol/L Low 22-30 [facility] Comment on above: Order Comment: Speci men Type: BLOOD SPECIMEN Ordering Facility: [facility] Address: [address] [place] [address] Performed By: #### 2 4323-8, 3016-3, 01017-1, 2776-1 #### [facility] CLIA [id number] [address] [place] [address] [place] Creatinine [Mass/Vol] 0.74 mg/dL Normal 0.58-0.96 [facility] Comment on above: Order Comment: Missy lopez Type: BLOOD SPECIMEN Ordering Facility: [facility] Address: [address] [place] [address] Performed By: #### 2 4323-8, 3016-3, 25769-3, 2776- #### [facility] CLIA [id number] [address] [place] [address] [place] Creatinine and Glomerular filtration rate.predicted panel (S/P/Bld) 117 mL/min/1.73m??? Normal >=60 [facility] Comment on above: Order Comment: Missy lopez Type: BLOOD SPECIMEN Ordering Facility: [facility] Address: [address] [place] [address] Result Comment: Yue mated Glomerular Filtration Rate [...] GFR. Performed By: #### 2 4323-8, 3016-3, 35314-1, 2776-05 #### [facility] CLIA [id number] [address] [place] [address] [place] Glucose [Mass/Vol] 87 mg/dL Normal 74-99 [facility] Comment on above: Order Comment: iMssy lopez Type: BLOOD SPECIMEN Ordering Facility: [facility] Address: [address] [place] [address] Result Comment: The [place] [employer] (ADA) provides guidance for cutoff [...] Standards of Medical Care in Diabetes 2016, [place] [employer]. Diabetes Care. 2016.39(Suppl 1). Performed By: #### 2 4323-8, 3016-3, 45660-2, 2776- #### [facility] CLIA [id number] [address] [place] [address] [place] Potassium [Moles/Vol] 3.9 mmol/L Normal 3.7-5.1 [facility] Comment on above: Order Comment: Speci men Type: BLOOD SPECIMEN Ordering Facility: [facility] Address: [address] [place] [address] Performed By: #### 2 4323-8, 3016-3, , 2776-05 #### [facility] CLIA [id number] [address] [place] [address] [place] Protein [Mass/Vol] 7.0 g/dL Normal 6.3-8.0 [facility] Comment on above: Order Comment: Jerryi john Type: BLOOD SPECIMEN Ordering Facility: [facility] Address: [address] [place] [address] Performed By: #### 2 4323-8, 3016-3, , 2776-05 #### [facility] CLIA [id number] [address] [place] [address] [place] Sodium [Moles/Vol] 138 mmol/L Normal 136-144 [facility] Comment on above: Order Comment: Speci men Type: BLOOD SPECIMEN Ordering Facility: [facility] Address: [address] [place] [address] Performed By: #### 2 4323-8, 3016-3, 85014-9, 27711-03 #### [facility] CLIA [id number] [address] [place] [address] [place] Urea nitrogen [Mass/Vol] 8 mg/dL Normal 7-21 [facility] Comment on above: Order Comment: Speci men Type: BLOOD SPECIMEN Ordering Facility: [facility] Address: [address] [place] [address] Performed By: #### 2 4323-8, 3016-3, , 2776-05 #### [facility] CLIA [id number] [address] [place] [address] [place] ED NOTEon 10-28-2023 ED NOTE HNO ID: [id number] Author: CHASTITY ALEGRIA RN Service: ? Author Type: Registered Nurse Type: ED Notes Filed: 10/28/2023 02:38 Note Text: Bed: E12-02 Expected date: Expected time: Means of arrival: Comments: e18 Normal [facility] FLUABV+SARS-CoV-2+RSV Pnl Re sp TENISHA+probeon 10-28-2023 FLUABV+SARS-CoV-2+RSV Pnl Resp TENISHA+probe COVID 19 RESULT: Not detected The method used is RT-PCR or an equivalent NAAT method. Reference Range(the expected result in uninfected individuals): Not detected INFLUENZA A PCR: Not detected INFLUENZA B PCR: Not detected RSV PCR: Not detected Normal [facility] Comment on above: Performed By: #### 2 4323-8, 3016-3, 68100-3, 2776-05 #### [facility] CLIA [id number] [address] [place] [address] [place] Gastrointestinal pathogens i dentified TENISHA+probe Nom (Stl)on 10-28-2023 Campylobacter sp DNA TENISHA+probe Nom (Unsp spec) Not detected Normal Not Detected [facility] Comment on above: Order Comment: Speci men Type: BLOOD SPECIMEN Ordering Facility: [facility] Address: [address] [place] [address] Performed By: #### 2 4323-8, 6-3, 96612-6, 2776-05 #### [facility] CLIA [id number] [address] [place] [address] [place] Salmonella sp DNA TENISHA+probe Ql (Unsp spec) Not detected Normal Not Detected [facility] Comment on above: Order Comment: Speci men Type: BLOOD SPECIMEN Ordering Facility: [facility] Address: [address] [place] [address] Performed By: #### 2 4323-8, 6-3, 79569-1, 2776-05 #### [facility] CLIA [id number] [address] [place] [address] [place] Shiga toxin stx gene TENISHA+probe Nom (Unsp spec) Not detected Normal Not Detected [facility] Comment on above: Order Comment: Speci men Type: BLOOD SPECIMEN Ordering Facility: [facility] Address: [address] [place] [address] Performed By: #### 2 4323-8, 6-3, , 2776-05 #### [facility] CLIA [id number] [address] [place] [address] [place] Shigella sp DNA TENISHA+probe Ql (Unsp spec) Not detected Normal Not Detected [facility] Comment on above: Order Comment: Speci men Type: BLOOD SPECIMEN Ordering Facility: [facility] Address: [address] [place] [address] Performed By: #### 2 4323-8, 6-3, 83911-0, 2776-05 #### [facility] CLIA [id number] [address] [place] [address] [place] H pylori Ag Stl Ql IAon 10-05 H. pylori Ag IA Ql (Stl) H.PYLORI EIA RESULT: Negative for Helicobacter pylori antigen by EIA Normal [facility] Comment on above: Performed By: #### 2 4323-8, 3016-3, 17513-1, 2777-1 #### [facility] CLIA [id number] [address] [place] [address] [place] HCG Preg Ur Qlon 10-28-2023 HCG ( test) Ql (U) Negative Normal Negative [facility] Comment on above: Order Comment: Speci men Type: BLOOD SPECIMEN Ordering Facility: [facility] Address: [address] [place] [address] Result Comment: This test is intended to aid in the early detection of . Very dilute urine samples, as indicated by a low specific gravity, may not contain contact representative levels of hCG. This test detects [...] . Performed By: #### 2 4323-8, 3016-3, 86620-5, 2777-1 #### [facility] CLIA [id number] [address] [place] [address] [place] HISTORY PHYSICALon HISTORY PHYSICAL HNO ID: [id number] Author: ELIUD MCNULTY MD Service: Hospital Medicine Author Type: Physician Type: H&P Filed: 10/28/2023 15:29 Note Text: DEPARTMENT OF HOSPITAL MEDICINE HISTORY AND PHYSICAL EXAM SERVICE DATE: 10/28/2023 SERVICE TIME: 602 Primary Care Physician: Bianca Shrestha CNP, CNP NIGHT AND WEEKEND COVERAGE: Patient admitted to [facility]. Please page me at [phone] for patient issues until 729. After that please page [facility] staff assigned (as noted in EPIC banner) [place] [phone]. Subjective CHIEF COMPLAINT: NANDVANDD HPI: This is [...] and frequent burping. She was seen in [facility] ED on 10/22 and 10/24 with [...] Lines, Drains, and Airways Line Duration Peripheral 10/27/237 [facility] Short Right Forearm 20 Gauge <1 [...] further management. CT head and CXR at [facility] unremarkable. CT abdomen pelv done here: [...] s 10/28/23 0245 activity - mobilize patient (pr,oh) VTE Prophylaxis: VTE prophylaxis appropriate Disposition: (more content not included)... Normal [facility] Magnesium SerPl-mCncon 10-27 Magnesium [Mass/Vol] 2.2 mg/dL Normal 1.7-2.3 [facility] Comment on above: Order Comment: Missy lopez Type: BLOOD SPECIMEN Ordering Facility: [facility] Address: [address] [place] [address] Performed By: #### 2 4323-8, 3016-3, 15626-8, 2777-1 #### [facility] CLIA [id number] [address] [place] [address] [place] Phosphate SerPl-mCncon 10-27 Phosphate [Mass/Vol] 4.1 mg/dL Normal 2.7-4.8 [facility] Comment on above: Order Comment: Missy lopez Type: BLOOD SPECIMEN Ordering Facility: [facility] Address: [address] [place] [address] Performed By: #### 2 4323-8, 3016-3, 22614-7, 2777-1 #### [facility] CLIA [id number] [address] [place] [address] [place] TSH SerPl-aCncon 10-28-2023 TSH Qn 1.500 m[IU]/L Normal 0.270-4.200 [facility] Comment on above: Order Comment: Missy lopez Type: BLOOD SPECIMEN Ordering Facility: [facility] Address: [address] [place] [address] Result Comment: If t he patient is , TSH reference range varies by gestational period: First Trimester (weeks 9-12): 0.180-2.990 mIU/L Second Trimester: 0.110-3.980 mIU/L Third Trimester: 0.480-4.710 mIU/L Narayan Jacobo et al. A Practical Approach for the Verifications and Determination of Site- and Trimester-Specific Reference Intervals for Thyroid Function tests in . Thyroid, 2019:29:3:412-420. Delfin White, et al. 2017 Guidelines of the [place] [employer] for the Diagnosis and Management of Thyroid Disease during and the . Thyroid, 2017:27:3:315-389. Performed By: #### 2 4323-8, 6-3, , 2776-05 #### [facility] CLIA [id number] [address] [place] [address] [place] CBC W Auto Differential pane l (Bld)on 10-27-2023 Basophils (Bld) [#/Vol] 0.09 10*3/uL Normal <0.11 [facility] Comment on above: Order Comment: Speci men Type: BLOOD SPECIMEN Ordering Facility: [facility] Address: [address] [place] [address] Performed By: #### 2 4323-8, 3015-3, , 2776-05 #### [facility] CLIA [id number] [address] [place] [address] [place] Basophils/100 WBC (Bld) 0.5 % Normal [facility] Comment on above: Order Comment: Speci men Type: BLOOD SPECIMEN Ordering Facility: [facility] Address: [address] [place] [address] Performed By: #### 2 4323-8, 3015-3, , 2776-05 #### [facility] CLIA [id number] [address] [place] [address] [place] Differential cell count method Nom (Bld) Auto Normal [facility] Comment on above: Order Comment: Speci men Type: BLOOD SPECIMEN Ordering Facility: [facility] Address: [address] [place] [address] Performed By: #### 2 4323-8, 3015-3, , 2776-05 #### [facility] CLIA [id number] [address] [place] [address] [place] Eosinophils (Bld) [#/Vol] 0.09 10*3/uL Normal <0.46 [facility] Comment on above: Order Comment: Speci men Type: BLOOD SPECIMEN Ordering Facility: [facility] Address: [address] [place] [address] Performed By: #### 2 4323-8, 3015-3, , 2776-05 #### [facility] CLIA [id number] [address] [place] [address] [place] Eosinophils/100 WBC (Bld) 0.5 % Normal [facility] Comment on above: Order Comment: Speci men Type: BLOOD SPECIMEN Ordering Facility: [facility] Address: [address] [place] [address] Performed By: #### 2 4323-8, 3015-3, , 2776-05 #### [facility] CLIA [id number] [address] [place] [address] [place] Erythrocyte distribution width (RBC) [Ratio] 16.2 % High 11.5-15.0 [facility] Comment on above: Order Comment: Speci men Type: BLOOD SPECIMEN Ordering Facility: [facility] Address: [address] [place] [address] Performed By: #### 2 4323-8, 3, , 2776-05 #### [facility] CLIA [id number] [address] [place] [address] [place] Hematocrit (Bld) [Volume fraction] 37.8 % Normal 36.0-46.0 [facility] Comment on above: Order Comment: Speci men Type: BLOOD SPECIMEN Ordering Facility: [facility] Address: [address] [place], [place] [address] Performed By: #### 2 4323-8, 3015-3, , 2776-05 #### [facility] CLIA [id number] [address] [place], [place] [address] [place] Hemoglobin (Bld) [Mass/Vol] 12.2 g/dL Normal 11.5-15.5 [facility] Comment on above: Order Comment: Speci men Type: BLOOD SPECIMEN Ordering Facility: [facility] Address: [address] [place] [address] Performed By: #### 2 4323-8, 3016-3, , 2776-05 #### [facility] CLIA [id number] [address] [place] [address] [place] Immature granulocytes (Bld) [#/Vol] 0.05 10*3/uL Normal <0.10 [facility] Comment on above: Order Comment: Speci men Type: BLOOD SPECIMEN Ordering Facility: [facility] Address: [address] [place] [address] Performed By: #### 2 4323-8, 6-3, , 2776-05 #### [facility] CLIA [id number] [address] [place] [address] [place] Immature granulocytes/100 WBC (Bld) 0.3 % Normal [facility] Comment on above: Order Comment: Speci men Type: BLOOD SPECIMEN Ordering Facility: [facility] Address: [address] [place] [address] Performed By: #### 2 4323-8, 6-3, , 2776-05 #### [facility] CLIA [id number] [address] [place] [address] [place] Lymphocytes (Bld) [#/Vol] 4.79 10*3/uL High 1.00-4.00 [facility] Comment on above: Order Comment: Speci men Type: BLOOD SPECIMEN Ordering Facility: [facility] Address: [address] [place] [address] Performed By: #### 2 4323-8, 6-3, , 2776-05 #### [facility] CLIA [id number] [address] [place] [address] [place] Lymphocytes/100 WBC (Bld) 27.9 % Normal [facility] Comment on above: Order Comment: Speci men Type: BLOOD SPECIMEN Ordering Facility: [facility] Address: [address] [place] [address] Performed By: #### 2 4323-8, 3016-3, 80681-1, 2776- #### [facility] CLIA [id number] [address] [place] [address] [place] MCH (RBC) [Entitic mass] 27.9 pg Normal 26.0-34.0 [facility] Comment on above: Order Comment: Speci men Type: BLOOD SPECIMEN Ordering Facility: [facility] Address: [address] [place] [address] Performed By: #### 2 4323-8, 6-3, , 2776-05 #### [facility] CLIA [id number] [address] [place] [address] [place] MCHC (RBC) [Mass/Vol] 32.3 g/dL Normal 30.5-36.0 [facility] Comment on above: Order Comment: Speci men Type: BLOOD SPECIMEN Ordering Facility: [facility] Address: [address] [place] [address] Performed By: #### 2 4323-8, 6-3, , 2776-05 #### [facility] CLIA [id number] [address] [place] [address] [place] MCV (RBC) [Entitic vol] 86.5 fL Normal 80.0-100.0 [facility] Comment on above: Order Comment: Speci men Type: BLOOD SPECIMEN Ordering Facility: [facility] Address: [address] [place] [address] Performed By: #### 2 4323-8, 6-3, , 2776- #### [facility] CLIA [id number] [address] [id number] [address] [place] Monocytes (Bld) [#/Vol] 1.54 10*3/uL High <0.87 [facility] Comment on above: Order Comment: Speci men Type: BLOOD SPECIMEN Ordering Facility: [facility] Address: [address] [place] [address] Performed By: #### 2 4323-8, 3016-3, 71870-1, 2776-1 #### [facility] CLIA [id number] [address] [place] [address] [place] Monocytes/100 WBC (Bld) 9.0 % Normal [facility] Comment on above: Order Comment: Speci men Type: BLOOD SPECIMEN Ordering Facility: [facility] Address: [address] [place] [address] Performed By: #### 2 4323-8, 3016-3, 20367-4, 2776-1 #### [facility] CLIA [id number] [address] [place] [address] [place] Neutrophils (Bld) [#/Vol] 10.63 10*3/uL High 1.45-7.50 [facility] Comment on above: Order Comment: Speci men Type: BLOOD SPECIMEN Ordering Facility: [facility] Address: [address] [place] [address] Performed By: #### 2 4323-8, 3016-3, 18371-7, 2776-1 #### [facility] CLIA [id number] [address] [place] [address] [place] Neutrophils/100 WBC (Bld) 61.8 % Normal [facility] Comment on above: Order Comment: Speci men Type: BLOOD SPECIMEN Ordering Facility: [facility] Address: [address] [place] [address] Performed By: #### 2 4323-8, 3016-3, 28323-0, 2776-1 #### [facility] CLIA [id number] [address] [place] [address] [place] Nucleated RBC (Bld) [#/Vol] 10*3/uL Normal <0.01 [facility] Comment on above: Order Comment: Speci men Type: BLOOD SPECIMEN Ordering Facility: [facility] Address: [address] [place] [address] Performed By: #### 2 4323-8, 3016-3, 23382-3, 2776-1 #### [facility] CLIA [id number] [address] [place] [address] [place] Nucleated RBC/100 WBC (Bld) [Ratio] 0.0 /100 WBC Normal [facility] Comment on above: Order Comment: Speci men Type: BLOOD SPECIMEN Ordering Facility: [facility] Address: [address] [place] [address] Performed By: #### 2 4323-8, 3016-3, 00785-4, 2776- #### [facility] CLIA [id number] [address] [place] [address] [place] Platelet mean volume (Bld) [Entitic vol] 8.7 fL Low 9.0-12.7 [facility] Comment on above: Order Comment: Speci men Type: BLOOD SPECIMEN Ordering Facility: [facility] Address: [address] [place] [address] Performed By: #### 2 4323-8, 3016-3, , 277- #### [facility] CLIA [id number] [address] [place] [address] [place] Platelets (Bld) [#/Vol] 483 10*3/uL High 150-400 [facility] Comment on above: Order Comment: Speci men Type: BLOOD SPECIMEN Ordering Facility: [facility] Address: [address] [place] [address] Performed By: #### 2 4323-8, 3016-3, 95732-0, 2777-1 #### [facility] CLIA [id number] [address] [place] [address] [place] RBC (Bld) [#/Vol] 4.37 10*6/uL Normal 3.90-5.20 [facility] Comment on above: Order Comment: Speci men Type: BLOOD SPECIMEN Ordering Facility: [facility] Address: [address] [place] [address] Performed By: #### 2 4323-8, 3016-3, 81633-1, 7-1 #### [facility] CLIA [id number] [address] [place] [address] [place] WBC (Bld) [#/Vol] 17.19 10*3/uL High 3.70-11.00 [facility] Comment on above: Order Comment: Speci men Type: BLOOD SPECIMEN Ordering Facility: [facility] Address: [address] [place] [address] Performed By: #### 2 4323-8, 3016-3, 77503-7, 2777-1 #### [facility] CLIA [id number] [address] [place] [address] [place] CRP SerPl-ncon 10-27-2023 CRP [Mass/Vol] 0.5 mg/dL Normal <0.9 [facility] Comment on above: Order Comment: Speci men Type: BLOOD SPECIMEN Ordering Facility: [facility] Address: [address] [place] [address] Performed By: #### 2 4323-8, 3016-3, 73192-2, 2777-1 #### [facility] CLIA [id number] [address] [place] [address] [place] Comprehensive metabolic 2000 panelon 10-27-2023 Albumin [Mass/Vol] 4.5 g/dL Normal 3.9-4.9 [facility] Comment on above: Order Comment: Speci men Type: BLOOD SPECIMEN Ordering Facility: [facility] Address: [address] [place] [address] Performed By: #### 2 4323-8, 3016-3, 11614-4, 2776- #### [facility] CLIA [id number] [address] [place] [address] [place] ALP [Catalytic activity/Vol] 45 U/L Normal 34-123 [facility] Comment on above: Order Comment: Speci men Type: BLOOD SPECIMEN Ordering Facility: [facility] Address: [address] [place], [place] [address] Performed By: #### 2 4323-8, 3016-3, 18630-7, 2776- #### [facility] CLIA [id number] [address] [place] [address] [place] ALT [Catalytic activity/Vol] 22 U/L Normal 7-38 [facility] Comment on above: Order Comment: Speci men Type: BLOOD SPECIMEN Ordering Facility: [facility] Address: [address] [place] [address] Performed By: #### 2 4323-8, 6-3, 61404-3, 2776- #### [facility] CLIA [id number] [address] [place] [address] [place] Anion gap [Moles/Vol] 13 mmol/L Normal 8-15 [facility] Comment on above: Order Comment: Speci men Type: BLOOD SPECIMEN Ordering Facility: [facility] Address: [address] [place] [address] Performed By: #### 2 4323-8, 6-3, 09032-8, 2776- #### [facility] CLIA [id number] [address] [place], [place] [address] [place] AST [Catalytic activity/Vol] 16 U/L Normal 13-35 [facility] Comment on above: Order Comment: Speci men Type: BLOOD SPECIMEN Ordering Facility: [facility] Address: [address] [place] [address] Performed By: #### 2 4323-8, 3016-3, 56018-9, 2776- #### [facility] CLIA [id number] [address] [place] [address] [place] Bilirubin [Mass/Vol] 0.2 mg/dL Normal 0.2-1.3 [facility] Comment on above: Order Comment: Speci men Type: BLOOD SPECIMEN Ordering Facility: [facility] Address: [address] [place] [address] Performed By: #### 2 4323-8, 6-3, , 2776-05 #### [facility] CLIA [id number] [address] [place] [address] [place] Calcium [Mass/Vol] 9.7 mg/dL Normal 8.5-10.2 [facility] Comment on above: Order Comment: Speci men Type: BLOOD SPECIMEN Ordering Facility: [facility] Address: [address] [place] [address] Performed By: #### 2 4323-8, 6-3, , 2776-05 #### [facility] CLIA [id number] [address] [place] [address] [place] Chloride [Moles/Vol] 105 mmol/L Normal 98-107 [facility] Comment on above: Order Comment: Speci men Type: BLOOD SPECIMEN Ordering Facility: [facility] Address: [address] [place] [address] Performed By: #### 2 4323-8, 6-3, , 2776-05 #### [facility] CLIA [id number] [address] [place] [address] [place] CO2 [Moles/Vol] 24 mmol/L Normal 22-30 [facility] Comment on above: Order Comment: Speci men Type: BLOOD SPECIMEN Ordering Facility: [facility] Address: [address] [place] [address] Performed By: #### 2 4323-8, 3016-3, 86486-1, 2776-05 #### [facility] CLIA [id number] [address] [place] [address] [place] Creatinine [Mass/Vol] 0.72 mg/dL Normal 0.58-0.96 [facility] Comment on above: Order Comment: Speci men Type: BLOOD SPECIMEN Ordering Facility: [facility] Address: [address] [place] [address] Performed By: #### 2 4323-8, 6-3, 00806-0, 2776-05 #### [facility] CLIA [id number] [address] [place] [address] [place] Creatinine and Glomerular filtration rate.predicted panel (S/P/Bld) 121 mL/min/1.73m??? Normal >=60 [facility] Comment on above: Order Comment: Missy men Type: BLOOD SPECIMEN Ordering Facility: [facility] Address: [address] [place] [address] Result Comment: Yue mated Glomerular Filtration Rate [...] actual GFR. Performed By: #### 2 4323-8, 6-3, , 2776-05 #### [facility] CLIA [id number] [address] [place] [address] [place] Glucose [Mass/Vol] 78 mg/dL Normal 74-99 [facility] Comment on above: Order Comment: Missy lopez Type: BLOOD SPECIMEN Ordering Facility: [facility] Address: [address] [place] [address] Result Comment: The [place] [employer] (ADA) provides guidance for cutoff [...] Standards of Medical Care in Diabetes 2016, [place] [employer]. Diabetes Care. 2016.39(Suppl 1). Performed By: #### 2 4323-8, 3016-3, 35669-5, 2776- #### [facility] CLIA [id number] [address] [place] [address] [place] Potassium [Moles/Vol] 4.0 mmol/L Normal 3.7-5.1 [facility] Comment on above: Order Comment: Missy lopez Type: BLOOD SPECIMEN Ordering Facility: [facility] Address: [address] [place] [address] Performed By: #### 2 4323-8, 3016-3, , 2776-05 #### [facility] CLIA [id number] [address] [place] [address] [place] Protein [Mass/Vol] 7.9 g/dL Normal 6.3-8.0 [facility] Comment on above: Order Comment: Missy lopez Type: BLOOD SPECIMEN Ordering Facility: [facility] Address: [address] [place] [address] Performed By: #### 2 4323-8, 3016-3, 33990-5, 2776-05 #### [facility] CLIA [id number] [address] [place] [address] [place] Sodium [Moles/Vol] 142 mmol/L Normal 136-144 [facility] Comment on above: Order Comment: Missy men Type: BLOOD SPECIMEN Ordering Facility: [facility] Address: [address] [place] [address] Performed By: #### 2 4323-8, 3016-3, 76099-6, 2777-1 #### [facility] CLIA [id number] [address] [place], [place] [address] [address] [address] [place] Urea nitrogen [Mass/Vol] 10 mg/dL Normal 7-21 [facility] Comment on above: Order Comment: Speci men Type: BLOOD SPECIMEN Ordering Facility: [facility] Address: [address] [place] [address] Performed By: #### 2 4323-8, 3016-3, 41250-7, 2777-1 #### [facility] CLIA [id number] [address] [place] [address] [place] ED PROV NOTEon 10-27-2023 ED PROV NOTE HNO ID: [id number] Author: KIT LOPEZ JR, MD Service: Emergency [...] abnormalities on (more content not included)... Normal [facility] ESR Westergren method (Bld) [Velocity]on 10-27-2023 ESR (Bld) [Velocity] 20 mm/h Normal 0-20 [facility] Comment on above: Order Comment: Speci men Type: BLOOD SPECIMEN Ordering Facility: [facility] Address: [address] [place] [address] Performed By: #### 2 4323-8, 3016-3, 42256-2, 2777-1 #### [facility] CLIA [id number] [address] [place] [address] [place] Lipase SerPl-cCncon 10-27-19 24 Lipase [Catalytic activity/Vol] 13 U/L Low 16-61 [facility] Comment on above: Order Comment: Speci men Type: BLOOD SPECIMEN Ordering Facility: [facility] Address: [address] [place] [address] Performed By: #### 2 4323-8, 3016-3, , 2776-05 #### [facility] CLIA [id number] [address] [place] [address] [place] Magnesium SerPl-mCncon 10-26 Magnesium [Mass/Vol] 2.2 mg/dL Normal 1.7-2.3 [facility] Comment on above: Order Comment: Speci men Type: BLOOD SPECIMEN Ordering Facility: [facility] Address: [address] [place] [address] Performed By: #### 2 4323-8, 6-3, , 2776-05 #### [facility] CLIA [id number] [address] [place] [address] [place] Procalcitonin SerPl-mCncon 0 10-27-2023 Procalcitonin [Mass/Vol] ng/mL Normal <0.09 [facility] Comment on above: Order Comment: Speci men Type: BLOOD SPECIMEN Ordering Facility: [facility] Address: [address] [place] [address] Result Comment: For a guided interpretation of test results, please visit the Change in Procalcitonin Calculator, [email or web address]. Performed By: #### 2 4323-8, 6-3, , 2776-05 #### [facility] CLIA [id number] [address] [place] [address] [place] SEPSIS LACTATE W/ REFLEX (IN ITIAL)on 10-27-2023 Lactate [Moles/Vol] 2.0 mmol/L Normal <=2.0 [facility] Comment on above: Order Comment: Speci men Type: BLOOD SPECIMEN Ordering Facility: [facility] Address: [address] [place], [place] [address] Performed By: #### 2 4323-8, 6-3, , 2776-05 #### [facility] CLIA [id number] [address] [place] [address] [place] TOXICOLOGY SCREEN, ROUTINE U RINEon 10-27-2023 Amphetamines Confirm (U) [Mass/Vol] Negative Normal Negative [facility] Comment on above: Order Comment: Speci men Type: URINE SPECIMEN Ordering Facility: [facility] Address: [address] [place] [address] Result Comment: Cuto ff threshold at 1000 ng/mL. Performed By: #### U TOX2 #### [facility] CLIA [id number] [address] [place] [address] [place] BARBITURATES, URINE Negative Normal Negative [facility] Comment on above: Order Comment: Speci men Type: URINE SPECIMEN Ordering Facility: [facility] Address: [address] [place] [address] Result Comment: Cuto ff threshold at 200 ng/mL. Performed By: #### U TOX2 #### [facility] CLIA [id number] [address] [place] [address] [place] BENZODIAZEPINES, UR Negative Normal Negative [facility] Comment on above: Order Comment: Speci men Type: URINE SPECIMEN Ordering Facility: [facility] Address: [address] [place] [address] Result Comment: Cuto ff threshold at 200 ng/mL. Performed By: #### U TOX2 #### [facility] CLIA [id number] [address] [place] [address] [place] Cannabinoids Screen Ql (U) Positive Abnormal Negative [facility] Comment on above: Order Comment: Speci men Type: URINE SPECIMEN Ordering Facility: [facility] Address: [address] [place] [address] Result Comment: Cuto ff threshold at 50 ng/mL. Performed By: #### U TOX2 #### [facility] CLIA [id number] [address] [place] [address] [place] Cocaine Ql (U) Negative Normal Negative [facility] Comment on above: Order Comment: Speci men Type: URINE SPECIMEN Ordering Facility: [facility] Address: [address] [place] [address] Result Comment: Cuto ff threshold at 300 ng/mL. Performed By: #### U TOX2 #### [facility] CLIA [id number] [address] [place] [address] [place] Ethanol (U) [Mass/Vol] <11 Normal <11 [facility] Comment on above: Order Comment: Speci men Type: URINE SPECIMEN Ordering Facility: [facility] Address: [address] [place] [address] Performed By: #### U TOX2 #### [facility] CLIA [id number] [address] [place] [address] [place] Opiates Screen Ql (U) Negative Normal Negative [facility] Comment on above: Order Comment: Speci men Type: URINE SPECIMEN Ordering Facility: [facility] Address: [address] [place] [address] Result Comment: Cuto ff threshold at 300 ng/mL. Performed By: #### U TOX2 #### [facility] CLIA [id number] [address] [place] [address] [place] oxyCODONE cutoff Screen (U) [Mass/Vol] Negative Normal Negative [facility] Comment on above: Order Comment: Speci men Type: URINE SPECIMEN Ordering Facility: [facility] Address: [address] [place] [address] Result Comment: Cuto ff threshold at 100 ng/mL. Performed By: #### U TOX2 #### [facility] CLIA [id number] [address] [place] [address] [place] Phencyclidine Ql (U) Negative Normal Negative [facility] Comment on above: Order Comment: Speci men Type: URINE SPECIMEN Ordering Facility: [facility] Address: [address], [place] [address] Result Comment: Cuto ff threshold at 25 ng/mL. Performed By: #### U TOX2 #### [facility] CLIA [id number] [address] [place] [address] [place] Urinalysis complete panel (U )on 10-27-2023 BACTERIA UL 2473.2 uL High Negative [facility] Comment on above: Order Comment: Speci men Type: BLOOD SPECIMEN Ordering Facility: [facility] Address: [address] [place] [address] Performed By: #### 2 4323-8, 6-3, 40724-2, 2776- #### [facility] CLIA [id number] [address] [place] [address] [place] Bilirubin Ql (U) Negative Normal Negative [facility] Comment on above: Order Comment: Speci men Type: BLOOD SPECIMEN Ordering Facility: [facility] Address: [address] [place] [address] Performed By: #### 2 4323-8, 6-3, 12310-7, 2776- #### [facility] CLIA [id number] [address] [place] [address] [place] Clarity (Unsp spec) Cloudy Abnormal Clear [facility] Comment on above: Order Comment: Speci men Type: BLOOD SPECIMEN Ordering Facility: [facility] Address: [address] [place] [address] Performed By: #### 2 4323-8, 6-3, , 2776- #### [facility] CLIA [id number] [address] [place] [address] [place] Color (U) Yellow Normal Yellow [facility] Comment on above: Order Comment: Speci men Type: BLOOD SPECIMEN Ordering Facility: [facility] Address: [address] [place] [address] Performed By: #### 2 4323-8, 6-3, 19718-4, 2776- #### [facility] CLIA [id number] [address] [place] [address] [place] Epithelial cells LM.HPF (Urine sed) [#/Area] Few Normal [facility] Comment on above: Order Comment: Speci men Type: BLOOD SPECIMEN Ordering Facility: [facility] Address: [address] [place] [address] Performed By: #### 2 4323-8, 6-3, 11779-0, 2776- #### [facility] CLIA [id number] [address] [place] [address] [place] Glucose Test strip (U) [Mass/Vol] Negative Normal Negative [facility] Comment on above: Order Comment: Speci men Type: BLOOD SPECIMEN Ordering Facility: [facility] Address: [address] [place] [address] Performed By: #### 2 4323-8, 3015-3, , 2776-05 #### [facility] CLIA [id number] [address] [place] [address] [place] Hemoglobin Ql (U) Negative Normal Negative [facility] Comment on above: Order Comment: Speci men Type: BLOOD SPECIMEN Ordering Facility: [facility] Address: [address] [place] [address] Performed By: #### 2 4323-8, 3015-3, , 2776-05 #### [facility] CLIA [id number] [address] [place] [address] [place] Hyaline casts (Urine sed) [#/Area] 0 /[LPF] Normal 0 /LPF [facility] Comment on above: Order Comment: Speci men Type: BLOOD SPECIMEN Ordering Facility: [facility] Address: [address] [place] [address] Performed By: #### 2 4323-8, 6-3, 25814-9, 2776- #### [facility] CLIA [id number] [address] [place] [address] [place] Ketones Ql (U) Negative Normal Negative [facility] Comment on above: Order Comment: Speci men Type: BLOOD SPECIMEN Ordering Facility: [facility] Address: [address] [place] [address] Performed By: #### 2 4323-8, 3016-3, 96342-9, 2776- #### [facility] CLIA [id number] [address] [place] [address] [place] Leukocyte esterase Test strip Ql (U) Negative Normal Negative [facility] Comment on above: Order Comment: Speci men Type: BLOOD SPECIMEN Ordering Facility: [facility] Address: [address] [place] [address] Performed By: #### 2 4323-8, 6-3, , 2776-05 #### [facility] CLIA [id number] [address] [place] [address] [place] Nitrite Ql (U) Negative Normal Negative [facility] Comment on above: Order Comment: Speci men Type: BLOOD SPECIMEN Ordering Facility: [facility] Address: [address] [place] [address] Performed By: #### 2 4323-8, 6-3, , 2776-05 #### [facility] CLIA [id number] [address] [place] [address] [place] pH (U) 7.0 [pH] Normal <8.5 [facility] Comment on above: Order Comment: Speci men Type: BLOOD SPECIMEN Ordering Facility: [facility] Address: [address] [place] [address] Performed By: #### 2 4323-8, 6-3, 36301-0, 2776- #### [facility] CLIA [id number] [address] [place] [address] [place] Protein (U) [Mass/Vol] Negative Normal Negative [facility] Comment on above: Order Comment: Speci men Type: BLOOD SPECIMEN Ordering Facility: [facility] Address: [address] [place] [address] Performed By: #### 2 4323-8, 3016-3, 98657-8, 2776- #### [facility] CLIA [id number] [address] [place] [address] [place] RBC LM.HPF (Urine sed) [#/Area] 0-2 /HPF Normal 0-2 /HPF [facility] Comment on above: Order Comment: Speci men Type: BLOOD SPECIMEN Ordering Facility: [facility] Address: [address] [place] [address] Performed By: #### 2 4323-8, 3016-3, , 2776-05 #### [facility] CLIA [id number] [address] [place] [address] [place] Specific gravity (U) [Rel density] 1.021 Normal 1.005-1.030 [facility] Comment on above: Order Comment: Speci men Type: BLOOD SPECIMEN Ordering Facility: [facility] Address: [address] [place] [address] Performed By: #### 2 4323-8, 6-3, , 2776-05 #### [facility] CLIA [id number] [address] [place] [address] [place] Urobilinogen Ql (U) 0.2 EU/dL Normal 0.2-1.0 EU/dL [facility] Comment on above: Order Comment: Speci men Type: BLOOD SPECIMEN Ordering Facility: [facility] Address: [address] [place] [address] Performed By: #### 2 4323-8, 3016-3, 49704-4, 2776-05 #### [facility] CLIA [id number] [address] [place] [address] [place] WBC LM.HPF (Urine sed) [#/Area] 0-5 /HPF Normal 0-5 /HPF [facility] Comment on above: Order Comment: Speci men Type: BLOOD SPECIMEN Ordering Facility: [facility] Address: [address] [place] [address] Performed By: #### 2 4323-8, 3016-3, 98155-6, 2777-1 #### [facility] CLIA [id number] [address] [place] [address] [place] Activated partial thrombopla stin time (aPTT) in platelet poor plasma by coagulation aOrdered By: Abrahan Lew on 10-25-2023 aPTT Coag (PPP) [Time] 26.8 s 25.1-36.5 [facility] Comment on above: A hematocrit value g reater than 55% may lead to inaccurate results in coagulation testing. Patients having hematocrit values >55% require a special collection tube for coagulation studies. Please contact the laboratory at [phone] for redraw instructions. Alanine aminotransferase [En zymatic activity/volume] in Serum or PlasmaOrdered By: Abrahan Lew on 10-25-2023 ALT [Catalytic activity/Vol] 15 U/L Normal 7-52 [facility] Comment on above: Performed By: #### C UBLD, LACTIC #### [facility] [address] [place] [id number] [place] Albumin [Mass/volume] in Ser um or Plasma by Bromocresol green (BCG) dye binding methoOrdered By: Abrahan Lew on 10-25-2023 Albumin BCG dye [Mass/Vol] 4.8 g/dL 3.5-5.7 [facility] Alkaline phosphatase [Enzyma tic activity/volume] in Serum or PlasmaOrdered By: Abrahan Lew on 10-25-2023 ALP [Catalytic activity/Vol] 39 U/L Normal 34-104 [facility] Comment on above: Performed By: #### C UBLD, LACTIC #### [facility] [address] [id number] [place] Amphetamine Screen Ql (U)Ord ered By: Abrahan Lew on 10-25-2023 Amphetamines Ql (U) Negative Negative [facility] Aspartate aminotransferase [ Enzymatic activity/volume] in Serum or PlasmaOrdered By: Abrahan Lew on 10-25-2023 AST [Catalytic activity/Vol] 14 U/L Normal 13-39 [facility] Comment on above: Performed By: #### C UBLD, LACTIC #### [address] Automated basophil %Ordered By: Abrahan Lew on 10-25-2023 Basophils/100 WBC (Bld) 1.1 % Normal . [facility] Comment on above: Performed By: #### C UBLD, LACTIC #### [address] Automated basophil countOrde red By: Abrahan Lew on 10-25-2023 Basophils (Bld) [#/Vol] 0.2 10*3/uL Normal 0.0-0.2 [facility] Comment on above: Result Comment: PERF ORMED BY: [place] [address] PATHOLOGIST WATER/WASTEWATER PROJECT ENGINEER CANDY KELLOGG M.D. Performed By: #### C UBLD, LACTIC #### [address] Automated blood monocyte cou ntOrdered By: Abrahan Lew on 10-25-2023 Monocytes (Bld) [#/Vol] 0.9 10*3/uL High 0.0-0.8 [facility] Comment on above: Performed By: #### C UBLD, LACTIC #### [address] Automated eosinophil %Ordere d By: Abrahan Lew on 10-25-2023 Eosinophils/100 WBC (Bld) 0.4 % Normal . [facility] Comment on above: Performed By: #### C UBLD, LACTIC #### [address] Automated eosinophil countOr dered By: Abrahan Lew on 10-25-2023 Eosinophils (Bld) [#/Vol] 0.1 10*3/uL Normal 0.0-0.45 [facility] Comment on above: Performed By: #### C UBLD, LACTIC #### [address] Automated monocyte %Ordered By: Abrahan Lew on 10-25-2023 Monocytes/100 WBC (Bld) 6.7 % Normal . [facility] Comment on above: Performed By: #### C UBLD, LACTIC #### [address] Automated neutrophil %Ordere d By: Abrahan Lew on 10-25-2023 Neutrophils/100 WBC (Bld) 63.6 % Normal . [facility] Comment on above: Performed By: #### C UBLD, LACTIC #### [address] BNP ser/plasOrdered By: Edmond Lew on 10-25-2023 Natriuretic peptide B (Bld) [Mass/Vol] 9.0 pg/mL Normal 5-100 [facility] Comment on above: Result Comment: PERF ORMED BY: [place] [address] PATHOLOGIST WATER/WASTEWATER PROJECT ENGINEER CANDY KELLOGG M.D. Performed By: #### C UBLD, LACTIC #### [address] Barbiturates [Presence] in U rine by Screen methodOrdered By: Abrahan Lew on 10-25-2023 Barbiturates Screen Ql (U) Negative Negative [facility] Basic Metabolic Panelon 10-05 Creatinine Clr Calc Pharmacy 123.29 Normal [facility] Comment on above: Performed By: #### C UBLD, LACTIC #### [address] GFR/1.73 sq M.predicted MDRD (S/P/Bld) [Vol rate/Area] mL/min/{1.73_m2} Normal [facility] Comment on above: Performed By: #### C UBLD, LACTIC #### [address] Benzodiazepines Screen Ql (U )Ordered By: Abrahan Lew on 10-25-2023 Benzodiazepines Ql (U) Negative Negative [facility] Benzoylecgonine [Presence] i n Urine by Screen methodOrdered By: Abrahan Lew on 10-25-2023 Benzoylecgonine Screen Ql (U) Negative Negative [facility] Bilirubin Test strip Ql (U)O rdered By: Abrahan Lew on 10-25-2023 Bilirubin Ql (U) Negative Negative [facility] Bilirubin.direct [Mass/volum e] in Serum or PlasmaOrdered By: Abrahan Lew on 10-25-2023 Bilirubin.direct [Mass/Vol] 0.10 mg/dL 0.03-0.18 [facility] Bilirubin.total [Mass/volume ] in Serum or PlasmaOrdered By: Abrahan Lew on 10-25-2023 Bilirubin [Mass/Vol] 0.3 mg/dL Normal 0.3-1.[address] [facility] Comment on above: Performed By: #### C UBLD, LACTIC #### [address] Blood Cultureon 10-25-2023 Bacteria identified Cx Nom (Bld) NO GROWTH 5 DAYS PERFORMED BY: [place] [address] PATHOLOGIST WATER/WASTEWATER PROJECT ENGINEER CANDY KELLOGG M.D. Normal [facility] Comment on above: Performed By: #### C UBLD, LACTIC #### [address] Bacteria identified Cx Nom (Bld) NO GROWTH 5 DAYS PERFORMED BY: [place] [address] PATHOLOGIST WATER/WASTEWATER PROJECT ENGINEER CANDY KELLOGG M.D. Normal [facility] Comment on above: Performed By: #### C UBLD, LACTIC #### [address] abdomen pelvis w conon CT abdomen pelvis w con [facility] [address] [place], [place] [id number] CT Scan Report Signed Patient: Jessie Alva MR#: [id number] : 2000 Acct:[id number] Age/Sex: 23 / F ADM Date: 10/25/23 Loc: ER Room: Type: [facility] ER Attending Dr: Copies to: Abrahan Lew DO Ordering Provider: Abarhan Lew DO Date of Service: 10/25/23 CT/CT [...] Boone Wang M.D.10/25/2023 1:03 PM Dictation Location: [place] [address] Transcribed By: [facility] 10/25/23 1303 Dictated By: Boone Wang DO 10/25/23 1256 Signed By: 10/25/23 1303 Normal [facility] CT head/brain wo conon 10-24 CT head/brain wo con [facility] [address] [place] [address] Scan Report Signed Patient: Jessie Alva MR#: [id number] : 2000 Acct:[id number] Age/Sex: 23 / F ADM Date: 10/25/23 Loc: ER Room: Type: [facility] ER Attending Dr: Copies to: Abrahan [...] Boone Wang M.D.10/25/2023 12:56 PM Dictation Location: [place] [address] Transcribed By: [facility] 10/25/23 1256 Dictated By: Boone Wang DO 10/25/23 1254 Signed By: 10/25/23 1256 Normal [facility] Calcium [Mass/volume] in Ser um or PlasmaOrdered By: Abrahan Lew on 10-25-2023 Calcium [Mass/Vol] 10.2 mg/dL Normal 8.6-10.3 [facility] Comment on above: Performed By: #### C UBLD, LACTIC #### [address] Cannabinoids [Presence] in U rine by Screen methodOrdered By: Abrahan Lew on 10-25-2023 Cannabinoids Screen Ql (U) Positive Negative [facility] Comment on above: These are unconfirme d results and should not be used for legal purposes. Drug Cut-Off Concentration: AMPH 1000 ng/mL VISHNU 200 ng/mL MAIRA 200 ng/mL COCM 300 ng/mL OP 300 ng/mL PCP 25 ng/mL THC 20 ng/mL Capillary blood glucose pavan urement by glucometer (mass/volume)Ordered By: Abrahan Lew on 10-25-2023 Glucose [Mass/Vol] 91 mg/dL Normal [facility] Comment on above: Random Glucose Refer ence Range is dependent on time and content of last meal. Glucose of more than 200 mg/dL in a nonstressed, ambulatory subject supports the diagnosis of Diabetes Mellitus. Result Comment: [place] om Glucose Reference Range is dependent on time and content of last meal. Glucose of more than 200 mg/dL in a nonstressed, ambulatory subject supports the diagnosis of Diabetes Mellitus. PERFORMED BY: [place] [address] PATHOLOGIST WATER/WASTEWATER PROJECT ENGINEER CANDY KELLOGG M.D. Performed By: #### C UBLD, LACTIC #### [place] [address] [place] Carbon dioxide, total [Moles /volume] in Serum or PlasmaOrdered By: Abrahan Lew on 10-25-2023 CO2 [Moles/Vol] 22.9 mmol/L Normal 21.0-31.0 [facility] Comment on above: Performed By: #### C UBLD, LACTIC #### [place] [address] [place] Chloride [Moles/volume] in S alirio or PlasmaOrdered By: Abrahan Lew on 10-25-2023 Chloride [Moles/Vol] 105 mmol/L Normal 98-[address] [facility] Comment on above: Performed By: #### C UBLD, LACTIC #### [place] [address] [place] Color of Urine by AutoOrdere d By: Abrahan Lew on 10-25-2023 Color (U) Yellow Normal Yellow [facility] Comment on above: Order Comment: Name Collection Type:: Clean-Voided Midstream Performed By: #### U HCG, UA, URDS #### [address] Complete Blood Count Auto Di ffon 10-25-2023 Mean Corpuscular HGB Conc 32.5 g/dL Normal 32.0-35.0 [facility] Comment on above: Performed By: #### C UBLD, LACTIC #### [address] Monocytes/100 WBC (Bld) 19.51 % Normal 0.00-20.00 [facility] Comment on above: Performed By: #### C UBLD, LACTIC #### [address] NRBC% 0.1 /100{WBC} Normal 0-0.5 [facility] Comment on above: Performed By: #### C UBLD, LACTIC #### [address] Creatine kinase [Enzymatic a ctivity/volume] in Serum or PlasmaOrdered By: Abrahan Lew on 10-25-2023 CK [Catalytic activity/Vol] 61 U/L Normal 30-223 [facility] Comment on above: Performed By: #### C UBLD, LACTIC #### [address] Creatinine [Mass/volume] in Serum or PlasmaOrdered By: Abrahan Lew on 10-25-2023 Creatinine [Mass/Vol] 0.73 mg/dL Normal 0.60-1.20 [facility] Comment on above: Performed By: #### C UBLD, LACTIC #### [place] [address] [place] Drug Screen,Urineon 10-25-19 24 Amphetamine Screen,Urine Negative Normal Negative [facility] Comment on above: Performed By: #### U HCG, UA, URDS #### [address] Barbiturate Screen,Urine Negative Normal Negative [facility] Comment on above: Performed By: #### U HCG, UA, URDS #### [address] Benzodiazepines Screen,Urine Negative Normal Negative [facility] Comment on above: Performed By: #### U HCG, UA, URDS #### [address] Cannabinoid Screen,Urine Positive High Negative [facility] Comment on above: Result Comment: Thes e are unconfirmed results and should not be used for legal purposes. Drug Cut-Off Concentration: AMPH 1000 ng/mL VISHNU 200 ng/mL MAIRA 200 ng/mL COCM 300 ng/mL OP 300 ng/mL PCP 25 ng/mL THC 20 ng/mL PERFORMED BY: [place] [address] PATHOLOGIST WATER/WASTEWATER PROJECT ENGINEER CANDY KELLOGG M.D. Performed By: #### U HCG, UA, URDS #### [address] Cocaine Screen,Urine Negative Normal Negative [facility] Comment on above: Performed By: #### U HCG, UA, URDS #### [address] Opiate Screen,Urine Negative Normal Negative [facility] Comment on above: Performed By: #### U HCG, UA, URDS #### [address] Phencyclidine Screen,Urine Negative Normal Negative [facility] Comment on above: Performed By: #### U HCG, UA, URDS #### [address] ECG 12 lead ECGon 10-25-2023 ECG 12 lead ECG [facility] [address] [place] [address] Electrocardiograph Report Signed Patient: Jessie Avla MR#: [id number] : 2000 Acct:[id number] Age/Sex: 23 / F ADM Date: 10/25/23 Loc: ER Room: Type: [facility] ER Attending Dr: Ordering Provider: Abrahan Lew [...] was found Confirmed by Abrahan Lew DO ([id number]) on 10/25/2023 3:08:43 PM Referred By: Electronically Signed By:Abrahan Lew DO Transcribed By: MUS Signed By Abrahan Lew DO 4 1509 Normal [facility] Erythrocyte distribution wid th [Ratio] by Automated countOrdered By: Abrahan Lew on 10-25-2023 Erythrocyte distribution width (RBC) [Ratio] 16.2 % High 11.9-15.3 [facility] Comment on above: Performed By: #### C UBLD, LACTIC #### [facility] [address] [place] [address] Erythrocytes [#/volume] in B lood by Automated countOrdered By: Abrahan Lew on 10-25-2023 RBC (Bld) [#/Vol] 4.49 10*6/uL Normal 3.60-5.00 [facility] Comment on above: Performed By: #### C UBLD, LACTIC #### [facility] [address] [place] [address] Ethanol [Mass/volume] in Ser um or PlasmaOrdered By: Abrahan Lew on 10-25-2023 Ethanol [Mass/Vol] mg/dL Normal [facility] Comment on above: Performed By: #### C UBLD, LACTIC #### [facility] [address] [place] [address] Ethanol [Mass/Vol] TNP [facility] Comment on above: Test not performed Ethyl Alcohol Profileon 10-05 Percent Ethanol Not performed Normal [facility] Comment on above: Result Comment: PERF ORMED BY: [place] [address] PATHOLOGIST WATER/WASTEWATER PROJECT ENGINEER CANDY KELLOGG M.D. Performed By: #### C UBLD, LACTIC #### [place] [id number] [place] Glucose [Mass/volume] in Ser um or PlasmaOrdered By: Abrahan Lew on 10-25-2023 Glucose [Mass/Vol] 91 mg/dL Normal 70-100 [facility] Comment on above: ADA recommended refe rence rangeRandom Glucose Reference Range is dependent on time and content of last meal. Glucose of more than 200 mg/dL in a nonstressed, ambulatory subject supports the diagnosis of Diabetes Mellitus. Result Comment: [place] om Glucose Reference Range is dependent on time and content of last meal. Glucose of more than 200 mg/dL in a nonstressed, ambulatory subject supports the diagnosis of Diabetes Mellitus. ADA recommended reference range Performed By: #### C UBLD, LACTIC #### [address] HCG ( test) IA.rapi d Ql (U)Ordered By: Abrahan Lew on 10-25-2023 HCG ( test) Ql (U) Negative [facility] HCG,Urineon 10-25-2023 Beta HCG ( test) Ql (U) Negative Normal [facility] Comment on above: Order Comment: Name Collection Type:: Clean-Voided Midstream Result Comment: PERF ORMED BY: [place] [address] PATHOLOGIST WATER/WASTEWATER PROJECT ENGINEER CANDY KELLOGG M.D. Performed By: #### U HCG, UA, URDS #### [place] [id number] [place] Hematocrit [Volume Fraction] of Blood by Automated countOrdered By: Abrahan Lew on 10-25-2023 Hematocrit (Bld) [Volume fraction] 39.3 % Normal 34.0-46.4 [facility] Comment on above: Performed By: #### C UBLD, LACTIC #### [place] [id number] [place] Hemoglobin [Mass/volume] in BloodOrdered By: Abrahan Lew on 10-25-2023 Hemoglobin (Bld) [Mass/Vol] 12.8 g/dL Normal 11.8-15.4 [facility] Comment on above: Performed By: #### C UBLD, LACTIC #### [facility] [address] Hepatic Panelon 10-25-2023 Albumin [Mass/Vol] 4.8 g/dL Normal 3.5-5.7 [facility] Comment on above: Performed By: #### C UBLD, LACTIC #### [facility] [address] Bilirubin,Indirect 0.2 mg/dL Normal [facility] Comment on above: Performed By: #### C UBLD, LACTIC #### [facility] [address] Bilirubin.indirect [Mass/Vol] 0.10 mg/dL Normal 0.03-0.18 [facility] Comment on above: Performed By: #### C UBLD, LACTIC #### [address] INR in Platelet poor plasma by Coagulation assayOrdered By: Abrahan Lew on 10-25-2023 INR Coag (PPP) [Relative time] 1.2 {INR} Normal [facility] Comment on above: INR Therapeutic Rang e [...] Performed By: #### C UBLD, LACTIC #### [place] [id number] [place] Ketones Auto test strip (U) [Mass/Vol]Ordered By: Abrahan Lew on 10-25-2023 Ketones (U) [Mass/Vol] Negative Negative [facility] Lactate [Moles/volume] in Se rum or PlasmaOrdered By: Abrahan Lew on 10-25-2023 Lactate [Moles/Vol] 1.4 mmol/L Normal 0.5-2.2 [facility] Comment on above: Result Comment: PERF ORMED BY: [place] [address] PATHOLOGIST WATER/WASTEWATER PROJECT ENGINEER CANDY KELLOGG M.D. Performed By: #### C UBLD, LACTIC #### [facility] [address] [place] [address] Leukocytes [#/volume] correc jalil for nucleated erythrocytes in Blood by Automated counOrdered By: Abrahan Lew on 10-25-2023 WBC corrected for nucl RBC Auto (Bld) [#/Vol] 14.0 10*3/uL 3.8-11.6 [facility] Leukocytes [#/volume] in Blo od by Automated countOrdered By: Abrahan Lew on 10-25-2023 WBC (Bld) [#/Vol] 14.0 10*3/uL High 3.8-11.6 [facility] Comment on above: Performed By: #### C UBLD, LACTIC #### [facility] [address] [place] [address] Lipase [Enzymatic activity/v olume] in Serum or PlasmaOrdered By: Abrahan Lew on 10-25-2023 Lipase [Catalytic activity/Vol] 8.0 U/L Low 11.0-82.0 [facility] Comment on above: Result Comment: PERF ORMED BY: [place] [address] PATHOLOGIST WATER/WASTEWATER PROJECT ENGINEER CANDY KELLOGG M.D. Performed By: #### C UBLD, LACTIC #### [facility] [address] [place] [address] Lymphocytes [#/volume] in Bl ood by Automated countOrdered By: Abrahan Lew on 10-25-2023 Lymphocytes (Bld) [#/Vol] 4.0 10*3/uL Normal 1.00-4.8 [facility] Comment on above: Performed By: #### C UBLD, LACTIC #### [address] Lymphocytes/100 leukocytes i n Blood by Automated countOrdered By: Abrahan Lew on 10-25-2023 Lymphocytes/100 WBC (Bld) 28.2 % Normal . [facility] Comment on above: Performed By: #### C UBLD, LACTIC #### [address] MCH [Entitic mass] by Automa jalil countOrdered By: Abrahan Lew on 10-25-2023 MCH (RBC) [Entitic mass] 28.4 pg Normal 24.7-34.3 [facility] Comment on above: Performed By: #### C UBLD, LACTIC #### [address] MCHC Auto (RBC) [Mass/Vol]Or dered By: Abrahan Lew on 10-25-2023 MCHC (RBC) [Mass/Vol] 32.5 g/dL 32.0-35.0 [facility] MCV [Entitic volume] by Auto mated countOrdered By: Abrahan Lew on 10-25-2023 MCV (RBC) [Entitic vol] 87.4 fL Normal 80-100 [facility] Comment on above: Performed By: #### C UBLD, LACTIC #### [place] [address] [place] Magnesium [Mass/volume] in S alirio or PlasmaOrdered By: Abrahan Lew on 10-25-2023 Magnesium [Mass/Vol] 1.9 mg/dL Normal 1.9-2.[address] [facility] Comment on above: Performed By: #### C UBLD, LACTIC #### [place] [address] [place] Monocyte distribution width [Entitic volume] in Blood by AutomatedOrdered By: Abrahan Lew on 10-25-2023 Monocyte distribution width Auto (Bld) [Entitic vol] 19.51 % 0.00-20.00 [facility] Neutrophils [#/volume] in Bl ood by Automated countOrdered By: Abrahan Lew on 10-25-2023 Neutrophils (Bld) [#/Vol] 8.9 10*3/uL High 1.8-7.7 [facility] Comment on above: Performed By: #### C UBLD, LACTIC #### [facility] [address] [place] [address] Nitrite Test strip Ql (U)Ord ered By: Abrahan Lew on 10-25-2023 Nitrite Ql (U) Negative Negative [facility] No Panel InformationOrdered By: Abrahan Lew on 10-25-2023 Estimated GFR (CKD-EPI) > 60.0 mL/Min [facility] Creatinine Clearance (Chem 123.29 [facility] Nucleated erythrocytes [Pres ence] in Blood by Automated countOrdered By: Abrahan Lew on 10-25-2023 Nucleated RBC Auto Ql (Bld) 0.1 /100{WBC} 0-0.5 [facility] Opiates [Presence] in Urine by Screen methodOrdered By: Abrahan Lew on 10-25-2023 Opiates Screen Ql (U) Negative Negative [facility] Partial Thromboplastin Timeo n 10-25-2023 aPTT Coag (Bld) [Time] 26.8 s Normal 25.1-36.5 [facility] Comment on above: Result Comment: A he matocrit value greater than 55% may lead to inaccurate results in coagulation testing. Patients having hematocrit values >55% require a special collection tube for coagulation studies. Please contact the laboratory at [phone] for redraw instructions. PERFORMED BY: [place] [address] PATHOLOGIST WATER/WASTEWATER PROJECT ENGINEER CANDY KELLOGG M.D. Performed By: #### C UBLD, LACTIC #### [facility] [address] [place] [address] Phencyclidine Screen Ql (U)O rdered By: Abrahan Lew on 10-25-2023 Phencyclidine Ql (U) Negative Negative [facility] Platelet mean volume [Entiti c volume] in Blood by Automated countOrdered By: Abrahan Lew on 10-25-2023 Platelet mean volume (Bld) [Entitic vol] 7.1 fL Normal 6.3-10.7 [facility] Comment on above: Performed By: #### C UBLD, LACTIC #### [facility] [address] [place] [address] Platelets [#/volume] in Bloo d by Automated countOrdered By: Abrahan Lew on 10-25-2023 Platelets (Bld) [#/Vol] 492 10*3/uL High 150-450 [facility] Comment on above: Performed By: #### C UBLD, LACTIC #### [address] Potassium [Moles/volume] in Serum or PlasmaOrdered By: Abrahan Lew on 10-25-2023 Potassium [Moles/Vol] 3.7 mmol/L Normal 3.5-5.1 [facility] Comment on above: Performed By: #### C UBLD, LACTIC #### [address] Protein Auto test strip (U) [Mass/Vol]Ordered By: Abrahan Lew on 10-25-2023 Protein (U) [Mass/Vol] Negative Negative [facility] Protein [Mass/volume] in Ser um or PlasmaOrdered By: Abrahan Lew on 10-25-2023 Protein [Mass/Vol] 8.7 g/dL Normal 6.4-8.9 [facility] Comment on above: Performed By: #### C UBLD, LACTIC #### [address] Prothrombin time (PT)Ordered By: Abrahan Lew on 10-25-2023 PT Coag (PPP) [Time] 13.3 s High 9.0-12.[address] [facility] Comment on above: A hematocrit value g reater than 55% may lead to inaccurate results in coagulation testing. Patients having hematocrit values >55% require a special collection tube for coagulation studies. Please contact the laboratory at [phone] for redraw instructions. Result Comment: A he matocrit value greater than 55% may lead to inaccurate results in coagulation testing. Patients having hematocrit values >55% require a special collection tube for coagulation studies. Please contact the laboratory at [phone] for redraw instructions. Performed By: #### C UBLD, LACTIC #### [address] Serum globulin measurement b y calculation (mass/volume)Ordered By: Abrahan Lew on Globulin (S) [Mass/Vol] 3.9 g/dL [facility] Comment on above: Performed By: #### C UBLD, LACTIC #### [address] Serum or plasma albumin/glob ulin mass ratioOrdered By: Abrahan Lew on 10-25-2023 Albumin/Globulin [Mass ratio] 1.2 {ratio} [facility] Comment on above: Performed By: #### C UBLD, LACTIC #### [address] Serum or plasma anion gap de terminationOrdered By: Abrahan Lew on 10-25-2023 Anion gap [Moles/Vol] 10.8 mmol/L Normal 6.0-15.0 [facility] Comment on above: Performed By: #### C UBLD, LACTIC #### [address] Serum or plasma non-glucuron idated bilirubin measurement (mass/volume)Ordered By: Abrahan Lew on 10-25-2023 Bilirubin.indirect [Mass/Vol] 0.2 mg/dL [facility] Sodium [Moles/volume] in Ser um or PlasmaOrdered By: Abrahan Lew on 10-25-2023 Sodium [Moles/Vol] 135 mmol/L Low 136-145 [facility] Comment on above: Performed By: #### C UBLD, LACTIC #### [address] Specific gravity Auto test s trip (U) [Rel density]Ordered By: Abrahan Lew on 10-25-2023 Specific gravity (U) [Rel density] 1.004 1.001-1.030 [facility] Troponin I High Sensitivityo n 10-25-2023 Troponin I High Sensitivity < 2.3 Normal 0.0-15.0 [facility] Comment on above: Result Comment: PERF ORMED BY: [place] [address] PATHOLOGIST WATER/WASTEWATER PROJECT ENGINEER CANDY KELLOGG M.D. Performed By: #### C UBLD, LACTIC #### [address] Troponin I.cardiac [Mass/vol ume] in Serum or Plasma by Detection limit <= 0.01 ng/Ordered By: Abrahan Lew on 10-25-2023 Troponin I.cardiac DL <= 0.01 ng/mL [Mass/Vol] < 2.3 pg/mL 0.0-15.0 [facility] Urea nitrogen [Mass/volume] in Serum or PlasmaOrdered By: Abrahan Lew on 10-25-2023 Urea nitrogen [Mass/Vol] 9 mg/dL Normal 7-25 [facility] Comment on above: Performed By: #### C UBLD, LACTIC #### [address] Urinalysison 10-25-2023 Appearance (U) Clear Normal Clear [facility] Comment on above: Order Comment: Name Collection Type:: Clean-Voided Midstream Performed By: #### U HCG, UA, URDS #### [address] Bilirubin,Urine Negative Normal Negative [facility] Comment on above: Order Comment: Name Collection Type:: Clean-Voided Midstream Performed By: #### U HCG, UA, URDS #### [address] Glucose Ql (U) Normal Normal Normal [facility] Comment on above: Order Comment: Name Collection Type:: Clean-Voided Midstream Performed By: #### U HCG, UA, URDS #### [address] Ketones Ql (U) Negative Normal Negative [facility] Comment on above: Order Comment: Name Collection Type:: Clean-Voided Midstream Performed By: #### U HCG, UA, URDS #### [address] Leukocyte esterase Test strip Ql (U) Negative Normal Negative [facility] Comment on above: Order Comment: Name Collection Type:: Clean-Voided Midstream Performed By: #### U HCG, UA, URDS #### [address] Nitrite,Urine Negative Normal Negative [facility] Comment on above: Order Comment: Name Collection Type:: Clean-Voided Midstream Performed By: #### U HCG, UA, URDS #### [address] Occult Blood,Urine Negative Normal Negative [facility] Comment on above: Order Comment: Name Collection Type:: Clean-Voided Midstream Performed By: #### U HCG, UA, URDS #### [address] Protein,Urine Negative Normal Negative [facility] Comment on above: Order Comment: Name Collection Type:: Clean-Voided Midstream Performed By: #### U HCG, UA, URDS #### [address] Specificy [place],Urine 1.004 Normal 1.001-1.030 [facility] Comment on above: Order Comment: Name Collection Type:: Clean-Voided Midstream Performed By: #### U HCG, UA, URDS #### [address] Urobilinogen,Urine Normal Normal Normal [facility] Comment on above: Order Comment: Name Collection Type:: Clean-Voided Midstream Performed By: #### U HCG, UA, URDS #### [address] Urine clarity by refractomet ry automatedOrdered By: Abrahan Lew on 10-25-2023 Clarity Refractometry automated (U) Clear Clear [facility] Urine glucose measurement by automated test strip (mass/volume)Ordered By: Abrahan Lew on 10-25-2023 Glucose Auto test strip (U) [Mass/Vol] Normal mg/dL Normal [facility] Urine hemoglobin detection b y automated test stripOrdered By: Abrahan Lew on 10-25-2023 Hemoglobin Auto test strip Ql (U) Negative Negative [facility] Urine leukocyte esterase det ection by automated test stripOrdered By: Abrahan Lew on 10-25-2023 Leukocyte esterase Auto test strip Ql (U) Negative Negative [facility] Urine pH measurement by auto mated test stripOrdered By: Abrahan Lew on 10-25-2023 pH (U) 7.5 [pH] Normal 5.0-9.0 [facility] Comment on above: Order Comment: Name Collection Type:: Clean-Voided Midstream Performed By: #### U HCG, UA, URDS #### [address] Urobilinogen Auto test strip (U) [Mass/Vol]Ordered By: Abrahan Lew on 10-25-2023 Urobilinogen (U) [Mass/Vol] Normal mg/dL Normal [facility] XR chest 1V portableon 10-24 XR chest 1V portable [facility] [address] [place] [address] XRay Report Signed Patient: Jessie Alva MR#: [id number] : 2000 Acct:[id number] Age/Sex: 23 / F ADM Date: 10/25/23 Loc: ER Room: Type: [facility] ER Attending Dr: Copies to: Abrahan [...] Italo Feldman M.D.10/25/2023 11:45 AM Dictation Location: [place] [address] Transcribed By: YESSENIA 10/25/23 1145 Dictated By: Italo Feldman II, MD 10/25/23 1145 Signed By: 10/25/23 1145 Normal [facility] Alanine aminotransferase [En zymatic activity/volume] in Serum or PlasmaOrdered By: Ramiro Schaefer on 10-23-2023 ALT [Catalytic activity/Vol] 15 U/L Normal 7-52 [facility] Comment on above: Performed By: #### C UBLD, LACTIC #### [facility] [address] [place] [address] Albumin [Mass/volume] in Ser um or Plasma by Bromocresol green (BCG) dye binding methoOrdered By: Ramiro Schaefer on 10-23-2023 Albumin BCG dye [Mass/Vol] 4.4 g/dL 3.5-5.7 [facility] Alkaline phosphatase [Enzyma tic activity/volume] in Serum or PlasmaOrdered By: Ramiro Schaefer on 10-23-2023 ALP [Catalytic activity/Vol] 38 U/L Normal 34-104 [facility] Comment on above: Performed By: #### C UBLD, LACTIC #### [facility] [address] [place] [address] [place] Amphetamine Screen Ql (U)Ord ered By: Ramiro Schaefer on 10-23-2023 Amphetamines Ql (U) Negative Negative [facility] Aspartate aminotransferase [ Enzymatic activity/volume] in Serum or PlasmaOrdered By: Ramiro Schaefer on 10-23-2023 AST [Catalytic activity/Vol] 15 U/L Normal 13-39 [facility] Comment on above: Performed By: #### C UBLD, LACTIC #### [place] [address] [place] Automated basophil %Ordered By: Ramiro Schaefer on 10-23-2023 Basophils/100 WBC (Bld) 0.2 % Normal . [facility] Comment on above: Performed By: #### C UBLD, LACTIC #### [address] Automated basophil countOrde red By: Ramiro Schaefer on 10-23-2023 Basophils (Bld) [#/Vol] 0.0 10*3/uL Normal 0.0-0.2 [facility] Comment on above: Result Comment: PERF ORMED BY: [place] [address] PATHOLOGIST WATER/WASTEWATER PROJECT ENGINEER CANDY KELLOGG M.D. Performed By: #### C UBLD, LACTIC #### [address] Automated blood monocyte cou ntOrdered By: Ramiro Schaefer on 10-23-2023 Monocytes (Bld) [#/Vol] 0.7 10*3/uL Normal 0.0-0.8 [facility] Comment on above: Performed By: #### C UBLD, LACTIC #### [address] Automated eosinophil %Ordere d By: Ramiro Schaefer on 10-23-2023 Eosinophils/100 WBC (Bld) 0.9 % Normal . [facility] Comment on above: Performed By: #### C UBLD, LACTIC #### [address] Automated eosinophil countOr dered By: Ramiro Schaefer on 10-23-2023 Eosinophils (Bld) [#/Vol] 0.1 10*3/uL Normal 0.0-0.45 [facility] Comment on above: Performed By: #### C UBLD, LACTIC #### [address] Automated monocyte %Ordered By: Ramiro Schaefer on 10-23-2023 Monocytes/100 WBC (Bld) 6.8 % Normal . [facility] Comment on above: Performed By: #### C UBLD, LACTIC #### [facility] [address] Automated neutrophil %Ordere d By: Ramiro Schaefer on 10-23-2023 Neutrophils/100 WBC (Bld) 56.3 % Normal . [facility] Comment on above: Performed By: #### C UBLD, LACTIC #### [facility] [address] Barbiturates [Presence] in U rine by Screen methodOrdered By: Ramiro Schaefer on 10-23-2023 Barbiturates Screen Ql (U) Negative Negative [facility] Basic Metabolic Panelon 10-04 Creatinine Clr Cal[facility] Pharmacy 118.15 Normal [facility] Comment on above: Performed By: #### C UBLD, LACTIC #### [address] GFR/1.73 sq M.predicted MDRD (S/P/Bld) [Vol rate/Area] mL/min/{1.73_m2} Normal [facility] Comment on above: Performed By: #### C UBLD, LACTIC #### [facility] [address] [place] [address] Benzodiazepines Screen Ql (U )Ordered By: Ramiro Schaefer on 10-23-2023 Benzodiazepines Ql (U) Negative Negative [facility] Benzoylecgonine [Presence] i n Urine by Screen methodOrdered By: Ramiro Schaefer on 10-23-2023 Benzoylecgonine Screen Ql (U) Negative Negative [facility] Bilirubin Test strip Ql (U)O rdered By: Ramiro Schaefer on 10-23-2023 Bilirubin Ql (U) Negative Negative [facility] Bilirubin.direct [Mass/volum e] in Serum or PlasmaOrdered By: Ramiro Schaefer on 10-23-2023 Bilirubin.direct [Mass/Vol] 0.10 mg/dL 0.03-0.18 [facility] Bilirubin.total [Mass/volume ] in Serum or PlasmaOrdered By: Ramiro Schaefer on 10-23-2023 Bilirubin [Mass/Vol] 0.3 mg/dL Normal 0.3-1.[address] [facility] Comment on above: Performed By: #### C UBLD, LACTIC #### [address] head/brain wo conon 10-22 CT head/brain wo con [facility] [address] [place] [address] CT Scan Report Signed Patient: Jessie Alva MR#: [id number] : 2000 Acct:[id number] Age/Sex: 23 / F ADM Date: 10/23/23 Loc: ER Room: Type: [facility] ER Attending Dr: Copies to: Ramiro [...] Boone Wang M.D.10/23/2023 12:46 PM Dictation Location: [place] [address] Transcribed By: [facility] 10/23/23 1246 Dictated By: Boone Wang DO 10/23/23 1244 Signed By: 10/23/23 1246 Normal [facility] Calcium [Mass/volume] in Ser um or PlasmaOrdered By: Ramiro Schaefer on 10-23-2023 Calcium [Mass/Vol] 9.6 mg/dL Normal 8.6-10.3 [facility] Comment on above: Performed By: #### C UBLD, LACTIC #### [address] Cannabinoids [Presence] in U rine by Screen methodOrdered By: Ramiro Schaefer on 10-23-2023 Cannabinoids Screen Ql (U) Positive Negative [facility] Comment on above: These are unconfirme d results and should not be used for legal purposes. Drug Cut-Off Concentration: AMPH 1000 ng/mL VISHNU 200 ng/mL MAIRA 200 ng/mL COCM 300 ng/mL OP 300 ng/mL PCP 25 ng/mL THC 20 ng/mL Carbon dioxide, total [Moles /volume] in Serum or PlasmaOrdered By: Ramiro Schaefer on 10-23-2023 CO2 [Moles/Vol] 26.1 mmol/L Normal 21.0-31.0 [facility] Comment on above: Performed By: #### C UBLD, LACTIC #### [place] [address] [place] Chloride [Moles/volume] in S alirio or PlasmaOrdered By: Ramiro Schaefer on 10-23-2023 Chloride [Moles/Vol] 106 mmol/L Normal 98-[address] [facility] Comment on above: Performed By: #### C UBLD, LACTIC #### [address] Color of Urine by AutoOrdere d By: Ramiro Schaefer on 10-23-2023 Color (U) Colorless Normal Yellow [facility] Comment on above: Order Comment: Name Collection Type:: Clean-Voided Midstream Performed By: #### U HCG, URDS, UA #### [address] Complete Blood Count Auto Di ffon 10-23-2023 Mean Corpuscular HGB Conc 33.0 g/dL Normal 32.0-35.0 [facility] Comment on above: Performed By: #### C UBLD, LACTIC #### [place] [address] [place] Monocytes/100 WBC (Bld) 18.82 % Normal 0.00-20.00 [facility] Comment on above: Performed By: #### C UBLD, LACTIC #### [address] NRBC% 0.1 /100{WBC} Normal 0-0.5 [facility] Comment on above: Performed By: #### C UBLD, LACTIC #### [address] Creatinine [Mass/volume] in Serum or PlasmaOrdered By: Ramiro Schaefer on 10-23-2023 Creatinine [Mass/Vol] 0.71 mg/dL Normal 0.60-1.20 [facility] Comment on above: Performed By: #### C UBLD, LACTIC #### [address] Drug Screen,Urineon 10-23-19 24 Amphetamine Screen,Urine Negative Normal Negative [facility] Comment on above: Performed By: #### C UBLD, LACTIC #### [address] Barbiturate Screen,Urine Negative Normal Negative [facility] Comment on above: Performed By: #### C UBLD, LACTIC #### [address] Benzodiazepines Screen,Urine Negative Normal Negative [facility] Comment on above: Performed By: #### C UBLD, LACTIC #### [address] Cannabinoid Screen,Urine Positive High Negative [facility] Comment on above: Result Comment: Thes e are unconfirmed results and should not be used for legal purposes. Drug Cut-Off Concentration: AMPH 1000 ng/mL VISHNU 200 ng/mL MAIRA 200 ng/mL COCM 300 ng/mL OP 300 ng/mL PCP 25 ng/mL THC 20 ng/mL PERFORMED BY: [place] [address] PATHOLOGIST WATER/WASTEWATER PROJECT ENGINEER CANDY KELLOGG M.D. Performed By: #### C UBLD, LACTIC #### [address] Cocaine Screen,Urine Negative Normal Negative [facility] Comment on above: Performed By: #### C UBLD, LACTIC #### [facility] [address] Opiate Screen,Urine Negative Normal Negative [facility] Comment on above: Performed By: #### C UBLD, LACTIC #### [facility] [address] Phencyclidine Screen,Urine Negative Normal Negative [facility] Comment on above: Performed By: #### C UBLD, LACTIC #### [facility] [address] ECG 12 lead ECGon 10-23-2023 ECG 12 lead ECG [facility] [address] [place] [address] Electrocardiograph Report Signed Patient: Jessie Alva MR#: [id number] : 2000 Acct:[id number] Age/Sex: 23 / F ADM Date: 10/23/23 Loc: ER Room: Type: [facility] ER Attending Dr: Ordering Provider: Ramiro Schaefer [...] in Lateral leads Confirmed by AMELIA MIRELES [facility], JACQUELINE ([id number]) on 10/25/2023 10:25:44 AM Referred By: Electronically Signed By:JACQUELINE MCGREGOR MD [facility] Transcribed By: MUS Signed By Jacqueline Mcgregor MD, [facility] 10/25/23 1025 Normal [facility] Erythrocyte distribution wid th [Ratio] by Automated countOrdered By: Ramiro Schaefer on 10-23-2023 Erythrocyte distribution width (RBC) [Ratio] 16.3 % High 11.9-15.3 [facility] Comment on above: Performed By: #### C UBLD, LACTIC #### [facility] [address] [place] [address] [place] Erythrocytes [#/volume] in B lood by Automated countOrdered By: Ramiro Schaefer on 10-23-2023 RBC (Bld) [#/Vol] 4.40 10*6/uL Normal 3.60-5.00 [facility] Comment on above: Performed By: #### C UBLD, LACTIC #### [facility] [address] Glucose [Mass/volume] in Ser um or PlasmaOrdered By: Ramiro Schaefer on 10-23-2023 Glucose [Mass/Vol] 95 mg/dL Normal 70-100 [facility] Comment on above: ADA recommended refe rence rangeRandom Glucose Reference Range is dependent on time and content of last meal. Glucose of more than 200 mg/dL in a nonstressed, ambulatory subject supports the diagnosis of Diabetes Mellitus. Result Comment: [place] om Glucose Reference Range is dependent on time and content of last meal. Glucose of more than 200 mg/dL in a nonstressed, ambulatory subject supports the diagnosis of Diabetes Mellitus. ADA recommended reference range Performed By: #### C UBLD, LACTIC #### [facility] [address] [place] [address] Glucose [Mass/volume] in Uri ne by Test stripOrdered By: Ramiro Schaefer on 10-23-2023 Glucose Test strip (U) [Mass/Vol] Normal mg/dL Normal [facility] HCG ( test) IA.rapi d Ql (U)Ordered By: Ramiro Schaefer on 10-23-2023 HCG ( test) Ql (U) Negative [facility] HCG,Urineon 10-23-2023 Beta HCG ( test) Ql (U) Negative Normal [facility] Comment on above: Order Comment: Name Collection Type:: Clean-Voided Midstream Result Comment: PERF ORMED BY: [place] [address] PATHOLOGIST WATER/WASTEWATER PROJECT ENGINEER CANDY KELLOGG M.D. Performed By: #### C UBLD, LACTIC #### [address] Hematocrit [Volume Fraction] of Blood by Automated countOrdered By: Ramiro Schaefer on 10-23-2023 Hematocrit (Bld) [Volume fraction] 38.6 % Normal 34.0-46.4 [facility] Comment on above: Performed By: #### C UBLD, LACTIC #### [address] Hemoglobin Test strip Ql (U) Ordered By: Ramiro Schaefer on 10-23-2023 Hemoglobin Ql (U) Negative Negative [facility] Hemoglobin [Mass/volume] in BloodOrdered By: Ramiro Schaefer on 10-23-2023 Hemoglobin (Bld) [Mass/Vol] 12.7 g/dL Normal 11.8-15.4 [facility] Comment on above: Performed By: #### C UBLD, LACTIC #### [address] Hepatic Panelon 10-23-2023 Albumin [Mass/Vol] 4.4 g/dL Normal 3.5-5.7 [facility] Comment on above: Performed By: #### C UBLD, LACTIC #### [address] Bilirubin,Indirect 0.2 mg/dL Normal [facility] Comment on above: Performed By: #### C UBLD, LACTIC #### [address] Bilirubin.indirect [Mass/Vol] 0.10 mg/dL Normal 0.03-0.18 [facility] Comment on above: Performed By: #### C UBLD, LACTIC #### [address] Ketones [Presence] in Urine by Test stripOrdered By: Ramiro Schaefer on 10-23-2023 Ketones Ql (U) Negative Normal Negative [facility] Comment on above: Order Comment: Name Collection Type:: Clean-Voided Midstream Performed By: #### U HCG, URDS, UA #### [facility] [address] [place] [address] [place] Leukocyte esterase [Presence ] in Urine by Test stripOrdered By: Ramiro Schaefer on 10-23-2023 Leukocyte esterase Test strip Ql (U) Negative Normal Negative [facility] Comment on above: Order Comment: Name Collection Type:: Clean-Voided Midstream Performed By: #### U HCG, URDS, UA #### [facility] [address] [place] [address] [place] Leukocytes [#/volume] correc jalil for nucleated erythrocytes in Blood by Automated counOrdered By: Ramiro Schaefer on 10-23-2023 WBC corrected for nucl RBC Auto (Bld) [#/Vol] 9.7 10*3/uL 3.8-11.6 [facility] Leukocytes [#/volume] in Blo od by Automated countOrdered By: Ramiro cShaefer on 10-23-2023 WBC (Bld) [#/Vol] 9.7 10*3/uL Normal 3.8-11.6 [facility] Comment on above: Performed By: #### C UBLD, LACTIC #### [place] [address] [place] Lipase [Enzymatic activity/v olume] in Serum or PlasmaOrdered By: Ramiro Schaefer on 10-23-2023 Lipase [Catalytic activity/Vol] 6.0 U/L Low 11.0-82.0 [facility] Comment on above: Performed By: #### C UBLD, LACTIC #### [facility] [address] [place] [address] [place] Lymphocytes [#/volume] in Bl ood by Automated countOrdered By: Ramiro Schaefer on 10-23-2023 Lymphocytes (Bld) [#/Vol] 3.5 10*3/uL Normal 1.00-4.8 [facility] Comment on above: Performed By: #### C UBLD, LACTIC #### [place] [address] [place] Lymphocytes/100 leukocytes i n Blood by Automated countOrdered By: Ramiro Schaefer on 10-23-2023 Lymphocytes/100 WBC (Bld) 35.8 % Normal . [facility] Comment on above: Performed By: #### C UBLD, LACTIC #### [facility] [address] [place] [address] MCH [Entitic mass] by Automa jalil countOrdered By: Ramiro Schaefer on 10-23-2023 MCH (RBC) [Entitic mass] 28.9 pg Normal 24.7-34.3 [facility] Comment on above: Performed By: #### C UBLD, LACTIC #### [facility] [address] [place] [address] MCHC Auto (RBC) [Mass/Vol]Or dered By: Ramiro Schaefer on 10-23-2023 MCHC (RBC) [Mass/Vol] 33.0 g/dL 32.0-35.0 [facility] MCV [Entitic volume] by Auto mated countOrdered By: Ramiro Schaefer on 10-23-2023 MCV (RBC) [Entitic vol] 87.7 fL Normal 80-100 [facility] Comment on above: Performed By: #### C UBLD, LACTIC #### [facility] [address] [place] [address] Monocyte distribution width [Entitic volume] in Blood by AutomatedOrdered By: Ramiro Schaefer on 10-23-2023 Monocyte distribution width Auto (Bld) [Entitic vol] 18.82 % 0.00-20.00 [facility] Neutrophils [#/volume] in Bl ood by Automated countOrdered By: Ramiro Schaefer on 10-23-2023 Neutrophils (Bld) [#/Vol] 5.5 10*3/uL Normal 1.8-7.7 [facility] Comment on above: Performed By: #### C UBLD, LACTIC #### [facility] [address] [place] [address] Nitrite Test strip Ql (U)Ord ered By: Ramiro Schaefer on 10-23-2023 Nitrite Ql (U) Negative Negative [facility] No Panel InformationOrdered By: Ramiro Schaefer on 10-23-2023 Estimated GFR (CKD-EPI) > 60.0 mL/Min [facility] Creatinine Clearance (Chem 118.15 [facility] Nucleated erythrocytes [Pres ence] in Blood by Automated countOrdered By: Ramiro Schaefer on 10-23-2023 Nucleated RBC Auto Ql (Bld) 0.1 /100{WBC} 0-0.5 [facility] Opiates [Presence] in Urine by Screen methodOrdered By: Ramiro Schaefer on 10-23-2023 Opiates Screen Ql (U) Negative Negative [facility] Phencyclidine Screen Ql (U)O rdered By: Ramiro Schaefer on 10-23-2023 Phencyclidine Ql (U) Negative Negative [facility] Platelet mean volume [Entiti c volume] in Blood by Automated countOrdered By: Ramiro Schaefer on 10-23-2023 Platelet mean volume (Bld) [Entitic vol] 7.5 fL Normal 6.3-10.7 [facility] Comment on above: Performed By: #### C UBLD, LACTIC #### [facility] [address] [place] [address] [place] Platelets [#/volume] in Bloo d by Automated countOrdered By: Ramiro Schaefer on 10-23-2023 Platelets (Bld) [#/Vol] 462 10*3/uL High 150-450 [facility] Comment on above: Performed By: #### C UBLD, LACTIC #### [facility] [address] [place] [address] [place] Potassium [Moles/volume] in Serum or PlasmaOrdered By: Ramiro Schaefer on 10-23-2023 Potassium [Moles/Vol] 3.7 mmol/L Normal 3.5-5.1 [facility] Comment on above: Performed By: #### C UBLD, LACTIC #### [facility] [address] [place] [address] [place] Protein Test strip (U) [Mass /Vol]Ordered By: Ramiro Schaefer on 10-23-2023 Protein (U) [Mass/Vol] Negative Negative [facility] Protein [Mass/volume] in Ser um or PlasmaOrdered By: Ramiro Schaefer on 10-23-2023 Protein [Mass/Vol] 8.0 g/dL Normal 6.4-8.9 [facility] Comment on above: Performed By: #### C UBLD, LACTIC #### [address] Serum globulin measurement b y calculation (mass/volume)Ordered By: Ramiro Schaefer on 10-23-2023 Globulin (S) [Mass/Vol] 3.6 g/dL [facility] Comment on above: Performed By: #### C UBLD, LACTIC #### [address] Serum or plasma albumin/glob ulin mass ratioOrdered By: Ramiro Schaefer on 10-23-2023 Albumin/Globulin [Mass ratio] 1.2 {ratio} [facility] Comment on above: Performed By: #### C UBLD, LACTIC #### [address] Serum or plasma anion gap de terminationOrdered By: Ramiro Schaefer on 10-23-2023 Anion gap [Moles/Vol] 9.6 mmol/L Normal 6.0-15.0 [facility] Comment on above: Performed By: #### C UBLD, LACTIC #### [address] Serum or plasma non-glucuron idated bilirubin measurement (mass/volume)Ordered By: Ramiro Schaefer on 10-23-2023 Bilirubin.indirect [Mass/Vol] 0.2 mg/dL [facility] Sodium [Moles/volume] in Ser um or PlasmaOrdered By: Ramiro Schaefer on 10-23-2023 Sodium [Moles/Vol] 138 mmol/L Normal 136-145 [facility] Comment on above: Performed By: #### C UBLD, LACTIC #### [address] Specific gravity Test strip (U) [Rel density]Ordered By: Ramiro Schaefer on 10-23-2023 Specific gravity (U) [Rel density] 1.007 1.001-1.030 [facility] Thyrotropin [Units/volume] i n Serum or PlasmaOrdered By: Ramiro Schaefer on 10-23-2023 TSH Qn 1.21 m[IU]/L Normal 0.45-5.33 [facility] Comment on above: Result Comment: PERF ORMED BY: [place] [address] PATHOLOGIST WATER/WASTEWATER PROJECT ENGINEER CANDY KELLOGG M.D. Performed By: #### C UBLD, LACTIC #### [address] Troponin I High Sensitivityo n 10-23-2023 Troponin I High Sensitivity < 2.3 Normal 0.0-15.0 [facility] Comment on above: Result Comment: PERF ORMED BY: [place] [address] PATHOLOGIST WATER/WASTEWATER PROJECT ENGINEER CANDY KELLOGG M.D. Performed By: #### C UBLD, LACTIC #### [address] Troponin I.cardiac [Mass/vol ume] in Serum or Plasma by Detection limit <= 0.01 ng/Ordered By: Ramiro Schaefer on 10-23-2023 Troponin I.cardiac DL <= 0.01 ng/mL [Mass/Vol] < 2.3 pg/mL 0.0-15.0 [facility] Urea nitrogen [Mass/volume] in Serum or PlasmaOrdered By: Ramiro Schaefer on 10-23-2023 Urea nitrogen [Mass/Vol] 6 mg/dL Low 7-25 [facility] Comment on above: Performed By: #### C UBLD, LACTIC #### [address] Urinalysison 10-23-2023 Bilirubin,Urine Negative Normal Negative [facility] Comment on above: Order Comment: Name Collection Type:: Clean-Voided Midstream Performed By: #### U HCG, URDS, UA #### [address] Glucose Ql (U) Normal Normal Normal [facility] Comment on above: Order Comment: Name Collection Type:: Clean-Voided Midstream Performed By: #### U HCG, URDS, UA #### [facility] [address] [place] [address] [place] Nitrite,Urine Negative Normal Negative [facility] Comment on above: Order Comment: Name Collection Type:: Clean-Voided Midstream Performed By: #### U HCG, URDS, UA #### [facility] [address] Occult Blood,Urine Negative Normal Negative [facility] Comment on above: Order Comment: Name Collection Type:: Clean-Voided Midstream Performed By: #### U HCG, URDS, UA #### [address] Protein,Urine Negative Normal Negative [facility] Comment on above: Order Comment: Name Collection Type:: Clean-Voided Midstream Performed By: #### U HCG, URDS, UA #### [address] Specificy [place],Urine 1.007 Normal 1.001-1.030 [facility] Comment on above: Order Comment: Name Collection Type:: Clean-Voided Midstream Performed By: #### U HCG, URDS, UA #### [address] Urobilinogen,Urine Normal Normal Normal [facility] Comment on above: Order Comment: Name Collection Type:: Clean-Voided Midstream Performed By: #### U HCG, URDS, UA #### [address] Urine appearanceOrdered By: Ramiro Schaefer on 10-23-2023 Appearance (U) Clear Normal Clear [facility] Comment on above: Order Comment: Name Collection Type:: Clean-Voided Midstream Performed By: #### U HCG, URDS, UA #### [address] Urobilinogen Test strip (U) [Mass/Vol]Ordered By: Ramiro Schaefer on 10-23-2023 Urobilinogen (U) [Mass/Vol] Normal mg/dL Normal [facility] XR chest 1V portableon 10-22 XR chest 1V portable [facility] [address] [place] [address] XRay Report Signed Patient: Jessie Alva MR#: [id number] : 2000 Acct:[id number] Age/Sex: 23 / F ADM Date: 10/23/23 Loc: ER Room: Type: [facility] ER Attending Dr: Copies to: Ramiro [...] Herring Jr., D.O.10/23/2023 12:13 PM Dictation Location: [facility] Transcribed By: [facility] 10/23/23 1213 Dictated By: Rolf Herring Jr, DO 10/23/23 1213 Signed By: 10/23/23 1213 Normal [facility] pH of Urine by Test stripOrd ered By: Ramiro Schaefer on 10-23-2023 pH (U) 7.0 [pH] Normal 5.0-9.0 [facility] Comment on above: Order Comment: Name Collection Type:: Clean-Voided Midstream Performed By: #### U HCG, URDS, UA #### [place] [id number] [facility] Automated epithelial cells c ount in urine sediment (number/area)Ordered By: Venkat Velazquez on 07-21-2023 Epithelial cells Auto (Urine sed) [#/Area] 3-4 [HPF] 0-2 [facility] Automated erythrocytes count in urine sediment (number/area)Ordered By: Venkat Velazquez on 07-21-2023 RBC Auto (Urine sed) [#/Area] Innumerable [HPF] 0-4 [facility] Automated leukocytes count i n urine sediment (number/area)Ordered By: Venkat Velazquez on 07-21-2023 WBC Auto (Urine sed) [#/Area] 5-9 [HPF] 0-4 [facility] Automated urine color determ inationOrdered By: Venkat Velazquez on 07-21-2023 Color (U) Dark yellow Critically abnormal Yellow [facility] Comment on above: Order Comment: Name Collection Type:: Clean-Voided Midstream Performed By: #### C UBLD, LACTIC #### [facility] [address] Automated urine hyaline cast s count (number/volume)Ordered By: Venkat Velazquez on 07-21-2023 Hyaline casts Auto (U) [#/Vol] None seen [LPF] 0-1 [facility] Bilirubin Test strip Ql (U)O rdered By: Venkat Velazquez on 07-21-2023 Bilirubin Ql (U) Negative Negative [facility] Casts typing in urine sedime nt by light microscopyOrdered By: Venkat Velazquez on 07-21-2023 Casts LM Nom (Urine sed) None seen [LPF] None Seen [facility] Dipstick and Microscopicon 0 07-21-2023 Appearance (U) Cloudy Critically abnormal Clear [facility] Comment on above: Order Comment: Name Collection Type:: Clean-Voided Midstream Performed By: #### C UBLD, LACTIC #### [place] [address] [place] Bacteria,Urine 1+ High None Seen [facility] Comment on above: Order Comment: Name Collection Type:: Clean-Voided Midstream Performed By: #### C UBLD, LACTIC #### [place] [address] [place] Bilirubin,Urine Negative Normal Negative [facility] Comment on above: Order Comment: Name Collection Type:: Clean-Voided Midstream Performed By: #### C UBLD, LACTIC #### [place] [id number] [place] Glucose Ql (U) Normal Normal Normal [facility] Comment on above: Order Comment: Name Collection Type:: Clean-Voided Midstream Performed By: #### C UBLD, LACTIC #### [facility] [address] [place] [address] [place] Hyaline Casts,Urine None Seen Normal 0-1 [facility] Comment on above: Order Comment: Name Collection Type:: Clean-Voided Midstream Performed By: #### C UBLD, LACTIC #### [place] [address] [place] Ketones Ql (U) 1+ High Negative [facility] Comment on above: Order Comment: Name Collection Type:: Clean-Voided Midstream Performed By: #### C UBLD, LACTIC #### [place] [address] [place] Leukocyte esterase Test strip Ql (U) 1+ High Negative [facility] Comment on above: Order Comment: Name Collection Type:: Clean-Voided Midstream Performed By: #### C UBLD, LACTIC #### [place] [address] [place] Nitrite,Urine Negative Normal Negative [facility] Comment on above: Order Comment: Name Collection Type:: Clean-Voided Midstream Performed By: #### C UBLD, LACTIC #### [place] [address] [place] Occult Blood,Urine 3+ High Negative [facility] Comment on above: Order Comment: Name Collection Type:: Clean-Voided Midstream Performed By: #### C UBLD, LACTIC #### [place] [address] [place] Othe Crystals,Urine None Seen Normal [facility] Comment on above: Order Comment: Name Collection Type:: Clean-Voided Midstream Performed By: #### C UBLD, LACTIC #### [place] [address] [place] Other Casts,Urine None Seen Normal None Seen [facility] Comment on above: Order Comment: Name Collection Type:: Clean-Voided Midstream Performed By: #### C UBLD, LACTIC #### [place] [address] [place] RBC,Urine Innumerable High 0-4 [facility] Comment on above: Order Comment: Name Collection Type:: Clean-Voided Midstream Performed By: #### C UBLD, LACTIC #### [address] Renal Epithelial Cells,Urine None Seen Normal 0-1 [facility] Comment on above: Order Comment: Name Collection Type:: Clean-Voided Midstream Performed By: #### C UBLD, LACTIC #### [address] Specificy [place],Urine 1.044 High 1.001-1.030 [facility] Comment on above: Order Comment: Name Collection Type:: Clean-Voided Midstream Performed By: #### C UBLD, LACTIC #### [address] Squamous Epithelial Cell,Urine 3-4 High 0-2 [facility] Comment on above: Order Comment: Name Collection Type:: Clean-Voided Midstream Performed By: #### C UBLD, LACTIC #### [address] Urobilinogen,Urine Normal Normal Normal [facility] Comment on above: Order Comment: Name Collection Type:: Clean-Voided Midstream Performed By: #### C UBLD, LACTIC #### [address] WBC,Urine 5-9 High 0-4 [facility] Comment on above: Order Comment: Name Collection Type:: Clean-Voided Midstream Performed By: #### C UBLD, LACTIC #### [address] HCG ( test) IA.rapi d Ql (U)Ordered By: Venkat Velazquez on 07-21-2023 HCG ( test) Ql (U) Negative [facility] HCG,Urineon 07-21-2023 Beta HCG ( test) Ql (U) Negative Normal [facility] Comment on above: Order Comment: Name Collection Type:: Clean-Voided Midstream Result Comment: PERF ORMED BY: [place] [address] PATHOLOGIST WATER/WASTEWATER PROJECT ENGINEER CANDY KELLOGG M.D. Performed By: #### C UBLD, LACTIC #### [facility] [address] [place], [place] [id number] [facility] Ketones Auto test strip (U) [Mass/Vol]Ordered By: Venkat Velazquez on 07-21-2023 Ketones (U) [Mass/Vol] 1+ Negative [facility] Nitrite Test strip Ql (U)Ord ered By: Venkat Velazquez on 07-21-2023 Nitrite Ql (U) Negative Negative [facility] Specific gravity Auto test s trip (U) [Rel density]Ordered By: Venkat Velazquez on 07-21-2023 Specific gravity (U) [Rel density] 1.044 1.001-1.030 [facility] Urine Cultureon 07-21-2023 Bacteria identified Cx Nom (U) >100,000 colonies/ml mixed bacterial skin contaminants 2 Days PERFORMED BY: [place] [address] PATHOLOGIST WATER/WASTEWATER PROJECT ENGINEER CANDY KELLOGG M.D. Normal [facility] Comment on above: Performed By: #### C UBLD, LACTIC #### [facility] [address] [place] [address] Urine bacteria detection by automated methodOrdered By: Venkat Velazquez on 07-21-2023 Bacteria Auto Ql (U) 1+ None Seen [facility] Urine clarity by refractomet ry automatedOrdered By: Venkat Velazquez on 07-21-2023 Clarity Refractometry automated (U) Cloudy Clear [facility] Urine glucose measurement by automated test strip (mass/volume)Ordered By: Venkat Velazquez on 07-21-2023 Glucose Auto test strip (U) [Mass/Vol] Normal mg/dL Normal [facility] Urine hemoglobin detection b y automated test stripOrdered By: Venkat Velazquez on 07-21-2023 Hemoglobin Auto test strip Ql (U) 3+ Negative [facility] Urine leukocyte esterase det ection by automated test stripOrdered By: Venkat Velazquez on 07-21-2023 Leukocyte esterase Auto test strip Ql (U) 1+ Negative [facility] Urine pH measurement by auto mated test stripOrdered By: Venkat Velazquez on 07-21-2023 pH (U) 5.5 [pH] Normal 5.0-9.0 [facility] Comment on above: Order Comment: Name Collection Type:: Clean-Voided Midstream Performed By: #### C UBLD, LACTIC #### [address] Urine protein measurement by automated test strip (mass/volume)Ordered By: Venkat Velazquez on 07-21-2023 Protein (U) [Mass/Vol] 30 mg/dL High Negative [facility] Comment on above: Order Comment: Name Collection Type:: Clean-Voided Midstream Performed By: #### C UBLD, LACTIC #### [address] Urine sediment crystal ident ification by light microscopyOrdered By: Venkat Velazquez on 07-21-2023 Crystals LM Nom (Urine sed) None seen [HPF] [facility] Urine sediment renal epithel ial cell count by microscopy (number/high power field)Ordered By: Venkat Velazquez on 07-21-2023 Epithelial cells.renal LM.HPF (Urine sed) [#/Area] None seen [HPF] 0-1 [facility] Urobilinogen Auto test strip (U) [Mass/Vol]Ordered By: Venkat Velazquez on 07-21-2023 Urobilinogen (U) [Mass/Vol] Normal mg/dL Normal [facility] Alanine aminotransferase [En zymatic activity/volume] in Serum or PlasmaOrdered By: PROVIDER TEMP on 12-12-2022 ALT [Catalytic activity/Vol] 15 U/L Normal 7-52 [facility] Comment on above: Performed By: #### C UBLD, LACTIC #### [address] Albumin [Mass/volume] in Ser um or Plasma by Bromocresol green (BCG) dye binding methoOrdered By: PROVIDER TEMP on 12-12-2022 Albumin BCG dye [Mass/Vol] 4.6 g/dL 3.5-5.7 [facility] Alkaline phosphatase [Enzyma tic activity/volume] in Serum or PlasmaOrdered By: PROVIDER TEMP on 12-12-2022 ALP [Catalytic activity/Vol] 42 U/L Normal 34-104 [facility] Comment on above: Performed By: #### C UBLD, LACTIC #### [address] Aspartate aminotransferase [ Enzymatic activity/volume] in Serum or PlasmaOrdered By: PROVIDER TEMP on 12-12-2022 AST [Catalytic activity/Vol] 15 U/L Normal 13-39 [facility] Comment on above: Performed By: #### C UBLD, LACTIC #### [address] Automated basophil %Ordered By: PROVIDER TEMP on 12-12-2022 Basophils/100 WBC (Bld) 1.5 % Normal . [facility] Comment on above: Performed By: #### C UBLD, LACTIC #### [address] Automated basophil countOrde red By: PROVIDER TEMP on 12-12-2022 Basophils (Bld) [#/Vol] 0.2 10*3/uL Normal 0.0-0.2 [facility] Comment on above: Result Comment: PERF ORMED BY: [place] [address] PATHOLOGIST WATER/WASTEWATER PROJECT ENGINEER CANDY KELLOGG M.D. Performed By: #### C UBLD, LACTIC #### [address] Automated blood monocyte cou ntOrdered By: PROVIDER TEMP on 12-12-2022 Monocytes (Bld) [#/Vol] 0.9 10*3/uL High 0.0-0.8 [facility] Comment on above: Performed By: #### C UBLD, LACTIC #### [address] Automated eosinophil %Ordere d By: PROVIDER TEMP on 12-12-2022 Eosinophils/100 WBC (Bld) 0.9 % Normal . [facility] Comment on above: Performed By: #### C UBLD, LACTIC #### [address] Automated eosinophil countOr dered By: PROVIDER TEMP on 12-12-2022 Eosinophils (Bld) [#/Vol] 0.1 10*3/uL Normal 0.0-0.45 [facility] Comment on above: Performed By: #### C UBLD, LACTIC #### [address] Automated monocyte %Ordered By: PROVIDER TEMP on 12-12-2022 Monocytes/100 WBC (Bld) 6.1 % Normal . [facility] Comment on above: Performed By: #### C UBLD, LACTIC #### [address] Automated neutrophil %Ordere d By: PROVIDER TEMP on 12-12-2022 Neutrophils/100 WBC (Bld) 64.6 % Normal . [facility] Comment on above: Performed By: #### C UBLD, LACTIC #### [address] Automated urine color determ inationOrdered By: PROVIDER TEMP on 12-12-2022 Color (U) Yellow Normal Yellow [facility] Comment on above: Order Comment: Name Collection Type:: Clean-Voided Midstream Performed By: #### U HCG, UA #### [address] Bilirubin Test strip Ql (U)O rdered By: PROVIDER TEMP on 12-12-2022 Bilirubin Ql (U) Negative Negative [facility] Bilirubin.total [Mass/volume ] in Serum or PlasmaOrdered By: PROVIDER TEMP on 12-12-2022 Bilirubin [Mass/Vol] 0.3 mg/dL Normal 0.3-1.[address] [facility] Comment on above: Performed By: #### C UBLD, LACTIC #### [address] Calcium [Mass/volume] in Ser um or PlasmaOrdered By: PROVIDER TEMP on 12-12-2022 Calcium [Mass/Vol] 9.6 mg/dL Normal 8.6-10.3 [facility] Comment on above: Performed By: #### C UBLD, LACTIC #### [address] Carbon dioxide, total [Moles /volume] in Serum or PlasmaOrdered By: PROVIDER TEMP on 12-12-2022 CO2 [Moles/Vol] 25.3 mmol/L Normal 21.0-31.0 [facility] Comment on above: Performed By: #### C UBLD, LACTIC #### [address] Chloride [Moles/volume] in S alirio or PlasmaOrdered By: PROVIDER TEMP on 12-12-2022 Chloride [Moles/Vol] 104 mmol/L Normal 98-[address] [facility] Comment on above: Performed By: #### C UBLD, LACTIC #### [address] Complete Blood Count Auto Di ffon 12-12-2022 Mean Corpuscular HGB Conc 32.1 g/dL Normal 32.0-35.0 [facility] Comment on above: Performed By: #### C UBLD, LACTIC #### [place] [address] [place] Monocytes/100 WBC (Bld) 19.32 % Normal 0.00-20.00 [facility] Comment on above: Performed By: #### C UBLD, LACTIC #### [address] NRBC% 0.0 /100{WBC} Normal 0-0.5 [facility] Comment on above: Performed By: #### C UBLD, LACTIC #### [address] Comprehensive Metabolic Pane claudette 12-12-2022 Albumin [Mass/Vol] 4.6 g/dL Normal 3.5-5.7 [facility] Comment on above: Performed By: #### C UBLD, LACTIC #### [place] [address] [place] Creatinine Clr Calc Pharmacy 134.50 Normal [facility] Comment on above: Result Comment: PERF ORMED BY: [place] [address] PATHOLOGIST WATER/WASTEWATER PROJECT ENGINEER CANDY KELLOGG M.D. Performed By: #### C UBLD, LACTIC #### [address] GFR/1.73 sq M.predicted MDRD (S/P/Bld) [Vol rate/Area] mL/min/{1.73_m2} Normal [facility] Comment on above: Performed By: #### C UBLD, LACTIC #### [address] Creatinine [Mass/volume] in Serum or PlasmaOrdered By: PROVIDER TEMP on 12-12-2022 Creatinine [Mass/Vol] 0.69 mg/dL Normal 0.60-1.20 [facility] Comment on above: Performed By: #### C UBLD, LACTIC #### [address] ECG 12 lead ECGon 12-12-2022 ECG 12 lead ECG [facility] [address] [place] [address] Electrocardiograph Report Signed Patient: Jessie Alva MR#: [id number] : 2000 Acct:[id number] Age/Sex: 22 / F ADM Date: 12/12/22 Loc: ER Room: Type: [facility] ER Attending Dr: Ordering Provider: Viktoriya [...] Sinus tachycardia Confirmed by Delfin CAPUTO DO ([id number]) on 12/12/2022 7:34:28 PM Referred By: Electronically Signed By:Delfin CAPUTO DO Transcribed By: MUS Signed By Delfin Caputo, 0 12/12/22 1934 Normal [facility] Erythrocyte distribution wid th [Ratio] by Automated countOrdered By: PROVIDER TEMP on 12-12-2022 Erythrocyte distribution width (RBC) [Ratio] 15.1 % Normal 11.9-15.3 [facility] Comment on above: Performed By: #### C UBLD, LACTIC #### [address] Erythrocytes [#/volume] in B lood by Automated countOrdered By: PROVIDER TEMP on 12-12-2022 RBC (Bld) [#/Vol] 4.67 10*6/uL Normal 3.60-5.00 [facility] Comment on above: Performed By: #### C UBLD, LACTIC #### [address] Glucose [Mass/volume] in Ser um or PlasmaOrdered By: PROVIDER TEMP on 12-12-2022 Glucose [Mass/Vol] 80 mg/dL Normal 70-100 [facility] Comment on above: ADA recommended refe rence rangeRandom Glucose Reference Range is dependent on time and content of last meal. Glucose of more than 200 mg/dL in a nonstressed, ambulatory subject supports the diagnosis of Diabetes Mellitus. Result Comment: [place] Glucose Reference Range is dependent on time and content of last meal. Glucose of more than 200 mg/dL in a nonstressed, ambulatory subject supports the diagnosis of Diabetes Mellitus. ADA recommended reference range Performed By: #### C UBLD, LACTIC #### [place] [id number] [facility] HCG ( test) IA.rapi d Ql (U)Ordered By: PROVIDER TEMP on 12-12-2022 HCG ( test) Ql (U) Negative [facility] HCG,Urineon 12-12-2022 Beta HCG ( test) Ql (U) Negative Normal [facility] Comment on above: Order Comment: Name Collection Type:: Clean-Voided Midstream Result Comment: PERF ORMED BY: [place] [address] PATHOLOGIST WATER/WASTEWATER PROJECT ENGINEER CANDY KELLOGG M.D. Performed By: #### U HCG, UA #### [address] Hematocrit [Volume Fraction] of Blood by Automated countOrdered By: PROVIDER TEMP on 12-12-2022 Hematocrit (Bld) [Volume fraction] 40.5 % Normal 34.0-46.4 [facility] Comment on above: Performed By: #### C UBLD, LACTIC #### [address] Hemoglobin [Mass/volume] in BloodOrdered By: PROVIDER TEMP on 12-12-2022 Hemoglobin (Bld) [Mass/Vol] 13.0 g/dL Normal 11.8-15.4 [facility] Comment on above: Performed By: #### C UBLD, LACTIC #### [address] Ketones Auto test strip (U) [Mass/Vol]Ordered By: PROVIDER TEMP on 12-12-2022 Ketones (U) [Mass/Vol] 1+ Negative [facility] Leukocytes [#/volume] correc jalil for nucleated erythrocytes in Blood by Automated counOrdered By: PROVIDER TEMP on 12-12-2022 WBC corrected for nucl RBC Auto (Bld) [#/Vol] 14.8 10*3/uL 3.8-11.6 [facility] Leukocytes [#/volume] in Blo od by Automated countOrdered By: PROVIDER TEMP on 12-12-2022 WBC (Bld) [#/Vol] 14.8 10*3/uL High 3.8-11.6 [facility] Comment on above: Performed By: #### C UBLD, LACTIC #### [address] Lymphocytes [#/volume] in Bl ood by Automated countOrdered By: PROVIDER TEMP on 12-12-2022 Lymphocytes (Bld) [#/Vol] 4.0 10*3/uL Normal 1.00-4.8 [facility] Comment on above: Performed By: #### C UBLD, LACTIC #### [address] Lymphocytes/100 leukocytes i n Blood by Automated countOrdered By: PROVIDER TEMP on 12-12-2022 Lymphocytes/100 WBC (Bld) 26.9 % Normal . [facility] Comment on above: Performed By: #### C UBLD, LACTIC #### [address] MCH [Entitic mass] by Automa jalil countOrdered By: PROVIDER TEMP on 12-12-2022 MCH (RBC) [Entitic mass] 27.8 pg Normal 24.7-34.3 [facility] Comment on above: Performed By: #### C UBLD, LACTIC #### [address] MCHC Auto (RBC) [Mass/Vol]Or dered By: PROVIDER TEMP on 12-12-2022 MCHC (RBC) [Mass/Vol] 32.1 g/dL 32.0-35.0 [facility] MCV [Entitic volume] by Auto mated countOrdered By: PROVIDER TEMP on 12-12-2022 MCV (RBC) [Entitic vol] 86.8 fL Normal 80-100 [facility] Comment on above: Performed By: #### C UBLD, LACTIC #### [address] Monocyte distribution width [Entitic volume] in Blood by AutomatedOrdered By: PROVIDER TEMP on 12-12-2022 Monocyte distribution width Auto (Bld) [Entitic vol] 19.32 % 0.00-20.00 [facility] Neutrophils [#/volume] in Bl ood by Automated countOrdered By: PROVIDER TEMP on 12-12-2022 Neutrophils (Bld) [#/Vol] 9.6 10*3/uL High 1.8-7.7 [facility] Comment on above: Performed By: #### C UBLD, LACTIC #### [address] Nitrite Test strip Ql (U)Ord ered By: PROVIDER TEMP on 12-12-2022 Nitrite Ql (U) Negative Negative [facility] No Panel InformationOrdered By: PROVIDER TEMP on 12-12-2022 Estimated GFR (CKD-EPI) > 60.0 mL/Min [facility] Creatinine Clearance (Chem 134.50 [facility] Nucleated erythrocytes [Pres ence] in Blood by Automated countOrdered By: PROVIDER TEMP on 12-12-2022 Nucleated RBC Auto Ql (Bld) 0.0 /100{WBC} 0-0.5 [facility] Platelet mean volume [Entiti c volume] in Blood by Automated countOrdered By: PROVIDER TEMP on 12-12-2022 Platelet mean volume (Bld) [Entitic vol] 7.3 fL Normal 6.3-10.7 [facility] Comment on above: Performed By: #### C UBLD, LACTIC #### [facility] [address] [place] [address] [place] Platelets [#/volume] in Bloo d by Automated countOrdered By: PROVIDER TEMP on 12-12-2022 Platelets (Bld) [#/Vol] 525 10*3/uL High 150-450 [facility] Comment on above: Performed By: #### C UBLD, LACTIC #### [facility] [address] [place] [address] [place] Potassium [Moles/volume] in Serum or PlasmaOrdered By: PROVIDER TEMP on 12-12-2022 Potassium [Moles/Vol] 3.8 mmol/L Normal 3.5-5.1 [facility] Comment on above: Performed By: #### C UBLD, LACTIC #### [facility] [address] [place] [address] [place] Protein Auto test strip (U) [Mass/Vol]Ordered By: PROVIDER TEMP on 12-12-2022 Protein (U) [Mass/Vol] Negative Negative [facility] Protein [Mass/volume] in Ser um or PlasmaOrdered By: PROVIDER TEMP on 12-12-2022 Protein [Mass/Vol] 8.5 g/dL Normal 6.4-8.9 [facility] Comment on above: Performed By: #### C UBLD, LACTIC #### [address] Serum globulin measurement b y calculation (mass/volume)Ordered By: PROVIDER TEMP on 12-12-2022 Globulin (S) [Mass/Vol] 3.9 g/dL [facility] Comment on above: Performed By: #### C UBLD, LACTIC #### [address] Serum or plasma albumin/glob ulin mass ratioOrdered By: PROVIDER TEMP on 12-12-2022 Albumin/Globulin [Mass ratio] 1.2 {ratio} [facility] Comment on above: Performed By: #### C UBLD, LACTIC #### [address] Serum or plasma anion gap de terminationOrdered By: PROVIDER TEMP on 12-12-2022 Anion gap [Moles/Vol] 11.5 mmol/L Normal 6.0-15.0 [facility] Comment on above: Performed By: #### C UBLD, LACTIC #### [address] Sodium [Moles/volume] in Ser um or PlasmaOrdered By: PROVIDER TEMP on 12-12-2022 Sodium [Moles/Vol] 137 mmol/L Normal 136-145 [facility] Comment on above: Performed By: #### C UBLD, LACTIC #### [address] Specific gravity Auto test s trip (U) [Rel density]Ordered By: PROVIDER TEMP on 12-12-2022 Specific gravity (U) [Rel density] 1.027 1.001-1.030 [facility] Urea nitrogen [Mass/volume] in Serum or PlasmaOrdered By: PROVIDER TEMP on 12-12-2022 Urea nitrogen [Mass/Vol] 9 mg/dL Normal 7-25 [facility] Comment on above: Performed By: #### C UBLD, LACTIC #### [address] Urinalysison 12-12-2022 Appearance (U) Clear Normal Clear [facility] Comment on above: Order Comment: Name Collection Type:: Clean-Voided Midstream Performed By: #### U HCG, UA #### [place] [address] [place] Bilirubin,Urine Negative Normal Negative [facility] Comment on above: Order Comment: Name Collection Type:: Clean-Voided Midstream Performed By: #### U HCG, UA #### [place] [address] [place] Glucose Ql (U) Normal Normal Normal [facility] Comment on above: Order Comment: Name Collection Type:: Clean-Voided Midstream Performed By: #### U HCG, UA #### [place] [address] [place] Ketones Ql (U) 1+ High Negative [facility] Comment on above: Order Comment: Name Collection Type:: Clean-Voided Midstream Performed By: #### U HCG, UA #### [place] [address] [place] Leukocyte esterase Test strip Ql (U) Negative Normal Negative [facility] Comment on above: Order Comment: Name Collection Type:: Clean-Voided Midstream Performed By: #### U HCG, UA #### [place] [address] [place] Nitrite,Urine Negative Normal Negative [facility] Comment on above: Order Comment: Name Collection Type:: Clean-Voided Midstream Performed By: #### U HCG, UA #### [place] [address] [place] Occult Blood,Urine Negative Normal Negative [facility] Comment on above: Order Comment: Name Collection Type:: Clean-Voided Midstream Performed By: #### U HCG, UA #### [place] [address] [place] Protein,Urine Negative Normal Negative [facility] Comment on above: Order Comment: Name Collection Type:: Clean-Voided Midstream Performed By: #### U HCG, UA #### [place] [address] [place] Specificy [place],Urine 1.027 Normal 1.001-1.030 [facility] Comment on above: Order Comment: Name Collection Type:: Clean-Voided Midstream Performed By: #### U HCG, UA #### [facility] [address] Urobilinogen,Urine Normal Normal Normal [facility] Comment on above: Order Comment: Name Collection Type:: Clean-Voided Midstream Performed By: #### U HCG, UA #### [address] Urine clarity by refractomet ry automatedOrdered By: PROVIDER TEMP on 12-12-2022 Clarity Refractometry automated (U) Clear Clear [facility] Urine glucose measurement by automated test strip (mass/volume)Ordered By: PROVIDER TEMP on 12-12-2022 Glucose Auto test strip (U) [Mass/Vol] Normal mg/dL Normal [facility] Urine hemoglobin detection b y automated test stripOrdered By: PROVIDER TEMP on 12-12-2022 Hemoglobin Auto test strip Ql (U) Negative Negative [facility] Urine leukocyte esterase det ection by automated test stripOrdered By: PROVIDER TEMP on 12-12-2022 Leukocyte esterase Auto test strip Ql (U) Negative Negative [facility] Urine pH measurement by auto mated test stripOrdered By: PROVIDER TEMP on 12-12-2022 pH (U) 6.0 [pH] Normal 5.0-9.0 [facility] Comment on above: Order Comment: Name Collection Type:: Clean-Voided Midstream Performed By: #### U HCG, UA #### [address] Urobilinogen Auto test strip (U) [Mass/Vol]Ordered By: PROVIDER TEMP on 12-12-2022 Urobilinogen (U) [Mass/Vol] Normal mg/dL Normal [facility] Automated epithelial cells c ount in urine sediment (number/area)Ordered By: Venkat Velazquez on 03-30-2022 Epithelial cells Auto (Urine sed) [#/Area] 5-9 [HPF] 0-2 [facility] Automated erythrocytes count in urine sediment (number/area)Ordered By: Venkat Velazquez on 03-30-2022 RBC Auto (Urine sed) [#/Area] 5-9 [HPF] 0-4 [facility] Automated leukocytes count i n urine sediment (number/area)Ordered By: Venkat Velazquez on 03-30-2022 WBC Auto (Urine sed) [#/Area] 1-2 [HPF] 0-4 [facility] Automated urine hyaline cast s count (number/volume)Ordered By: Venkat Velazquez on 03-30-2022 Hyaline casts Auto (U) [#/Vol] None seen [LPF] 0-1 [facility] Bilirubin Test strip Ql (U)O rdered By: Venkat Velazquez on 03-30-2022 Bilirubin Ql (U) Negative Negative [facility] Color Auto (U)Ordered By: Curtis Velazquez on 03-30-2022 Color (U) Yellow Yellow [facility] HCG ( test) IA.rapi d Ql (U)Ordered By: Venkat Velazquez on 03-30-2022 HCG ( test) Ql (U) Negative [facility] Ketones Auto test strip (U) [Mass/Vol]Ordered By: Venkat Velazquez on 03-30-2022 Ketones (U) [Mass/Vol] Trace Negative [facility] Mucus LM Ql (Urine sed)Order ed By: Venkat Velazquez on 03-30-2022 Mucus Ql (Urine sed) 2+ [LPF] [facility] Nitrite Test strip Ql (U)Ord ered By: Venkat Velazquez on 03-30-2022 Nitrite Ql (U) Negative Negative [facility] Protein Auto test strip (U) [Mass/Vol]Ordered By: Venkat Velazquez on 03-30-2022 Protein (U) [Mass/Vol] Trace mg/dL Negative [facility] Specific gravity Auto test s trip (U) [Rel density]Ordered By: Venkat Velazquez on 03-30-2022 Specific gravity (U) [Rel density] 1.023 1.001-1.030 [facility] Urine bacteria detection by automated methodOrdered By: Venkat Velazquez on 03-30-2022 Bacteria Auto Ql (U) 1+ None Seen [facility] Urine clarity by refractomet ry automatedOrdered By: Venkat Velazquez on 03-30-2022 Clarity Refractometry automated (U) Clear Clear [facility] Urine glucose measurement by automated test strip (mass/volume)Ordered By: Venkat Velazquez on 03-30-2022 Glucose Auto test strip (U) [Mass/Vol] Normal mg/dL Normal [facility] Urine hemoglobin detection b y automated test stripOrdered By: Venkat Velazquez on 03-30-2022 Hemoglobin Auto test strip Ql (U) 3+ Negative [facility] Urine leukocyte esterase det ection by automated test stripOrdered By: Venkat Velazquez on 03-30-2022 Leukocyte esterase Auto test strip Ql (U) Negative Negative [facility] Urobilinogen Auto test strip (U) [Mass/Vol]Ordered By: Venkat Velazquez on 03-30-2022 Urobilinogen (U) [Mass/Vol] Normal mg/dL Normal [facility] pH Auto test strip (U)Ordere d By: Venkat Velazquez on 03-30-2022 pH (U) 5.5 [pH] 5.0-9.0 [facility] CULTURE THROATon 12-26-2018 CULTURE THROAT Culture Observations : No CEE needed per Dr. Chavez in ER on 12/27/2018 Isolate 1 Streptococcus pyogenes Heavy growth of Normal [facility] Comment on above: Performed By: #### T HRTCX #### [facility] [address] [place] [address] Jennifer Jessie ER URINE PROFILEon 9 Bilirubin [Mass/Vol] Negative Normal NEGATIVE [facility] Comment on above: Performed By: #### E RUR #### [facility] [address] [place] [address] Jennifer Jessie BLOOD Negative Normal NEGATIVE [facility] Comment on above: Performed By: #### E RUR #### [facility] [address] [place] [address] Jennifer Jesise Clarity (U) CLEAR Normal [facility] Comment on above: Performed By: #### E RUR #### [facility] [address] [place] [address] Jennifer Jessie Color (U) YELLOW Normal YELLOW [facility] Comment on above: Performed By: #### E RUR #### [facility] [address] [place], [place] [id number] Jennifer Roman ERUAHD A micrscopic examina tion will be performed if indicated. Normal [facility] Comment on above: Performed By: #### E RUR #### [facility] [address] [place], [place] [id number] Jennifer Jessie Glucose [Mass/Vol] Negative Normal NEGATIVE [facility] Comment on above: Performed By: #### E RUR #### [facility] [address] [place], [place] [id number] Jennifer Jessie Ketones Ql (U) 15 mg/dl Normal NEGATIVE [facility] Comment on above: Performed By: #### E RUR #### [facility] [address] [place] [address] Jennifer Jessie Nitrite Ql (U) Negative Normal NEGATIVE [facility] Comment on above: Performed By: #### E RUR #### [facility] [address] [place] [address] Jennifer Jessie pH (Bld) 7.0 Normal 5-9 [facility] Comment on above: Performed By: #### E RUR #### [facility] [address] [place], [place] [id number] Jenniferleonor Roman Protein (U) [Mass/Vol] Negative Normal [facility] Comment on above: Performed By: #### E RUR #### [facility] [address] [place] [address] Jennifer Roman SPEC GRAVITY 1.020 Normal 1.005-<=1.025 [facility] Comment on above: Performed By: #### E RUR #### [facility] [address] [place], [place] [id number] Jennifer Roman UR MICRO IND NOT INDICATED Normal [facility] Comment on above: Performed By: #### E RUR #### [facility] [address] [place], [place] [id number] Jennifer Roman Urobilinogen Qn (U) 1.0 EU/dl Normal [facility] Comment on above: Performed By: #### E RUR #### [facility] [address] [place], [place] [address] Jennifer Roman WBC (Bld) [#/Vol] Negative Normal NEGATIVE [facility] Comment on above: Performed By: #### E RUR #### [facility] [address] [place], [place] [address] Jennifer Roman STREPT SCREENon 12-26-2018 STREP SCREEN A Positive Normal NEGATIVE [facility] Comment on above: Performed By: #### S SCRN #### [facility] [address] [place], [place] [address] Jennifer Roman Vital Signs Date Time Vital Sign Value Performing Clinician Faci lity 10-25-2023 12:50-0400 Diastolic blood pressure 66 mm[Hg] DO Ramiro Schaefer Work Phone: [facility] 10-25-2023 12:50-0400 Heart rate 98 /min DO Ramiro Schaefer Work Phone: [facility] 10-25-2023 12:50-0400 Respiratory rate 16 /min DO Ramiro Schaefer Work Phone: [facility] 10-25-2023 12:50-0400 SaO2% (BldA) [Mass fraction] 98 % DO Ramiro Schaefer Work Phone: [facility] 10-25-2023 12:50-0400 Systolic blood pressure 120 mm[Hg] DO Ramiro Schaefer Work Phone: [facility] 10-25-2023 11:08-0400 Body temperature 98.1 [degF] DO Ramiro Schaefer Work Phone: [facility] 10-25-2023 11:07-0400 Body height 167.64 cm DO Ramiro Schaefer Work Phone: [facility] 10-25-2023 11:07-0400 Body weight 72.57 kg DO Ramiro Schaefer Work Phone: [facility] 10-23-2023 14:35-0400 Diastolic blood pressure 54 mm[Hg] DO Ramiro Schaefer Work Phone: [facility] 10-23-2023 14:35-0400 Heart rate 68 /min DO Ramiro Schaefer Work Phone: [facility] 10-23-2023 14:35-0400 Respiratory rate 18 /min DO Ramiro Schaefer Work Phone: [facility] 10-23-2023 14:35-0400 SaO2% (BldA) [Mass fraction] 98 % DO Ramiro Schaefer Work Phone: [facility] 10-23-2023 14:35-0400 Systolic blood pressure 99 mm[Hg] DO Ramiro Schaefer Work Phone: [facility] 10-23-2023 10:42-0400 Body height 162.56 cm DO Ramiro Schaefer Work Phone: [facility] 10-23-2023 10:42-0400 Body temperature 98.7 [degF] DO Ramiro Schaefer Work Phone: [facility] 10-23-2023 10:42-0400 Body weight 68.5 kg DO Ramiro Schaefer Work Phone: [facility] 07-21-2023 09:00-0400 Body height 167.64 cm [facility] Work Phone: [facility] 07-21-2023 09:00-0400 Body temperature 98.1 [degF] [facility] Work Phone: [facility] 07-21-2023 09:00-0400 Body weight 78 kg [facility] Work Phone: [facility] 07-21-2023 09:00-0400 Diastolic blood pressure 82 mm[Hg] [facility] Work Phone: [facility] 07-21-2023 09:00-0400 Heart rate 72 /min [facility] Work Phone: [facility] 07-21-2023 09:00-0400 Respiratory rate 18 /min [facility] Work Phone: [facility] 07-21-2023 09:00-0400 SaO2% (BldA) [Mass fraction] 97 % [facility] Work Phone: [facility] 07-21-2023 09:00-0400 Systolic blood pressure 123 mm[Hg] [facility] Work Phone: [facility] 12-12-2022 19:52-0400 Body temperature 98.6 [degF] [facility] Work Phone: [facility] 12-12-2022 19:52-0400 Diastolic blood pressure 79 mm[Hg] [facility] Work Phone: [facility] 12-12-2022 19:52-0400 Heart rate 65 /min [facility] Work Phone: [facility] 12-12-2022 19:52-0400 Respiratory rate 18 /min [facility] Work Phone: [facility] 12-12-2022 19:52-0400 SaO2% (BldA) [Mass fraction] 100 % [facility] Work Phone: [facility] 12-12-2022 19:52-0400 Systolic blood pressure 113 mm[Hg] [facility] Work Phone: [facility] 12-12-2022 15:32-0400 Body height 162.56 cm [facility] Work Phone: [facility] 12-12-2022 15:32-0400 Body weight 83.1 kg [facility] Work Phone: [facility] 10-19-2022 13:06-0400 Body height 162.56 cm [facility] Work Phone: [facility] 10-19-2022 13:06-0400 Body temperature 98.7 [degF] [facility] Work Phone: [facility] 10-19-2022 13:06-0400 Body weight 81 kg [facility] Work Phone: [facility] 10-19-2022 13:06-0400 Diastolic blood pressure 75 mm[Hg] [facility] Work Phone: [facility] 10-19-2022 13:06-0400 Heart rate 69 /min [facility] Work Phone: [facility] 10-19-2022 13:06-0400 Respiratory rate 20 /min [facility] Work Phone: [facility] 10-19-2022 13:06-0400 SaO2% (BldA) [Mass fraction] 99 % [facility] Work Phone: [facility] 10-19-2022 13:06-0400 Systolic blood pressure 123 mm[Hg] [facility] Work Phone: [facility] 03-30-2022 14:39-0500 Body height 162.56 cm [facility] Work Phone: [facility] 03-30-2022 14:39-0500 Body temperature 98.7 [degF] [facility] Work Phone: [facility] 03-30-2022 14:39-0500 Body weight 80.15 kg [facility] Work Phone: [facility] 03-30-2022 14:39-0500 Diastolic blood pressure 79 mm[Hg] [facility] Work Phone: [facility] 03-30-2022 14:39-0500 Heart rate 91 /min [facility] [employer] [facility] Work Phone: [facility] 03-30-2022 14:39-0500 Respiratory rate 16 /min [facility] [employer] [facility] Work Phone: [facility] 03-30-2022 14:39-0500 SaO2% (BldA) [Mass fraction] 99 % [facility] [employer] [facility] Work Phone: [facility] 03-30-2022 14:39-0500 Systolic blood pressure 125 mm[Hg] [facility] [employer] [facility] Work Phone: [facility] Encounters Encounter Date Encounter Type Care Provider Facility Start: 03-10-2024 End: 03-10-2024 flow sheet [facility] Comment on above: GA: 5w0d Start: 03-10-2024 End: 03-10-2024 ambulatory Not Available Start: 01-17-2024 End: 01-17-2024 Telephone encounter Madhuri Soto MD, PhD Work Phone: Gastroenterology Comment on above: Appointment Start: 10-27-2023 End: 10-29-2023 ambulatory ELIUD MODHA Facility:[facility] Start: 10-25-2023 End: 10-25-2023 Emergency department patient visit DO Ramiro Schaefer Work Phone: [facility] Work Phone: Start: 10-23-2023 End: 10-23-2023 Emergency department patient visit DO Ramiro Schaefer Work Phone: [facility] Work Phone: Start: 07-21-2023 End: 07-21-2023 Emergency department patient visit [facility] Work Phone: [facility] Work Phone: Start: 12-12-2022 End: 12-12-2022 Emergency department patient visit Danny Stone [facility] Work Phone: [facility] Work Phone: Start: 10-19-2022 End: 10-19-2022 Emergency department patient visit Danny Stone [facility] Work Phone: [facility] Work Phone: Start: 03-30-2022 End: 03-30-2022 Emergency department patient visit Danny Stone [facility] Work Phone: [facility] Start: 12-26-2018 End: 12-26-2018 Patient encounter procedure [facility] PAY Facility: Procedures Date Procedure Procedure Detail Performing Clinician Start: 10-25-2023 Computed tomography of abdomen and pelvis with contrast DO Ramiro Schaefer Work Phone: Start: 10-25-2023 CT of head without contrast DO Ramiro Schaefer Work Phone: Start: 10-25-2023 Plain chest X-ray DO Ty ler Schaefer Work Phone: Start: 10-23-2023 CT of head without contrast DO Ramiro Schaefer Work Phone: Start: 10-23-2023 Plain chest X-ray DO Ty ler Schaefer Work Phone: Plan of Treatment Date Care Activity Detail Author Start: 06-07-2025 Urine microalbumin profile DTaP,Tdap,Td Vaccine (8 - Td or Tdap) [facility] Start: 10-27-2024 GC (Gonorrhea) Scree della () GC (Gonorrhea) Screening () [facility] Start: 10-27-2024 Screening for Chlamy samantha trachomatis Chlamydia Screening () [facility] Start: 04-22-2024 End: 04-22-2024 ambulatory 04/22/2024 11:00 AM EST Initial [facility] [address] [place] [address] Patric Kamlesh Luz, DO [address] [place] [address] [facility] Start: 03-31-2024 End: 03-31-2024 Professional / ancillary services management 03/31/2024 11:00 AM EST Ancillary Procedure [facility] [address] [place] [address] [facility] Start: 03-10-2024 End: 03-10-2025 Bacteria identified in Urine by Culture Urine culture Microbiology Routine Encounter for supervision of normal first in first trimester Expected: 03/10/2024 (Approximate), Expires: 03/10/2025 [facility] Comment on above: Expected: 03/10/2024 (Approximate), Expires: 03/10/2025 Start: 03-10-2024 End: 03-10-2025 Blood type and Indirect antibody screen panel - Blood Type and screen Lab Routine Encounter for supervision of normal first in first trimester Expected: 03/10/2024 (Approximate), Expires: 03/10/2025 [facility] Comment on above: Expected: 03/10/2024 (Approximate), Expires: 03/10/2025 Start: 03-10-2024 End: 03-10-2025 CBC W Auto Differential panel - Blood CBC and differential Lab Routine Encounter for supervision of normal first in first trimester Expected: 03/10/2024 (Approximate), Expires: 03/10/2025 [facility] Comment on above: Expected: 03/10/2024 (Approximate), Expires: 03/10/2025 Start: 03-10-2024 End: 03-10-2025 Hepatitis B virus surface Ag [Presence] in Serum or Plasma by Immunoassay Hepatitis B surface antigen Lab Routine Encounter for supervision of normal first in first trimester Expected: 03/10/2024 (Approximate), Expires: 03/10/2025 [facility] Comment on above: Expected: 03/10/2024 (Approximate), Expires: 03/10/2025 Start: 03-10-2024 End: 03-10-2025 Hepatitis C virus Ab [Presence] in Serum or Plasma by Immunoassay Hepatitis C antibody Lab Routine Encounter for supervision of normal first in first trimester Expected: 03/10/2024 (Approximate), Expires: 03/10/2025 [facility] Comment on above: Expected: 03/10/2024 (Approximate), Expires: 03/10/2025 Start: 03-10-2024 End: 03-10-2025 HIV-1/HIV-2 antigen/antibody combination immunoassay HIV-1 and HIV-2 antibodies Lab Routine Encounter for supervision of normal first in first trimester Expected: 03/10/2024 (Approximate), Expires: 03/10/2025 [facility] Comment on above: Expected: 03/10/2024 (Approximate), Expires: 03/10/2025 Start: 03-10-2024 End: 03-10-2025 Reagin Ab [Presence] in Serum by RPR RPR Lab Routine Encounter for supervision of normal first in first trimester Expected: 03/10/2024 (Approximate), Expires: 03/10/2025 [facility] Comment on above: Expected: 03/10/2024 (Approximate), Expires: 03/10/2025 Start: 03-10-2024 End: 03-10-2025 Rubella antibody, IgG Rubella antibody, IgG Lab Routine Encounter for supervision of normal first in first trimester Expected: 03/10/2024 (Approximate), Expires: 03/10/2025 [facility] Comment on above: Expected: 03/10/2024 (Approximate), Expires: 03/10/2025 Start: 03-10-2024 End: 03-10-2025 SENDOUT TEST MISCELLANEOUS [facility] SENDOUT TEST MISCELLANEOUS [facility] Lab Routine Encounter for supervision of normal first in first trimester Encounter for drug screening Expected: 03/10/2024 (Approximate), Expires: 03/10/2025 [facility] Comment on above: Expected: 03/10/2024 (Approximate), Expires: 03/10/2025 Start: 03-10-2024 End: 03-10-2025 Urinalysis complete panel - Urine Urinalysis with microscopic Lab Routine Encounter for supervision of normal first in first trimester Expected: 03/10/2024 (Approximate), Expires: 03/10/2025 [facility] Work Phone: Comment on above: Expected: 03/10/2024 (Approximate), Expires: 03/10/2025 Start: 01-05-2024 Covid-19 Vaccine ( season) Covid-19 Vaccine ( season) [facility] Start: 01-05-2024 Influenza vaccination Influenza Vacc ine (#1) [facility] Start: 10-25-2023 Bacteria identified in Blood by Culture [facility] Start: 10-25-2023 [facility] Start: 07-21-2023 Bacteria identified in Urine by Culture Urine Culture [facility] Start: 2022 Screening for malign ant neoplasm of cervix Cervical Cancer Screening [facility] Start: 2019 Anxiety Screening Anxiety Screening [facility] Start: 2019 Depression Screening Depression Scre ening [facility] Start: 2019 Hepatitis C screening Hepatitis C Sc reening [facility] Start: 2019 HIV screening HIV Screening [facility] Start: 2017 Meningococcal B Vacc ine: Consider Based On Risk (1 of 2 - Patient Seeks Protection) Meningococcal B Vaccine: Consider Based On Risk (1 of 2 - Patient Seeks Protection) [facility] Start: 2015 Peds To Adult Transi tion Annual Assessment Peds To Adult Transition Annual Assessment [facility] Start: 2013 Peds To Adult Transi tion Initial Discussion Peds To Adult Transition Initial Discussion [facility] Patient Education [facility] Work Phone: Patient referral [facility] Work Phone: Immunizations Immunization Date Immunization Notes Care Provider Fa yane 02-02-2014 influenza virus vacc ine, unspecified formulation Madhuri Soto MD, PhD Work Phone: [facility] Payers Date Payer Category Payer Medicaid [employer] [id number] 2023-Present [phone] [address] [place] [address] Medicaid [id number] 2023 Private Health Insurance [facility] MEDICA[facility] [id number] 2022 Medicaid [id number] 2022 Self-pay [id number] 2001 Unknown [id number] 1979 Unknown [id number] 1959 Unknown [id number] Unknown [id number] Unknown [id number] Unknown [id number] Unknown [id number] Social History Date Type Detail Facility Start: 03-30-2022 End: 12-12-2022 Tobacco smoking status NJIS Never smoked tobacco (finding) [facility] Start: 2000 Sex Assigned At Female F [facility] Start: 02-18-2024 [facility] Start: 07-21-2023 End: 03-10-2024 Tobacco smoking status NJIS Ex-smoker (finding) [facility] Start: 10-25-2023 Tobacco smoking status NHIS Smoker (finding) [facility] Tobacco smoking status [facility] Tobacco smoking consumption unknown [facility] Start: 10-28-2023 End: 03-10-2024 History of Social function [facility] Start: 10-28-2023 End: 03-10-2024 Area Deprivation Index [facility] National Score (1-100), lower number is lower risk 93 [facility] Start: 2001 Sex assigned at Not on file [facility] History of tobacco use Cigarette Smoker [facility] Start: 03-10-2024 Tobacco use and exposure Smokeless tobacco non-user [facility] Start: 03-10-2024 Alcoholic beverage intake Ex-drinker (finding) [facility] Start: 03-10-2024 Alcohol Comment Caffeine intak e: occassionally [facility] NEGATED: Highlighted row [facility] Clinical Notes 10-28-2023 to 03-10-2024 Desirae Guillory RN - 03/10/2024 1:00 PM ESTTelephone Encounter - Vera Mcgee, [facility] - 01/17/2024 1:51 PM EDTTelephone Encounter - Vera Mcgee, [facility] - 01/17/2024 1:51 PM EDT Note Date & Type Note Facility 03-10-2024 History of Presen t illness Narrative Name: Jessie Alva Date/Time of Service:03/10/2024 1:15 PM :2000 Age: 23 y.o. Chief Complaint Chief Complaint Patient presents with Initial Visit Jessie Alva is a 23 y.o. at 5w0d with a working estimated date of delivery of 11/10/2024, by Last Menstrual Period who presents for an initial visit. OB History Para Term AB Living 4 3 SAB IAB Ectopic Multiple Live Births 2 # Outcome Date GA Lbr Brandon/2nd Weight Sex Type Anes PTL Lv 4 Current 3 AB 2021 2 SAB 2020 1 SAB 2019 Past Medical / Surgical History Past Medical History: Diagnosis Date History of anemia Past Surgical History: Procedure Laterality Date DILATION AND CURETTAGE OF UTERUS Family History Family History Problem Relation Name Age of Onset Diabetes Mother Social History reports that she has quit smoking. Her smoking use included cigarettes. She has never used smokeless tobacco. She reports that she does not currently use alcohol. She reports that she does not use drugs. Social History Tobacco Use Smoking Status Former Types: Cigarettes Smokeless Tobacco Never MEDICATIONS: Current Outpatient Medications on File Prior to Visit Medication Sig Dispense Refill 27-1 MG tablet 1 (one) time each day at the same time No current facility-administered medications on file prior to visit. Allergies Allergies Allergen Reactions Penicillins Swelling Patient reports nausea and vomiting. Discussed smaller meals, bogdan products, OTC Vitamin B6 50mg BID and Unisom 25mg BID Patient reports taking daily vitamin. Genetic and Chromosomal testing discussed. Last PAP: Patient reports last year at [facility] ASS[facility] PLAN Labs Ordered. Patient handed printed copy of orders to take with her to [facility] to have drawn today. Appointments scheduled for OBUS 03/31 and with SUE 04/22. 03/10/2024 1:15 PM documented in this encounter [facility] 01-17-2024 Telephone encounter Note Called and LVM for pt regarding today's 1:40 pm appointment, Informed pt to please call [phone] to receive assistance with rescheduling if needed. DANAE Dey January 17, 2024 1:52 PM [facility] 01-17-2024 Miscellaneous Notes Called and LVM for pt regarding today's 1:40 pm appointment, Informed pt to please call [phone] to receive assistance with rescheduling if needed. DANAE Dey January 17, 2024 1:52 PM documented in this encounter [facility] 10-29-2023 Note HNO ID: [id number] Author: TERRY SCHUSTER LSW Service: Care Management Author Type: Sheltered Workshop Executive Director Type: Care Mgt Initial Assessment Filed: 10/29/2023 [...] Independent: Ambulation;Dress;Meals/Meal Prep;Going to the bathroom;Medication Management;Bathe/Shower [place] of Choice Explained: [place] of Choice Given: No Reason Not Given: [...] discharge, pt can utilize [employer] transportation [phone]. This patient has been screened for Care Management Transitional Planning Services. At this time, it does not appear this patient will require transition planning services. Should this change, and the patient require transition planning services during this admission, please contact Case Management. SIGNATURE: LARRY Larson PATIENT NAME: Jessie Alva DATE: October 29, 2023 TIME: 11:12 AM CONTACT #: [phone] [facility] 10-29-2023 Note HNO ID: [id number] Author: ADILIA MARLOW RPh Service: Pharmacy Author Type: Pharmacist Type: Plan of Care Filed: 10/29/2023 11:46 Note Text: PHARMACY MEDICATION REVIEW Patient Name: Jessie Alva : 2000 The following medications were updated within the [employer] medication list: Medications ADDED to [employer] medication list N/A Medications CHANGED on [employer] medication list N/A Medications REMOVED from [employer] medication list N/A Additional comments: Patient confirmed that she was not taking any medications prior to admissions and has no known drug allergies. The below information represents the best possible medication history: Yes Medication history completed by: [employer] Worker: Patsy Jackson Source of history: Patient: Reliability of source: Appears reliable, denies any medications prior to admission and [facility] records Medication nonadherence identified: No barriers noted Reconciliation completed: Yes Completed by: Adilia Marlow RPh All [employer] medications addressed by LIP. Patient was not taking any medications prior to admission. Patient interested in Bedside Delivery Services or using [facility] Pharmacy at discharge? No Preferred outpatient pharmacy: e- [id number] [place] [address] [address] [phone] Pharmacy Allergies: No Known Allergies None Patsy Jackson 10/29/2023 Medication history has been completed by a planning technician and reviewed by a pharmacist. Any additions/clarifications are in bold. Adilia Marlow, PharmD [phone] [facility] 10-29-2023 Note HNO ID: [id number] Author: WENDI GARCIA ? Service: Pharmacy Author Type: Director Drug Type: Plan of Care Filed: 10/29/2023 10:23 Note Text: Insurance investigation completed Patient has active prescription insurance: Yes - Patient's insurance is in-network with [facility] Insurance loaded into [place]: Yes Test claim was completed to verify insurance is active: Successful Any questions, please contact your medication fundraising coordinator. Pager #: [phone] [facility] 10-28-2023 Note HNO ID: [id number] Author: CHRIS AMARO APRN.CNP Service: General Internal Medicine Author Type: Nurse Practitioner Type: Progress Notes Filed: 10/28/2023 12:55 Note Text: DEPARTMENT OF HOSPITAL MEDICINE PROGRESS NOTE SERVICE DATE: 10/28/2023 SERVICE TIME: 12:37 PM Hospital Medicine/Primary Attending: Eliud Mcnulty MD Day/Night/Weekend Coverage: Days (including weekends) [phone]: Please page Chris Amaro APRN.CNP re: patient issues/concerns. Nights [phone]: For patients on G80/81 AND H80/81 page [phone], for all other patients page [phone]. Subjective INTERVAL HPI: Improving leukocytosis w/ IVF [...] and Airways Line Duration Peripheral 10/27/23 2217 [facility] Short Right Forearm 20 Gauge <1 [...] esr,lipase wnl CT head and CXR at [facility] unremarkable. CT abdomen pelv done here: also w/ no acute findings COVID/RSV/Flu -ve DDx: viral gastroenteritis, less likely bacterial as crp/procal/esr all wnl, gastritis, h. Pylori, EMRE vs. Other Plan: -stop abx as not indicated -continue IVF -PO as able, ADAT -send stool studies -monitor lytes and replace PRN -antiemetics / GI cocktails prn (more content not included)... [facility] Evaluation note No assessment inform ation available [facility] Work Phone: Evaluation note Diagnosis Encounter for supervision of normal first in first trimester Encounter for drug screening documented in this encounter [facility] Additional Instructions Push fluids Rest Follow with your primary care doctor call tomorrow for appointment Return here if any problems persist [facility] Work Phone: Hospital Discharge instructions Additional Instructions Use ibuprofen as needed for crampy abdominal pain.[facility] Work Phone: Hospital Discharge instructions Additional Instructions Ensure adequate hydration with water. Return with worsening symptoms or any other concerns. Follow-up with a primary care physician for which information was provided for you to do so.[facility] Work Phone: Hospital Discharge instructions Additional Instructions Follow-up with your primary care doctor Return to ED if develop worsening symptoms or [facility] Work Phone: Summary Purpose Family History No Family History Records FoundNo Family History Records FoundNo Family History Records FoundNo Family History Records Found Advance Directives No Advanced Directives Records Found Advance Directive Response Recorded Date/ Time Advance Directives No August 01 018 7:21pm Advance Directive Response Recorded Date/ Time Advance Directives No August 01 018 8:21pm Chief Complaint and Reason for Visit Chief Complaint abd pain Chief Complaint 5 wks IUP, bleeding/ cramping nausea, vomiting Chief Complaint poss miscarriage Chief Complaint headache Chief Complaint headache lethargic Additional Source Comments INFORMATION SOURCE (unrecogn ized section and content) DATE CREATED AUTHOR 12/27/2018 Hema schwartz DATE CREATED AUTHOR AUTHOR'S ORGANIZ ATION 10/30/2023 [facility] DATE CREATED AUTHOR AUTHOR'S ORGANIZ ATION 01/19/2024 [facility] DATE CREATED AUTHOR AUTHOR'S ORGANIZ ATION 03/12/2024 [facility] EPIC Care Teams (unrecognized sec tion and content) Team Status: Inactive Member Role Status [facility] Provider Active Venkat Velazquez APRN Emergency Provider Active Team Status: Active Member Role Status Dates [facility] Active Team Status: Inactive Member Role [facility] Active Angelica Licona DO Emergency Provider Active Team Status: Inactive Member Role Status Dates [facility] Provider Active Viktoriya Lawler APRN Emergency Provider Active Team Status: Inactive Member Role Status Dates [facility] Care Provider Active Start: July 21, 2023 End: July 21, 2023 Venkat Velazquez APRN Emergency Provider Active Start: July 21, 2023 End: July 21, 2023 Team Status: Active Member Role Status Dates Bianca Shrestha THERMOFORMING OPERATOR-C Primary Care Provider Active Team Status: Inactive Member Role Status Dates Ramiro Schaefer DO Emergency Provider Active St art: October 23, 2023 End: October 23, 2023 Bianca Shrestha THERMOFORMING OPERATOR-C Primary Care Provider Active Start: October 23, 2023 End: October 23, 2023 Team Status: Inactive Member Role Status Dates Bianca Shrestha THERMOFORMING OPERATOR-C Primary Care Provider Active Start: October 25, 2023 End: October 25, 2023 Abrahan Lew DO Emergency Provider Active Sta rt: October 25, 2023 End: October 25, 2023 It Support Manager Relationship Specialty Start Date End Date Bianca Shrestha CNP [address] [place] [address] PCP - General Internal Medicine 10/27/23 Goals [...] or prosecute any alcohol or drug abuse patient.[facility] Reason for Visit (unrecogniz ed section and content) Reason Comments Appointment Reason Comments Initial Visit FOR RECORDS PERTAINING TO PATIENTS WHO ARE [...] BE BASED ON THE PRIMARY CLINICAL RECORDS. [facility]. provides no warranty or guarantee of the accuracy or completeness of information in this document.
--- NOTE | 2024-03-23 17:59 | ED.ABDPAIN1 ---
HPI - Abdominal Pain General Chief Complaint: Abdominal Pain Stated Complaint: 7 WKS , CRAMPING/SPOTTING Time Seen by Provider: 03/23/24 17:42 Source: patient Mode of arrival: walk-in Limitations: no limitations History of Present Illness HPI narrative: 23-year-old female presents for left lower quadrant abdominal pain. She states she is about 6 weeks by dates. Developed some cramping a few days ago and then had some very light spotting today. She was told to come to the emergency department. No trauma fever or vomiting. She is now 4, para 0. Related Data Home Medications ?Medication ?Instructions ?Recorded ?Confirmed No Known Home Medications 10/17/22 10/25/23 Allergies Allergy/AdvReac Type Severity Reaction Status Date / Time Penicillins Allergy Intermediate Swelling Verified 03/23/24 17:45 of Lip/Tongue/Throat Review of Systems ROS Narrative A ten point review of systems is negative except as noted above. PFSH PFSH Social History Smoking status: Current every day smoker Little interest or pleasure in doing things: not at all Feeling down, depressed, or hopeless: not at all Exam Narrative Exam Narrative: Nurses note and vital signs reviewed and patient is not hypoxic. General: The patient appears well and in no apparent distress. Patient is resting comfortably on cart. Skin: Warm, dry, no pallor noted. There is no rash noted. Head: Normocephalic, atraumatic Eye: Normal conjunctiva, no drainage Ears, Nose, Mouth, and Throat: oral mucosa is moist. Nares patent. Cardiovascular: Regular Rate and Rhythm Respiratory: Patient is in no distress, no accessory muscle use, lungs are clear to auscultation, no wheezing, rales or rhonchi Back: non-tender GI: Tender in the left lower quadrant without mass. Tender to a lesser degree in the right lower quadrant as well. Musculoskeletal: The patient has no evidence of calf tenderness, no pitting edema, symmetrical pulses noted bilaterally Neurological: A&O, normal speech Psychiatric: Cooperative Constitutional Vital Signs, click to edit/add: Last Vital Signs Temp 98.8 F 03/23/24 17:40 Pulse 109 H 03/23/24 17:40 Resp 18 03/23/24 17:40 BP 135/91 03/23/24 17:40 Pulse Ox 100 03/23/24 17:40 O2 Del Method Room Air 03/23/24 17:40 Course Vital Signs Vital signs: Vital Signs Temperature 98.8 F 03/23/24 17:40 Pulse Rate 109 H 03/23/24 17:40 Respiratory Rate 18 03/23/24 17:40 Blood Pressure 135/91 03/23/24 17:40 Pulse Oximetry 100 03/23/24 17:40 Oxygen Delivery Method Room Air 03/23/24 17:40 Temperature 98.8 F 03/23/24 17:40 Pulse Rate 109 H 03/23/24 17:40 Respiratory Rate 18 03/23/24 17:40 Blood Pressure 135/91 03/23/24 17:40 Pulse Oximetry 100 03/23/24 17:40 Oxygen Delivery Method Room Air 03/23/24 17:40 MDM - Abdominal Pain MDM Narrative Medical decision making narrative: Ultrasound is ordered and is pending and the patient is signed out to Dr. Colón at change of shift. Differential Diagnosis Differential diagnosis: Likely other (Ectopic , miscarriage) Lab Data Attestation: I reviewed the patient's lab results. Labs: Lab Results 03/23/24 Range/Units 18:10 WBC 16.8 H (4.0-11.0) 10^3/uL RBC 4.12 L (4.20-5.40) 10^6/uL Hgb 13.1 (12.0-16.0) g/dL Hct 38.5 (36.0-48.0) % MCV 93.4 (81.0-99.0) fL MCH 31.8 (26.7-34.0) pg MCHC 34.0 (29.9-35.2) g/dL RDW 14.2 (11.0-15.0) % Plt Count 408 (150-450) 10^3/uL MPV 8.6 L (9.5-13.5) fL Seg Neuts % (Manual) 69.0 (43.0-75.0) Lymphocytes % (Manual) 24.0 (20.5-60.0) % Monocytes % (Manual) 5.0 (1.7-12.0) % Eosinophils % (Manual) 2.0 (0.9-7.0) % Basophils % (Manual) 0.0 L (0.2-2.0) % Neutrophils # (Manual) 11.59 H (1.4-6.5) 10^3/uL Lymphocytes # (Manual) 4.03 H (1.20-3.80) 10^3/uL Monocytes # (Manual) 0.84 H (0.30-0.80) 10^3/uL Eosinophils # (Manual) 0.33 (0.00-0.70) 10^3/uL Basophils # (Manual) 0.00 (0.00-0.10) 10^3/uL Sodium 138 (136-145) mmol/L Potassium 3.7 (3.5-5.1) mmol/L Chloride 105 (98-107) mmol/L Carbon Dioxide 26.0 (21.0-32.0) mmol/L Anion Gap 10.7 BUN 6.0 L (7.0-18.0) mg/dL Creatinine 0.66 (0.55-1.02) mg/dL Est GFR ( Amer) >60 (>=60 mL/min/1.73m^2) Est GFR (Non-Af Amer) >60 (>=60 mL/min/1.73m^2) BUN/Creatinine Ratio 9.1 Glucose 89 (74-106) mg/dL Calcium 9.2 (8.5-10.1) mg/dL HCG, Quant 98972 mIU/mL Blood Type A Negative Discharge Plan Discharge Chief Complaint: Abdominal Pain Clinical Impression: Vaginal bleeding in Patient Disposition: Still a Patient Prescriptions / Home Meds: No Action No Known Home Medications Print Language: French Referrals: SOCORRO SHRESTHA [Primary Care Provider] - 1 week
[2024-03-23 18:17] LABS: Hematocrit 38.5 % (36.0-48.0); Hemoglobin 13.1 g/dL (12.0-16.0); Mean Corpuscular Hemoglobin 31.8 pg (26.7-34.0); Mean Corpuscular Volume 93.4 fL (81.0-99.0); Mean Platelet Volume 8.6 fL (9.5-13.5); Platelet Count 408 10^3/uL (150-450); Red Blood Count 4.12 10^6/uL (4.20-5.40); Red Cell Distribution Width 14.2 % (11.0-15.0); White Blood Count 16.8 10^3/uL (4.0-11.0)
[2024-03-23 18:35] LABS: Eosinophils Absolute Manual 0.33 10^3/uL (0.00-0.70); Lymphocytes Absolute Manual 4.03 10^3/uL (1.20-3.80); Monocytes Absolute Manual 0.84 10^3/uL (0.30-0.80); Segmented Neut Absolute Manual 11.59 10^3/uL (1.4-6.5)
[2024-03-23 18:52] LABS: Anion Gap 10.7; BUN Creatinine Ratio 9.1; Calcium 9.2 mg/dL (8.5-10.1); Chloride 105 mmol/L (98-107); Estimated GFR (African America >60 (>=60 mL/min/1.73m^2); Estimated GFR (Non-African Ame >60 (>=60 mL/min/1.73m^2); Glucose 89 mg/dL (74-106); Potassium 3.7 mmol/L (3.5-5.1); Sodium 138 mmol/L (136-145)
[2024-03-23 18:56] LABS: HCG Quantitative 53157 mIU/mL
--- NOTE | 2024-03-23 18:58 | US_ITS ---
The [address] [address] Patient Name: JESSIE GONG MRN: [id number] date: 2000 Sex: F Assigned Patient Location: ER Current Patient Location: ED.MAIN Accession/Order Number: [id number] Exam Date: 03/23/2024 20:15 Report Date: 03/23/2024 23:26 At the request of: CARLY THRASHER Procedure: US OB transvaginal TRANSVAGINAL FIRST TRIMESTER OB ULTRASOUND HISTORY: ; size and dates. COMPARISON: None. FINDINGS: There is a single intrauterine with a fetus and yolk sac visualized. The crown-rump length measures 0.95 cm. There are heart tones of 138 bpm. The ovaries were not visualized. US/US OB transvaginal IMPRESSION: Single viable intrauterine with an estimated sonographic age 7 weeks 0 days. Electronically authenticated by: GERMAN ACOSTA Date: 03/23/2024 23:26
[2024-03-23] MEDS: RHO(D) IMMUNE GLOBULIN 1,500 UNIT SYRINGE 1500 UNIT IM (19:40)
[2024-03-23 23:47] VITALS: BP 132/65; PULSE 78; O2SAT 100
== END 2024-03-23 23:47 | disposition home or self-care (01) ==
PROVIDERS: Emergency Provider Emergency Medicine; PCP Nurse Practitioner Family
DX: O20.9 Hemorrhage in early pregnancy, unspecified (principal); O99.331 Smoking (tobacco) complicating pregnancy, first trimester; F17.200 Nicotine dependence, unspecified, uncomplicated; Z3A.01 Less than 8 weeks gestation of pregnancy
CPT/HCPCS: 36415; 76817; 80048; 84702; 85007; 85027; 86900; 86901; 96372; 99284; J2791